=== PATIENT | male | born 1985 | race Caucasian/White ===

== ENCOUNTER → 2022-08-15 14:40 | Outpatient (BNVA) | payer MEDICAID, SELFPAY | PROVIDERS: PCP Registered Nurse; Visit Provider Nurse Practitioner Family | DX: N52.9 Male erectile dysfunction, unspecified (principal) | CPT/HCPCS: 99202 ==

== ENCOUNTER 2023-02-26 08:43 | Outpatient (REF) | payer MEDICAID, SELFPAY ==
[2023-02-26 12:39] LABS: HBS Num1 27.59 mIU/mL (0-7.99); HBc Num1 0.13 S/CO (0.00-0.79); HBsAGNum1 0.34 S/CO (0.00-0.99); HIV AB/AG Nonreactive (Nonreactive); HIV Num 1 0.05 S/CO (0.00-0.99); Hepatitis A Antibody IgM 0.15 Index (0-0.79); Hepatitis B Core Antibody Nonreactive (Nonreactive); Hepatitis B Surface Antigen Negative (Negative); ~HepC Num1 0.09 S/CO (0.00-0.79); ~Hepatitis A Antibody IgM Nonreactive (Nonreactive); ~Hepatitis B Surface Antibody REACTIVE (Nonreactive); ~Hepatitis C Antibody Nonreactive (Nonreactive)
[2023-02-26 13:58] LABS: CT PCR NOT DETECTED (Not Detect.); NG PCR NOT DETECTED (Not Detect.)
[2023-02-27 17:04] LABS: RPR Rapid Plasma Reagin NON-REACTIVE (NON-REACTIVE)
== END 2023-02-26 08:44 | disposition home or self-care (01) ==
LOC: HO.HHCL 08:43
PROVIDERS: Visit Provider Emergency Medicine
DX: N48.9 Disorder of penis, unspecified (principal); Z72.51 High risk heterosexual behavior
CPT/HCPCS: 0353U; 36415; 86592; 86695; 86696; 86704; 86706; 86709; 86803; 87070; 87205; 87255; 87340; 87389

== ENCOUNTER 2023-04-09 09:48 | Outpatient (REF) | payer MEDICAID, SELFPAY ==
[2023-04-09 11:25] LABS: Basophils Percent Auto 0.5 % (0-2); Eosinophils Percent Auto 0.5 % (0-4); Hemoglobin 15.4 g/dl (14.0-18.0); Imm Gran Abs Auto 0.02 X10*3/uL (0.00-0.03); Imm Gran Pct Auto 0.5 % (0.0-0.4); MANUAL DIFF FLAG SCAN; Mean Corpuscular HGB Conc 34.2 g/dl (31.0-36.0); Mean Corpuscular Hemoglobin 29.2 pg (27.0-33.0); Mean Corpuscular Volume 85.2 fL (80.0-98.0); Mean Platelet Volume 10.7 fL (9.4-12.4); Monocytes Absolute Auto 0.9 X10*3/uL (0.1-1.2); Monocytes Percent Auto 21.5 % (2-11); Platelet Count 181 X10*3/uL (160-400); Red Blood Count 5.28 X10*6/uL (4.60-5.80); Red Cell Distribution Width 12.5 % (11.0-16.0); SCAN SMEAR FLAG 1
[2023-04-09 11:53] LABS: SLIDE REVIEW VERIFIED
[2023-04-09 11:54] LABS: HIV AB/AG Nonreactive (Nonreactive); HIV Num 1 0.05 S/CO (0.00-0.99)
[2023-04-10 17:54] LABS: Herpes Simplex Type 1 IgG <0.90 index; Herpes Simplex Type 2 IgG <0.90 index
[2023-04-13 16:00] LABS: RPR Rapid Plasma Reagin NON-REACTIVE (NON-REACTIVE)
== END 2023-04-09 09:49 | disposition home or self-care (01) ==
LOC: HO.HHCL 09:48
PROVIDERS: Visit Provider Registered Nurse
DX: N48.9 Disorder of penis, unspecified (principal)
CPT/HCPCS: 36415; 85025; 86592; 86695; 86696; 87389

== ENCOUNTER 2023-04-23 15:26 | Outpatient (REF) | payer MEDICAID, SELFPAY ==
--- NOTE | ~2023-04-23 | XR_ITS ---
EXAMINATION: XR ELBOW, RIGHT CLINICAL INFORMATION: Pain. COMPARISON: None available. TECHNIQUE: AP, lateral, and oblique views of the right elbow. FINDINGS: Displaced avulsion fracture in the lateral epicondyle. No significant soft tissue abnormality. No joint effusion. XR/XR elbow RT min 3V IMPRESSION: Displaced avulsion fracture in the lateral epicondyle suspicious for lateral collateral ligament complex injury, consider further characterization with an MRI of the right elbow.
== END 2023-04-23 15:27 | disposition home or self-care (01) ==
LOC: HO.HHCX 15:26
PROVIDERS: Visit Provider Internal Medicine
DX: M25.521 Pain in right elbow (principal)
CPT/HCPCS: 73080

== ENCOUNTER 2023-05-05 19:23 | Outpatient (REF) | payer MEDICAID, SELFPAY ==
--- NOTE | ~2023-05-05 | MR_ITS ---
EXAMINATION: MR ELBOW WITHOUT CONTRAST, RIGHT CLINICAL INFORMATION: Right elbow pain. Fracture. Delayed healing. Tendinitis. COMPARISON: Right elbow radiographs dated 04/23/2023. TECHNIQUE: MRI of the elbow was performed using routine sequences on a high-field scanner. FINDINGS: Ulnar Collateral Ligament: Intact. Common Flexor Tendon: Minimally increased T2 signal along the anterior aspect of the common flexor tendon, consistent with minimal tendinosis. No measurable tear. Radial Collateral Ligament: Intact. Common Extensor Tendon: There is diffuse heterogeneity and thickening of the common extensor tendon with increased T2 signal, consistent with moderate tendinosis. There are areas of linear fluid signal posteriorly, which could represent longitudinal partial tearing. There is a corticated ossification as seen on the prior radiographs which appears to measure up to 1.1 cm in craniocaudal dimension with mild associated marrow edema. Findings likely represent a subacute/chronic avulsion injury. Edema extends distally along the myotendinous junction. Biceps/Triceps Tendon: Intact. Articular Cartilage/Bone: No additional fracture or dislocation. Intact articular cartilage. No osteochondral lesion. Ulnar Nerve: Intact. Joint Fluid/Soft Tissues: Small elbow joint effusion. MR/MR elbow RT wo con IMPRESSION: 1. Moderate common extensor tendinosis with probable longitudinal partial tearing. Sclerotic ossification as seen on the prior radiographs with mild associated marrow edema, likely representing a subacute/chronic avulsion injury. Edema extends distally along the myotendinous junction. 2. Minimal common flexor tendinosis without a measurable tendon tear. 3. Small elbow joint effusion.
== END 2023-05-05 19:24 | disposition home or self-care (01) ==
LOC: HO.MRI 19:23
PROVIDERS: PCP Registered Nurse; Visit Provider Internal Medicine
DX: S42.401A Unspecified fracture of lower end of right humerus, initial encounter for closed fracture (principal)
CPT/HCPCS: 73221

== ENCOUNTER 2023-06-03 09:12 | Outpatient (REF) | payer MEDICAID, SELFPAY ==
[2023-06-04 11:43] LABS: RPR Rapid Plasma Reagin NON-REACTIVE (NON-REACTIVE)
== END 2023-06-03 09:13 | disposition home or self-care (01) ==
LOC: HO.HHCL 09:12
PROVIDERS: Visit Provider Registered Nurse
DX: Z11.3 Encounter for screening for infections with a predominantly sexual mode of transmission (principal)
CPT/HCPCS: 36415; 86592

== ENCOUNTER 2023-06-12 14:49 | Outpatient (REF) | payer MEDICAID, SELFPAY ==
[2023-06-12 17:49] LABS: CT PCR NOT DETECTED (Not Detect.); NG PCR NOT DETECTED (Not Detect.)
== END 2023-06-12 14:50 | disposition home or self-care (01) ==
LOC: HO.HHCL 14:49
PROVIDERS: Visit Provider Registered Nurse
DX: Z11.3 Encounter for screening for infections with a predominantly sexual mode of transmission (principal)
CPT/HCPCS: 0353U

== ENCOUNTER 2023-08-24 08:00 | Outpatient (RCR) | payer MEDICAID, SELFPAY ==
--- NOTE | 2023-06-12 09:35 | MHC.OT.EP ---
[address] [phone] Occupational Therapy Plan of Care Patient Name: Jerry Stuart Date of Evaluation: 06/12/23 Diagnosis: Right Elbow Pain Pain Location: 2/10 Resting pain Right lateral epicondyle radiating down to the forearm, occasionally on right medial epicondyle Left general elbow ache Pain Score: 5 Pain Scale Used: Numeric (0 - 10) Aggravating Factors: Lifting, gripping, opening and carrying objects Alleviating Factors: Cortisone injection, rest, stretches Avoiding icing due to pain Assessment: 37 yo male presents w/ persistent pain in right lateral elbow, also developed pain in left medial elbow during that time 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 He reports significant improvement in pain since Cortisone injection, but still has low resting pain and occasional sharp pain w/ heavier use or gripping. On assessment, he continues to have tenderness over right lateral elbow, some in median elbow and volar forearm moreso than dorsal forearm, no nerve irritation noted. He has good strength, but weakens w/ extended gripping, consistent w/ tendinopathy. He will benefit from course of occupational therapy to address pain while focusing on activity modification, joint protection and progression of strengthening, I anticipate he will do well w/ conservative treatment. 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 Thank you once again for your referral.
--- NOTE | 2023-08-24 09:45 | MHC.OT.DC ---
[address] [phone] F: [phone] Occupational Therapy Discharge Note Patient Name: Jerry Stuart Provider: Dr Dick Piedra Diagnosis: Right Elbow Pain Left Elbow Pain Date of Evaluation: 06/12/23 Date of Discharge: 08/24/23 Treatments to Date: 15 Discharge Status: Achieved Goals Improved Function Independent with HEP Discharge Summary: Jerry was referred to OT initially w/ right lateral elbow pain, consistent w/ lateral epicondylitis, then developing discomfort in left elbow, likely early bursitis. He has progressed well w/ good follow through w/ counter force brace wear and activity modification. He is currently pain free in left elbow, mostly pain free in right expect dull ache at times w/ increased forceful use. No further outpatient OT services needed at this time, I anticipate he will continue to do well w/ self management techniques. Electronically Signed By: Ana Cristina Higgins, OTR/L CHT Please Sign and return to therapist, thank you for your referral.
== END 2023-08-24 09:57 | disposition home or self-care (01) ==
LOC: HO.OT 08:00
PROVIDERS: PCP Registered Nurse; Visit Provider Internal Medicine
DX: M77.11 Lateral epicondylitis, right elbow (principal)
CPT/HCPCS: 87086; 97033; 97110; 97140; 97165

== ENCOUNTER 2024-02-26 11:28 | Emergency (ER) | payer MEDICAID, SELFPAY ==
[2024-02-26] VITALS (7 sets, daily range): BP systolic 117–142; BP diastolic 64–79; PULSE 62–75; RESP 15–18; TEMP 36.8–37.1; O2SAT 96; BMI 32.4
--- NOTE | ~2024-02-26 | CT_ITS ---
EXAMINATION: CT ANGIOGRAM ABDOMEN AND PELVIS CLINICAL INFORMATION: Chest pain. Abdominal pain. Syncope. Chest discomfort. COMPARISON: None available. TECHNIQUE: Multiple axial images were obtained through the chest abdomen and pelvis following the administration of 85 mL of Omnipaque 350 intravenous contrast during the arterial phase. Images were reviewed on a dedicated 3-D workstation. No reported immediate complications This CT examination was performed using dose optimization techniques as appropriate, variously including the following: *Automated exposure control *Adjustment of mA and/or kV according to patient size (this includes techniques or standardized protocols for targeted exams where dose is matched to indication/reason for exam; i.e. extremities or head) *Use of iterative reconstruction technique DLP: 816 mGy-cm there. FINDINGS: CHEST: The thoracic aorta demonstrates patency with normal caliber and enhancement pattern without intimal flap or IV contrast extravasation. ABDOMEN AND PELVIS: The abdominal aorta demonstrates normal caliber and enhancement pattern without intimal flap or IV contrast extravasation. The mesenteric arteries, main renal arteries and iliac arteries demonstrate normal patency and enhancement pattern without vascular irregularity. Calcified plaques in the distal abdominal aorta wall and common iliac arteries. Ancillary findings: CHEST: No acute airspace disease. Secretions layering within the trachea. Atelectasis lung bases. No gross pulmonary nodules. No lymphadenopathy, mediastinum or perihilar. No pericardial effusion. No hemothorax. No hemopericardium. No axillary lymphadenopathy. The thyroid gland is not enlarged. There is no dominant nodules. Multilevel spondylosis without acute fracture or listhesis in the axial skeleton. No lytic or blastic lesions. Abdomen and pelvis: No hemoperitoneum. No ascites. No pneumoperitoneum. No intestinal obstruction pattern. Appendix is normal. No hydronephrosis in either kidney. No peripancreatic fluid collections. Liver measures 20 cm. Spleen measures 12 cm. Nonspecific prominent lymph nodes in the mesentery. Small tiny fat-containing umbilical hernia. Bladder is fluid-filled. No nodular lesions in the adrenal glands. Castellvi type III sacralization. No acute fracture or listhesis. Mild multilevel spondylosis. CT/CT angio abdomen pelvis IMPRESSION: No aneurysm or dissection, aorta. Concerning aspiration/deep penetration. No acute airspace disease. Fleischner guidelines were followed. Electronically signed by: Kyrie Caputo MD 02/26/2024 12:48 PM [facility] [place]
--- NOTE | ~2024-02-26 | CT_ITS ---
EXAMINATION: CT HEAD WITHOUT CONTRAST CLINICAL INFORMATION: syncope and seziue COMPARISON: None available. TECHNIQUE: Contiguous axial imaging was performed from the skull base to vertex without intravenous administration of contrast. This CT examination was performed using dose optimization techniques as appropriate, variously including the following: *Automated exposure control *Adjustment of mA and/or kV according to patient size (this includes techniques or standardized protocols for targeted exams where dose is matched to indication/reason for exam; i.e. extremities or head) *Use of iterative reconstruction technique DLP: 736 mGy-cm FINDINGS: Bony calvarium is intact. Skull base is intact. No acute intracranial hemorrhage, mass effect, midline shift, hydrocephalus or herniation. Grade 1 matter differentiation is normal. Posterior cranial fossa contents demonstrated no acute intracranial hemorrhage or mass effect. No air-fluid levels in the included paranasal sinuses. For pneumatization right frontal sinus. Small retention cysts versus polyp in the anterior right sphenoid sinus. Tympanic cavities and mastoid cells are aerated. Questionable high riding right internal jugular bulb. CT/CT head/brain wo IV con IMPRESSION: No acute fracture, bony calvarium. No acute intracranial hemorrhage. Electronically signed by: Kyrie Caputo MD 02/26/2024 12:39 PM [facility] [place]
--- NOTE | ~2024-02-26 | CT_ITS ---
EXAMINATION: CT ANGIOGRAM ABDOMEN AND PELVIS CLINICAL INFORMATION: Chest pain. Abdominal pain. Syncope. Chest discomfort. COMPARISON: None available. TECHNIQUE: Multiple axial images were obtained through the chest abdomen and pelvis following the administration of 85 mL of Omnipaque 350 intravenous contrast during the arterial phase. Images were reviewed on a dedicated 3-D workstation. No reported immediate complications This CT examination was performed using dose optimization techniques as appropriate, variously including the following: *Automated exposure control *Adjustment of mA and/or kV according to patient size (this includes techniques or standardized protocols for targeted exams where dose is matched to indication/reason for exam; i.e. extremities or head) *Use of iterative reconstruction technique DLP: 816 mGy-cm there. FINDINGS: CHEST: The thoracic aorta demonstrates patency with normal caliber and enhancement pattern without intimal flap or IV contrast extravasation. ABDOMEN AND PELVIS: The abdominal aorta demonstrates normal caliber and enhancement pattern without intimal flap or IV contrast extravasation. The mesenteric arteries, main renal arteries and iliac arteries demonstrate normal patency and enhancement pattern without vascular irregularity. Calcified plaques in the distal abdominal aorta wall and common iliac arteries. Ancillary findings: CHEST: No acute airspace disease. Secretions layering within the trachea. Atelectasis lung bases. No gross pulmonary nodules. No lymphadenopathy, mediastinum or perihilar. No pericardial effusion. No hemothorax. No hemopericardium. No axillary lymphadenopathy. The thyroid gland is not enlarged. There is no dominant nodules. Multilevel spondylosis without acute fracture or listhesis in the axial skeleton. No lytic or blastic lesions. Abdomen and pelvis: No hemoperitoneum. No ascites. No pneumoperitoneum. No intestinal obstruction pattern. Appendix is normal. No hydronephrosis in either kidney. No peripancreatic fluid collections. Liver measures 20 cm. Spleen measures 12 cm. Nonspecific prominent lymph nodes in the mesentery. Small tiny fat-containing umbilical hernia. Bladder is fluid-filled. No nodular lesions in the adrenal glands. Castellvi type III sacralization. No acute fracture or listhesis. Mild multilevel spondylosis. CT/CT angio chest aorta IMPRESSION: No aneurysm or dissection, aorta. Concerning aspiration/deep penetration. No acute airspace disease. Fleischner guidelines were followed. Electronically signed by: Kyrie Caputo MD 02/26/2024 12:48 PM [facility]
--- NOTE | 2024-02-26 11:41 | ED_ITS ---
HPI - General Adult General Chief complaint: Syncope Stated complaint: SYNCOPE PER EMS Time Seen by Provider: 02/26/24 11:35 Source: patient and EMS Mode of arrival: EMS Limitations: no limitations History of Present Illness ED Provider: JAYCOB Bajwa HPI narrative: 38-year-old male past medical history significant for erectile dysfunction on Cialis presenting to the emergency department for evaluation of syncope, seizure and abdominal discomfort. Patient reports he was in his primary care provider's office where he was following up for umbilical abdominal pain, he reports it started 2 days ago after lifting a heavy dog. He reports he went to stand up just did not feel right, had a syncopal episode which was witnessed by staff he was lowered to the ground. This was followed by a tonic-clonic seizure that lasted around a minute. He has no history of this in the past. Patient has no recollection of these episodes. He is not on blood thinners. No recent falls or trauma. At this time just reporting umbilical pain worse with palpation and better at rest. Denies chest pain, shortness breath, nausea, vomiting, headache, vision changes, dizziness, weakness, fevers, chills, recent illness. NIH stroke scale 0 on arrival Related Data Previous Rx's ?Medication ?Instructions ?Recorded tadalafil 5 mg tablet 5 mg PO DAILY 90 days #90 tabs 08/15/22 tadalafil 20 mg tablet (Cialis) 20 mg PO DAILY PRN sexual activity 11/06/22 90 days #20 tabs Allergies Allergy/AdvReac Type Severity Reaction Status Date / Time No Known Allergies Allergy Verified 02/26/24 11:56 Review of Systems 2 Review of Systems: Yes all other systems are reviewed and are negative [facility] Past Medical History Attestation statement: The following information was validated with the patient. Source: old records reviewed and nursing notes reviewed Medical History Patient denies significant medical history Erectile dysfunction Anxiety Depression Social History Social History Smoked in Last 30 Days: No Use of substances other than those prescribed or required for medical reasons: Yes Substance Use Type: Marijuana Substance Use Frequency: Daily Advance Directives: No Advance Directives Information Provided: Yes Physical Exam ED Vital Signs: Vital Signs - 24 hr 02/26/24 11:53 02/26/24 12:12 02/26/24 14:18 Temperature 98.3 F 98.4 F Pulse Rate 62 72 Respiratory Rate 18 18 Blood Pressure 130/64 117/65 Pulse Oximetry 96 96 96 Oxygen Delivery Method Room Air Room Air Room Air 02/26/24 15:43 02/26/24 15:43 Temperature Pulse Rate 65 Respiratory Rate 18 17 Blood Pressure 142/73 H Pulse Oximetry 96 Oxygen Delivery Method Room Air BMI result Body Mass Index 32.4 vss Appearance: Alert.? Oriented X3.? No acute distress.? Head: Normocephalic, atraumatic, no step-offs or deformities Eyes: Pupils equal, round and reactive to light.? Neck: Normal inspection.? Neck supple.? CVS: Normal heart rate and rhythm.? Pulses normal.? Respiratory: No respiratory distress.? Breath sounds normal.? Abdomen: Soft and + mild tenderness w/ palpation of umbilicus .? Skin: Skin warm and dry.? Normal skin color.? Normal skin turgor.? Extremities: No lower extremity edema.? No calf ttp. 5/5 strength to bilateral upper and lower extremities Back: No midline tenderness, no C-spine tenderness, full range of motion, no CVA tenderness bilaterally Neuro: Oriented X 3.? No motor deficit.? No sensory deficit. CN 2-12 intact Course Reevaluation(s) Reevaluation #1: CBC unremarkable. Chemistry no acute findings eating intervention. Normal lactic acid and CPK low suspicion for acute seizure. Troponin negative x2, EKG nonischemic. Patient's UA without infection. INR and PT normal. Toxicology positive for marijuana. Ethanol negative. CT angio abdomen and pelvis with no aneurysm or dissection of the aorta concerning aspiration/G penetration unclear what this means will call Radiology to clarify. No acute airspace disease. Patient's CT head and brain no acute fracture, no intracranial hemorrhage. Will reach out to radiology for clarification. Patient is still in pain morphine ordered. Sign out to Ty Mustafa PA-C Time: 16:06 Medications Administered Discontinued Medications Generic Name Dose Route Start Last Admin Trade Name Freq PRN Reason Stop Dose Admin Iohexol 85 ml 02/26/24 12:11 02/26/24 12:11 Iohexol 350 Mg/Ml 100 Ml Infus..Btl IV 02/26/24 12:12 85 ml ONCE ONE Administration Ketorolac Tromethamine 15 mg 02/26/24 14:07 02/26/24 14:18 Ketorolac Tromethamine 15 Mg/Ml Vial IVPUSH 02/26/24 14:08 15 mg ONCE ONE Administration Morphine Sulfate 4 mg 02/26/24 15:33 02/26/24 15:43 Morphine Sulfate 4 Mg/Ml Cartridge IVPUSH 02/26/24 15:34 4 mg ONCE ONE Administration Protocol Medical Decision Making Medical Decision Making [facility] Narrative: 1142 38-year-old male presenting status post syncope and seizure at primary care provider's office. No history of either 1 of these. Now feeling fine. He is reporting mild umbilical discomfort ongoing for the past few days. Physical exam mild discomfort with palpation overlying the umbilicus, no evident abnormalities or hernias noted. Regular rate and rhythm. Lungs clear, abdomen soft, normoactive bowel sounds. Neurological assessment nonfocal. No auscultated murmurs or bruits. History and physical exam concerning for possible small umbilical hernia. Syncope PCP's office may have been a vasovagal syncope. Unlikely acute abdomen, umbilical hernia strangulation, dissection, aneurysm, intracranial hemorrhage or stroke. Unlikely alcohol withdrawal seizure. Possible new onset epilepsy although less likely. It could have just been myoclonic jerking after syncope. Will rule out metabolic derangements. Plan labs, imaging, urine, CONNELL Differential Diagnosis Differential Diagnoses: The differential diagnosis associated with the presentation includes (History and physical exam concerning for possible small umbilical hernia. Syncope PCP's office may have been a vasovagal syncope. Unlikely acute abdomen, umbilical hernia strangulation, dissection, aneurysm, intracranial hemorrhage or stroke. Unlikely alcohol withdrawal seizure. Possible new ons) Admission/Observation Consideration of admission/observation: Escalation of care including admission/observation considered Consult Healthcare Provider Management of the patient was discussed with: [employer] (Dr. Diaz PCP - expect ) Spoke to patient's primary care provider who states patient has stood up, had a syncopal episode, moments after reports headache, had a seizure. Patient does not have history of either 1 of these. Patient is on Cialis last took it 3 days ago. No other significant past medical history. Nothing like this has ever happened before was sent in by ambulance. Lab Data [facility] Lab Attestation statement: I reviewed the patient's lab results. 02/26/24 12:39 12/20/24 12:39 Labs: Lab Results 02/26/24 02/26/24 02/26/24 Range/Units 12:38 12:39 12:47 WBC 10.8 (4.8-10.8) X10*3/uL RBC 5.05 (4.60-5.80) X10*6/uL Hgb 15.2 (14.0-18.0) g/dl Hct 43.6 (42.0-52.0) % MCV 86.3 (80.0-98.0) fL MCH 30.1 (27.0-33.0) pg MCHC 34.9 (31.0-36.0) g/dl RDW 12.3 (11.0-16.0) % Plt Count 225 (160-400) X10*3/uL MPV 9.9 (9.4-12.4) fL Immature Gran % (Auto) 0.3 (0.0-0.4) % Neut % (Auto) 83.2 H (45-73) % Lymph % (Auto) 9.7 L (20-40) % [place] % (Auto) 6.0 (2-11) % Eos % (Auto) 0.6 (0-4) % Baso % (Auto) 0.2 (0-2) % Lymph # (Auto) 1.1 L (1.2-4.9) X10*3/uL [place] # (Auto) 0.7 (0.1-1.2) X10*3/uL Eos # (Auto) 0.1 (0.0-0.4) X10*3/uL Baso # (Auto) 0.0 (0.0-0.2) X10*3/uL Abs Immat Gran (auto) 0.03 (0.00-0.03) X10*3/uL Absolute Neuts (auto) 9.0 H (2.0-8.3) x10*3/uL Absolute Nucleated RBC 0.000 (0.0-0.012) X10*3/uL Nucleated RBC % (auto) 0.0 (0.0-0.2) /100WBC PT 11.4 (10.9-12.4) SEC INR 1.0 (0.9-1.1) Sodium 139 (135-145) mmol/L Potassium 4.1 (3.3-5.1) mmol/L Chloride 105 (96-108) mmol/L Carbon Dioxide 28 (22-29) mmol/L Anion Gap 10 L (12-20) BUN 9 (9-16) mg/dL Creatinine 1.07 (0.5-1.4) mg/dL Estim Creat Clear Calc 125.8 Estimated GFR > 60 Random Glucose 102 (60-115) mg/dL Lactic Acid 0.8 (0.5-2.0) mmol/L Calcium 8.9 (8.4-10.2) mg/dL Magnesium 2.0 (1.6-2.6) mg/dL Total Bilirubin 0.9 (0.0-1.0) mg/dL AST 18 (5-37) U/L ALT 14 (0-40) U/L Alkaline Phosphatase 41 (39-117) U/L Total Creatine Kinase 95 (38-174) U/L Troponin I High Sens < 2.7 (<3.5-35.0) ng/L Total Protein 6.7 (6.5-8.0) g/dL Albumin 4.4 (3.5-5.0) g/dL Lipase 27 (8-78) U/L Urine Color Yellow Urine Appearance Cloudy Urine pH 8.0 (5.0-9.0) Ur Specific [place] >= 1.030 H (1.005-1.025) Urine Protein Negative (Neg-Trace) mg/dL Urine Glucose (UA) Negative (Negative) mg/dL Urine Ketones Negative (Negative) mg/dL Urine Blood Negative (Negative) Urine Nitrite Negative (Negative) Ur Leukocyte Esterase Negative (Negative) Urine Opiates Screen Not Detected (Not Detect) Ur Buprenorphine Scrn Not Detected (Not Detect) ng/mL Ur Oxycodone Screen Not Detected (Not Detect) ng/mL Urine Methadone Screen Not Detected (Not Detect) ng/mL Urine Fentanyl Screen Not Detected (Not Detect) Ur Barbiturates Screen Not Detected (Not Detect) Ur Phencyclidine Scrn Not Detected (Not Detect) Ur Amphetamines Screen Not Detected (Not Detect) U Benzodiazepines Scrn Not Detected (Not Detect) Urine Cocaine Screen Not Detected (Not Detect) U Marijuana (THC) Screen POSITIVE H (Not Detect) Ethyl Alcohol < 10 mg/dL 02/26/24 Range/Units 14:24 WBC (4.8-10.8) X10*3/uL RBC (4.60-5.80) X10*6/uL Hgb (14.0-18.0) g/dl Hct (42.0-52.0) % MCV (80.0-98.0) fL MCH (27.0-33.0) pg MCHC (31.0-36.0) g/dl RDW (11.0-16.0) % Plt Count (160-400) X10*3/uL MPV (9.4-12.4) fL Immature Gran % (Auto) (0.0-0.4) % Neut % (Auto) (45-73) % Lymph % (Auto) (20-40) % [place] % (Auto) (2-11) % Eos % (Auto) (0-4) % Baso % (Auto) (0-2) % Lymph # (Auto) (1.2-4.9) X10*3/uL [place] # (Auto) (0.1-1.2) X10*3/uL Eos # (Auto) (0.0-0.4) X10*3/uL Baso # (Auto) (0.0-0.2) X10*3/uL Abs Immat Gran (auto) (0.00-0.03) X10*3/uL Absolute Neuts (auto) (2.0-8.3) x10*3/uL Absolute Nucleated RBC (0.0-0.012) X10*3/uL Nucleated RBC % (auto) (0.0-0.2) /100WBC PT (10.9-12.4) SEC INR (0.9-1.1) Sodium (135-145) mmol/L Potassium (3.3-5.1) mmol/L Chloride (96-108) mmol/L Carbon Dioxide (22-29) mmol/L Anion Gap (12-20) BUN (9-16) mg/dL Creatinine (0.5-1.4) mg/dL Estim Creat Clear Calc Estimated GFR Random Glucose (60-115) mg/dL Lactic Acid (0.5-2.0) mmol/L Calcium (8.4-10.2) mg/dL Magnesium (1.6-2.6) mg/dL Total Bilirubin (0.0-1.0) mg/dL AST (5-37) U/L ALT (0-40) U/L Alkaline Phosphatase (39-117) U/L Total Creatine Kinase (38-174) U/L Troponin I High Sens < 2.7 (<3.5-35.0) ng/L Total Protein (6.5-8.0) g/dL Albumin (3.5-5.0) g/dL Lipase (8-78) U/L Urine Color Urine Appearance Urine pH (5.0-9.0) Ur Specific [place] (1.005-1.025) Urine Protein (Neg-Trace) mg/dL Urine Glucose (UA) (Negative) mg/dL Urine Ketones (Negative) mg/dL Urine Blood (Negative) Urine Nitrite (Negative) Ur Leukocyte Esterase (Negative) Urine Opiates Screen (Not Detect) Ur Buprenorphine Scrn (Not Detect) ng/mL Ur Oxycodone Screen (Not Detect) ng/mL Urine Methadone Screen (Not Detect) ng/mL Urine Fentanyl Screen (Not Detect) Ur Barbiturates Screen (Not Detect) Ur Phencyclidine Scrn (Not Detect) Ur Amphetamines Screen (Not Detect) U Benzodiazepines Scrn (Not Detect) Urine Cocaine Screen (Not Detect) U Marijuana (THC) Screen (Not Detect) Ethyl Alcohol mg/dL Independent Interpretation I performed an independent interpretation of an: EKG Radiology Impression Discussion of test interpretation with radiology: I have reviewed the radiologist's reading. Independent Historian Clinical information obtained from an independent historian. History obtained from or confirmed by: EMS and Other (PCP ) External Record Review External record reviewed: Outpatient record Chronic Conditions Patient?s care impacted by: Other (ED) Critical Care Time Critical Care Time Critical Care Time: Yes Total Critical Care Time: 35 Attestation: I attest to this time spent taking care of the patient, obtaining history, physical, reviewing labs, imaging, treatment of patients condition +/- specialist/hospitalist consult Discharge Plan Discharge Clinical Impression: Syncope, Abdominal pain Patient Disposition: Still a Patient Prescriptions: No Action tadalafil [Cialis] 20 mg tablet 20 mg PO DAILY PRN (Reason: sexual activity) 90 Days Qty: 20 0RF Rx Instructions: administer approximately 30min before sexual activity; do not use more than 1 dose per 24hrs tadalafil 5 mg tablet 5 mg PO DAILY 90 Days Qty: 90 3RF Print Language: Algerian
--- NOTE | 2024-02-26 11:45 | ECG_ITS ---
Test Reason : SYNCOPE Blood Pressure : / mmHG Vent. Rate : 064 BPM Atrial Rate : 064 BPM P-R Int : 130 ms QRS Dur : 100 ms QT Int : 410 ms P-R-T Axes : 060 079 031 degrees QTc Int : 422 ms Normal sinus rhythm Normal ECG No previous ECGs available Referred By: Katty Bajwa Electronically Signed By:KAYLEE MORALES
[2024-02-26] MEDS: iohexoL 350 MG/ML 100 ML INFUS..BTL 85 ML IV (12:11)
[2024-02-26 12:43] LABS: MANUAL DIFF FLAG NO
[2024-02-26 12:45] LABS: Basophils Percent Auto 0.2 % (0-2); Eosinophils Absolute Auto 0.1 X10*3/uL (0.0-0.4); Eosinophils Percent Auto 0.6 % (0-4); Hematocrit 43.6 % (42.0-52.0); Hemoglobin 15.2 g/dl (14.0-18.0); Imm Gran Abs Auto 0.03 X10*3/uL (0.00-0.03); Imm Gran Pct Auto 0.3 % (0.0-0.4); Lymphocytes Absolute Auto 1.1 X10*3/uL (1.2-4.9); Lymphocytes Percent Auto 9.7 % (20-40); Mean Corpuscular HGB Conc 34.9 g/dl (31.0-36.0); Mean Corpuscular Hemoglobin 30.1 pg (27.0-33.0); Mean Corpuscular Volume 86.3 fL (80.0-98.0); Mean Platelet Volume 9.9 fL (9.4-12.4); Monocytes Absolute Auto 0.7 X10*3/uL (0.1-1.2); Neutrophils Percent Auto 83.2 % (45-73); Platelet Count 225 X10*3/uL (160-400); Red Blood Count 5.05 X10*6/uL (4.60-5.80); Red Cell Distribution Width 12.3 % (11.0-16.0); White Blood Count 10.8 X10*3/uL (4.8-10.8)
[2024-02-26 12:51] LABS: Prothrombin Time 11.4 SEC (10.9-12.4)
--- NOTE | 2024-02-26 12:51 | PC.NURSE ---
Pt presents to ED from urgent care via EMS, reports he went there for umbilical abd pain that started yesterday morning. During the exam while his abd was being palpated he felt dizzy and had syncopal episode, staff lowered him to ground, no head hit but staff was questioning seizure activity. Pt alert and oriented, breathing even and unlabored, skin warm and dry. Pain 5/10 in ABD. No N/V/D, CP, or SOB
[2024-02-26 12:54] LABS: Appearance Urine Cloudy; Color Urine Yellow; Glucose Urine UA Negative (Negative); Leukocyte Esterase Urine Negative (Negative); Nitrite Urine Negative (Negative); Specific Gravity - Urine >= 1.030 (1.005-1.025); Urine Blood Negative (Negative); Urine Ketones Negative (Negative); Urine Protein Negative (Neg-Trace)
[2024-02-26 12:59] LABS: Alanine Aminotransferase 14 U/L (0-40); Albumin Level 4.4 g/dL (3.5-5.0); Alkaline Phosphatase 41 U/L (39-117); Anion Gap 10 (12-20); Aspartate Amino Transferase 18 U/L (5-37); Bilirubin Total 0.9 mg/dL (0.0-1.0); Blood Urea Nitrogen 9 mg/dL (9-16); Calcium 8.9 mg/dL (8.4-10.2); Carbon Dioxide 28 mmol/L (22-29); Chloride 105 mmol/L (96-108); Creatinine Clr Calc Pharmacy 125.8; Estimated Glomerular Filt Rate > 60; Ethanol < 10 mg/dL; Glucose Random 102 mg/dL (60-115); Lactic Acid 0.8 mmol/L (0.5-2.0); Potassium 4.1 mmol/L (3.3-5.1); Sodium 139 mmol/L (135-145); Total Protein 6.7 g/dL (6.5-8.0)
[2024-02-26 13:00] LABS: Lipase 27 U/L (8-78)
[2024-02-26 13:03] LABS: Amphetamine Screen Urine Not Detected (Not Detect); Barbiturates, Urine Not Detected (Not Detect); Benzodiazepines Screen Urine Not Detected (Not Detect); Buprenorphine Scr Not Detected (Not Detect); Cannabinoid Screen Urine POSITIVE (Not Detect); Cocaine Screen Urine Not Detected (Not Detect); Fentanyl, urine Not Detected (Not Detect); Methadone Screen, Urine Not Detected (Not Detect); Opiate Screen Urine Not Detected (Not Detect); Oxycodone Screen Urine Not Detected (Not Detect); Phencyclidine Screen Urine Not Detected (Not Detect)
[2024-02-26 13:10] LABS: Troponin-I High Sensitivity < 2.7 ng/L (<3.5-35.0)
[2024-02-26] MEDS: Ketorolac Tromethamine 15 MG/ML VIAL IVPUSH (14:18)
[2024-02-26 14:51] LABS: Troponin-I High Sensitivity < 2.7 ng/L (<3.5-35.0)
[2024-02-26] MEDS: Morphine Sulfate 4 MG/ML CARTRIDGE IVPUSH (15:43)
== END 2024-02-26 18:49 | disposition home or self-care (01) ==
PROVIDERS: Physician Assistant; Emergency Provider Emergency Medicine Emergency Medical Services; PCP Registered Nurse
DX: R55 Syncope and collapse (principal); R10.9 Unspecified abdominal pain; R07.9 Chest pain, unspecified; N52.9 Male erectile dysfunction, unspecified; R56.9 Unspecified convulsions; Z79.899 Other long term (current) drug therapy
CPT/HCPCS: 36415; 70450; 71275; 74174; 80053; 80307; 81003; 82550; 83605; 83690; 83735; 84484; 85025; 85610; 93005; 96374; 96376; 99285; J1885; J2270; Q9967

== ENCOUNTER → 2024-02-26 11:35 | Outpatient (BNV) | payer MEDICAID, SELFPAY | PROVIDERS: Emergency Provider Emergency Medicine Emergency Medical Services; PCP Registered Nurse; Visit Provider Radiology Diagnostic Radiology | DX: I70.0 Atherosclerosis of aorta (principal); I70.8 Atherosclerosis of other arteries; R09.3 Abnormal sputum; J98.11 Atelectasis; R55 Syncope and collapse | CPT/HCPCS: 70450; 71275; 74174 ==

== ENCOUNTER → 2024-02-26 11:45 | Outpatient (BNV) | payer MEDICAID, SELFPAY | PROVIDERS: Emergency Provider Emergency Medicine Emergency Medical Services; PCP Registered Nurse; Visit Provider Internal Medicine | DX: R55 Syncope and collapse (principal) | CPT/HCPCS: 93010 ==

== ENCOUNTER 2024-03-07 13:42 | Outpatient (AMB) | payer MEDICAID, SELFPAY ==
--- NOTE | 2024-03-07 13:43 | MHC.OFFVIS ---
Vital Signs 03/07/24 13:49 Height 6 ft 2 in Weight 232 lb BMI 29.8 BP 147/77 H Blood Pressure Location Rt brachial Position Sitting Pulse 80 Intake Visit Reasons: umbilical hernia Intake Note: Patient referred for Umbilical hernia. Present for months. Patient c/o: pain started 2wks ago. 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 He is had progression of symptoms. He was seen emergency department which workup included CT scan demonstrating a small umbilical hernia. No other pathology was demonstrated. Apparently the patient blacked out in his doctor's office and was transferred to the ER read a full workup for this all of which was otherwise negative. Patient tolerating a diet. Has regular bowel habits. He does moderate to significant heavy lifting for his employment. Chart was reviewed and patient evaluate [facility] Medical History Patient denies significant medical history Erectile dysfunction Anxiety Depression Social History Substance Use Type: Marijuana Physical Exam Vital Signs: Last Vital Signs Pulse 80 03/07/24 13:49 BP 147/77 H 03/07/24 13:49 BMI result Body Mass Index 29.8 Chest Other: Chest breath sounds bilaterally, HS 1 in 2 GI Other: Patient was examined both supine and standing with Valsalva. Bilateral groin exam negative. Abdomen soft. Very sensitive to deep palpation of the umbilicus but a very small umbilical hernia was demonstrated. Hernia size roughly 1-2 cm. 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 Assessment & Plan Assessment & Plan (1) Umbilical hernia: Code(s): K42.9 - Umbilical hernia without obstruction or gangrene Category: Medical Plan Clinical findings CT scan both demonstrated small umbilical hernia. Therapeutic options were reviewed with the patient which include continued conservative therapy or hernia repair. Because of the progressively increasing symptomatic nature of the hernia, he would like to have it repaired. Risks, benefits, and alternatives of open umbilical hernia repair with mesh reviewed with the patient and included but not limited to bleeding, infection, recurrence, numbness, pain, scarring, bowel injury and the patient wishes to proceed. All questions answered. Arrangements were made for this. Coding Level of Care Code New Pt Level 5 (67507) Diagnoses Umbilical hernia K42.9
[2024-03-07 13:49] VITALS: BP 147/77; PULSE 80; BMI 29.8
== END 2024-03-07 14:39 | disposition home or self-care (01) ==
PROVIDERS: PCP Registered Nurse; Visit Provider Surgery
DX: K42.9 Umbilical hernia without obstruction or gangrene (principal)
CPT/HCPCS: 99204

== ENCOUNTER → 2024-03-07 13:42 | Outpatient (BNVA) | payer MEDICAID, SELFPAY | PROVIDERS: PCP Registered Nurse; Visit Provider Surgery | DX: K42.9 Umbilical hernia without obstruction or gangrene (principal) | CPT/HCPCS: 99202 ==

== ENCOUNTER 2024-03-14 14:02 | Outpatient (REF) | payer MEDICAID, SELFPAY ==
--- NOTE | ~2024-03-14 | XR_ITS ---
EXAMINATION: XR ELBOW 3 VIEWS RIGHT HISTORY: FELL COMPARISON: This is made with the prior examination dated 04/23/2023. FINDINGS: Four views of the right elbow are submitted. Osseous mineralization is normal. There is no fracture or dislocation. The joint spaces are preserved. The previously seen soft tissue calcification at the lateral aspect of the elbow is less prominent. There is no joint effusion. XR/XR elbow RT min 3V IMPRESSION: No evidence of acute fracture of the right elbow. Electronically signed by: Hudson Mercado MD 03/14/2024 03:26 PM [facility]
== END 2024-03-14 14:03 | disposition home or self-care (01) ==
LOC: HO.HHCX 14:02
PROVIDERS: Visit Provider Nurse Practitioner Family
DX: M25.521 Pain in right elbow (principal)
CPT/HCPCS: 73080

== ENCOUNTER → 2024-03-14 14:03 | Outpatient (BNV) | payer MEDICAID, SELFPAY | PROVIDERS: Visit Provider Radiology Diagnostic Radiology | DX: S59.901A Unspecified injury of right elbow, initial encounter (principal); W19.XXXA Unspecified fall, initial encounter | CPT/HCPCS: 73080 ==

== ENCOUNTER 2024-03-18 05:59 | Day surgery (SDC) | payer MEDICAID, SELFPAY ==
--- NOTE | 2024-03-16 14:38 | HO.ANESPROP2 ---
Documented by User: Salina Wilson NP 03/16/24 14:38 HPI - Anesthesia Eval Consult details Narrative: 38yo M for open Hernia Umbilical repair with mesh PMFSH Active Problems Active Problems: All Active Problems Umbilical hernia (Acute) Erectile dysfunction (Acute) Past Medical History Medical History Elbow pain, right Testicular pain, left Patient denies significant medical history Erectile dysfunction Anxiety Depression Surgical History Surgical History Hx of tooth extraction Social History Social History Patient Tobacco Use Status: Former Tobacco user Use of substances other than those prescribed or required for medical reasons: Yes Substance Use Type: Marijuana Substance Use Type Other:: smoked-last used 03/17 Substance Use Frequency: Daily Are you DNR?: No Advance Directives: No Advance Directives Information Provided: Yes Meds Allergies Allergy/AdvReac Type Severity Reaction Status Date / Time No Known Allergies Allergy Verified 03/18/24 06:35 Home Medications ?Medication ?Instructions ?Recorded ?Confirmed ?Last Taken ?Type lorazepam PO PRN Anxiety 03/18/24 Unknown History Exam Narrative Narrative: EKG 02/2024 Vent. Rate : 064 BPM Atrial Rate : 064 BPM P-R Int : 130 ms QRS Dur : 100 ms QT Int : 410 ms P-R-T Axes : 060 079 031 degrees QTc Int : 422 ms Normal sinus rhythm Normal ECG No previous ECGs available Assessment and Plan Assessment Anesthesia Assessment: Chart Reviewed Documented by User: Erlinda Jon MD 03/18/24 07:50 PMFSH Past Medical History Medical History Elbow pain, right Testicular pain, left Patient denies significant medical history Erectile dysfunction Anxiety Depression Family History Family history of problems with anesthesia: Yes Surgical History Surgical History Hx of tooth extraction History of Problems with Anesthesia: No Social History Social History Patient Tobacco Use Status: Former Tobacco user Use of substances other than those prescribed or required for medical reasons: Yes Substance Use Type: Marijuana Substance Use Type Other:: smoked-last used 03/17 Substance Use Frequency: Daily Are you DNR?: No Advance Directives: No Advance Directives Information Provided: Yes Meds Allergies Allergy/AdvReac Type Severity Reaction Status Date / Time No Known Allergies Allergy Verified 03/18/24 06:35 Home Medications ?Medication ?Instructions ?Recorded ?Confirmed ?Last Taken ?Type lorazepam PO PRN Anxiety 03/18/24 Unknown History Exam Airway Mallampati Class: II TM Dist: >3cm Neck ROM: Full Loose/Missing/Broken Teeth: No Heart: RRR Lungs: CTA Assessment and Plan Assessment Anesthesia Assessment: Anesthesia Plan Discussed Final Anesthetic Review Family History of Problems with Anesthesia: Yes History of Problems with Anesthesia: No NPO: Yes ASA Class: II Final Preanesthetic Review: Meds/Allgs Chart Reviewed, Consent Obtained/Reviewed and Anes Risks/Benef Reviewed Patient Risk: Low Procedure Risk: Low Anesthetic Plan Anesthetic Plan: GA Disposition: Standard PACU
--- NOTE | 2024-03-17 13:37 | P.HPSUR_ITS ---
Pre-Procedural Eval Section A - 24 Hr Update-Section A only Date of Service: 03/17/24 The patient is an INPATIENT: No Changes since office visit: No Cold of Flu in the past 2 weeks, No New Medical Problems, No Changes in Medication and No Patient answered all questions Section B - Complete if H&P > 30 days Chief Complaint: Umbilical hernia without obstruction or gangrene Allergies: Allergies Allergy/AdvReac Type Severity Reaction Status Date / Time No Known Allergies Allergy Verified 03/07/24 13:48 Review of Systems Sugical H&P ROS: Negative: Constitution, Cardiovascular, Respiratory, Neurological, Psychiatric, Hem-Onc, Allergic/Immunologic, Gastrointestinal, Genitourinary, Musculoskeletal, Integumentary, Endocrine and Ey es/Ears/Nose/Throat Exam Surgical H&P Exam: Normal: HEENT, Normal: Heart, Normal: Lungs, Normal: Extremities, Normal: Abdomen, Normal: Skin and Normal: Neurological Plan I have reviewed the history and physical and performed a pertinent physical examination on my patient. No changes have occurred unless specified. Time Spent With Patient Time: Total time managing care of this patient today ____ minutes.
[2024-03-18] VITALS (18 sets, daily range): BP systolic 124–142; BP diastolic 72–84; PULSE 65–80; RESP 15–18; TEMP 36.8–37.6; O2SAT 96–100; BMI 29.1
[2024-03-18] MEDS: Lactated Ringers 1,000 ML 100 ML IVCONT (06:33)
--- NOTE | 2024-03-18 08:06 | P.OP_ITS ---
Operative Note Operative Note Date of Service: 03/18/24 Narrative: Preoperative diagnosis: [] Symptomatic incarcerated umbilical hernia Postop diagnosis: [] The same Procedure [] open umbilical herniorrhaphy with Bard mesh Surgeon: [] Declan Injection Molding Machine Offbearer: [] Type of Anesthesia: [] General Indication for surgery: [] Roughly 2 cm incarcerated umbilical hernia with omental contents Findings: [] Patient brought to the operating room, placed on operative table supine position, after an adequate level of general anesthesia was induced, the patient's abdomen is prepped and draped in usual sterile. Using a small infraumbilical curvilinear incision, this carried down through skin, subcutaneous tissue, where a small hernia sac with incarcerated omental contents was encountered. This was dissected from the posterior aspect of the umbilicus and dissected down through the fascia. Sac was opened were incarcerated omental contents were reduced. Sac was amputated. Fascia margins were circumferentially cleared. Inappropriately sized Bard mesh was placed in this defect and the superficial layer of the mesh was circumferentially sutured to the surrounding fascia using interrupted 0 Ethibond suture. At completion of procedure, mesh was in good position with no gaps or tension. Wound was irrigated, secured hemostasis, and closed in the following manner; posterior aspect of the umbilicus was tacked to the wound floor using interrupted 3-0 Vicryl suture. Skin was closed using interrupted inverted dermal 3-0 Vicryl sutures followed by Steri-Strips and sterile dressings. Wound was infiltrated at the beginning at the end of the case with 0.5% Marcaine/1% lidocaine. Sponge, needle, and instrument counts reported correct. Patient tolerated the procedure well and emerged from anesthesia stable condition. EBL minimal
[2024-03-18] MEDS: oxyCODONE HCl Immed Release 5 MG TABLET PO (08:23)
[2024-03-18] MEDS: fentaNYL citrate/PF 100 MCG/2 ML VIAL 25 MCG IVPUSH ×8 (08:24→09:16)
== END 2024-03-18 10:06 | disposition home or self-care (01) ==
PROVIDERS: PCP Registered Nurse; Visit Provider Surgery
PROC: (CPT 49592; principal; 2024-03-18 07:30)
DX: K42.0 Umbilical hernia with obstruction, without gangrene (principal); N52.9 Male erectile dysfunction, unspecified; F32.A Depression, unspecified; F41.9 Anxiety disorder, unspecified; Z79.899 Other long term (current) drug therapy; Z87.891 Personal history of nicotine dependence
CPT/HCPCS: 49592; C1781; J0131; J0690; J2003; J2250; J2704; J2795; J3010

== ENCOUNTER → 2024-03-18 05:59 | Outpatient (BNV) | payer MEDICAID, SELFPAY | PROVIDERS: PCP Registered Nurse; Visit Provider Surgery | DX: K42.0 Umbilical hernia with obstruction, without gangrene (principal) | CPT/HCPCS: 49592 ==

== ENCOUNTER 2024-03-21 16:02 | Outpatient (REF) | payer MEDICAID, SELFPAY ==
[2024-03-22 05:49] LABS: CT PCR NOT DETECTED (Not Detect.); NG PCR NOT DETECTED (Not Detect.)
== END 2024-03-21 16:03 | disposition home or self-care (01) ==
LOC: HO.HHCL 16:02
PROVIDERS: Visit Provider General Practice
DX: N34.2 Other urethritis (principal)
CPT/HCPCS: 87491; 87591

== ENCOUNTER 2024-03-22 09:05 | Outpatient (REF) | payer MEDICAID, SELFPAY ==
[2024-03-22 12:46] LABS: HIV AB/AG Nonreactive (Nonreactive); HIV Num 1 0.05 S/CO (0.00-0.99); ~Hepatitis C Antibody Nonreactive (Nonreactive)
[2024-03-22 12:47] LABS: HBc Num1 0.12 S/CO (0.00-0.79); HBsAGNum1 0.37 S/CO (0.00-0.99); Hepatitis A Antibody IgM 0.19 Index (0-0.79); Hepatitis B Core Antibody Nonreactive (Nonreactive); Hepatitis B Surface Antigen Negative (Negative); ~HepC Num1 0.08 S/CO (0.00-0.79); ~Hepatitis A Antibody IgM Nonreactive (Nonreactive); ~Hepatitis B Surface Antibody REACTIVE (Nonreactive); ~Hepatitis C Antibody Nonreactive (Nonreactive)
[2024-03-23 14:53] LABS: Varicella IgG Antibody 4.45 S/CO
[2024-03-25 15:53] LABS: Rubella IgG Antibody 3.22 Index
== END 2024-03-22 09:06 | disposition home or self-care (01) ==
LOC: HO.HHCL 09:05
PROVIDERS: Registered Nurse; Visit Provider General Practice
DX: Z00.00 Encounter for general adult medical examination without abnormal findings (principal); N34.2 Other urethritis; Z11.59 Encounter for screening for other viral diseases; Z72.89 Other problems related to lifestyle
CPT/HCPCS: 36415; 86704; 86706; 86709; 86735; 86762; 86765; 86787; 86803; 87340; 87389

== ENCOUNTER 2024-03-23 09:37 | Outpatient (AMB) | payer MEDICAID, SELFPAY ==
--- NOTE | 2024-03-23 09:40 | MHC.OFFVIS ---
Intake Visit Reasons: wound check, blisters s/p umbilical hernia repair Intake Note: Patient here s/p open umbilical herniorrhaphy with Bard mesh. Patient c/o: blisters along scar line, red, inflamed. Noticed red bumps after removing top bandage. Denies itch. No onger taking rx pain as caused constipation. 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 He is having reaction to the tape. He is otherwise doing well. He is tolerating a diet. Having regular bowel habits. He is increasing his activity level. He still has moderate incisional discomfort which is slowly improving. [facility] Medical History Elbow pain, right Testicular pain, left Patient denies significant medical history Erectile dysfunction Anxiety Depression Surgical History Hx of tooth extraction Social History Patient Tobacco Use Status: Former Tobacco user Substance Use Type: Marijuana Physical Exam GI Other: Abdomen is soft, benign. Incision clean dry and intact. Patient was superficial blistering from the tape and Steri-Strips which were uneventfully removed. Patient was reassured that there was no infection at this time. Assessment & Plan Assessment & Plan (1) Encounter for postoperative wound check: Code(s): Z48.89 - Encounter for other specified surgical aftercare Category: Surgical Plan Patient was been given local instructions and otherwise follow-up p.r.n.. All questions answered. Coding Level of Care Code Global (56500) Diagnoses Encounter for postoperative wound check Z48.89
== END 2024-03-23 09:50 | disposition home or self-care (01) ==
PROVIDERS: PCP Registered Nurse; Visit Provider Surgery
DX: K42.9 Umbilical hernia without obstruction or gangrene (principal); Z09 Encounter for follow-up examination after completed treatment for conditions other than malignant neoplasm
CPT/HCPCS: 99212

== ENCOUNTER → 2024-03-23 09:37 | Outpatient (BNVA) | payer MEDICAID, SELFPAY | PROVIDERS: PCP Registered Nurse; Visit Provider Surgery | DX: Z09 Encounter for follow-up examination after completed treatment for conditions other than malignant neoplasm (principal); Z87.19 Personal history of other diseases of the digestive system; Z98.890 Other specified postprocedural states | CPT/HCPCS: 99212 ==

== ENCOUNTER 2024-03-30 08:47 | Outpatient (REF) | payer MEDICAID, SELFPAY ==
--- OUTSIDE RECORDS SUMMARY | 2024-03-30 09:02 | XMS_ITS | Clinical Summary ---
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 should not be used fornon-medical purposes. Methadone Screen, Urine Not Detected Not Detect ng/mL [facility] Comment:Methadone cut-off is 300 ng/mL.Positive results are unconfirmed and should not be used fornon-medical purposes. FENTANYL URINE Not Detected Not Detect [facility] Comment:Fentanyl cut-off is 1 ng/mL.Positive results are unconfirmed and should not be used fornon-medical purposes. Oxycodone Urine Screen Not Detected Not Detect ng/mL [facility] Comment:Oxycodone cut-off is 100 ng/mL.Positive results are unconfirmed and should not be used fornon-medical purposes. Buprenorphine Screen Not Detected Not Detect ng/mL [facility] Comment:Buprenorphine cut-of f is 5 ng/mL.Positive results are unconfirmed and should not be used fornon-medical purposes. 02/26/2024 12:4 7 PM EST 02/26/2024 12:50 PM EST Generic External Data Provider LAB URINE ORDERAB LES Final Result Performing Organization Address [facility] Co de Phone Number [facility] [address] [place] [phone] * (ABNORMAL) Urinalysis w/reflex microscopic (02/26/2024 12:47 PM EST) Color Urine Yellow [facility] Appearance Urine Cloudy [facility] PH 8.0 5.0 - 9.0 [facility] Glucose Urine UA Negative Negative mg/dL [facility] Urine Blood Negative Negative [facility] Specific [place] - Urine >=1.030(H) 1.005 - 1.025 [facility] Urine Protein Negative Neg-Trace mg/dL [facility] Urine Ketones Negative Negative mg/dL [facility] Nitrite Urine Negative Negative [facility] Leukocyte Esterase Urine Negative Negative [facility] 02/26/2024 12:4 7 PM EST 02/26/2024 12:50 PM EST Narrative [facility] - 02/26/2024 12:54 PM EST [id number], [employer] us Generic External Data Provider LAB URINE ORDERAB LES Final Result Performing Organization Address [facility] Phone Number [facility] [address] [place] [phone] * Ethanol (02/26/2024 12:39 PM EST) ETHANOL (MG/DL) IN SER/PLAS <10 mg/dL [facility] Comment:Serum/plasma ethanol results are to be used formedical/treatment purposes only. 02/26/2024 12:3 9 PM EST 02/26/2024 12:42 PM EST us Generic External Data Provider LAB BLOOD ORDERAB LES Final Result Performing Organization Address [facility] Co de Phone Number [facility] [address] [place] [phone] * (ABNORMAL) CBC auto differential (02/26/2024 12:39 PM EST) White Blood Count 10.8 4.8 - 10.8 X10*3/uL [facility] Red Blood Count 5.05 4.60 - 5.80 X10*6/uL [facility] Hemoglobin 15.2 14.0 - 18.0 g/dl [facility] Hematocrit 43.6 42.0 - 52.0 % [facility] Mean Corpuscular Volume 86.3 80.0 - 98.0 fL [facility] Mean Corpuscular Hemoglobin 30.1 27.0 - 33.0 pg [facility] Mean Corpuscular HGB Conc 34.9 31.0 - 36.0 g/dl [facility] Red Cell Distribution Width 12.3 11.0 - 16.0 % [facility] Platelet Count 225 160 - 400 X10*3/uL [facility] Mean Platelet Volume 9.9 9.4 - 12.4 fL [facility] Neutrophils Percent Auto 83.2(H) 45 - 73 % [facility] Imm Gran Pct Auto 0.3 0.0 - 0.4 % [facility] Lymphocytes Percent Auto 9.7(L) 20 - 40 % [facility] Monocytes Percent Auto 6.0 2 - 11 % [facility] Eosinophils Percent Auto 0.6 0 - 4 % [facility] Basophils Percent Auto 0.2 0 - 2 % [facility] NRBC Pct Auto 0.0 0.0 - 0.2 /100WBC [facility] Neutrophils Absolute Auto 9.0(H) 2.0 - 8.3 x10*3/uL [facility] Imm Gran Abs Auto 0.03 0.00 - 0.03 X10*3/uL [facility] Lymphocytes Absolute Auto 1.1(L) 1.2 - 4.9 X10*3/uL [facility] Monocytes Absolute Auto 0.7 0.1 - 1.2 X10*3/uL [facility] Eosinophils Absolute Auto 0.1 0.0 - 0.4 X10*3/uL [facility] Basophils Absolute Auto 0.0 0.0 - 0.2 X10*3/uL [facility] NRBC Abs Auto 0.000 0.0 - 0.012 X10*3/uL [facility] 02/26/2024 12:3 9 PM EST 02/26/2024 12:42 PM EST Generic External Data Provider LAB BLOOD ORDERAB LES Final Result Performing Organization Address [facility] Co de Phone Number [facility] [address] [place] [phone] * Prothrombin Time-INR (02/26/2024 12:39 PM EST) Prothrombin Time 11.4 10.9 - 12.4 SEC [facility] INTERNATIONAL NORM RATIO 1.0 0.9 - 1.1 [facility] Comment:INTERNATIONAL NORMAL IZED RATIO (INR) REFERENCE RANGES Reference RangeFor patients not on anticoagulant therapy: 0.9 - 1.1INR ranges for oral anticoagulanttherapy:For prevention and treatment of venous thrombosis and pulmonary embolism: 2.0 - 3.0For acute myocardial infarction with aspirin therapy: 2.0 - 3.0For acute myocardial infarction without aspirin therapy: 3.0 - 4.0For patients with mechanical prosthetic heart valves: 2.5 - 3.5 02/26/2024 12:3 9 PM EST 02/26/2024 12:42 PM EST [employer] External Data Provider LAB BLOOD ORDERAB LES Final Result Performing Organization Address [facility] Co de Phone Number [facility] [address] [place] [phone] * Magnesium (02/26/2024 12:39 PM EST) Magnesium 2.0 1.6 - 2.6 mg/dL [facility] 02/26/2024 12:3 9 PM EST 02/26/2024 12:42 PM EST us Generic External Data Provider LAB BLOOD ORDERAB LES Final Result Performing Organization Address City/[facility]/ZIP Co de Phone Number [facility] [address] [place] [phone] * Lactic Acid (02/26/2024 12:39 PM EST) Lactic Acid 0.8 0.5 - 2.0 mmol/L [facility] 02/26/2024 12:3 9 PM EST 02/26/2024 12:42 PM EST Generic External Data Provider LAB BLOOD ORDERAB LES Final Result Performing Organization Address [facility] Co de Phone Number [facility] [address] [place] [phone] * (ABNORMAL) Comprehensive Metabolic Panel (02/26/2024 12:39 PM EST) Sodium 139 135 - 145 mmol/L [facility] Potassium 4.1 3.3 - 5.1 mmol/L [facility] Chloride 105 96 - 108 mmol/L [facility] Carbon Dioxide 28 22 - 29 mmol/L [facility] Anion Gap 10(L) 12 - 20 [facility] Urea Nitrogen (BUN) 9 9 - 16 mg/dL [facility] Creatinine, Serum 1.07 0.5 - 1.4 mg/dL [facility] Creatinine Clr Calc Pharmacy 125.8 [facility] Comment:eGFR (calculated fro m the MDRD study equation) and eCrCl(calculated from the Cockcroft-Gault equation) are based ondifferent parameters and may not yield comparable results.If eCrCl result is absurd, please check patient'sheight/weight. Estimated Glomerular Filt Rate >60 [facility] Comment:Chronic Kidney Disea se: Estimated GFR < 60 mL/min/[id number] Kidney Disease: Estimated GFR < 15 mL/min/1.73m2 Glucose 102 60 - 115 mg/dL [facility] Calcium 8.9 8.4 - 10.2 mg/dL [facility] Bilirubin, Total 0.9 0.0 - 1.0 mg/dL [facility] Aspartate Amino Transferase 18 5 - 37 U/L [facility] Alanine Aminotransferase 14 0 - 40 U/L [facility] Total Protein 6.7 6.5 - 8.0 g/dL [facility] Albumin Level 4.4 3.5 - 5.0 g/dL [facility] Alkaline Phosphatase 41 39 - 117 U/L [facility] 02/26/2024 12:3 9 PM EST 02/26/2024 12:42 PM EST us Generic External Data Provider LAB BLOOD ORDERAB LES Final Result Performing Organization Address [facility] Co de Phone Number [facility] [address] [place] [phone] * Lipase (02/26/2024 12:38 PM EST) Lipase 27 8 - 78 U/L [facility] 02/26/2024 12:3 8 PM EST 02/26/2024 12:42 PM EST us Generic External Data Provider LAB BLOOD ORDERAB LES Final Result Performing Organization Address [facility] Co de Phone Number [facility] [address] [place] [phone] * Creatine Kinase, Total (02/26/2024 12:38 PM EST) Creatine Kinase Total 95 38 - 174 U/L [facility] 02/26/2024 12:3 8 PM EST 02/26/2024 12:42 PM EST us Generic External Data Provider LAB BLOOD ORDERAB LES Final Result Performing Organization Address City/[facility]/ZIP Co de Phone Number [facility] [address] [place] [phone] * CTA Abdomen Pelvis w/ and w/o Contrast (02/26/2024 11:43 AM EST) Anatomical Region Laterality Modality Body, Pelvis, Abdomen Computed T omography 02/26/2024 11:4 3 AM EST Narrative 02/26/2024 12:52 PM EST ? [facility] ?[address] ?[place] [address] ? CT Scan Report ? Signed ? Patient: Jerry Stuart ?MR#: [id number] ?? 1 ? : 1985 ?Acct:[id number] ? Age/Sex: 38 / M ?ADM Date: 02/26/24 ? Loc: HO.ED ? Attending Dr: ? Ordering Physician: Katty Bajwa ?? Date of Service: 02/26/24 ?? Procedure(s): CT angio abdomen pelvis ?? Accession Number(s): [id number] ? cc: Katty Bajwa; Una Sawyer ? EXAMINATION: ?? CT ANGIOGRAM ABDOMEN AND PELVIS ? CLINICAL INFORMATION: ?? Chest pain. Abdominal pain. Syncope. Chest discomfort. ? COMPARISON: ?? None available. ? TECHNIQUE: ?? Multiple axial images were obtained through the chest abdomen and ?? pelvis following the administration of 85 mL of Omnipaque 350 ?? intravenous contrast during the arterial phase. Images were reviewed on ?? a dedicated 3-D workstation. No reported immediate complications ? This CT examination was performed using dose optimization techniques as ?? appropriate, variously including the following: ?? *Automated exposure control ?? *Adjustment of mA and/or kV according to patient size (this includes ?? techniques or standardized protocols for targeted exams where dose is ?? matched to indication/reason for exam; i.e. extremities or head) ?? *Use of iterative reconstruction technique ? DLP: ?? 816 mGy-cm there. ? FINDINGS: ? CHEST: ? The thoracic aorta demonstrates patency with normal caliber and ?? enhancement pattern without intimal flap or IV contrast extravasation. ? ABDOMEN AND PELVIS: ? The abdominal aorta demonstrates normal caliber and enhancement pattern ?? without intimal flap or IV contrast extravasation. ?? The mesenteric arteries, main renal arteries and iliac arteries ?? demonstrate normal patency and enhancement pattern without vascular ?? irregularity. ?? Calcified plaques in the distal abdominal aorta wall and common iliac ?? arteries. ? Ancillary findings: ? CHEST: ?? No acute airspace disease. ?? Secretions layering within the trachea. Atelectasis lung bases. ? No gross pulmonary nodules. ?? No lymphadenopathy, mediastinum or perihilar. No pericardial effusion. ?? No hemothorax. No hemopericardium. ?? No axillary lymphadenopathy. ?? The thyroid gland is not enlarged. There is no dominant nodules. ?? Multilevel spondylosis without acute fracture or listhesis in the axial ?? skeleton. No lytic or blastic lesions. ? Abdomen and pelvis: ?? No hemoperitoneum. ?? No ascites. ?? No pneumoperitoneum. ?? No intestinal obstruction pattern. ?? Appendix is normal. ?? No hydronephrosis in either kidney. ?? No peripancreatic fluid collections. ?? Liver measures 20 cm. Spleen measures 12 cm. ?? Nonspecific prominent lymph nodes in the mesentery. ?? Small tiny fat-containing umbilical hernia. ?? Bladder is fluid-filled. ?? No nodular lesions in the adrenal glands. ?? Castellvi type III sacralization. No acute fracture or listhesis. Mild ?? multilevel spondylosis. ? CT/CT angio abdomen pelvis ?? IMPRESSION: ?? No aneurysm or dissection, aorta. ?? Concerning aspiration/deep penetration. ?? No acute airspace disease. ? Fleischner guidelines were followed. ? Electronically signed by: ??Kyrie Caputo MD ??02/26/2024 12:48 PM ?? EST RP ? Dictated By: ?Kyrie Hammond MD ? Signed By: ?<Electronically signed by Kyrie Yang MD in OV> ? 02/26/24 1248 ? DD/ 1143 ? TD/TT: 02/26/24 1212 ? Document Imaging Manager: ? Procedure Note [employer], Image - 02/26/[address] [address] [address] Scan Report Signed Patient: Jerry Stuart#: [id number] 1 : 1985Acct:[id number] Age/Sex: 38 / MADM Date: 02/26/24 Loc: HO.ED Attending Dr: Ordering Physician: Katty Bajwa Date of Service: 02/26/24 Procedure(s): CT angio abdomen pelvis Accession Number(s): [id number] cc: Katty Bajwa; [facility] EXAMINATION: CT ANGIOGRAM ABDOMEN AND PELVIS CLINICAL INFORMATION: Chest pain. Abdominal pain. Syncope. Chest discomfort. COMPARISON: None available. TECHNIQUE: Multiple axial images were obtained through the chest abdomen and pelvis following the administration of 85 mL of Omnipaque 350 intravenous contrast during the arterial phase. Images were reviewed on a dedicated 3-D workstation. No reported immediate complications This CT examination was performed using dose optimization techniques as appropriate, variously including the following: *Automated exposure control *Adjustment of mA and/or kV according to patient size (this includes techniques or standardized protocols for targeted exams where dose is matched to indication/reason for exam; i.e. extremities or head) *Use of iterative reconstruction technique DLP: 816 mGy-cm there. FINDINGS: CHEST: The thoracic aorta demonstrates patency with normal caliber and enhancement pattern without intimal flap or IV contrast extravasation. ABDOMEN AND PELVIS: The abdominal aorta demonstrates normal caliber and enhancement pattern without intimal flap or IV contrast extravasation. The mesenteric arteries, main renal arteries and iliac arteries demonstrate normal patency and enhancement pattern without vascular irregularity. Calcified plaques in the distal abdominal aorta wall and common iliac arteries. Ancillary findings: CHEST: No acute airspace disease. Secretions layering within the trachea. Atelectasis lung bases. No gross pulmonary nodules. No lymphadenopathy, mediastinum or perihilar. No pericardial effusion. No hemothorax. No hemopericardium. No axillary lymphadenopathy. The thyroid gland is not enlarged. There is no dominant nodules. Multilevel spondylosis without acute fracture or listhesis in the axial skeleton. No lytic or blastic lesions. Abdomen and pelvis: No hemoperitoneum. No ascites. No pneumoperitoneum. No intestinal obstruction pattern. Appendix is normal. No hydronephrosis in either kidney. No peripancreatic fluid collections. Liver measures 20 cm. Spleen measures 12 cm. Nonspecific prominent lymph nodes in the mesentery. Small tiny fat-containing umbilical hernia. Bladder is fluid-filled. No nodular lesions in the adrenal glands. Castellvi type III sacralization. No acute fracture or listhesis. Mild multilevel spondylosis. CT/CT angio abdomen pelvis IMPRESSION: No aneurysm or dissection, aorta. Concerning aspiration/deep penetration. No acute airspace disease. Fleischner guidelines were followed. Electronically signed by: Kyrie Caputo MD 02/26/2024 12:48 PM EST RP Dictated By: Kyrie Hammond MD Signed By: <Electronically signed by Kyrie Yang MDin OV> 02/26/24 1248 DD/ 1143 TD/TT: 02/26/24 1212 Document Imaging Manager: [facility] External Provider IMG CT PROCEDURES Final Result * CT Head w/o Contrast (02/26/2024 11:40 AM EST) Anatomical Region Laterality Modality Head, Neck Computed Tomogra phy 02/26/2024 11:4 0 AM EST Narrative 02/26/2024 12:43 PM EST ? [facility] ?[address] ?[place] [address] ? CT Scan Report ? Signed ? Patient: Jerry Stuart ?MR#: [id number] ?? 1 ? : 1985 ?Acct:[id number] ? Age/Sex: 38 / M ?ADM Date: 02/26/24 ? Loc: HO.ED ? Attending Dr: ? Ordering Physician: Katty Bajwa ?? Date of Service: 02/26/24 ?? Procedure(s): CT head/brain wo IV con ?? Accession Number(s): [id number] ? cc: Katty Bajwa; Una Sawyer ? EXAMINATION: ?? CT HEAD WITHOUT CONTRAST ? CLINICAL INFORMATION: ?? syncope and seziue ? COMPARISON: ?? None available. ? TECHNIQUE: ?? Contiguous axial imaging was performed from the skull base to vertex ?? without intravenous administration of contrast. ? This CT examination was performed using dose optimization techniques as ?? appropriate, variously including the following: ?? *Automated exposure control ?? *Adjustment of mA and/or kV according to patient size (this includes ?? techniques or standardized protocols for targeted exams where dose is ?? matched to indication/reason for exam; i.e. extremities or head) ?? *Use of iterative reconstruction technique ? DLP: ?? 736 mGy-cm ? FINDINGS: ?? Bony calvarium is intact. ?? Skull base is intact. ?? No acute intracranial hemorrhage, mass effect, midline shift, ?? hydrocephalus or herniation. ?? Grade 1 matter differentiation is normal. ?? Posterior cranial fossa contents demonstrated no acute intracranial ?? hemorrhage or mass effect. No air-fluid levels in the included ?? paranasal sinuses. For pneumatization right frontal sinus. Small ?? retention cysts versus polyp in the anterior right sphenoid sinus. ?? Tympanic cavities and mastoid cells are aerated. Questionable high ?? riding right internal jugular bulb. ? CT/CT head/brain wo IV con ?? IMPRESSION: ?? No acute fracture, bony calvarium. ?? No acute intracranial hemorrhage. ? Electronically signed by: ??Kyrie Caputo MD ??02/26/2024 12:39 PM ?? EST RP ? Dictated By: ?Kyrie Hammond MD ? Signed By: ?<Electronically signed by Kyrie Yang MD in OV> ? 02/26/24 1239 ? DD/ 1140 ? TD/TT: 02/26/24 1210 ? Document Imaging Manager: ? Procedure Note [employer], Alysa - 02/26/[address] [address] [address] Scan Report Signed Patient: Guillermo Stuart#: [id number] 1 : 1985Acct:[id number] Age/Sex: 38 / MADM Date: 02/26/24 Loc: HO.ED Attending Dr: Ordering Physician: Katty Bajwa Date of Service: 02/26/24 Procedure(s): CT head/brain wo IV con Accession Number(s): [id number] cc: Katty Bajwa; [facility] EXAMINATION: CT HEAD WITHOUT CONTRAST CLINICAL INFORMATION: syncope and seziue COMPARISON: None available. TECHNIQUE: Contiguous axial imaging was performed from the skull base to vertex without intravenous administration of contrast. This CT examination was performed using dose optimization techniques as appropriate, variously including the following: *Automated exposure control *Adjustment of mA and/or kV according to patient size (this includes techniques or standardized protocols for targeted exams where dose is matched to indication/reason for exam; i.e. extremities or head) *Use of iterative reconstruction technique DLP: 736 mGy-cm FINDINGS: Bony calvarium is intact. Skull base is intact. No acute intracranial hemorrhage, mass effect, midline shift, hydrocephalus or herniation. Grade 1 matter differentiation is normal. Posterior cranial fossa contents demonstrated no acute intracranial hemorrhage or mass effect. No air-fluid levels in the included paranasal sinuses. For pneumatization right frontal sinus. Small retention cysts versus polyp in the anterior right sphenoid sinus. Tympanic cavities and mastoid cells are aerated. Questionable high riding right internal jugular bulb. CT/CT head/brain wo IV con IMPRESSION: No acute fracture, bony calvarium. No acute intracranial hemorrhage. Electronically signed by: Kyrie Caputo MD 02/26/2024 12:39 PM EST RP Dictated By: Kyrie Hammond MD Signed By: <Electronically signed by Kyrie Yang MDin OV> 02/26/24 1239 DD/ 1140 TD/TT: 02/26/24 1210 Document Imaging Manager: [facility] External Provider IMG CT PROCEDURES Final Result * CTA Chest w/ and w/o Contrast (02/26/2024 11:35 AM EST) Anatomical Region Laterality Modality Body, Chest Computed Tomogra phy 02/26/2024 11:3 5 AM EST Narrative 02/26/2024 12:52 PM EST ? [facility] ?[address] ?[place] [address] ? CT Scan Report ? Signed ? Patient: Narciso,Jerry ?MR#: [id number] ?? 1 ? : 1985 ?Acct:[id number] ? Age/Sex: 38 / M ?ADM Date: 02/26/24 ? Loc: HO.ED ? Attending Dr: ? Ordering Physician: Katty Bajwa ?? Date of Service: 02/26/24 ?? Procedure(s): CT angio chest aorta ?? Accession Number(s): [id number] ? cc: Katty Bajwa; Una Sawyer ? EXAMINATION: ?? CT ANGIOGRAM ABDOMEN AND PELVIS ? CLINICAL INFORMATION: ?? Chest pain. Abdominal pain. Syncope. Chest discomfort. ? COMPARISON: ?? None available. ? TECHNIQUE: ?? Multiple axial images were obtained through the chest abdomen and ?? pelvis following the administration of 85 mL of Omnipaque 350 ?? intravenous contrast during the arterial phase. Images were reviewed on ?? a dedicated 3-D workstation. No reported immediate complications ? This CT examination was performed using dose optimization techniques as ?? appropriate, variously including the following: ?? *Automated exposure control ?? *Adjustment of mA and/or kV according to patient size (this includes ?? techniques or standardized protocols for targeted exams where dose is ?? matched to indication/reason for exam; i.e. extremities or head) ?? *Use of iterative reconstruction technique ? DLP: ?? 816 mGy-cm there. ? FINDINGS: ? CHEST: ? The thoracic aorta demonstrates patency with normal caliber and ?? enhancement pattern without intimal flap or IV contrast extravasation. ? ABDOMEN AND PELVIS: ? The abdominal aorta demonstrates normal caliber and enhancement pattern ?? without intimal flap or IV contrast extravasation. ?? The mesenteric arteries, main renal arteries and iliac arteries ?? demonstrate normal patency and enhancement pattern without vascular ?? irregularity. ?? Calcified plaques in the distal abdominal aorta wall and common iliac ?? arteries. ? Ancillary findings: ? CHEST: ?? No acute airspace disease. ?? Secretions layering within the trachea. Atelectasis lung bases. ? No gross pulmonary nodules. ?? No lymphadenopathy, mediastinum or perihilar. No pericardial effusion. ?? No hemothorax. No hemopericardium. ?? No axillary lymphadenopathy. ?? The thyroid gland is not enlarged. There is no dominant nodules. ?? Multilevel spondylosis without acute fracture or listhesis in the axial ?? skeleton. No lytic or blastic lesions. ? Abdomen and pelvis: ?? No hemoperitoneum. ?? No ascites. ?? No pneumoperitoneum. ?? No intestinal obstruction pattern. ?? Appendix is normal. ?? No hydronephrosis in either kidney. ?? No peripancreatic fluid collections. ?? Liver measures 20 cm. Spleen measures 12 cm. ?? Nonspecific prominent lymph nodes in the mesentery. ?? Small tiny fat-containing umbilical hernia. ?? Bladder is fluid-filled. ?? No nodular lesions in the adrenal glands. ?? Castellvi type III sacralization. No acute fracture or listhesis. Mild ?? multilevel spondylosis. ? CT/CT angio chest aorta ?? IMPRESSION: ?? No aneurysm or dissection, aorta. ?? Concerning aspiration/deep penetration. ?? No acute airspace disease. ? Fleischner guidelines were followed. ? Electronically signed by: ??Kyrie Caputo MD ??02/26/2024 12:48 PM ?? EST ? Dictated By: ?Kyrie Hammond MD ? Signed By: ?<Electronically signed by Kyrie Yang MD in [place]> ? 02/26/24 1248 ? DD/ 1135 ? TD/TT: 02/26/24 1212 ? Document Imaging Manager: ? Procedure Note Alysa Candelario - 02/26/[address] [address] [address] Scan Report Signed Patient: Jerry StuartMR#: [id number] 1 : 1985Acct:[id number] Age/Sex: 38 / MADM Date: 02/26/24 Loc: HO.ED Attending Dr: Ordering Physician: Katty Bajwa Date of Service: 02/26/24 Procedure(s): CT angio chest aorta Accession Number(s): [id number] cc: Katty Bajwa; [facility] EXAMINATION: CT ANGIOGRAM ABDOMEN AND PELVIS CLINICAL INFORMATION: Chest pain. Abdominal pain. Syncope. Chest discomfort. COMPARISON: None available. TECHNIQUE: Multiple axial images were obtained through the chest abdomen and pelvis following the administration of 85 mL of Omnipaque 350 intravenous contrast during the arterial phase. Images were reviewed on a dedicated 3-D workstation. No reported immediate complications This CT examination was performed using dose optimization techniques as appropriate, variously including the following: *Automated exposure control *Adjustment of mA and/or kV according to patient size (this includes techniques or standardized protocols for targeted exams where dose is matched to indication/reason for exam; i.e. extremities or head) *Use of iterative reconstruction technique DLP: 816 mGy-cm there. FINDINGS: CHEST: The thoracic aorta demonstrates patency with normal caliber and enhancement pattern without intimal flap or IV contrast extravasation. ABDOMEN AND PELVIS: The abdominal aorta demonstrates normal caliber and enhancement pattern without intimal flap or IV contrast extravasation. The mesenteric arteries, main renal arteries and iliac arteries demonstrate normal patency and enhancement pattern without vascular irregularity. Calcified plaques in the distal abdominal aorta wall and common iliac arteries. Ancillary findings: CHEST: No acute airspace disease. Secretions layering within the trachea. Atelectasis lung bases. No gross pulmonary nodules. No lymphadenopathy, mediastinum or perihilar. No pericardial effusion. No hemothorax. No hemopericardium. No axillary lymphadenopathy. The thyroid gland is not enlarged. There is no dominant nodules. Multilevel spondylosis without acute fracture or listhesis in the axial skeleton. No lytic or blastic lesions. Abdomen and pelvis: No hemoperitoneum. No ascites. No pneumoperitoneum. No intestinal obstruction pattern. Appendix is normal. No hydronephrosis in either kidney. No peripancreatic fluid collections. Liver measures 20 cm. Spleen measures 12 cm. Nonspecific prominent lymph nodes in the mesentery. Small tiny fat-containing umbilical hernia. Bladder is fluid-filled. No nodular lesions in the adrenal glands. Castellvi type III sacralization. No acute fracture or listhesis. Mild multilevel spondylosis. CT/CT angio chest aorta IMPRESSION: No aneurysm or dissection, aorta. Concerning aspiration/deep penetration. No acute airspace disease. Fleischner guidelines were followed. Electronically signed by: Kyrie Caputo MD 02/26/2024 12:48 PM EST RP Dictated By: Kyrie Hammond MD Signed By: <Electronically signed by Kyrie Yang MDin OV> 02/26/24 1248 DD/ 1135 TD/TT: 02/26/24 1212 Document Imaging Manager: [facility] External Provider IMG CT PROCEDURES Final Result * (ABNORMAL) Lipid Panel, Standard (06/05/2022 2:49 PM EDT) [facility] Signature Cholesterol, Total 188 <200 mg/dL [email or web address] HDL Cholesterol 61 > OR = 40 mg/dL [email or web address] Triglycerides 134 <150 mg/dL [email or web address] LDL Cholesterol 104(H) mg/dL (calc) [email or web address] Comment: Reference range: <100 Desirable range <100 mg/dL for primary prevention; ?? <70 mg/dL for patients with CHD or diabetic patients with > or = 2 CHD risk factors. LDL-C is now calculated using the Umang-Diaz calculation, which is a validated novel method providing better accuracy than the Friedewald equation in the estimation of LDL-C. Umang SS et al. GINA. 2013;310(19): 7071-6665 (http://education.[employer]/faq/FZB860) Chol/HDLC Ratio 3.1 <5.0 (calc) [email or web address] Non-HDL Cholesterol 127 <130 mg/dL (calc) [email or web address] Comment: For patients with diabetes plus 1 major ASCVD risk factor, treating to a non-HDL-C goal of <100 mg/dL (LDL-C of <70 mg/dL) is considered a therapeutic option. Blood Venous blood specimen / Unknown 06/05/2022 2:49 PM EDT 06/05/2022 2:49 PM EDT Narrative [facility] - 06/09/2022 12:52 PM EDT FASTING:NO FASTING: NO [facility] [employer] LAB BLOOD ORDERABLES Final Re sult [facility] [address] [facility], [facility], [place] [address] [facility] [address] [place] [address] from Last 3 Months or Most Recently Relevant to Health Maintenance Insurance [facility] C[facility] F[facility] Care Teams Technical Artist Relationship Specialty Start Date End Date Una Sawyer FNP [address] [place] [address] PCP - General Family Medicine 08/21/21
--- OUTSIDE RECORDS SUMMARY | 2024-03-30 09:02 | XMS_ITS | Encounter Summary ---
Author Organization [employer] Address [address] [place] [address] 7 [place] [address] Care Team Providers Care Personnel Interviewer Name Role Phone [facility] Primary Care Provider [phone] Reason for Visit * Reason Onset Date Comments Nurse Triage 03/29/2024 Encounter Details Date Type Department Care Team ([facility] st Contact Info) Description 03/29/2024 Telephone [facility] [address] [place], [place] [phone] [facility] [address] [place] [address] Nurse Triage Social History Tobacco Use Types Packs/Day Years Used Date Smoking Tobacco: Former Cigarettes Passive Smoke Exposure: Past Smokeless Tobacco: Never Alcohol Use Standard Drinks/Week Comments Yes 0 (1 standard drink = 0.6 oz pur e alcohol) every other day liquor Depression Answer Date Recorded Patient Health Questionnaire-9 Score 6 03/23/2024 Patient Health Questionnaire-9 Score 6 03/23/2024 Last PHQ-9: Questionnaire Data Not on file 0 03/23/2024 Housing Stability Answer Date Recorded What is your housing situation today? I have sylvia cortes 01/12/[address] you [...] Orientation Straight 01/06/2022 10 :40 AM EDT documented as of this encounter Miscellaneous Notes * Telephone Encounter - Latha Harkins RN - 03/29/2024 2:52 PM EST TC placed to patient [phone] in regards to below message. RN provided patient with BW results from 03/22/24. Patient verbalized understanding. Patient reports he is still awaiting results for RPRw/ reflex to titer, mycoplasma/ureaplasma panel and trichomonas RNA. RN reviewed [facility] and those results are not pending. Patient reports he dropped off his urine on 03/21/24 and completed the BW on 03/22/24. RN advised patient RN would call the lab to further inquire and return call to patient. TC placed to [facility] lab [phone] in regards to above. RN was informed the slab lifting supervisor did not pull the order for the RPR w/ reflex to titer and mycoplasma/ureaplasma panel therefore unfortunatelythe patient would need to return to the lab to provide another sample. RN was informed the trichomonas order was also not received (RN reviewed encounter and it was placed as clinic collect). RN willreplace the order as a lab collect. TC placed to patient [phone] to inform patient he will need to return to the lab to have the RPR drawn (thru BW) and mycoplasma/ureaplasma panel and the Trichomonas (thru urine). Patient verbalized understanding and reports he will return to the lab to have outstanding labs drawn/collected. Patient to f/u PRN. * Telephone Encounter - Yumiko Kumari RN - 03/29/2024 12:49 PM EST Call returned to Jerry Stuart to triage below. Reports having pain and and discomfort on right testicle. US appt moved up for tomorrow 03/30 at [facility] location. Pt denies any severe swelling. Pt denies any difficulty with passing urine. No odor reported. Pt denies any swelling of the lower extremities, Denies any vomiting or rash. Pt advised to seek WIC if pain worsens or to seek ER for further eval as they may be able to perform ordered US Of scrotum and have Urology consult while he is being treated. Reviewed [facility] operating hours and that wait times vary. Reviewed home care advise, ER precautions and reasons to call back. Patient requesting that PCP review lab results form -03/22, more specific the MMR Titers. Pt also wants to know why results for Syphilis , mycoplasma and Trichomonas was not yet available. Do notsee in lab tab of [employer]. Forwarded to PCP and team nurses to review and follow up with Patient. Protocol Used: Scrotum Swelling (Adult) Protocol-Based Disposition: See in Office or Video Visit Today or Tomorrow Positive Triage Question: * Patient wants to be seen * All higher-acuity triage questions were negative * Telephone Encounter - Regi Billings - 03/29/2024 12:43 PM EST Symptom: Testicle Symptoms Outcome: Talk to a nurse or provider within 15 minutes Reason: Swelling in the testicle The caller accepted this outcome. Pt was seen on 03/21/24 and 03/25/24 for sick visit. Pt stated he is now experiencing swelling and pain in the right testicle. Pt requesting a urgent call back. Contact pt at [phone] documented in this encounter Plan of Treatment Upcoming Encounters Date Type Department Care Team (Late st Contact Info) Description 04/26/2024 10:30 AM EST Clinical Support [facility] [place] [address] 04/29/2024 11:15 AM EST Office Visit [facility] [place] [address] [facility] [place] [address] 05/30/2024 10:00 AM EDT Office Visit [facility] [place] [address] [facility] [place] [address] Scheduled Orders Name Type Priority Associated Diagnoses Orde r Schedule Trichomonas RNA (Urine/Vaginal) Lab Routine Urethritis Expected: 03/29/2024 (Approximate), Expires: 03/29/2025 Mycoplasma/Ureaplasma?? Panel Microbiology Routine Urethritis Expected: 03/29/2024 (Approximate), Expires: 03/29/2025 documented as of this encounter Visit Diagnoses Diagnosis Urethritis Unspecified urethritis documented in this encounter Additional Health Concerns Assessment Noted Time PHQ-9 Depression Total Score: 6 03/23/19 25 9:29 AM EST documented as of this encounter Care Teams Personnel Interviewer Relationship Specialty Start Date End Date [facility] [address] [place] [address] PCP - General Family Medicine 08/21/21 documented as of this encounter
--- OUTSIDE RECORDS SUMMARY | 2024-03-30 09:03 | XMS_ITS | Encounter Summary ---
Author Organization [employer] Address [address] [facility] 7 [place] [address] Care Team Providers Care Window Decorator Name Role Phone [place] [facility] Primary Care Provider [phone] Reason for Visit * Reason Onset Date Comments Chart Prep 03/21/2024 Encounter Details Date Type Department Care Team ([facility] st Contact Info) Description 03/21/2024 Telephone [facility] MEDIC[facility] [address] [place], [place] [phone] Sarah Chambers MA Chart Prep Social History Tobacco Use Types Packs/Day Years Used Date Smoking Tobacco: Former Cigarettes Passive Smoke Exposure: Past Smokeless Tobacco: Never Alcohol Use Standard Drinks/Week Comments Yes 0 (1 standard drink = 0.6 oz pur e alcohol) every other day liquor Depression Answer Date Recorded Patient Health Questionnaire-9 Score 0 05/29/2023 Patient Health Questionnaire-9 Score 0 05/29/2023 Last PHQ-9: Questionnaire Data Not on file 0 05/29/2023 Housing Stability Answer Date Recorded What is [...] Answer Date Recorded Patient Health Questionnaire-2 Score 0 05/29/2023 Sex and Gender Information Value Date Recorded Sex Assigned at Male 01/06/2022 10:40 AM EDT Legal Sex Male 10:40 AM EDT Gender Identity Male 01/06/2022 10:40 AM EDT Sexual Orientation Straight 01/06/2022 10 :40 AM EDT documented as of this encounter Miscellaneous Notes * Telephone Encounter - Sarah Chambers MA - 03/21/2024 11:20 AM EST Chart Prep Labs: done Images: not done Vaccines due: Covid Due, Hep B Due, and Flu Due Referrals: Radiology appointment on 03/17/24 cancelled by Pt Screenings: none Overdue care gaps: None documented in this encounter Plan of Treatment Upcoming Encounters Date Type Department Care Team (Late st Contact Info) Description 04/26/2024 10:30 AM EST Clinical Support [address] [address] 04/29/2024 11:15 AM EST Office Visit [address] [address] [address] [address] 05/30/2024 10:00 AM EDT Office Visit [address] [address] [place] [address] [address] documented as of this encounter Visit Diagnoses Not on filedocumented in this encounter Additional Health Concerns Assessment Noted Time PHQ-9 Depression Total Score: 0 05/29/19 9:41 AM EDT documented as of this encounter Care Teams Window Decorator Relationship Specialty Start Date End Date Una Sawyer FNP [address] [place] [address] PCP - General Family Medicine 08/21/21 documented as of this encounter
--- OUTSIDE RECORDS SUMMARY | 2024-03-30 09:03 | XMS_ITS | Encounter Summary ---
Author Organization [employer] Address [address] [place] [address] 7t [place] [address] Care Team Providers Care Senior Clinical Research Associate Name Role Phone [place] [facility] Primary Care Provider Reason for Referral * Imaging (Routine) - Closed Specialty Diagnoses / Procedures Referred By Contrenan t Referred To Contact Radiology Diagnoses Swelling of left testicle Procedures US Scrotum Soha Sheth ANP [address] [place] [address] Phone: tel: fax: [address] Phone: tel: fax: Referral ID Status Reason Start Date Expiration Date Visits Re quested Visits Authorized [id number] Closed 03/14/2024 03/14/2025 1 1 Reason for Visit * Reason Comments Testicle Pain Encounter Details Date Type Department Care Team (Late st Contact Info) Description 03/14/2024 2:00 PM EST Office Visit [facility] [address] [place], [place] [phone] Soha Sheth ANP [address] [place], [place] [phone] Swelling of left testicle (Primary Dx); Possible exposure to STI Social History Tobacco Use Types Packs/Day Years [...] AM EDT documented as of this encounter Last Filed Vital Signs Vital Sign Reading Time Taken Comments Blood Pressure 144/85 03/14/2024 2:00 PM EST Pulse 86 03/14/2024 2:00 PM EST Temperature 37.3 ??C (99.1 ??F) 03/14/2024 2:00 PM ES T Respiratory Rate 17 03/14/2024 2:00 PM EST Oxygen Saturation 97% 03/14/2024 2:00 PM EST Inhaled Oxygen Concentration - - Weight 108 kg (237 lb 3.2 oz) 03/14/2024 2:00 PM EST Height - - Body Mass Index 30.45 02/29/2024 1:01 PM EST documented in this encounter Progress Notes * OLENA Jack - 03/14/2024 2:00 PM EST Jerry Stuart is 38 y.o. patient here today for sick visit. Testicle Pain Associated symptoms: abdominal pain Associated symptoms: no fever and no sore throat No really painful. See below. See recent emergency room note after syncopal episode here with Valsalva maneuver. He has surgery scheduled this Thursday for umbilical hernia, noticed on this last Aung L testicle swelling. Uncomfortable but not painful. Is on abx right now for mycoplasma in urine from an urgent care - Moxifloxacin now, previously on doxycycline for urinary sx 1 mo ago but they re-tested his urine and found mycoplasma. Swelling in L testicle is better in AM after laying down. He is not sure if partner has been tested specifically for mycoplasma. AFAB and AMAB partners. Uses condoms. Considering PrEP via PCP. Declines today but will consider. Curious about DoxyPEP. Review of Systems Constitutional: Negative for chills and fever. HENT: Negative for sore throat. Gastrointestinal: Positive for abdominal pain. Genitourinary: Positive for testicular pain. See HPI Patient Active Problem List Diagnosis Depressive disorder Erectile dysfunction Axillary hyperhidrosis Chronic elbow pain, right Closed fracture of right elbow Right elbow pain Anxiety Discomfort Dysuria Elevated blood pressure reading Periumbilical abdominal pain Syncope Objective BP (!) 144/85 (BP Location: Left arm, Patient Position: Sitting, BP Cuff Size: Large adult) Pulse86 Temp 99.1 ??F (37.3 ??C) (Oral) Resp 17 Wt 237 lb 3.2 oz (108 kg) SpO2 97% BMI 30.45 kg/m?? Declined painter helper spray Physical Exam Vitals reviewed. Constitutional: General: He is not in acute distress. Appearance: Normal appearance. He is not toxic-appearing. HENT: Head: Normocephalic and atraumatic. Eyes: General: No scleral icterus. Extraocular Movements: Extraocular movements intact. Pupils: Pupils are equal, round, and reactive to light. Cardiovascular: Rate and Rhythm: Normal rate and regular rhythm. Pulmonary: Effort: Pulmonary effort is normal. Abdominal: Hernia: There is no hernia in the left inguinal area or right inguinal area. Genitourinary: Pubic Area: No rash. Penis: Normal. No tenderness. Testes: Normal. Cremasteric reflex is present. Right: Mass, tenderness, swelling, testicular hydrocele or varicocele not present. Left: Mass, tenderness, swelling, testicular hydrocele or varicocele not present. Epididymis: Right: Normal. Left: Normal. Lymphadenopathy: Lower Body: No right inguinal adenopathy. No left inguinal adenopathy. Neurological: Mental Status: He is alert. Psychiatric: Mood and Affect: Mood normal. Behavior: Behavior normal. Diagnoses and all orders for this visit: Swelling of left testicle None on exam. No inguinal lymphadenopathy or hernia. - US Scrotum; Future Diagnoses and all orders for this visit: Swelling of left testicle - US Scrotum; Future Possible exposure to STI # DoxyPEP, Initial Conversation Discussed role of Doxy PEP in preventing bacterial STIs. Conversation was started by: pt Patient meets risk based on: Assign Male At , >=18yo - plus - A diagnosis of a bacterial STI in the last 12 months Patient agrees to utilize DoxyPEP. - doxycycline (Vibra-Tabs) 100 MG tablet; Take 2 tabs once within 72 hours of intercourse. Take with a full glass of water and do not lie down for at least 30 minutes after. documented in this encounter Plan of Treatment Upcoming Encounters Date Type Department Care Team (Late st Contact Info) Description 04/26/2024 10:30 AM EST Clinical Support [address] [address] 04/29/2024 11:15 AM EST Office Visit [address] [address] [place] [address] [address] 05/30/2024 10:00 AM EDT Office Visit [address] [address] [place] [address] [address] Scheduled Orders Name Type Priority Associated Diagnoses Orde r Schedule US Scrotum Imaging Routine Swelling of left testicle Expected: 03/14/2024, Expires: 03/14/2025 documented as of this encounter Visit Diagnoses Diagnosis Swelling of left testicle- Primary Edema of male genital organs Possible exposure to STI documented in this encounter Additional Health Concerns Assessment Noted Time PHQ-9 Depression Total Score: 0 05/29/19 24 9:41 AM EDT documented as of this encounter Care Teams Senior Clinical Research Associate Relationship Specialty Start Date End Date Una Sawyer FNP [address] [place] [address] PCP - General Family Medicine 08/21/21 documented as of this encounter
--- OUTSIDE RECORDS SUMMARY | 2024-03-30 09:03 | XMS_ITS | Encounter Summary ---
Author Organization [employer] Address [address] [facility] 7t [place] [address] Care Team Providers Care Apprentice Technician Name Role Phone [facility] Primary Care Provider [phone] Encounter Details Date Type Department Care Team ([facility] st Contact Info) Description 03/14/2024 Telephone [facility] [address] [place], [place] [phone] [facility] [address] [place] [address] Social History Tobacco Use Types Packs/Day Years [...] encounter Miscellaneous Notes * Telephone Encounter - Sari Whaley RN - 03/14/2024 5:55 PM EST Tc from pt requesting a call back to further discuss today's [facility] visit. Contact pt at [phone] TC returned to pt who asked if if the provider thought he had a hydrocele or if it was a possibility that he had one. Patient is worried to wait on US states that he would like the US done prior to his surgery on Thursday. Advised DTaP that the order has been placed and he can call [facility] to schedule his US. Pt would like provider to clarify if he did have a hydrocele. Will send to provider to advise walk in center nurses. Please reassure pt - nothing was abnormal on exam. I do NOT think he should hold up his hernia surgery for a scrotal US. It is NOT urgent. Possible hydrocele but again - NOTHING CONCERNING on exam and a hydrocele, even IF present, is not an urgent issue or one that necessarily even needs intervention. TC placed to patient and discussed message above from provider. Patient states he has called [facility] and is scheduled for for US. Pt told that when results are in provider will review and he will be contacted. * Telephone Encounter - Regi Billings - 03/14/2024 4:52 PM EST Tc from pt requesting a call back to further discuss today's [facility] visit. Contact pt at [phone] documented in this encounter Plan of Treatment Upcoming Encounters Date Type Department Care Team (Late st Contact Info) Description 04/26/2024 10:30 AM EST Clinical Support [address] [address] 04/29/2024 11:15 AM EST Office Visit [address] [address] Una Sawyer [address] [address] 05/30/2024 10:00 AM EDT Office Visit [facility] [place] [address] [address] documented as of this encounter Visit Diagnoses Not on filedocumented in this encounter Additional Health Concerns Assessment Noted Time PHQ-9 Depression Total Score: 0 05/29/19 24 9:41 AM EDT documented as of this encounter Care Teams Apprentice Technician Relationship Specialty Start Date End Date Una Sawyer FNP [address] [place] [address] PCP - General Family Medicine 08/21/21 documented as of this encounter
--- OUTSIDE RECORDS SUMMARY | 2024-03-30 09:03 | XMS_ITS | Encounter Summary ---
Author Organization [employer] Address [address] [place] [address] 7 [place] [address] Care Team Providers Care Filer Helper Name Role Phone [facility] Primary Care Provider [phone] Reason for Visit * Reason Onset Date Comments ER Follow-up 03/17/2024 Encounter Details Date Type Department Care Team ([facility] Contact Info) Description 03/17/2024 Telephone [facility] 230 [place], [place] [phone] [facility] 230 [place], [place] [phone] ER Follow-up Social History Tobacco Use Types Packs/Day Years [...] encounter Miscellaneous Notes * Telephone Encounter - Lizette Kearney LPN - 03/17/2024 11:12 AM EST Patient reports seen on 03/05/24 * Telephone Encounter - Lizette Kearney LPN - 03/17/2024 10:45 AM EST Please obtain [facility] note visit from approx 6 days ago with labs and medications as ordered. * Telephone Encounter - Lizette Kearney LPN - 03/17/2024 10:14 AM EST Triage call returned to patient who was seen in ED yesterday with note in chart. Patient with concerns for testicle pain and chest pain.ED work up negative. Imaging completed at that visit. Patient is for hernia repair surgery. Patient anxious and was prescribed atilvan for PRN use and has not taken any since ED yesterday. Patient with multiple questions. Had been prescribed Moxifloxacin 400 mg daily at [facility] location [facility] and vomited first tab. Now is one tab short but took one today. Patient is pending preop med review with hospital staff and advised to review meds with them at time of call. Patient reports slight ongoing white penile discharge. Patient also seen by Branden WRAYand given prophylactic ABT as on note 03/14/24. Patient seeking appt to review concerns of anxiety with recent health concerns and probable long standing depression. No acute concern at time of call. Patient requesting PCP appt none available at time of call and prefers to see previous alternate provi ders as available. ASK/James OVERHEAD CRANE TECHNICIAN appt on 03/25/24 1030am. Team tasked to follow with available PCP Team provider in regards to Moxifloxacin missed dose. Request placed to obtain Bahoui testing and note following call. Protocol Used: Recent Medical Visit for Illness Follow-up Call (Adult) Protocol-Based Disposition: Callback or Video Visit by PCP Today Video visit not offered Positive Triage Question: * Caller has NON-URGENT question (includes prescribed medication questions) and triager unable to answer * All higher-acuity triage questions were negative Care Advice Discussed: * Reasons To Call Back - You become worse * Telephone Encounter - Jacinta Coto - 03/17/2024 9:37 AM EST Patient calling to report ED visit on : Date: 03/16/2024 Hospital: [facility] Seen for: chest, pain , swelling testicle Symptomatic No *if yes message should go to Triage Patient advised will forward to team nurse for follow up documented in this encounter Plan of Treatment Upcoming Encounters Date Type Department Care Team (Late st Contact Info) Description 04/26/2024 10:30 AM EST Clinical Support [address] [address] 04/29/2024 11:15 AM EST Office Visit [address] [address] Una Sawyer FNP [address] [place] [address] 05/30/2024 10:00 AM EDT Office Visit [address] [address] Una Sawyer FNP [address] [place] [address] documented as of this encounter Visit Diagnoses Not on filedocumented in this encounter Additional Health Concerns Assessment Noted Time PHQ-9 Depression Total Score: 0 05/29/19 24 9:41 AM EDT documented as of this encounter Care Teams Filer Helper Relationship Specialty Start Date End Date Una Sawyer FNP [address] [place] [address] PCP - General Family Medicine 08/21/21 documented as of this encounter
--- OUTSIDE RECORDS SUMMARY | 2024-03-30 09:03 | XMS_ITS | Encounter Summary ---
Author Organization [employer] Address [address] [facility] 7 [place] [address] Care Team Providers Care Product Development Technician Name Role Phone [facility] Primary Care Provider [phone] Reason for Visit * Reason Comments Groin Swelling Encounter Details Date Type Department Care Team ([facility] st Contact Info) Description 03/21/2024 3:30 PM EST Office Visit [facility] 230 [place], [place] [phone] Felipa Bryant MD [address] [place], [place] [phone] Urethritis (Primary Dx); Dietary counseling; Exercise counseling; Overweight Social History Tobacco Use Types Packs/Day Years [...] Sign Reading Time Taken Comments Blood Pressure 144/82 03/21/2024 3:52 PM EST Pulse 84 03/21/2024 3:26 PM EST Temperature 36.2 ??C (97.1 ??F) 03/21/2024 3:26 PM ES T Respiratory Rate 17 03/21/2024 3:26 PM EST Oxygen Saturation - - Inhaled Oxygen Concentration - - Weight 106 kg (233 lb) 03/21/2024 3:26 PM EST Height 188 cm (6' 2 ) 03/21/2024 3:26 PM EST Body Mass Index 29.92 03/21/2024 3:26 PM EST documented in this encounter Progress Notes * Felipa Bryant MD - 03/21/2024 3:30 PM EST SUBJECTIVE: Jerry Stuart is a 38 y.o. male who presents for acute visit. Denies recent illness, ER visit, or hospitalization. Acute Concerns: Here for ER followup, seen in the ER for chest pain and L inguinal/testicular pain on 03/16/24 to [facility]. 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 EKG performed, NSR and troponin neg x 1. Given Ativan x and discharged home with five more tablets. He does agree there is an anxiety component to this as he has been decreasing the amount of marijuana that he smokes, which was helping him with anxiety in the past. There is no redness on left testicle but, it is slightly swollen. No pain with urination, no pain with cough, nogenital sores and no penile drainage. He had repair of the umbilical hernia 03/16/24, took bandage off today, no redness or swelling around the surgical site. Surgeon did not feel that pain on L groin/side of testicle and inner groin area is not related to umbilical hernia. He has completed two courses of treatment for mycoplasma recently, doxycycline and moxifloxacin. Hehas not had test of cure, nor testing for other STI, apart from G/C, which has returned negative. 02/26/24 CTA abd/pelvis CHEST: No acute airspace disease. Secretions layering [...] acute fracture or listhesis. Mild multilevel spondylosis. Patient Active Problem List Diagnosis Depressive disorder Erectile dysfunction Axillary hyperhidrosis Chronic elbow pain, right Closed fracture of right elbow Right elbow pain Anxiety Discomfort Dysuria Elevated blood pressure reading Periumbilical abdominal pain Syncope Abdominal pain Umbilical hernia Vasovagal syncope Urethritis Past Surgical History: Procedure Laterality Date CTA ABDOMEN PELVIS W AND WO CONTRAST 02/26/2024 CTA ABDOMEN PELVIS W AND WO CONTRAST CTA CHEST W AND WO CONTRAST 02/26/2024 CTA CHEST W AND WO CONTRAST No family history on file. Social History Social History Narrative Children: Has children with previous relationsihp. 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 Would like to back to community based work Tobacco Use: Former 1/2 PPPD x 5 years. 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 Respiratory: Negative. Cardiovascular: Negative. Gastrointestinal: Positive for abdominal pain. Genitourinary: Positive for testicular pain. Negative for penile swelling and scrotal swelling. OBJECTIVE: Vitals: 03/21/24 1526 03/21/24 1552 BP: (!) 167/84 (!) 144/82 BP Location: Right arm Left arm Patient Position: Sitting Sitting BP Cuff Size: Adult Adult Pulse: 84 Resp: 17 Temp: 97.1 ??F (36.2 ??C) TempSrc: Temporal Weight: 233 lb (106 kg) Height: 6' 2 (1.88 m) Physical Exam Vitals and nursing note reviewed. Exam conducted with a assistant media buyer present. Constitutional: Appearance: Normal appearance. He is normal weight. HENT: Head: Normocephalic and atraumatic. Cardiovascular: Rate and Rhythm: Normal rate and regular rhythm. Pulses: Normal pulses. Heart sounds: Normal heart sounds. Pulmonary: Effort: Pulmonary effort is normal. Breath sounds: Normal breath sounds. Genitourinary: Penis: Normal. Comments: TTP over epididymis and into L groin Musculoskeletal: Cervical back: Normal range of motion and neck supple. Skin: General: Skin is warm and dry. Capillary Refill: Capillary refill takes less than 2 seconds. Neurological: General: No focal deficit present. Mental Status: He is alert and oriented to person, place, and time. Psychiatric: Mood and Affect: Mood normal. Behavior: Behavior normal. Latest Reference Range & Units 03/22/24 09:08 Hepatitis B Surface Antigen Negative Negative Hepatitis B Core Antibody Nonreactive Nonreactive ~Hepatitis B Surface Antibody Nonreactive REACTIVE Hepatitis C Antibody Nonreactive Nonreactive Nonreactive Nonreactive HIV AB/AG Nonreactive Nonreactive Hepatitis A IgM Nonreactive Nonreactive ASSESSMENT/PLAN Problem List Items Addressed This Visit Urethritis - Primary Current Assessment & Plan Will recheck for STIs today with full workup (RPR< Hep B, Hep C, HIV, GC, myco/uroplasma, trich) Ice pack/supportive underwear Consider further antibiotic treatment and imaging as needed based on lab results Relevant Orders Mycoplasma/Ureaplasma Panel Chlamydia/N. Gonorrhoeae RNA, TMA, Urogenitial (Completed) Trichomonas RNA (Urine/Vaginal) HIV-1/2 Antigen and Antibodies, Fourth Generation, with Reflexes (Completed) Hepatitis C Antibody with Reflex to HCV, RNA, Quantitative, Real-Time PCR (Completed) RPR (Monitor) with Reflex to Titer Other Visit Diagnoses Dietary counseling Exercise counseling Overweight Follow Up: per PCP recall or sooner prn No Known Allergies Current Outpatient Medications: LORazepam 1 MG/0.5ML concentration, as needed for Anxiety, Disp: , Rfl: doxycycline (Vibra-Tabs) 100 MG tablet, Take 2 tabs once within 72 hours of intercourse. Take with a full glass of water and do not lie down for at least 30 minutes after., Disp: 30 tablet, Rfl: 0 escitalopram (Lexapro) 5 MG tablet, Take 1 tablet (5 mg) by mouth Once per day., Disp: 30 tablet, Rfl: 2 ketoconazole (Nizoral) 2 % shampoo, Apply topically 2 (two) times a week., Disp: 120 mL, Rfl: 3 Salicylic Acid 40 % pads, Apply one pad topically directly to wart on dry skin daily. Do not uvboal16 days., Disp: 90 each, Rfl: 0 tadalafil (Cialis) 20 MG tablet, TAKE 1 TABLET 1 HOUR BEFORE SEXUAL RELATIONS ONCE DAILY NEEDED., Disp: 10 tablet, Rfl: 0 tadalafil (Cialis) 5 MG tablet, Take 1 tablet daily by oral route. May take additional 20 mg Tadalafil one daily PRN prior to intercourse, Disp: 90 tablet, Rfl: 3 documented in this encounter Miscellaneous Notes * Assessment & Plan Note - Felipa Bryant MD - 03/22/2024 4:31 PM ESTAssociated Problem(s): Urethritis Will recheck for STIs today with full workup (RPR< Hep B, Hep C, HIV, GC, myco/uroplasma, trich) Ice pack/supportive underwear Consider further antibiotic treatment and imaging as needed based on lab results documented in this encounter Plan of Treatment Upcoming Encounters Date Type Department Care Team (Late st Contact Info) Description 04/26/2024 10:30 AM EST Clinical Support [address] [address] 04/29/2024 11:15 AM EST Office Visit [address] [address] 05/30/2024 10:00 AM EDT Office Visit [address] [address] [facility] [address] [place] [address] Scheduled Orders Name Type Priority Associated Diagnoses Orde r Schedule Mycoplasma/Ureaplasma?? Panel Microbiology Routine Urethritis Expected: 03/21/2024 (Approximate), Expires: 03/21/2025 Trichomonas RNA (Urine/Vaginal) Lab Routine Urethritis Ordered: 03/21/2024 RPR (Monitor) with Reflex to??Titer Lab Routine Urethritis Expected: 03/21/2024, Expires: 03/21/2025 documented as of this encounter Procedures Procedure Name Priority Date/Time Associated Diagnosis Comments HEPATITIS C AB W/REFL TO HCV RNA, QN, PCR Routine 03/22/2024 9:08 AM EST Urethritis HIV 1/2 ANTIGEN/ANTIBODY, FOURTH GENERATION W/RFL Routine 03/22/2024 9:08 AM EST Urethritis CHLAMYDIA/N. GONORRHOEAE RNA, TMA, UROGENITAL Routine 03/21/2024 4:05 PM EST Urethritis documented in this encounter Results * Hepatitis C Antibody with Reflex to HCV, RNA, Quantitative, Real-Time PCR (03/22/2024 9:08 AM EST) Hepatitis C Antibody Nonreactive Nonreactive [facility] Comment:Antibodies to HCV no t detected; does not exclude early acuteHCV infection. Blood Venous blood specimen / Unknown 03/22/2024 9:08 AM EST 03/22/2024 11:21 AM EST Felipa Bryant MD LAB BLOOD ORDERABLES Final Res ult Performing Organization Address City/[facility] Co de Phone Number [facility] [address] [place] [address] [phone] * HIV-1/2 Antigen and Antibodies, Fourth Generation, with Reflexes (03/22/2024 9:08 AM EST) HIV AB/AG Nonreactive Nonreactive [facility] Comment:HIV-1 p24 Ag and/or HIV-1/HIV-2 Ab not detected.A test result that is nonreactive does not exclude thepossibility of exposure to or infection with HIV-1 and/orHIV-2. Nonreactive results in this assay for individualswith prior exposure to HIV-1 and/or HIV-2 may be due toantigen and antibody levels that are below the limit ofdetection of this assay.The [employer] HIV Ag/Ab Combo assay result andsupplemental assay results should be interpreted inconjunction with the patient's clinical presentation,history and other laboratory results. If the results areinconsistent with clinical evidence, additional testing issuggested to confirm the result. Blood Venous blood specimen / Unknown 03/22/2024 9:08 AM EST 03/22/2024 11:21 AM EST Felipa Bryant MD LAB BLOOD ORDERABLES Final Res ult Performing Organization Address City/[facility] Co de Phone Number [facility] [address] [place] [address] [phone] * Chlamydia/N. Gonorrhoeae RNA, TMA, Urogenitial (03/21/2024 4:05 PM EST) CT PCR NOT DETECTED Not Detect. [facility] Comment:A not detected test result does [...] psychologicalconsequences. NG PCR NOT DETECTED Not Detect. [facility] Comment:A not detected test result does [...] PM EST 03/21/2024 5:47 PM EST Narrative [facility] - 03/22/2024 5:49 AM EST Urine us Felipa Bryant MD LAB MICROBIOLOGY - GENERAL ORD ERABLES Final Result [facility] [address] [place] [phone] documented in this encounter Visit Diagnoses Diagnosis Urethritis- Primary Unspecified urethritis Dietary counseling Dietary surveillance and counseling Exercise counseling Overweight documented in this encounter Additional Health Concerns Assessment Noted Time PHQ-9 Depression Total Score: 0 05/29/19 24 9:41 AM EDT documented as of this encounter Care Teams Product Development Technician Relationship Specialty Start Date End Date Una Sawyer FNP [address] [place] [id number] PCP - General Family Medicine 08/21/21 documented as of this encounter
--- OUTSIDE RECORDS SUMMARY | 2024-03-30 09:03 | XMS_ITS | Encounter Summary ---
Author Organization [employer] Address [address] [place] [address] 7 [place] [address] Care Team Providers Care Job Boss Name Role Phone [facility] Primary Care Provider [phone] Reason for Visit * Reason Onset Date Comments Nurse Triage 03/21/2024 Encounter Details Date Type Department Care Team ([facility] st Contact Info) Description 03/21/2024 Telephone [facility] [address] [place], [place] [phone] [facility] [address] [place] [address] Nurse Triage Social History Tobacco Use Types [...] encounter Miscellaneous Notes * Telephone Encounter - Melina Lemus RN - 03/21/2024 9:42 AM EST Triage call , Pt was seen in ED 03/16/24 and triaged again 03/18/24 for this same problem. Pt had inguinal hernia repair 03/18/24 and has spoken with surgeon in regard to these symptoms. Pt reports left side of scrotum with some swelling and pain has become more constant. Pt was advised by surgeon to follow up with provider . Pt is calling to be seen earlier in the day today. The earliest apt available is 130pm today but, Pt is advised to keep apt at 330pm with Dr. Edmondson. Pt is advised to seek evaluation in ED if symptoms have worsened and are concerning. Pt has been taking tylenol/ibuprofen forpain. Pt agrees with disposition. Insurance is verified as active . Protocol Used: Scrotum Pain (Adult) Protocol-Based Disposition: See in Office or Video Visit Today Positive Triage Question: * Patient wants to be seen * All higher-acuity triage questions were negative Care Advice Discussed: * Reassurance and Education - Brief Scrotum Pain * Reasons To Call Back - Severe pain - Pain lasts over 1 hour - Swelling or redness occurs - You become worse * Pain Medicines * Pain Medicines - Extra Notes and Warnings * Reasons To Call Back - Severe pain - Constant pain lasts over 1 hour - Pain comes and goes, and lasts more than 24 hours - Swelling or redness occurs - You become worse * Telephone Encounter - Jacinta Coto - 03/21/2024 8:56 AM EST Symptom: Testicle Symptoms Outcome: Talk to a nurse or provider within 15 minutes Reason: Pain in the testicle The caller accepted this outcome. documented in this encounter Plan of Treatment Upcoming Encounters Date Type Department Care Team (Late st Contact Info) Description 04/26/2024 10:30 AM EST Clinical Support [address] [address] 04/29/2024 11:15 AM EST Office Visit [address] [address] Una Sawyer [address] [address] 05/30/2024 10:00 AM EDT Office Visit [facility] [address] Una Sawyer [address] [address] documented as of this encounter Visit Diagnoses Not on filedocumented in this encounter Additional Health Concerns Assessment Noted Time PHQ-9 Depression Total Score: 0 05/29/19 24 9:41 AM EDT documented as of this encounter Care Teams Job Boss Relationship Specialty Start Date End Date Una Sawyer FNP [address] [place] [phone] PCP - General Family Medicine 08/21/21 documented as of this encounter
--- OUTSIDE RECORDS SUMMARY | 2024-03-30 09:03 | XMS_ITS | Encounter Summary ---
Author Organization [employer] Address [address] [place] [address] 7 [place] [address] Care Team Providers Care Certified Registered Dental Assistant Name Role Phone [facility] Primary Care Provider [phone] Reason for Visit * Reason Comments ER Follow-up Encounter Details Date Type Department Care Team ([facility] Contact Info) Description 02/29/2024 1:00 PM EST Office Visit [facility] [address] [place], [place] [phone] Sari Lyn NP [address] [place], [place] [phone] Right elbow pain (Primary Dx); Periumbilical abdominal pain; Vasovagal syncope Social History Tobacco Use Types Packs/Day Years [...] Sign Reading Time Taken Comments Blood Pressure 132/76 02/29/2024 1:01 PM EST Pulse 62 02/29/2024 1:01 PM EST Temperature 36.8 ??C (98.3 ??F) 02/29/2024 1:01 PM ES T Respiratory Rate 18 02/29/2024 1:01 PM EST Oxygen Saturation 98% 02/29/2024 1:01 PM EST Inhaled Oxygen Concentration - - Weight 107 kg (235 lb 6.4 oz) 02/29/2024 1:01 PM EST Height 188 cm (6' 2 ) 02/29/2024 1:01 PM EST Body Mass Index 30.22 02/29/2024 1:01 PM EST documented in this encounter Progress Notes * Sari Lyn NP - 02/29/2024 1:00 PM EST Subjective Jerry Stuart is a 38 y.o. male who presents to the office for follow up visit - er evaluation Interim history: Pt was seen in ER , after syncopal episode witnessed in office, labs reassuring CT angio abdomen and pelvis with no aneurysm or dissection of the aorta call back from radiologist who read the patient's CT. Discussed secretions layering within the trachea suggestive of possible aspiration. coincides with impression for possible aspiration pneumonia. Current concerns: Pt recalls the event- on developed abdominal pain, was seen in office and when pressure was applied to the abdomen, pt was asked to exertional cough on exam and developed pain, has never loc, but felt lightheadeded and sat down in chair- felt as if was thought was going to pass out, witnessed loc transported to er. No loss of bowel or bladder function Right elbow pain since fall, feels worse than 6-7 will start to lock. More painful than before fall On day 3 of azithromycin no symptoms of pneumonia including cough, sob, fatigue or fever. Umbillical hernia- has visit at 3 pm today with surgeon Patient Active Problem List Diagnosis Depressive disorder Erectile dysfunction Axillary hyperhidrosis Chronic elbow pain, right Closed fracture of right elbow Right elbow pain Anxiety Discomfort Dysuria Elevated blood pressure reading Periumbilical abdominal pain Syncope Review of Systems Constitutional: Negative for activity change and appetite change. Eyes: Negative for discharge. Respiratory: Negative for apnea, cough, chest tightness, shortness of breath and wheezing. Cardiovascular: Negative for chest pain. Gastrointestinal: Positive for abdominal pain. Negative for abdominal distention. Objective Visit Vitals BP 132/76 Pulse 62 Temp 98.3 ??F (36.8 ??C) (Oral) Resp 18 Ht 6' 2 (1.88 m) Wt 235 lb 6.4 oz (107 kg) SpO2 98% BMI 30.22 kg/m?? Smoking Status Former BSA 2.36 m?? Physical Exam Vitals reviewed. Constitutional: Appearance: Normal appearance. HENT: Head: Normocephalic. Cardiovascular: Rate and Rhythm: Normal rate. Heart sounds: Normal heart sounds. Pulmonary: Breath sounds: Normal breath sounds. Comments: Coarse breath sounds in all lobes good aeration Abdominal: Palpations: Abdomen is soft. Musculoskeletal: Right elbow: Tenderness present in lateral epicondyle. No radial head tenderness. Cervical back: Neck supple. Neurological: Mental Status: He is alert. Psychiatric: Mood and Affect: Mood normal. Assessment/Plan Problem List Items Addressed This Visit Right elbow pain - Primary Current Assessment & Plan Pt fell on right side, x-ray ordered Reviewed no lifting until x-ray completed, Relevant Orders XR Elbow 1-2 Views Right Periumbilical abdominal pain Current Assessment & Plan Umbilical hernia, visit with surgeon at 3 pm today Syncope Current Assessment & Plan Consistent with vasovagal event, Anticipatory guidance reviewed should pt feel lightheaded Of note pt was treated for possible aspiration pneumonia, no symptoms today, complete therapy as prescribed Current Outpatient Medications Medication Sig Dispense Refill ketoconazole (Nizoral) 2 % shampoo Apply topically 2 (two) times a week. 120 mL 3 Salicylic Acid 40 % pads Apply one pad topically directly to wart on dry skin daily. Do not exceed 90 days. 90 each 0 tadalafil (Cialis) 20 MG tablet TAKE 1 TABLET 1 HOUR BEFORE SEXUAL RELATIONS ONCE DAILY NEEDED. 10 tablet 0 tadalafil (Cialis) 5 MG tablet Take 1 tablet daily by oral route. May take additional 20 mg Tadalafil one daily PRN prior to intercourse 90 tablet 3 No current facility-administered medications for this visit. documented in this encounter Miscellaneous Notes * Assessment & Plan Note - Sari Lyn NP - 02/29/2024 6:01 PM ESTAssociated Problem(s): Syncope Consistent with vasovagal event, Anticipatory guidance reviewed should pt feel lightheaded Of note pt was treated for possible aspiration pneumonia, no symptoms today, complete therapy as prescribed * Assessment & Plan Note - Sari Lyn NP - 02/29/2024 5:59 PM ESTAssociated Problem(s): Right elbow pain Pt fell on right side, x-ray ordered Reviewed no lifting until x-ray completed, * Assessment & Plan Note - Sari Lyn NP - 02/29/2024 5:59 PM ESTAssociated Problem(s): Periumbilical abdominal pain Umbilical hernia, visit with surgeon at 3 pm today documented in this encounter Plan of Treatment Upcoming Encounters Date Type Department Care Team (Late st Contact Info) Description 04/26/2024 10:30 AM EST Clinical Support [address] [address] 04/29/2024 11:15 AM EST Office Visit [facility] [address] [place], [place] [address] [place] [address] Una Sawyer [facility] [address] [facility] [place] [address] 05/30/2024 10:00 AM EDT Office Visit [facility] [place] [address] Una Sawyer PHYSICIAN SUPPORT COORDINATOR [address] [place] [address] Scheduled Orders Name Type Priority Associated Diagnoses Orde r Schedule XR Elbow 1-2 Views Right Imaging Routine Right elbow pain Expected: 02/29/2024, Expires: 02/28/2025 documented as of this encounter Visit Diagnoses Diagnosis Right elbow pain- Primary Pain in joint, upper arm Periumbilical abdominal pain Abdominal pain, periumbilic Vasovagal syncope Syncope and collapse documented in this encounter Additional Health Concerns Assessment Noted Time PHQ-9 Depression Total Score: 0 05/29/19 24 9:41 AM EDT documented as of this encounter Care Teams Certified Registered Dental Assistant Relationship Specialty Start Date End Date Una SawyerSAMANTHA [facility] [place] [address] PCP - General Family Medicine 08/21/21 documented as of this encounter
--- OUTSIDE RECORDS SUMMARY | 2024-03-30 09:03 | XMS_ITS | Encounter Summary ---
Author Organization [employer] Address [address] [facility] 7t [place] [address] Care Team Providers Care Word Processor Name Role Phone [place] [facility] Primary Care Provider [phone] Encounter Details Date Type Department Care Team (Latest Contact Info) Description 03/21/2024 Travel Social History Tobacco Use Types Packs/Day Years [...] AM EDT documented as of this encounter Plan of Treatment Upcoming Encounters Date Type Department Care Team (Late st Contact Info) Description 04/26/2024 10:30 AM EST Clinical Support [address] [address] 04/29/2024 11:15 AM EST Office Visit [address] [address] Una Sawyer [address] [address] 05/30/2024 10:00 AM EDT Office Visit [address] [address] Una Sawyer [address] [address] documented as of this encounter Visit Diagnoses Not on filedocumented in this encounter Additional Health Concerns Assessment Noted Time PHQ-9 Depression Total Score: 0 05/29/19 24 9:41 AM EDT documented as of this encounter Care Teams Word Processor Relationship Specialty Start Date End Date Una Sawyer FNP [address] [place] [address] PCP - General Family Medicine 08/21/21 documented as of this encounter
--- OUTSIDE RECORDS SUMMARY | 2024-03-30 09:03 | XMS_ITS | Encounter Summary ---
Author Organization [employer] Address [address] [place] [address] 7 [place] [address] Care Team Providers Care Tire Maker Name Role Phone [facility] Primary Care Provider [phone] Reason for Visit * Reason Onset Date Comments Chart Prep 02/29/2024 Encounter Details Date Type Department Care Team ([facility] Contact Info) Description 02/29/2024 Telephone [facility] [address] [place], [place] [phone] [facility] [address] [place] [address] Chart Prep Social History Tobacco Use Types [...] encounter Miscellaneous Notes * Telephone Encounter - Greg Coto MA - 02/29/2024 10:49 AM EST Chart Prep Labs: done Images: done Vaccines due: yes Flu Covid Hep B Referrals: pending appt Screenings: None Overdue care gaps: None documented in this encounter Plan of Treatment Upcoming Encounters Date Type Department Care Team (Late st Contact Info) Description 04/26/2024 10:30 AM EST Clinical Support [address] [address] 04/29/2024 11:15 AM EST Office Visit [address] [address] Una Sawyer [address] [address] 05/30/2024 10:00 AM EDT Office Visit [address] [address] [place] [address] [address] documented as of this encounter Visit Diagnoses Not on filedocumented in this encounter Additional Health Concerns Assessment Noted Time PHQ-9 Depression Total Score: 0 05/29/19 24 9:41 AM EDT documented as of this encounter Care Teams Tire Maker Relationship Specialty Start Date End Date Una SawyerSAMANTHA [address] [place] [address] PCP - General Family Medicine 08/21/21 documented as of this encounter
--- OUTSIDE RECORDS SUMMARY | 2024-03-30 09:03 | XMS_ITS | Encounter Summary ---
Author Organization [employer] Address [address] [place] [address] 7 [place] [address] Care Team Providers Care Cost Accountant Name Role Phone [facility] Primary Care Provider [phone] Reason for Visit * Reason Onset Date Comments Nurse Triage 03/18/2024 Encounter Details Date Type Department Care Team ([facility] st Contact Info) Description 03/18/[address] [facility] 230 [place], [place] [phone] [facility] 230 [place] [address] Nurse Triage Social History Tobacco Use Types [...] encounter Miscellaneous Notes * Telephone Encounter - Gill Estrada RN - 03/18/2024 1:46 PM EST Called pt. He states that he went to Surgery this am for umbilical hernia which went well. Pt called last week for left inguinal discomfort and swelling. Pt. Was advised to go to ED and he went on 03/16/24 to [facility] ED. US was done of testicle area and US came back Negative. There is no redness on left testicle but, it is slightly swollen. No pain with urination, no pain with cough, no sore and no drainage. Surgeon this am states that the swelling on left side of testicle and inner groin area is notrelated to umbilical hernia. No fever. Pt wants to make appt. For 03/21/[address] [facility] to have swelling checked by provider and further tsting as he is tired and has pain from umbilical surgery this am. Appt. Made for 330pm with Manny Quintana on 03/21/24. Advised if sx. Worsen to please go back to ED in meantime. Pt agrees with plan. Protocol Used: Scrotum Swelling (Adult) Protocol-Based Disposition: See in Office or Video Visit within 3 Days Positive Triage Question: * Scrotum swelling and no pain * All higher-acuity triage questions were negative * Telephone Encounter - Rigoberto Buckner - 03/18/2024 1:28 PM EST Symptom: Testicle Symptoms Outcome: Talk to a nurse or provider within 15 minutes Reason: Swelling in the testicle Please contact pt at [phone] documented in this encounter Plan of Treatment Upcoming Encounters Date Type Department Care Team (Late st Contact Info) Description 04/26/2024 10:30 AM EST Clinical Support [address] [address] 04/29/2024 11:15 AM EST Office Visit [address] [address] Una Sawyer FNP [address] [place] [address] 05/30/2024 10:00 AM EDT Office Visit [address] [address] Una Sawyer FNP [address] [place] [address] documented as of this encounter Visit Diagnoses Not on filedocumented in this encounter Additional Health Concerns Assessment Noted Time PHQ-9 Depression Total Score: 0 05/29/19 24 9:41 AM EDT documented as of this encounter Care Teams Cost Accountant Relationship Specialty Start Date End Date Una Sawyer FNP [address] [place] [address] PCP - General Family Medicine 08/21/21 documented as of this encounter
--- OUTSIDE RECORDS SUMMARY | 2024-03-30 09:03 | XMS_ITS | Encounter Summary ---
Author Organization [employer] Address [address] [facility] 7 [place] [address] Care Team Providers Care Fibre Composite Technician Name Role Phone [facility] Primary Care Provider [phone] Reason for Visit * Reason Onset Date Comments Results 03/23/2024 Encounter Details Date Type Department Care Team ([facility] Contact Info) Description 03/23/2024 Telephone [facility] 230 [place], [place] [phone] [facility] 230 [place], [place] [phone] Results Social History Tobacco Use Types Packs/Day Years [...] encounter Miscellaneous Notes * Telephone Encounter - Lisseth Mcgraw RN - 03/23/2024 4:25 PM EST TC placed to pt to advise per ordering provider Dr Bryant that there are still pending labs for RPR and ureaplasma/mycoplasma. Once these results are in then it can be determined antibiotics vs further imaging. Pt agreeable to this information and had no further questions or concerns. * Telephone Encounter - Lisseth Mcgraw RN - 03/23/2024 1:15 PM EST TC placed to pt in regards to questions about most recent lab results. Pt informed of the results of the Hepatitis C Antibody, HIV 1/2 Antigen and Hepatitis Panel. Pt educated on what the results meant, specifically the reactive Hepatitis B Surface Antibody. Pt advised that a positive or reactive re sult indicated that the test detected the presence of antibodies in the blood showing a past infection or from the vaccine. Pt was scheduled at the Vaccine clinic in a month to start the Hepatitis B series of vaccines. While on the call the pt was inquiring what the next steps are after the lab results. Per KIRAN note from Dr. Bryant Consider further antibiotic treatment and imaging as needed based on lab results . Pt advised this will be sent to Dr. Bryant for review and advisement. * Telephone Encounter - Monroe Lester - 03/23/2024 12:14 PM EST Tc from pt requesting a call from a nurse to explain lab results because he's having trouble understanding them. Contact PT :[phone] documented in this encounter Plan of Treatment Upcoming Encounters Date Type Department Care Team (Late st Contact Info) Description 04/26/2024 10:30 AM EST Clinical Support [address] [address] 04/29/2024 11:15 AM EST Office Visit [address] [address] Una Sawyer [address] [address] 05/30/2024 10:00 AM EDT Office Visit [address] [address] Una Sawyer [address] [address] documented as of this encounter Visit Diagnoses Not on filedocumented in this encounter Additional Health Concerns Assessment Noted Time PHQ-9 Depression Total Score: 6 03/23/19 25 9:29 AM EST documented as of this encounter Care Teams Fibre Composite Technician Relationship Specialty Start Date End Date Una Sawyer FNP [address] [place] [address] PCP - General Family Medicine 08/21/21 documented as of this encounter
--- OUTSIDE RECORDS SUMMARY | 2024-03-30 09:03 | XMS_ITS | Encounter Summary ---
Author Organization [employer] Address [address] [place] [address] 7 [place] [address] Care Team Providers Care Billing Analyst Name Role Phone [facility] Primary Care Provider [phone] Reason for Referral * Consultation (Routine) - Pending Review Specialty Diagnoses / Procedures Referred By Feliz t Referred To Contact Orthopaedic Surgery Diagnoses Right elbow pain Sari Lyn NP [address] [place] [address] Phone: tel: fax: Referral ID Status Reason Start Date Expiration Date Visits Requested Visits Authorized [id number] Pending Review Specialty Services Required 03/25/2024 03/25/2025 1 1 * Imaging (Routine) - Authorized Specialty Diagnoses / Procedures Referred By Feliz t Referred To Contact Radiology Diagnoses Swelling of left testicle Procedures US Scrotum Sari Lyn NP [address] [place] [address] Phone: tel: fax: [address] Phone: tel: fax: Referral ID Status Reason Start Date Expiration Date V isits Requested Visits Authorized [id number] Authorized 03/25/2024 03/25/2025 1 1 * Consultation (Routine) - Pending Review Specialty Diagnoses / Procedures Referred By Felzi t Referred To Contact Urology Diagnoses Swelling of left testicle Sari Lyn NP [address] [place] [address] Phone: tel: fax: Referral ID Status Reason Start Date Expiration Date Visits Requested Visits Authorized [id number] Pending Review Specialty Services Required 03/25/2024 03/25/2025 1 1 Encounter Details Date Type Department Care Team (Late st Contact Info) Description 03/25/2024 10:30 AM EST Office Visit [facility] [address] [place] [address] Sari Lyn NP [address] [place] [address] Swelling of left testicle (Primary Dx); Hypertension, unspecified type; Right elbow pain Social History Tobacco Use Types Packs/Day Years [...] Mass Index 29.15 03/25/2024 10:45 AM EST documented in this encounter Plan of Treatment Upcoming Encounters Date Type Department Care Team (Late st Contact Info) Description 04/26/2024 10:30 AM EST Clinical Support [address] [address] 04/29/2024 11:15 AM EST Office Visit [address] [address] 05/30/2024 10:00 AM EDT Office Visit [address] [address] Scheduled Orders Name Type Priority Associated Diagnoses Orde r Schedule US Scrotum Imaging Routine Swelling of left testicle Expected: 03/25/2024, Expires: 03/25/2025 Scheduled Referrals Name Type Priority Associated Diagnoses Order Schedule Referral to Urology Outpatient Referral Routine Swelling of left testicle Expected: 03/25/2024 (Approximate), Expires: 03/25/2025 Referral to Orthopaedic Surgery Outpatient Referral Routine Right elbow pain Expected: 03/25/2024 (Approximate), Expires: 03/25/2025 documented as of this encounter Visit Diagnoses Diagnosis Swelling of left testicle- Primary Edema of male genital organs Hypertension, unspecified type Right elbow pain Pain in joint, upper arm documented in this encounter Additional Health Concerns Assessment Noted Time PHQ-9 Depression Total Score: 6 03/23/19 25 9:29 AM EST documented as of this encounter Care Teams Billing Analyst Relationship Specialty Start Date End Date Una Sawyer FNP [address] [place] [address] PCP - General Family Medicine 08/21/21 documented as of this encounter
--- OUTSIDE RECORDS SUMMARY | 2024-03-30 09:03 | XMS_ITS | Encounter Summary ---
Author Organization [employer] Address [address] [place] [address] 7 [place] [address] Care Team Providers Care Cake Icer Name Role Phone [facility] Primary Care Provider [phone] Reason for Visit * Reason Onset Date Comments Nurse Triage 03/14/2024 Encounter Details Date Type Department Care Team ([facility] st Contact Info) Description 03/14/2024 Telephone [facility] 230 [place], [place] [phone] [facility] [address] [place] [address] Nurse Triage Social History Tobacco Use Types [...] Telephone Encounter - Gill Estrada RN - 03/14/2024 12:53 PM EST Called pt. He states that he has had an umbilical hernia and is scheduled for surgery this week at [facility] General surgeons. Area of groin is swollen towards left testicle. Pt. States that veins that connect to left testicle and area in between thigh and testicle are swollen and tender to touch but, not painful. Pt. Advised to go to ED. Pt states he has to go to [facility] for an Xray and would rather be checked there. I advised that he could try but, he may be sent to ED anyway for more diagnostic testing. Pt. Is urinating WNL, no blood in urine. No fever. Protocol Used: Scrotum Swelling (Adult) Protocol-Based Disposition: See in Office or Video Visit within 3 Days- Pt. Will go to walk in today at [facility] but, May need to go to ED Positive Triage Question: * Scrotum swelling and no pain * All higher-acuity triage questions were negative * Telephone Encounter - Jacinta Coto - 03/14/2024 12:44 PM EST Symptom: Testicle Symptoms Outcome: Talk to a nurse or provider within 15 minutes Reason: Swelling in the testicle The caller accepted this outcome. documented in this encounter Plan of Treatment Upcoming Encounters Date Type Department Care Team (Late st Contact Info) Description 04/26/2024 10:30 AM EST Clinical Support [facility] [place] [address] 04/29/2024 11:15 AM EST Office Visit [facility] [place] [address] [address] F[place] [facility] [place] [address] 05/30/2024 10:00 AM EDT Office Visit [facility] [place] [place] [address] [address] Saw[address] F[place] [address] documented as of this encounter Visit Diagnoses Not on filedocumented in this encounter Additional Health Concerns Assessment Noted Time PHQ-9 Depression Total Score: 0 05/29/19 24 9:41 AM EDT documented as of this encounter Care Teams Cake Icer Relationship Specialty Start Date End Date Una Sawyer [place] [address] PCP - General Family Medicine 08/21/21 documented as of this encounter
--- OUTSIDE RECORDS SUMMARY | 2024-03-30 09:04 | XMS_ITS | Encounter Summary ---
Author Organization [employer] Address [address] [facility] [address]t [place] [address] Care Team Providers Care Java Portal Developer Name Role Phone [facility] Primary Care Provider [phone] Reason for Visit * Reason Onset Date Comments ED expect 02/26/2024 Encounter Details Date Type Department Care Team ([facility] st Contact Info) Description 02/26/2024 Telephone [facility] MEDICINE [address] [place], [place] [phone] Latha Harkins RN [address] [place], [place] [phone] ED expect Social History Tobacco Use Types Packs/Day Years [...] encounter Miscellaneous Notes * Telephone Encounter - Joseluis Valentine RN - 02/29/2024 10:20 AM EST TC placed to patient for ED status check. Patient reports that right now he is feeling OK but his elbow is what is bothering him most at the moment. Patient reports he feels on that elbow during the episode and he has already had issues with that elbow in the past and [facility] for [facility]. Patient states area is slightly swollen and because of the shots the skin in that area is already discolored but it looks a bit more red than it has before. Patient alsoreports that the area is slightly warmer than other elbow/arm. Patient denies any more episodes of syncope, no visual changes or headaches. Patient informed should be seen in for ED follow up appt. PCP does not have any appts soon. Patient agrees to appt today at 1 pm with Sari Lyn for ER followup and to check elbow. Patient verbalized understanding and agrees with plan. Concerns regarding [facility] treatment and last visit were discussed with patient and patient informed will follow up with management in regards to those concerns. * Telephone Encounter - Latha Harkins RN - 02/26/2024 11:15 AM EST TC placed to [facility] ED [phone] for expect. Patient was seen at [facility] for umbilical pain. Patient was being evaluated to r/o hernia in which he reported feeling lightheaded, became pale, had a small tonic clonic seizure and syncope episode. Patient then had a syncope episode. RN was called and patient was started on 1L O2. Patients SPO2 remained at 100%. Patients vital signs were taken by Maria Del Rosario ([place] airline managerial supervisor) which were WNL, glucose was checked by Katarina TERRAZAS which was 99, Henrietta TERRAZAS called 911, Salina VALDEZ printed facesheet, medlist and FD notified security of ambulance expect. Patient remainedon the floor in exam room M while we awaiting arrival of EMS with Dr. Diaz. EMS arrived, patient was transported to [facility] ED. RN will place patient on status check for Thursday. documented in this encounter Plan of Treatment Upcoming Encounters Date Type Department Care Team (Late st Contact Info) Description 04/26/2024 10:30 AM EST Clinical Support [address] [address] 04/29/2024 11:15 AM EST Office Visit [address] [address] Una Sawyer [address] [address] 05/30/2024 10:00 AM EDT Office Visit [address] [address] Una Sawyer [address] [address] documented as of this encounter Visit Diagnoses Not on filedocumented in this encounter Additional Health Concerns Assessment Noted Time PHQ-9 Depression Total Score: 0 05/29/19 9:41 AM EDT documented as of this encounter Care Teams Java Portal Developer Relationship Specialty Start Date End Date Una Sawyer FNP [address] [place] [address] PCP - General Family Medicine 08/21/21 documented as of this encounter
--- OUTSIDE RECORDS SUMMARY | 2024-03-30 09:04 | XMS_ITS | Encounter Summary ---
Author Organization [employer] Address [address] [place] [address] 7 [place] [address] Care Team Providers Care Lead Cashier Name Role Phone [facility] Primary Care Provider [phone] Reason for Visit * Reason Onset Date Comments Medication Question 11/04/2022 Encounter Details Date Type Department Care Team ([facility] Contact Info) Description 11/04/2022 Telephone [facility] MEDICINE 230 [place], [place] [phone] [facility] 230 [place] [address] Medication Question Social History Tobacco Use Types Packs/Day Years Used Date Smoking Tobacco: Former Cigarettes Smokeless Tobacco: Never Alcohol Use Standard Drinks/Week Comments Yes 0 (1 standard drink = 0.6 oz pur e alcohol) Depression Answer Date Recorded Patient Health Questionnaire-9 Score 5 03/28/2022 Depression Answer Date Recorded Patient Health Questionnaire-2 Score 0 06/05/2022 Sex and Gender Information Value Date Recorded Sex Assigned at Male 01/06/2022 10:40 AM EDT Legal Sex Male 10:40 AM EDT Gender Identity Male 01/06/2022 10:40 AM EDT Sexual Orientation Straight 01/06/2022 10 :40 AM EDT documented as of this encounter Miscellaneous Notes * Telephone Encounter - Alisa Huggins - 11/11/2022 2:49 PM EDT Tc from patient requesting the status, regarding message below. * Telephone Encounter - Gustavo Quiroz RN - 11/07/2022 2:23 PM EDT Please review and advise, pt. States he wants rx for 5 mg Cialis for every day with 20 mg of CialisPRN, 5 mg script was cancelled but as per pt. Urologist states he can take 5 mg Cialis every day and 20 mg Cialis PRN. * Telephone Encounter - Liz Diop - 11/07/2022 2:14 PM EDT Tc from pt calling in regards to message above. Please contact pt at [phone] * Telephone Encounter - Trev Saleh - 11/04/2022 1:25 PM EDT Tc from pt requesting a new script for tadalafil (Cialis) 5 MG tablet, pt stated urologist sent tadalafil (Cialis) 20 mg tablet PRN and new script for 5 mg will need to say okay to take with 20 mg. Pt would like a call back. Please contact at [phone] documented in this encounter Plan of Treatment Upcoming Encounters Date Type Department Care Team (Late st Contact Info) Description 04/26/2024 10:30 AM EST Clinical Support [address] [address] 04/29/2024 11:15 AM EST Office Visit [address] [address] Una Sawyer FNP [address] [place] [address] 05/30/2024 10:00 AM EDT Office Visit [address] [address] Una Sawyer FNP [address] [place] [address] documented as of this encounter Visit Diagnoses Not on filedocumented in this encounter Additional Health Concerns Assessment Noted Time PHQ-9 Depression Total Score: 5 03/28/19 23 10:55 AM EST documented as of this encounter Care Teams Lead Cashier Relationship Specialty Start Date End Date Una Sawyer FNP [address] [place] [address] PCP - General Family Medicine 08/21/21 documented as of this encounter
--- OUTSIDE RECORDS SUMMARY | 2024-03-30 09:04 | XMS_ITS | Encounter Summary ---
Author Organization [employer] Address [address] [facility] 7 [place] [address] Care Team Providers Care Street Light Inspector Name Role Phone [facility] Primary Care Provider [phone] Reason for Visit * Reason Onset Date Comments Med Refill 06/03/2023 Encounter Details Date Type Department Care Team ([facility] st Contact Info) Description 06/03/2023 Refill [facility] MEDICINE 230 [place], [place] [phone] Mindy Cardona MD 230 [place] [address] Erectile dysfunction, unspecified erectile dysfunction type Social History Tobacco Use Types Packs/Day Years [...] Description 04/26/2024 10:30 AM EST Clinical Support [address] [address] 04/29/2024 11:15 AM EST Office Visit [address] [address] 05/30/2024 10:00 AM EDT Office Visit [address] [address] documented as of this encounter Visit Diagnoses Diagnosis Erectile dysfunction, unspecified erectile dysfunction type documented in this encounter Additional Health Concerns Assessment Noted Time PHQ-9 Depression Total Score: 0 05/29/19 24 9:41 AM EDT documented as of this encounter Care Teams Street Light Inspector Relationship Specialty Start Date End Date Una Sawyer [facility] [address] [place] [address] PCP - General Family Medicine 08/21/21 documented as of this encounter
--- OUTSIDE RECORDS SUMMARY | 2024-03-30 09:04 | XMS_ITS | Encounter Summary ---
Author Organization [employer] Address [address] [place] [address] 7 [place] [address] Care Team Providers Care Consulting Software Engineer Name Role Phone [facility] Primary Care Provider [phone] Reason for Visit * Reason Onset Date Comments Results 02/26/2023 Encounter Details Date Type Department Care Team ([facility] Contact Info) Description 02/26/2023 Telephone [facility] MEDICINE 230 [place], [place] [phone] [facility] 230 [place], [place] [phone] Results Social History Tobacco Use Types Packs/Day Years Used Date Smoking Tobacco: Former Cigarettes Passive Smoke Exposure: Never Smokeless Tobacco: Never Alcohol Use Standard Drinks/Week Comments Yes 0 (1 standard drink = 0.6 oz pur e alcohol) Depression Answer Date Recorded Patient Health Questionnaire-9 Score 5 03/28/2022 Housing Stability Answer Date Recorded What is [...] encounter Miscellaneous Notes * Telephone Encounter - Rain Cardenas - 02/26/2023 2:22 PM EST Tc from pt requesting a call back, pt receive result thru my chart and wanted to discuss next steps. documented in this encounter Plan of Treatment Upcoming Encounters Date Type Department Care Team (Late st Contact Info) Description 04/26/2024 10:30 AM EST Clinical Support [address] [address] 04/29/2024 11:15 AM EST Office Visit [address] [address] [address] [address] 05/30/2024 10:00 AM EDT Office Visit [address] [address] documented as of this encounter Visit Diagnoses Not on filedocumented in this encounter Additional Health Concerns Assessment Noted Time PHQ-9 Depression Total Score: 5 03/28/19 10:55 AM EST documented as of this encounter Care Teams Consulting Software Engineer Relationship Specialty Start Date End Date Una Sawyer [facility] [address] [place] [address] PCP - General Family Medicine 08/21/21 documented as of this encounter
[2024-03-30 12:22] LABS: Amphetamine Screen Urine Not Detected (Not Detect); Barbiturates, Urine Not Detected (Not Detect); Benzodiazepines Screen Urine Not Detected (Not Detect); Buprenorphine Scr Not Detected (Not Detect); Cannabinoid Screen Urine POSITIVE (Not Detect); Cocaine Screen Urine Not Detected (Not Detect); Fentanyl, urine Not Detected (Not Detect); Methadone Screen, Urine Not Detected (Not Detect); Opiate Screen Urine Not Detected (Not Detect); Oxycodone Screen Urine Not Detected (Not Detect); Phencyclidine Screen Urine Not Detected (Not Detect)
[2024-04-01 14:43] LABS: RPR Rapid Plasma Reagin NON-REACTIVE (NON-REACTIVE)
== END 2024-03-30 08:48 | disposition home or self-care (01) ==
LOC: HO.HHCL 08:47
PROVIDERS: General Practice; Registered Nurse; Visit Provider Registered Nurse
DX: F32.A Depression, unspecified (principal); N34.2 Other urethritis
CPT/HCPCS: 36415; 80307; 86592

== ENCOUNTER 2024-03-30 14:39 | Outpatient (REF) | payer MEDICAID, SELFPAY ==
--- OUTSIDE RECORDS SUMMARY | 2024-03-30 17:09 | XMS_ITS | Encounter Summary ---
Author Organization [employer] Address [address] [facility] 7t [place] [address] Care Team Providers Care Sow Manager Name Role Phone [facility] Primary Care Provider [phone] Reason for Visit * Reason Onset Date Comments Labs Only 03/30/2024 Encounter Details Date Type Department Care Team ([facility] Contact Info) Description 03/30/2024 Telephone [facility] MEDICINE 230 [place], [place] [phone] Latha Harkins RN 230 [place] [address] Labs Only Social History Tobacco Use Types Packs/Day Years [...] encounter Miscellaneous Notes * Telephone Encounter - Bethany Rodriguez RN - 03/30/2024 3:52 PM EST Call returned to patient regarding [facility]. Patient stated he wanted the team nurse who was helpinghim correct his lab orders to get recognized for her great work. The patient was able to get the lab tests collected today when he returned to the lab. The patient was thanked for the compliment and the staff nurse was informed of the compliment. * Telephone Encounter - Latha Harkins RN - 03/30/2024 12:12 PM EST RN received incoming call from [facility] with an update regarding [facility]. Per Arianna, [facility] was able to update lab stickers for trichomonas and mycoplasma/ureaplasma for them to print stating URINE or SWAB. * Telephone Encounter - Latha Harkins RN - 03/30/2024 11:37 AM EST RN received incoming call from the patient. Patient reports he is very frustrated with the lab. Patient reports he came to [facility] today to have his labs performed (see note form yesterday) for trichomonas, RPR and mycoplasma/ureaplasma. Patient reports he had BW collected and provided a urine sample. Patient reports he arrived home and was advised he needs to return to the lab d/t the urine amount not being sufficient and was informed the trichomonas and mycoplasma/ureaplasma are a swab which the lab cannot do. RN advised patient, RN would call the lab to further inquire and return call to patient. RN called [facility] [phone] to discuss above message. RN was informed the trichomonas and mycoplasma/ureaplasma orders were cancelled as they are swabs which the lab does not perform. RN informedstaff, the labs were placed yesterday as specimen: Urine. RN was then transferred to [facility] lab staff for further clarification. Staff were extremely rude to RN and ultimately informed RN it shows in their system as a swab specimen which they do not collect, despite RN explaining the order has been placed as a urine specimen. RN was informed to call Arianna Beltran [phone]. RN called Mary at [facility] to confirm order was placed correctly and indeed indicates urine specimen for both trichomonas and mycoplasma/ureaplasma. RN was informed orders are correct on [facility] end. Sarah reached out to Opal who advised Mary to have RN reach out to Arianna Beltran as well. RN called Arianna Beltran [phone] and explained above situation. Arianna was able to review the orders and reports she is unsure why the lab is not receiving the order with specimen type as urine. Arianna reports she will have her IT look into this. Arianna reports she called [facility] who confirmed the ordercan be either a swab or urine. Arianna was informed the urine can be placed in a urine cup with the lab els for the trichomonas and mycoplasma/ureaplasma can be attached to the cup and [facility] will performthe testing. Arianna spoke to the phlebotomists and informed them of plan. Arianna was informed of rudeness of staff and reports she will speak to the employees. Arianna also confirms she will speak to the patient in regards to his concerns. TC placed to patient [phone] to inform patient of need to return to the lab to provide more urine for the trichomonas and mycoplasma/ureaplasma. Patient advised the urine sample was only enough for the drug screen. Patient advised RN confirmed the lab WILL accept the urine and the patient willnot be turned away regarding the outstanding orders. Patient advised the phlebotomists correctional case records supervisor spoke to them and they are aware of what to do. Patient also advised Arianna Beltran will also be calling him to discuss his complaints regarding the lab. Patient verbalized understanding and is very appreciative of RN's efforts. documented in this encounter Plan of Treatment Upcoming Encounters Date Type Department Care Team (Late st Contact Info) Description 04/26/2024 10:30 AM EST Clinical Support [facility] [place] [address] 04/29/2024 11:15 AM EST Office Visit [facility] [place] [address] Una Sawyer FNP [facility] [place] [address] 05/30/2024 10:00 AM EDT Office Visit [facility] [place] [address] Una Sawyer FNP [facility] [place] [address] documented as of this encounter Visit Diagnoses Not on filedocumented in this encounter Additional Health Concerns Assessment Noted Time PHQ-9 Depression Total Score: 6 03/23/19 25 9:29 AM EST documented as of this encounter Care Teams Sow Manager Relationship Specialty Start Date End Date Una Sawyer FNP [facility] [place] [address] PCP - General Family Medicine 08/21/21 documented as of this encounter
--- OUTSIDE RECORDS SUMMARY | 2024-03-30 17:09 | XMS_ITS | Encounter Summary ---
Author Organization [employer] Address [address] [facility] 7 [place] [address] Care Team Providers Care Head Of Human Resources Name Role Phone [facility] Primary Care Provider [phone] Reason for Visit * Reason Onset Date Comments Results 03/23/2024 Encounter Details Date Type Department Care Team ([facility] Contact Info) Description 03/23/2024 Telephone [facility] MEDICINE 230 [place], [place] [phone] [facility] 230 [place], [place] [phone] Results Social History Tobacco Use Types Packs/Day [...] he's having trouble understanding them. Contact PT :[phone] documented in this encounter Plan of Treatment Upcoming Encounters Date Type Department Care Team (Late st Contact Info) Description 04/26/2024 10:30 AM EST Clinical Support [address] [address] 04/29/2024 11:15 AM EST Office Visit [address] [address] Una Sawyer [address] [address] 05/30/2024 10:00 AM EDT Office Visit [address] [address] Una Sawyer [address] [address] documented as of this encounter Visit Diagnoses Not on filedocumented in this encounter Additional Health Concerns Assessment Noted Time PHQ-9 Depression Total Score: 6 03/23/19 25 9:29 AM EST documented as of this encounter Care Teams Head Of Human Resources Relationship Specialty Start Date End Date Una Sawyer FNP [address] [place] [address] PCP - General Family Medicine 08/21/21 documented as of this encounter
--- OUTSIDE RECORDS SUMMARY | 2024-03-30 17:09 | XMS_ITS | Clinical Summary ---
Author Organization [employer] Address [address] [facility] [address] [place] [address] Care Team Providers Care Clinical Trials Specialist Name Role Phone [place] [facility] Primary Care Provider [phone] Allergies No known active allergies Medications * [...] - States he was raised in strict sikh family and has struggled over the years coming to terms with his beliefs about organized mormonism. he attributes feelings of guilt and low self esteems to his experiences in shinto. Especially difficult because he has realized he identifies as bisexual and has not felt accepted. Encounters * This document contains information received from the source organization and may not represent a complete record from that organization. Date Type Department Care Team Description 03/30/[address] [address] Latha Harkins, COURTNEY Labs Only 03/30/2024 Orders Only [address] [address] Felipa Bryant MD Urethritis (Primary Dx) 03/29/[address] [address] Una Sawyer FNP Nurse Triage 03/25/2024 10:30 AM EST Office Visit [address] [address] Sari Lyn NP Swelling of left testicle (Primary Dx); Hypertension, unspecified type; Right elbow pain 03/23/[address] [address] Una Sawyer FNP Results 03/21/2024 3:30 PM EST Office Visit [address] [address] Felipa Bryant MD Urethritis (Primary Dx); Dietary counseling; Exercise counseling; Overweight 03/21/2024 Travel 03/21/[address] [address] Sarah Chambers [place] Chart Prep 03/21/[address] [address] Una Sawyer FNP Nurse Triage 03/18/[address] [address] Una Sawyer FNP Nurse Triage 03/17/[address] [address] Una Sawyer FNP ER Follow-up 03/14/2024 2:00 PM EST Office Visit [facility] [address] [place] [address] Soha Sheth ANP Swelling of left testicle (Primary Dx); Possible exposure to STI 03/14/[address] [address] Una Sawyer FNP 03/14/[address] [address] Una Sawyer FNP Nurse Triage 02/29/2024 1:00 PM EST Office Visit [address] [address] Sari Lyn NP Right elbow pain (Primary Dx); Periumbilical abdominal pain; Vasovagal syncope 02/29/[address] [address] Una Sawyer FNP Chart Prep 02/26/2024 10:30 AM EST Office Visit [address] [address] Hina Diaz MD Periumbilical abdominal pain (Primary Dx); Syncope, unspecified syncope type 02/26/2024 Orders Only [facility] External Provider, [facility] 02/26/[address] [address] Latha Harkins, UNLEAVENED DOUGH MIXER expect 02/26/2024 Travel 02/26/[address] [address] Una Sawyer FNP Nurse Triage 01/18/[address] [address] Una Sawyer FNP Nurse Triage from Last [...] Description 04/26/2024 10:30 AM EST Clinical Support [facility] [place] [address] 04/29/2024 11:15 AM EST Office Visit [facility] [address] [facility] [address] [place] [address] 05/30/2024 10:00 AM EDT Office Visit [facility] [place] [address] [place] [facility] [address] [facility] [place] [address] Health Maintenance Due Date Last Done Comments Family Planning (PISQ) 2000 Hepatitis B Vaccines (1 of 3 - 19+ 3-dose series) 2004 COVID-19 Vaccine ( season) 2023 Influenza Vaccine (#1) 2023 01/02/2020, [...] 75+ series) 2060 HIV Screening Completed 03/22/2024, 02/03/2023, 02/26/2023, Additional history exists Hepatitis C Screening [...] Procedure Name Priority Date/Time Associated Diagnosis Comments DRUG MONITOR, PANEL 1, SCREEN, URINE Routine 03/30/2024 8:50 AM EST Depressive disorder HEPATITIS C AB W/REFL TO HCV RNA, [...] Recently Relevant to Health Maintenance Results * (ABNORMAL) Drug Monitoring, Panel 1, Screen, Urine (03/30/2024 8:50 AM EST) Only the most recent of2 resultswithin the time period is included. Pathologist [facility] Opiate Screen Urine Not Detected Not Detect [facility] Comment:Opiate cut-off is 30 0 ng/mL.Positive results are unconfirmed and should not be used fornon-medical purposes. Barbiturates, Urine Not Detected Not Detect [facility] Comment:Barbiturate cut-off is 200 ng/mL.Positive results are unconfirmed and should not be used fornon-medical purposes. Phencyclidine Screen Urine Not Detected Not Detect [facility] Comment:Phencyclidine cut-of f is 25 ng/mL.Positive results are unconfirmed and should not be used fornon-medical purposes. Amphetamine Screen Urine Not Detected Not Detect [facility] Comment:Amphetamine cut-off is 1000 ng/mL.Positive results are unconfirmed and should not be used fornon-medical purposes. Benzodiazepines Screen Urine Not Detected Not Detect [facility] Comment:Benzodiazepine cut-o ff is 200 ng/mL.Positive results are unconfirmed and should not be used fornon-medical purposes. Cocaine Screen Urine Not Detected Not Detect [facility] Comment:Cocaine cut-off is 3 00 ng/mL.Positive results are unconfirmed and should not be used fornon-medical purposes. Cannabinoid Screen Urine POSITIVE(A) Not Detect [facility] Comment:Cannabinoid cut-off is 50 ng/mL.Positive results are unconfirmed and should not be used fornon-medical purposes. Methadone Screen, Urine Not Detected Not Detect ng/mL [facility] Comment:Methadone cut-off is 300 ng/mL.Positive results are unconfirmed and should not be used fornon-medical purposes. FENTANYL URINE Not Detected Not Detect [facility] Comment:Fentanyl cut-off is 1 ng/mL.Positive results are unconfirmed and should not be used fornon-medical purposes. Oxycodone Urine Screen Not Detected Not Detect ng/mL [facility] Comment:Oxycodone cut-off is 100 ng/mL.Positive results are unconfirmed and should not be used fornon-medical purposes. Buprenorphine Screen Not Detected Not Detect ng/mL [facility] Comment:Buprenorphine cut-of f is 5 ng/mL.Positive results are unconfirmed and should not be used fornon-medical purposes. Urine (Urine, Random) 03/30/2024 8:50 AM EST 03/30/2024 11:51 AM EST Goyo Zapata PMHNP LAB URINE ORDERABLES Final Re sult [facility] [address] [place] [address] [phone] * Measles, Mumps, and Rubella (MMR) Antibodies??(IgG) Panel, Immune Status (03/22/2024 9:08 AM EST) Mumps Virus IgG Antibody 36.00 AU/mL [facility] Comment:AU/mL Interpretation ------- <9.00 Not consistent with immunity9.00-10.99 Equivocal>10.99 Consistent with immunityThe presence of mumps IgG antibody suggests immunizationor past or current infection with mumps virus. Rubella IgG Antibody 3.22 Index [facility] Comment:Index Interpretation ----- <0.90 Not consistent with immunity 0.90-0.99 Equivocal > or = 1.00 Consistent with immunityThe presence of rubella IgG antibody suggestsimmunization or past or current infection withrubella virus.THIS TEST WAS PERFORMED AT:[facility] [address] [place] [phone] A FREGOSO MD Rubeola IgG (Measles) 55.00 AU/mL [facility] Comment:AU/mL Interpretation ----- <13.50 Not consistent with qypstlem41.50-16.49 Equivocal>16.49 Consistent with immunityThe presence of measles IgG suggests immunization orpast or current infection with measles virus.For additional information, please refer tohttp://education.[employer]ian[employer].com/faq/TTG750(This link is being provided for informational/educational purposes only.) Blood Venous blood specimen / Unknown 03/22/2024 9:08 AM EST 03/22/2024 11:21 AM EST [facility] LAB BLOOD ORDERABLES Final Re sult Performing Organization Address City/[facility]/ZIP Co de Phone Number [facility] [address] [place] [phone] * Hepatitis Panel, General (03/22/2024 9:08 AM EST) Hepatitis A IgM Nonreactive Nonreactive [facility] Comment:IgM antibodies to MUNOZ V not detected; does not exclude earlyacute or recovered HAV infection. ~Hepatitis B Surface Antibody REACTIVE Nonreactive [facility] Comment:REACTIVE: > 11.99 mI U/mL Hepatitis B Core Antibody Nonreactive Nonreactive [facility] Hepatitis C Antibody Nonreactive Nonreactive [facility] Comment:Antibodies to HCV no t detected; does not exclude early acuteHCV infection. Hepatitis B Surface Ag Negative Negative [facility] Blood 03/22/2024 9:08 AM EST 03/22/2024 11:21 AM EST [facility] LAB BLOOD ORDERABLES Final Re sult Performing Organization Address [facility]/ZIP Co de Phone Number [facility] [address] [place] [phone] * Hepatitis C Antibody with Reflex to HCV, RNA, Quantitative, Real-Time PCR (03/22/2024 9:08 AM EST) Hepatitis C Antibody Nonreactive Nonreactive [facility] Comment:Antibodies to HCV no t detected; does not exclude early acuteHCV infection. Blood Venous blood specimen / Unknown 03/22/2024 9:08 AM EST 03/22/2024 11:21 AM EST Felipa Bryant MD LAB BLOOD ORDERABLES Final Res ult Performing Organization Address City/[facility]/ZIP Co de Phone Number [facility] [address] [place] [phone] [phone] * HIV-1/2 Antigen and Antibodies, Fourth Generation, with Reflexes (03/22/2024 9:08 AM EST) Pathologist [facility] HIV AB/AG Nonreactive Nonreactive [facility] Comment:HIV-1 p24 Ag and/or HIV-1/HIV-2 Ab not detected.A test result that is nonreactive does not exclude thepossibility of exposure to or infection with HIV-1 and/orHIV-2. Nonreactive results in this assay for individualswith prior exposure to HIV-1 and/or HIV-2 may be due toantigen and antibody levels that are below the limit ofdetection of this assay.The [employer] HIV Ag/Ab Combo assay result andsupplemental assay results should be interpreted inconjunction with the patient's clinical presentation,history and other laboratory results. If the results areinconsistent with clinical evidence, additional testing issuggested to confirm the result. Blood Venous blood specimen / Unknown 03/22/2024 9:08 AM EST 03/22/2024 11:21 AM EST us Felipa Bryant MD LAB BLOOD ORDERABLES Final Res ult [facility] [address] [place] [phone] * Varicella Zoster Antibody, IgG (03/22/2024 9:08 AM EST) Pathologist [facility] Varicella IgG Antibody 4.45 S/CO [facility] Comment:Signal to Cut-off S/ CO Interpretation [...] Antibody Immunity Screen, ACIF.THIS TEST WAS PERFORMED AT:[facility] [address] [place] [phone] A FREGOSO MD Blood Venous blood specimen / Unknown 03/22/2024 9:08 AM EST 03/22/2024 11:21 AM EST [facility] LAB BLOOD ORDERABLES Final Re sult [facility] [address] [place] [phone] * Chlamydia/N. Gonorrhoeae RNA, TMA, Urogenitial (03/21/2024 4:05 PM EST) CT PCR NOT DETECTED Not Detect. [facility] Comment:A not detected test result does [...] psychologicalconsequences. NG PCR NOT DETECTED Not Detect. [facility] Comment:A not detected test result does [...] PM EST 03/21/2024 5:47 PM EST Narrative [facility] - 03/22/2024 5:49 AM EST Urine us Felipa Bryant MD LAB MICROBIOLOGY - GENERAL ORD ERABLES Final Result Performing Organization Address City/State/[facility] Co de Phone Number [facility] [address] [place] [phone] * XR Elbow 3+ Views Right (03/14/2024 2:03 PM EST) Anatomical Region Laterality Modality Upper Extremities, Elbow Right Radiogr aphic Imaging 03/14/2024 2:03 PM EST Narrative 03/14/2024 3:29 PM EST ?[facility] ?[address] ?[place] [address] ?XRay Report ? Signed ? Patient: Jerry Stuart ?MR#: [id number] ?? 1 ? : 1985 ?Acct:[id number] ? Age/Sex: 38 / M ?ADM Date: 03/14/24 ? Loc: HO.HHCX ? Attending Dr: Sari Lyn GARDENING SUPERVISOR ? Ordering Physician: Sari Lyn GARDENING SUPERVISOR ?? Date of Service: 03/14/24 ?? Procedure(s): XR elbow RT min 3V ?? Accession Number(s): [id number] ? cc: Sari Lyn GARDENING SUPERVISOR ? EXAMINATION: ??XR ELBOW 3 VIEWS RIGHT [...] DD/ 1403 ? TD/TT: 03/14/24 1500 ? Instrument Lens Inspector: ? Procedure Note Donotdarionter, Image - 03/14/2024 [facility] [address] [place] [address] XRay Report Signed Patient: Jerry StuartMR#: [id number] 1 : 1985Acct:[id number] Age/Sex: 38 / MADM Date: 03/14/24 Loc: HO.HHCX Attending Dr: Sari Lyn GARDENING SUPERVISOR Ordering Physician: Sari Lyn NP Date of Service: 03/14/24 Procedure(s): XR elbow RT min 3V Accession Number(s): [id number] cc: Sari Lyn GARDENING SUPERVISOR EXAMINATION: XR ELBOW 3 VIEWS RIGHT HISTORY: [...] Hudson Mercado MD 03/14/2024 03:26 PM EST Dictated By: Hudson Mercado MD Signed By: <Electronically signed by Hudson Mercado MD in OV> 03/14/24 1526 DD/ 1403 TD/TT: 03/14/24 1500 Instrument Lens Inspector: Sari Lyn GARDENING SUPERVISOR IMG XR PROCEDURES Final Result * High Sensitivity Troponin I (02/26/2024 2:24 PM EST) Only the most recent of2 resultswithin the time period is included. [facility] TROPONIN I HIGH SENSITIVITY <2.7 <3.5 - 35.0 ng/L [facility] Comment:The [place] high sens itivity Troponin-I results should beused in conjunction with other diagnostic information suchas ECG, clinical observations and information, and patientsymptoms to aid in the diagnosis of IA. 02/26/2024 2:24 PM EST 02/26/2024 2:26 PM EST Generic External Data Provider LAB BLOOD ORDERAB LES Final Result Performing Organization Address City/[facility]/ZIP Co de Phone Number [facility] [address] [place] [phone] * (ABNORMAL) Urinalysis w/reflex microscopic (02/26/2024 12:47 PM EST) [facility] Color Urine Yellow [facility] Appearance Urine Cloudy [facility] PH 8.0 5.0 - 9.0 [facility] Glucose Urine UA Negative Negative mg/dL [facility] Urine Blood Negative Negative [facility] Specific [place] - Urine >=1.030(H) 1.005 - 1.025 [facility] Urine Protein Negative Neg-Trace mg/dL [facility] Urine Ketones Negative Negative mg/dL [facility] Nitrite Urine Negative Negative [facility] Leukocyte Esterase Urine Negative Negative [facility] 02/26/2024 12:4 7 PM EST 02/26/2024 12:50 PM EST Narrative [facility] - 02/26/2024 12:54 PM EST [id number], Clean Catch Generic External Data Provider LAB URINE ORDERAB LES Final Result Performing Organization Address City/[facility]/ZIP Co de Phone Number [facility] [address] [place] [phone] * Ethanol (02/26/2024 12:39 PM EST) ETHANOL (MG/DL) IN SER/PLAS <10 mg/dL [facility] Comment:Serum/plasma ethanol results are to be used formedical/treatment purposes only. 02/26/2024 12:3 9 PM EST 02/26/2024 12:42 PM EST us Generic External Data Provider LAB BLOOD ORDERAB LES Final Result [facility] [address] [place] [phone] * (ABNORMAL) CBC auto differential (02/26/2024 12:39 PM EST) Pathologist [facility] White Blood Count 10.8 4.8 - 10.8 X10*3/uL [facility] Red Blood Count 5.05 4.60 - 5.80 X10*6/uL [facility] Hemoglobin 15.2 14.0 - 18.0 g/dl [facility] Hematocrit 43.6 42.0 - 52.0 % [facility] Mean Corpuscular Volume 86.3 80.0 - 98.0 fL [facility] Mean Corpuscular Hemoglobin 30.1 27.0 - 33.0 pg [facility] Mean Corpuscular HGB Conc 34.9 31.0 - 36.0 g/dl [facility] Red Cell Distribution Width 12.3 11.0 - 16.0 % [facility] Platelet Count 225 160 - 400 X10*3/uL [facility] Mean Platelet Volume 9.9 9.4 - 12.4 fL [facility] Neutrophils Percent Auto 83.2(H) 45 - 73 % [facility] Imm Gran Pct Auto 0.3 0.0 - 0.4 % [facility] Lymphocytes Percent Auto 9.7(L) 20 - 40 % [facility] Monocytes Percent Auto 6.0 2 - 11 % [facility] Eosinophils Percent Auto 0.6 0 - 4 % [facility] Basophils Percent Auto 0.2 0 - 2 % [facility] NRBC Pct Auto 0.0 0.0 - 0.2 /100WBC [facility] Neutrophils Absolute Auto 9.0(H) 2.0 - 8.3 x10*3/uL [facility] Imm Gran Abs Auto 0.03 0.00 - 0.03 X10*3/uL [facility] Lymphocytes Absolute Auto 1.1(L) 1.2 - 4.9 X10*3/uL [facility] Monocytes Absolute Auto 0.7 0.1 - 1.2 X10*3/uL [facility] Eosinophils Absolute Auto 0.1 0.0 - 0.4 X10*3/uL [facility] Basophils Absolute Auto 0.0 0.0 - 0.2 X10*3/uL [facility] NRBC Abs Auto 0.000 0.0 - 0.012 X10*3/uL [facility] 02/26/2024 12:3 9 PM EST 02/26/2024 12:42 PM EST us Generic External Data Provider LAB BLOOD ORDERAB LES Final Result Performing Organization Address City/State/[facility] Co de Phone Number [facility] [address] [place] [phone] * Prothrombin Time-INR (02/26/2024 12:39 PM EST) Prothrombin Time 11.4 10.9 - 12.4 SEC [facility] INTERNATIONAL NORM RATIO 1.0 0.9 - 1.1 [facility] Comment:INTERNATIONAL NORMAL IZED RATIO (INR) REFERENCE [...] ORDERAB LES Final Result Performing Organization Address [facility] Co de Phone Number [facility] [address] [place] [phone] * Magnesium (02/26/2024 12:39 PM EST) Pathologist [facility] Magnesium 2.0 1.6 - 2.6 mg/dL [facility] 02/26/2024 12:3 9 PM EST 02/26/2024 12:42 PM EST Generic External Data Provider LAB BLOOD ORDERAB LES Final Result Performing Organization Address [facility] Phone Number [facility] [address] [place] [phone] * Lactic Acid (02/26/2024 12:39 PM EST) Pathologist [facility] Lactic Acid 0.8 0.5 - 2.0 mmol/L [facility] 02/26/2024 12:3 9 PM EST 02/26/2024 12:42 PM EST Generic External Data Provider LAB BLOOD ORDERAB LES Final Result Performing Organization Address [facility] de Phone Number [facility] [address] [place] [phone] * (ABNORMAL) Comprehensive Metabolic Panel (02/26/2024 12:39 PM EST) Sodium 139 135 - 145 mmol/L [facility] Potassium 4.1 3.3 - 5.1 mmol/L [facility] Chloride 105 96 - 108 mmol/L [facility] Carbon Dioxide 28 22 - 29 mmol/L [facility] Anion Gap 10(L) 12 - 20 [facility] Urea Nitrogen (BUN) 9 9 - 16 mg/dL [facility] Creatinine, Serum 1.07 0.5 - 1.4 mg/dL [facility] Creatinine Clr Calc Pharmacy 125.8 [facility] Comment:eGFR (calculated fro m the MDRD study equation) and eCrCl(calculated from the Cockcroft-Gault equation) are based ondifferent parameters and may not yield comparable results.If eCrCl result is absurd, please check patient'sheight/weight. Estimated Glomerular Filt Rate >60 [facility] Comment:Chronic Kidney Disea se: Estimated GFR < 60 mL/min/1.11r4Soccme Kidney Disease: Estimated GFR < 15 mL/min/1.73m2 Glucose 102 60 - 115 mg/dL [facility] Calcium 8.9 8.4 - 10.2 mg/dL [facility] Bilirubin, Total 0.9 0.0 - 1.0 mg/dL [facility] Aspartate Amino Transferase 18 5 - 37 U/L [facility] Alanine Aminotransferase 14 0 - 40 U/L [facility] Total Protein 6.7 6.5 - 8.0 g/dL [facility] Albumin Level 4.4 3.5 - 5.0 g/dL [facility] Alkaline Phosphatase 41 39 - 117 U/L [facility] 02/26/2024 12:3 9 PM EST 02/26/2024 12:42 PM EST us Generic External Data Provider LAB BLOOD ORDERAB LES Final Result Performing Organization Address City/[facility]/ZIP Co de Phone Number [facility] [address] [place] [phone] * Lipase (02/26/2024 12:38 PM EST) Lipase 27 8 - 78 U/L [facility] 02/26/2024 12:3 8 PM EST 02/26/2024 12:42 PM EST us Generic External Data Provider LAB BLOOD ORDERAB LES Final Result Performing Organization Address City/[facility]/ZIP Co de Phone Number [facility] [address] [place] [phone] * Creatine Kinase, Total (02/26/2024 12:38 PM EST) Creatine Kinase Total 95 38 - 174 U/L [facility] 02/26/2024 12:3 8 PM EST 02/26/2024 12:42 PM EST us Generic External Data Provider LAB BLOOD ORDERAB LES Final Result [facility] [address] [place] [phone] * CTA Abdomen Pelvis w/ and w/o Contrast (02/26/2024 11:43 AM EST) Anatomical Region Laterality Modality Body, Pelvis, Abdomen Computed T omography 02/26/2024 11:4 3 AM EST Narrative 02/26/2024 12:52 PM EST ? [facility] ?[address] ?[place] [address] ? CT Scan Report ? Signed ? Patient: Jerry Stuart ?MR#: [id number] ?? 1 ? : 1985 ?Acct:[id number] ? Age/Sex: 38 / M ?ADM Date: 02/26/24 ? Loc: HO.ED ? Attending Dr: ? Ordering Physician: Katty Bajwa ?? Date of Service: 02/26/24 ?? Procedure(s): CT angio abdomen pelvis ?? Accession Number(s): [id number] ? cc: Katty Bajwa; Una Sawyer ? [...] DD/ 1143 ? TD/TT: 02/26/24 1212 ? Instrument Lens Inspector: ? Procedure Note [employer], Alysa - 02/26/[address] [address] [address] Scan Report Signed Patient: Guillermo Stuart#: [id number] 1 : 1985Acct:[id number] Age/Sex: 38 / MADM Date: 02/26/24 Loc: HO.ED Attending Dr: Ordering Physician: Katty Bajwa Date of Service: 02/26/24 Procedure(s): CT angio abdomen pelvis Accession Number(s): [id number] cc: Katty Bajwa; [facility] EXAMINATION: CT ANGIOGRAM ABDOMEN AND PELVIS CLINICAL [...] Kyrie Caputo MD 02/26/2024 12:48 PM EST Dictated By: Kyrie Hammond MD Signed By: <Electronically signed by Kyrie Yang MDin OV> 02/26/24 1248 DD/ 1143 TD/TT: 02/26/24 1212 Instrument Lens Inspector: [facility] External Provider IMG CT PROCEDURES Final Result * CT Head w/o Contrast (02/26/2024 11:40 AM EST) Anatomical Region Laterality Modality Head, Neck Computed Tomogra phy 02/26/2024 11:4 0 AM EST Narrative 02/26/2024 12:43 PM EST ? [facility] ?[address] ?[place] [address] ? CT Scan Report ? Signed ? Patient: Narciso,Jerry ?MR#: [id number] ?? 1 ? : 1985 ?Acct:[id number] ? Age/Sex: 38 / M ?ADM Date: 12/20/24 ? Loc: HO.ED ? Attending Dr: ? Ordering Physician: Katty Bajwa ?? Date of Service: 02/26/24 ?? Procedure(s): CT head/brain wo IV con ?? Accession Number(s): [id number] ? cc: Katty Bajwa; Una Sawyer ? [...] by Kyrie Yang MD in OV> ? 02/25/24 1239 ? DD/ 1140 ? TD/TT: 02/25/ 1210 ? Instrument Lens Inspector: ? Procedure Note [employer], Image - 02/26/[address] [address] [address] Scan Report Signed Patient: Jerry StuartMR#: [id number] 1 : 1985Acct:[id number] Age/Sex: 38 / MADM Date: 02/26/24 Loc: HO.ED Attending Dr: Ordering Physician: Katty Bajwa Date of Service: 02/26/24 Procedure(s): CT head/brain wo IV con Accession Number(s): [id number] cc: Katty Bajwa; [facility] EXAMINATION: CT HEAD WITHOUT CONTRAST CLINICAL INFORMATION: [...] by: Kyrie Caputo MD 02/26/2024 12:39 PM [facility] Dictated By: Kyrie Hammond MD Signed By: <Electronically signed by Kyrie Yang MDin OV> 02/26/24 1239 DD/ 1140 TD/TT: 02/26/24 1210 Instrument Lens Inspector: us [facility] External Provider IMG CT PROCEDURES Final Result * CTA Chest w/ and w/o Contrast (02/26/2024 11:35 AM EST) Anatomical Region Laterality Modality Body, Chest Computed Tomogra phy 02/26/2024 11:3 5 AM EST Narrative 02/26/2024 12:52 PM EST ? [facility] ?[address] ?[place], [place] [address] ? CT Scan Report ? Signed ? Patient: Jerry Stuart ?MR#: [id number] ?? 1 ? : 1985 ?Acct:[id number] ? Age/Sex: 38 / M ?ADM Date: 02/26/24 ? Loc: HO.ED ? Attending Dr: ? Ordering Physician: Katty Bajwa ?? Date of Service: 02/26/24 ?? Procedure(s): CT angio chest aorta ?? Accession Number(s): [id number] ? cc: Katty Bajwa; Una Sawyer [facility] ? EXAMINATION: ?? CT ANGIOGRAM ABDOMEN AND [...] DD/ 1135 ? TD/TT: 02/26/24 1212 ? Instrument Lens Inspector: ? Procedure Note [employer], Image - 02/26/[address] [address] [address] Scan Report Signed Patient: Jerry Stuart#: [id number] 1 : 1985Acct:[id number] Age/Sex: 38 / MADM Date: 02/26/24 Loc: HO.ED Attending Dr: Ordering Physician: Katty Bajwa Date of Service: 02/26/24 Procedure(s): CT angio chest aorta Accession Number(s): [id number] cc: Katty Bajwa; [facility] EXAMINATION: CT ANGIOGRAM ABDOMEN AND PELVIS CLINICAL [...] 02/26/24 1248 DD/ 1135 TD/TT: 02/26/24 1212 Instrument Lens Inspector: [facility] External Provider IMG CT PROCEDURES Final Result * (ABNORMAL) Lipid Panel, Standard (06/05/2022 2:49 PM EDT) Cholesterol, Total 188 <200 mg/dL [facility] [place] [facility] HDL Cholesterol 61 > OR = 40 mg/dL [facility] [place] [facility] Triglycerides 134 <150 mg/dL [facility] [place] [facility] LDL Cholesterol 104(H) mg/dL (calc) [facility] [place] [facility] Comment: Reference range: <100 Desirable range <100 mg/dL for primary prevention; ?? <70 mg/dL for patients with CHD or diabetic patients with > or = 2 CHD risk factors. LDL-C is now calculated using the Umang-Emily calculation, which is a validated novel method providing better accuracy than the Friedewald equation in the estimation of LDL-C. Umang SS et al. GINA. 2013;310(19): 2161-1101 (http://education.Tianpin.com/faq/QAF176) Chol/HDLC Ratio 3.1 <5.0 (calc) [facility] [place] [facility] Non-HDL Cholesterol 127 <130 mg/dL (calc) [facility] Comment: For patients with diabetes plus 1 major ASCVD risk factor, treating to a non-HDL-C goal of <100 mg/dL (LDL-C of <70 mg/dL) is considered a therapeutic option. Blood Venous blood specimen / Unknown 06/05/2022 2:49 PM EDT 06/05/2022 2:49 PM EDT Narrative [facility] - 06/09/2022 12:52 PM EDT FASTING:NO FASTING: NO [facility] LAB BLOOD ORDERABLES Final Re sult [facility] [address], [place] [address] [address] [place] [address] from Last 3 Months or Most Recently Relevant to Health Maintenance Insurance [facility] C3 [facility] FULL Care Teams Clinical Trials Specialist Relationship Specialty Start Date End Date Una Sawyer FNP [address] [place] [address] PCP - General Family Medicine 08/21/21
--- OUTSIDE RECORDS SUMMARY | 2024-03-30 17:09 | XMS_ITS | Encounter Summary ---
Author Organization [employer] Address [address] [facility] 7t [place] [address] Care Team Providers Care Nut And Bolt Assembler Name Role Phone [facility] Primary Care Provider [phone] Encounter Details Date Type Department Care Team ([facility] Contact Info) Description 03/30/2024 Orders Only [facility] MEDICINE 230 [place], [place] [phone] Felipa Bryant MD 230 [place], [place] [phone] Urethritis (Primary Dx) Social History Tobacco Use Types Packs/Day Years [...] Description 04/26/2024 10:30 AM EST Clinical Support [address] [address] 04/29/2024 11:15 AM EST Office Visit [address] [address] 05/30/2024 10:00 AM EDT Office Visit [address] [address] Scheduled Orders Name Type Priority Associated Diagnoses Orde r Schedule Mycoplasma/Ureaplas ma??Panel Microbiology Routine Urethritis Expected: 03/30/2024 (Approximate), Expires: 03/30/2025 documented as of this encounter Visit Diagnoses Diagnosis Urethritis- Primary Unspecified urethritis documented in this encounter Additional Health Concerns Assessment Noted Time PHQ-9 Depression Total Score: 6 03/23/19 25 9:29 AM EST documented as of this encounter Care Teams Nut And Bolt Assembler Relationship Specialty Start Date End Date [facility] [facility] [address] [place] [address] PCP - General Family Medicine 08/21/21 documented as of this encounter
--- OUTSIDE RECORDS SUMMARY | 2024-03-30 17:09 | XMS_ITS | Encounter Summary ---
Author Organization [employer] Address [address] [place] [address] 7 [place] [address] Care Team Providers Care Financial Operations Consultant Name Role Phone [facility] Primary Care Provider [phone] Reason for Visit * Reason Onset Date Comments Nurse Triage 03/21/2024 Encounter Details Date Type Department Care Team ([facility] st Contact Info) Description 03/21/2024 Telephone [facility] MEDICINE 230 [place], [place] [phone] [facility] 230 [place] [address] Nurse Triage Social History Tobacco Use Types [...] Description 04/26/2024 10:30 AM EST Clinical Support [address] [address] 04/29/2024 11:15 AM EST Office Visit [address] [address] Una Sawyer [address] [address] 05/30/2024 10:00 AM EDT Office Visit [facility] [place] [address] Una Sawyer [address] [address] documented as of this encounter Visit Diagnoses Not on filedocumented in this encounter Additional Health Concerns Assessment Noted Time PHQ-9 Depression Total Score: 0 05/29/19 24 9:41 AM EDT documented as of this encounter Care Teams Financial Operations Consultant Relationship Specialty Start Date End Date Una Sawyer FNP [address] [place] [address] PCP - General Family Medicine 08/21/21 documented as of this encounter
--- OUTSIDE RECORDS SUMMARY | 2024-03-30 17:09 | XMS_ITS | Encounter Summary ---
Author Organization [employer] Address 75 [facility] 7 [place] [address] Care Team Providers Care Superintendent Automotive Name Role Phone [place] [facility] Primary Care Provider [phone] Reason for Visit * Reason Onset Date Comments Chart Prep 03/21/2024 Encounter Details Date Type Department Care Team ([facility] st Contact Info) Description 03/21/2024 Telephone [facility] MEDICINE 230 [place], [place] [phone] Sarah Chambers MA Chart Prep Social History [...] 04/26/2024 10:30 AM EST Clinical Support [address] [address] 04/29/2024 11:15 AM EST Office Visit [address] [address] [address] Saw[address] [address] 05/30/2024 10:00 AM EDT Office Visit [address] [address] [place] [address] [address] documented as of this encounter Visit Diagnoses Not on filedocumented in this encounter Additional Health Concerns Assessment Noted Time PHQ-9 Depression Total Score: 0 05/29/19 9:41 AM EDT documented as of this encounter Care Teams Superintendent Automotive Relationship Specialty Start Date End Date Una Sawyer FNP 230 [place] [address] PCP - General Family Medicine 08/21/21 documented as of this encounter
--- OUTSIDE RECORDS SUMMARY | 2024-03-30 17:09 | XMS_ITS | Encounter Summary ---
Author Organization [employer] Address [address] [place] [address] 7 [place] [address] Care Team Providers Care Automobile Rental Agent Name Role Phone [facility] Primary Care Provider [phone] Reason for Visit * Reason Onset Date Comments Nurse Triage 03/29/2024 Encounter Details Date Type Department Care Team ([facility] st Contact Info) Description 03/29/2024 Telephone [facility] MEDICINE [address] [place], [place] [phone] [facility] 230 [place] [address] Nurse Triage Social History Tobacco Use Types [...] 2:52 PM EST TC placed to patient [phone] in regards to below message. RN provided patient with BW results from 03/22/24. Patient verbalized understanding. Patient reports he is still awaiting results for RPRw/ reflex to titer, mycoplasma/ureaplasma panel and trichomonas RNA. [facility] and those [facility] are not [facility]. Patient reports he dropped off his urine on 03/21/24 and completed the BW on 03/22/24. RN advised patient RN would call the lab to further inquire and return call to patient. TC placed to [facility] lab [phone] in regards to above. RN was informed the photo lab specialist did not pull the order for the RPR w/ reflex to titer and mycoplasma/ureaplasma panel therefore unfortunatelythe patient would need to return to the lab to provide another sample. RN was informed the trichomonas order was also not received (RN reviewed encounter and it was placed as clinic collect). RN willreplace the order as a lab collect. TC placed to patient [phone] to inform patient he will need to [...] appt moved up for tomorrow 03/30 at [facility] location. Pt denies any severe swelling. Pt [...] consult while he is being treated. Reviewed [facility] operating hours and that wait times vary. Reviewed home care advise, ER precautions and reasons to call back. Patient requesting that PCP review lab results form -03/22, more specific the MMR Titers. Pt also wants to know why results for Syphilis , mycoplasma and Trichomonas was not yet available. Do notsee in lab tab of [employer]. Forwarded to PCP and team nurses to [...] a urgent call back. Contact pt at [phone] documented in this encounter Plan of Treatment Upcoming Encounters Date Type Department Care Team (Late st Contact Info) Description 04/26/2024 10:30 AM EST Clinical Support [facility] [place] [address] 04/29/2024 11:15 AM EST Office Visit [facility] [place] [address] [facility] [place] [address] 05/30/2024 10:00 AM EDT Office Visit [facility] [place] [address] [place] [facility] [place] [address] Scheduled Orders Name Type Priority Associated Diagnoses Orde r Schedule Trichomonas RNA (Urine/Vaginal) Lab Routine Urethritis Expected: 03/29/2024 (Approximate), Expires: 03/29/2025 documented as of this encounter Visit Diagnoses Diagnosis Urethritis Unspecified urethritis documented in this encounter Additional Health Concerns Assessment Noted Time PHQ-9 Depression Total Score: 6 03/23/19 25 9:29 AM EST documented as of this encounter Care Teams Automobile Rental Agent Relationship Specialty Start Date End Date Una Sawyer [facility] [place] [address] PCP - General Family Medicine 08/21/21 documented as of this encounter
--- OUTSIDE RECORDS SUMMARY | 2024-03-30 17:09 | XMS_ITS | Encounter Summary ---
Author Organization [employer] Address 75 [facility] 7t [place] [address] Care Team Providers Care Boiler Fireman Name Role Phone [place] [facility] Primary Care Provider [phone] Encounter Details Date Type Department Care Team [...] Description 04/26/2024 10:30 AM EST Clinical Support [address] [address] 04/29/2024 11:15 AM EST Office Visit [address] [address] Una Sawyer [address] [address] 05/30/2024 10:00 AM EDT Office Visit [address] [address] Una Sawyer [address] [address] documented as of this encounter Visit Diagnoses Not on filedocumented in this encounter Additional Health Concerns Assessment Noted Time PHQ-9 Depression Total Score: 0 05/29/19 24 9:41 AM EDT documented as of this encounter Care Teams Boiler Fireman Relationship Specialty Start Date End Date Una Sawyer FNP [address] [place] [address] PCP - General Family Medicine 08/21/21 documented as of this encounter
--- OUTSIDE RECORDS SUMMARY | 2024-03-30 17:09 | XMS_ITS | Encounter Summary ---
Author Organization [employer] Address 75 [facility] 7 [place] [address] Care Team Providers Care Binder Caser Name Role Phone [place] [facility] Primary Care Provider Reason for Visit * Reason Comments Groin Swelling Encounter Details Date Type Department Care Team ([facility] st Contact Info) Description 03/21/2024 3:30 PM EST Office Visit [facility] MEDICINE 230 [place], [place] [phone] Felipa Bryant MD 230 [place], [place] [phone] Urethritis (Primary Dx); Dietary counseling; Exercise counseling; [...] and L inguinal/testicular pain on 03/16/24 to [facility]. 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 Would [...] nursing note reviewed. Exam conducted with a cutter operator present. Constitutional: Appearance: Normal appearance. He is [...] wart on dry skin daily. Do not llpevz50 days., Disp: 90 each, Rfl: 0 tadalafil [...] Description 04/26/2024 10:30 AM EST Clinical Support [address] [address] 04/29/2024 11:15 AM EST Office Visit [address] [address] 05/30/2024 10:00 AM EDT Office Visit [address] [address] [facility] 230 [place] [address] Scheduled Orders Name Type Priority Associated Diagnoses [...] AM EST) Hepatitis C Antibody Nonreactive Nonreactive [facility] Comment:Antibodies to HCV no t detected; does not exclude early acuteHCV infection. Blood Venous blood specimen / Unknown 03/22/2024 9:08 AM EST 03/22/2024 11:21 AM EST Felipa Bryant MD LAB BLOOD ORDERABLES Final Res ult Performing Organization Address City/[facility] Co de Phone Number [facility] [address] [place] [address] [phone] * HIV-1/2 Antigen and Antibodies, Fourth Generation, with Reflexes (03/22/2024 9:08 AM EST) HIV AB/AG Nonreactive Nonreactive [facility] Comment:HIV-1 p24 Ag and/or HIV-1/HIV-2 Ab not detected.A test result that is nonreactive does not exclude thepossibility of exposure to or infection with HIV-1 and/orHIV-2. Nonreactive results in this assay for individualswith prior exposure to HIV-1 and/or HIV-2 may be due toantigen and antibody levels that are below the limit ofdetection of this assay.The [employer] HIV Ag/Ab Combo assay result andsupplemental assay results should be interpreted inconjunction with the patient's clinical presentation,history and other laboratory results. If the results areinconsistent with clinical evidence, additional testing issuggested to confirm the result. Blood Venous blood specimen / Unknown 03/22/2024 9:08 AM EST 03/22/2024 11:21 AM EST Felipa Bryant MD LAB BLOOD ORDERABLES Final Res ult Performing Organization Address City/[facility] Co de Phone Number [facility] [address] [place] [address] [phone] * Chlamydia/N. Gonorrhoeae RNA, TMA, Urogenitial (03/21/2024 4:05 PM EST) CT PCR NOT DETECTED Not Detect. [facility] Comment:A not detected test result [...] psychologicalconsequences. NG PCR NOT DETECTED Not Detect. [facility] Comment:A not detected test result [...] PM EST 03/21/2024 5:47 PM EST Narrative [facility] - 03/22/2024 5:49 AM EST Urine us Felipa Bryant MD LAB MICROBIOLOGY - GENERAL ORD ERABLES Final Result [facility] [address] [place] [phone] documented in this encounter Visit Diagnoses Diagnosis Urethritis- Primary Unspecified urethritis Dietary counseling Dietary surveillance and counseling Exercise counseling Overweight documented in this encounter Additional Health Concerns Assessment Noted Time PHQ-9 Depression Total Score: 0 05/29/19 24 9:41 AM EDT documented as of this encounter Care Teams Binder Caser Relationship Specialty Start Date End Date Una Sawyer FNP [address] [place] [address] PCP - General Family Medicine 08/21/21 documented as of this encounter
--- OUTSIDE RECORDS SUMMARY | 2024-03-30 17:09 | XMS_ITS | Encounter Summary ---
Author Organization [employer] Address [address] [place] [address] 7 [place] [address] Care Team Providers Care Manager Regulatory Name Role Phone [facility] Primary Care Provider [phone] Reason for Referral * Consultation (Routine) - Pending Review Specialty Diagnoses / Procedures Referred By Feliz t Referred To Contact Orthopaedic Surgery Diagnoses Right elbow pain Sari Lyn NP [address] [place] [address] Phone: tel: fax: Referral ID Status Reason Start Date Expiration Date Visits Requested Visits Authorized [id number] Pending Review Specialty Services Required 03/25/2024 03/25/2025 1 1 * Imaging (Routine) - Authorized Specialty Diagnoses / Procedures Referred By Feliz t Referred To Contact Radiology Diagnoses Swelling of left testicle Procedures US Scrotum Sari Lyn NP [address] [place] [address] Phone: tel: fax: [address] Phone: tel: fax: Referral ID Status Reason Start Date Expiration Date V isits Requested Visits Authorized [id number] Authorized 03/25/2024 03/25/2025 1 1 * Consultation (Routine) - Pending Review Specialty Diagnoses / Procedures Referred By Feliz t Referred To Contact Urology Diagnoses Swelling of left testicle Sari Lyn NP [address] [place] [address] Phone: tel: fax: Referral ID Status Reason Start Date Expiration Date Visits Requested Visits Authorized [id number] Pending Review Specialty Services Required 03/25/2024 03/25/2025 1 1 Encounter Details Date Type Department Care Team (Late st Contact Info) Description 03/25/2024 10:30 AM EST Office Visit [facility] MED[facility]INE 230 [place] [address] Sari Lyn NP [address] [place] [address] Swelling of left testicle (Primary Dx); Hypertension, [...] Description 04/26/2024 10:30 AM EST Clinical Support [address] [address] 04/29/2024 11:15 AM EST Office Visit [address] [address] 05/30/2024 10:00 AM EDT Office Visit [address] [address] Scheduled Orders Name Type Priority Associated Diagnoses [...] documented as of this encounter Care Teams Manager Regulatory Relationship Specialty Start Date End Date Una Sawyer FNP [address] [place] [address] PCP - General Family Medicine 08/21/21 documented as of this encounter
--- OUTSIDE RECORDS SUMMARY | 2024-03-30 17:10 | XMS_ITS | Encounter Summary ---
Author Organization [employer] Address [address] [place] [address] 7 [place] [address] Care Team Providers Care Fruit Raiser Name Role Phone [facility] Primary Care Provider [phone] Reason for Visit * Reason Onset Date Comments Nurse Triage 03/18/2024 Encounter Details Date Type Department Care Team ([facility] st Contact Info) Description 03/18/2024 Telephone [facility] MEDICINE 230 [place], [place] [phone] [facility] 230 [place] [address] Nurse Triage Social History Tobacco Use Types [...] ED and he went [facility]/16/24 to [facility]. US was done of testicle area [...] wants to make appt. For 03/21/24 in [facility] to have swelling checked by provider and [...] in the testicle Please contact pt at [phone] documented in this encounter Plan of Treatment Upcoming Encounters Date Type Department Care Team (Late st Contact Info) Description 04/26/2024 10:30 AM EST Clinical Support [address] [address] 04/29/2024 11:15 AM EST Office Visit [address] [address] Una Sawyer FNP [address] [place] [address] 05/30/2024 10:00 AM EDT Office Visit [address] [address] Una Sawyer FNP [address] [place] [address] documented as of this encounter Visit Diagnoses Not on filedocumented in this encounter Additional Health Concerns Assessment Noted Time PHQ-9 Depression Total Score: 0 05/29/19 24 9:41 AM EDT documented as of this encounter Care Teams Fruit Raiser Relationship Specialty Start Date End Date Una Sawyer FNP [address] [place] [address] PCP - General Family Medicine 08/21/21 documented as of this encounter
--- OUTSIDE RECORDS SUMMARY | 2024-03-30 17:10 | XMS_ITS | Encounter Summary ---
Author Organization [employer] Address 75 [facility] 7 [place] [address] Care Team Providers Care Drilling Machine Runner Name Role Phone [facility] Primary Care Provider [phone] Reason for Visit * Reason Onset Date Comments Medication Question 11/04/2022 Encounter Details Date Type Department Care Team ([facility] Contact Info) Description 11/04/2022 Telephone [facility] MEDICINE 230 [place], [place] [phone] [facility] 230 [place] [address] Medication Question Social History Tobacco Use Types [...] to message above. Please contact pt at [phone] * Telephone Encounter - Trev Saleh - 11/04/2022 1:25 PM EDT Tc from pt requesting a new script for tadalafil (Cialis) 5 MG tablet, pt stated urologist sent tadalafil (Cialis) 20 mg tablet PRN and new script for 5 mg will need to say okay to take with 20 mg. Pt would like a call back. Please contact at [phone] documented in this encounter Plan of Treatment Upcoming Encounters Date Type Department Care Team (Late st Contact Info) Description 04/26/2024 10:30 AM EST Clinical Support [address] [address] 04/29/2024 11:15 AM EST Office Visit [address] [address] Una Sawyer [address] [address] 05/30/2024 10:00 AM EDT Office Visit [address] [address] Una Sawyer [address] [address] documented as of this encounter Visit Diagnoses Not on filedocumented in this encounter Additional Health Concerns Assessment Noted Time PHQ-9 Depression Total Score: 5 03/28/19 23 10:55 AM EST documented as of this encounter Care Teams Drilling Machine Runner Relationship Specialty Start Date End Date Una Sawyer FNP [address] [place] [address] PCP - General Family Medicine 08/21/21 documented as of this encounter
--- OUTSIDE RECORDS SUMMARY | 2024-03-30 17:10 | XMS_ITS | Encounter Summary ---
Author Organization [email or web address] Address [address] [place] [address] 7 [place] [address] Care Team Providers Care Telegraph Printer Mechanic Name Role Phone [facility] Primary Care Provider [phone] Reason for Visit * Reason Comments ER Follow-up Encounter Details Date Type Department Care Team ([facility] Contact Info) Description 02/29/2024 1:00 PM EST Office Visit [facility] MEDICINE 230 [place], [place] [phone] Sari Lyn NP 230 [place], [place] [phone] Right elbow pain (Primary Dx); Periumbilical abdominal [...] Description 04/26/2024 10:30 AM EST Clinical Support [address] [address] 04/29/2024 11:15 AM EST Office Visit [facility] MEDICINE [address] [place], [place] [address] [place] [address] Una Sawyer [facility] 230 [facility] [place] [address] 05/30/2024 10:00 AM EDT Office Visit [facility] [place] [address] Una Sawyer PRODUCT DEVELOPMENT ECOLOGIST [address] [place] [address] Scheduled Orders Name Type Priority Associated Diagnoses [...] documented as of this encounter Care Teams Telegraph Printer Mechanic Relationship Specialty Start Date End Date Una SawyerSAMANTHA [facility] [place] [address] PCP - General Family Medicine 08/21/21 documented as of this encounter
--- OUTSIDE RECORDS SUMMARY | 2024-03-30 17:10 | XMS_ITS | Encounter Summary ---
Author Organization [employer] Address 75 [facility] 7t [place] [address] Care Team Providers Care Research And Insights Executive Name Role Phone [facility] Primary Care Provider [phone] Encounter Details Date Type Department Care Team ([facility] st Contact Info) Description 03/14/2024 Telephone [facility] MEDICINE 230 [place], [place] [phone] [facility] 230 [place] [address] Social History Tobacco Use Types Packs/Day Years [...] a call back to further discuss today's [facility] visit. Contact pt at [phone] TC returned to pt who asked if if the provider thought he had a hydrocele or if it was a possibility that he had one. Patient is worried to wait on US states that he would like the US done prior to his surgery on Thursday. Advised DTaP that the order has been placed and he can call [facility] to schedule his US. Pt would like [...] from provider. Patient states he has called [facility] and is scheduled for for US. Pt told that when results are in provider will review and he will be contacted. * Telephone Encounter - Regi Billings - 03/14/2024 4:52 PM EST Tc from pt requesting a call back to further discuss today's [facility] visit. Contact pt at [phone] documented in this encounter Plan of Treatment Upcoming Encounters Date Type Department Care Team (Late st Contact Info) Description 04/26/2024 10:30 AM EST Clinical Support [address] [address] 04/29/2024 11:15 AM EST Office Visit [address] [address] Una Sawyer [address] [address] 05/30/2024 10:00 AM EDT Office Visit [facility] [place] [address] [place] [address] [address] documented as of this encounter Visit Diagnoses Not on filedocumented in this encounter Additional Health Concerns Assessment Noted Time PHQ-9 Depression Total Score: 0 05/29/19 24 9:41 AM EDT documented as of this encounter Care Teams Research And Insights Executive Relationship Specialty Start Date End Date Una Sawyer FNP [address] [place] [address] PCP - General Family Medicine 08/21/21 documented as of this encounter
--- OUTSIDE RECORDS SUMMARY | 2024-03-30 17:10 | XMS_ITS | Encounter Summary ---
Author Organization [employer] Address 75 [facility] 7 [place] [address] Care Team Providers Care Mobile Web Application Developer Name Role Phone [facility] Primary Care Provider [phone] Reason for Visit * Reason Onset Date Comments Med Refill 06/03/2023 Encounter Details Date Type Department Care Team ([facility] st Contact Info) Description 06/03/2023 Refill [facility] MEDICINE 230 [place], [place] [phone] Mindy Cardona MD 230 [place] [address] Erectile dysfunction, unspecified erectile dysfunction type Social [...] Description 04/26/2024 10:30 AM EST Clinical Support [address] [address] 04/29/2024 11:15 AM EST Office Visit [address] [place] [address] [address] 05/30/2024 10:00 AM EDT Office Visit [address] [place] [address] [address] documented as of this encounter Visit Diagnoses Diagnosis Erectile dysfunction, unspecified erectile dysfunction type documented in this encounter Additional Health Concerns Assessment Noted Time PHQ-9 Depression Total Score: 0 05/29/19 24 9:41 AM EDT documented as of this encounter Care Teams Mobile Web Application Developer Relationship Specialty Start Date End Date Una Sawyer [facility] [address] [place] [address] PCP - General Family Medicine 08/21/21 documented as of this encounter
--- OUTSIDE RECORDS SUMMARY | 2024-03-30 17:10 | XMS_ITS | Encounter Summary ---
Author Organization [employer] Address [address] [place] [address] 7 [place] [address] Care Team Providers Care Service And Repair Supervisor Name Role Phone [facility] Primary Care Provider [phone] Reason for Visit * Reason Onset Date Comments Chart Prep 02/29/2024 Encounter Details Date Type Department Care Team ([facility] Contact Info) Description 02/29/2024 Telephone [facility] MEDICINE 230 [place], [place] [phone] [facility] 230 [place] [address] Chart Prep Social History Tobacco Use Types [...] 04/26/2024 10:30 AM EST Clinical Support [address] [address] 04/29/2024 11:15 AM EST Office Visit [address] [address] Una Sawyer [address] [address] 05/30/2024 10:00 AM EDT Office Visit [address] [address] [place] [address] [address] documented as of this encounter Visit Diagnoses Not on filedocumented in this encounter Additional Health Concerns Assessment Noted Time PHQ-9 Depression Total Score: 0 05/29/19 24 9:41 AM EDT documented as of this encounter Care Teams Service And Repair Supervisor Relationship Specialty Start Date End Date Una SawyerSAMANTHA 230 [place] [address] PCP - General Family Medicine 08/21/21 documented as of this encounter
--- OUTSIDE RECORDS SUMMARY | 2024-03-30 17:10 | XMS_ITS | Encounter Summary ---
Author Organization [employer] Address [address] [place] [address] 7 [place] [address] Care Team Providers Care Gas Desulfurizer Name Role Phone [facility] Primary Care Provider [phone] Reason for Visit * Reason Onset Date Comments Results 02/26/2023 Encounter Details Date Type Department Care Team ([facility] Contact Info) Description 02/26/[address] [facility] MEDICINE 230 [place], [place] [phone] [facility] 230 [place], [place] [phone] Results Social History Tobacco Use Types Packs/Day [...] 04/26/2024 10:30 AM EST Clinical Support [address] [address] 04/29/2024 11:15 AM EST Office Visit [address] [address] [place] [address] [address] 05/30/2024 10:00 AM EDT Office Visit [address] [place] [address] [address] documented as of this encounter Visit Diagnoses Not on filedocumented in this encounter Additional Health Concerns Assessment Noted Time PHQ-9 Depression Total Score: 5 03/28/19 10:55 AM EST documented as of this encounter Care Teams Gas Desulfurizer Relationship Specialty Start Date End Date Una Sawyer [facility] [address] [place] [address] PCP - General Family Medicine 08/21/21 documented as of this encounter
--- OUTSIDE RECORDS SUMMARY | 2024-03-30 17:10 | XMS_ITS | Encounter Summary ---
Author Organization [email or web address] Address [address] [place] [address] 7 [place] [address] Care Team Providers Care Materials Handler Name Role Phone [facility] Primary Care Provider [phone] Reason for Visit * Reason Onset Date Comments Nurse Triage 03/14/2024 Encounter Details Date Type Department Care Team ([facility] st Contact Info) Description 03/14/2024 Telephone [facility] MEDICINE 230 [place], [place] [phone] [facility] 230 [place] [address] Nurse Triage Social History Tobacco Use Types [...] is scheduled for surgery this week at [facility]. Area of groin is swollen towards left testicle. Pt. States that veins that connect to left testicle and area in between thigh and testicle are swollen and tender to touch but, not painful. Pt. Advised to go to ED. Pt states he has to go to [facility] for an Xray and would rather be checked there. I advised that he could try but, he may be sent to ED anyway for more diagnostic testing. Pt. Is urinating WNL, no blood in urine. No fever. Protocol Used: Scrotum Swelling (Adult) Protocol-Based Disposition: See in Office or Video Visit within 3 Days- Pt. Will go to walk in today at [facility] but, May need to go to [...] Description 04/26/2024 10:30 AM EST Clinical Support [facility] [place] [address] 04/29/2024 11:15 AM EST Office Visit [facility] [place] [address] Una Sawyer FNP [facility] [place] [address] 05/30/2024 10:00 AM EDT Office Visit [facility] [place] [address] Una Sawyer FNP [facility] [place] [address] documented as of this encounter Visit Diagnoses Not on filedocumented in this encounter Additional Health Concerns Assessment Noted Time PHQ-9 Depression Total Score: 0 05/29/19 24 9:41 AM EDT documented as of this encounter Care Teams Materials Handler Relationship Specialty Start Date End Date Una Sawyer FNP [facility] [place] [address] PCP - General Family Medicine 08/21/21 documented as of this encounter
--- OUTSIDE RECORDS SUMMARY | 2024-03-30 17:10 | XMS_ITS | Encounter Summary ---
Author Organization [employer] Address [address] [place] [address] 7 [place] [address] Care Team Providers Care Telephone Operators Supervisor Name Role Phone [facility] Primary Care Provider [phone] Reason for Visit * Reason Onset Date Comments ER Follow-up 03/17/2024 Encounter Details Date Type Department Care Team ([facility] Contact Info) Description 03/17/2024 Telephone [facility] MEDICINE 230 [place], [place] [phone] [facility] 230 [place], [place] [phone] ER Follow-up Social History Tobacco Use Types [...] - 03/17/2024 10:45 AM EST Please obtain [facility] note visit from approx 6 days ago [...] been prescribed Moxifloxacin 400 mg daily at [facility] location [facility] and vomited first tab. Now is one [...] previous alternate provi ders as available. ASK/James MULTIMEDIA PROJECT MANAGER appt on 03/25/24 1030am. Team tasked to follow with available PCP Team provider in regards to Moxifloxacin missed dose. Request placed to obtain [employer] testing and note following call. Protocol Used: [...] ED visit on : Date: 03/16/2024 Hospital: [facility] Seen for: chest, pain , swelling testicle Symptomatic No *if yes message should go to Triage Patient advised will forward to team nurse for follow up documented in this encounter Plan of Treatment Upcoming Encounters Date Type Department Care Team (Late st Contact Info) Description 04/26/2024 10:30 AM EST Clinical Support [address] [address] 04/29/2024 11:15 AM EST Office Visit [address] [address] Una Sawyer FNP 230 [place] [address] 05/30/2024 10:00 AM EDT Office Visit [address] [address] Una Sawyer FNP 230 [place] [address] documented as of this encounter Visit Diagnoses Not on filedocumented in this encounter Additional Health Concerns Assessment Noted Time PHQ-9 Depression Total Score: 0 05/29/19 24 9:41 AM EDT documented as of this encounter Care Teams Telephone Operators Supervisor Relationship Specialty Start Date End Date Una Sawyer FNP 230 [place] [address] PCP - General Family Medicine 08/21/21 documented as of this encounter
--- OUTSIDE RECORDS SUMMARY | 2024-03-30 17:10 | XMS_ITS | Encounter Summary ---
Author Organization [employer] Address [address] [facility] 7t [place] [address] Care Team Providers Care Farm Loan Representative Name Role Phone [place] [facility] Primary Care Provider [phone] Reason for Visit * Reason Onset Date Comments ED expect 02/26/2024 Encounter Details Date Type Department Care Team ([facility] st Contact Info) Description 02/26/[address] [facility] MEDICINE 230 [place], [place] [phone] Latha Harkins RN 230 [place], [place] [phone] ED expect Social History Tobacco Use Types [...] the past and has [facility] and receiving cortisone shots for it. Patient [...] understanding and agrees with plan. Concerns regarding [facility] treatment and last visit were discussed with patient and patient informed will follow up with management in regards to those concerns. * Telephone Encounter - Latha Harkins RN - 02/26/2024 11:15 AM EST TC placed to [facility] ED [phone] for expect. Patient was seen at [facility] for umbilical pain. Patient was being evaluated to r/o hernia in which he reported feeling lightheaded, became pale, had a small tonic clonic seizure and syncope episode. Patient then had a syncope episode. RN was called and patient was started on 1L O2. Patients SPO2 remained at 100%. Patients vital signs were taken by Maria Del Rosario ([place] manager sign) which were WNL, glucose was checked by Katarina TERRAZAS which was 99, Henrietta TERRAZAS called 911, Salina VALDEZ printed facesheet, medlist and FD notified security of ambulance expect. Patient remainedon the floor in exam room M while we awaiting arrival of EMS with Dr. Diaz. EMS arrived, patient was transported to [facility] ED. RN will place patient on status check for Thursday. documented in this encounter Plan of Treatment Upcoming Encounters Date Type Department Care Team (Late st Contact Info) Description 04/26/2024 10:30 AM EST Clinical Support [address] [address] 04/29/2024 11:15 AM EST Office Visit [address] [address] Una Sawyer [address] [address] 05/30/2024 10:00 AM EDT Office Visit [address] [address] Una Sawyer [address] [address] documented as of this encounter Visit Diagnoses Not on filedocumented in this encounter Additional Health Concerns Assessment Noted Time PHQ-9 Depression Total Score: 0 05/29/19 9:41 AM EDT documented as of this encounter Care Teams Farm Loan Representative Relationship Specialty Start Date End Date Una Sawyer FNP [address] [place] [address] PCP - General Family Medicine 08/21/21 documented as of this encounter
--- OUTSIDE RECORDS SUMMARY | 2024-03-30 17:10 | XMS_ITS | Encounter Summary ---
Author Organization [employer] Address [address] [place] [address] 7t [place] [address] Care Team Providers Care Finisher Card Tender Name Role Phone [facility] Primary Care Provider [phone] Reason for Referral * Imaging (Routine) - Closed Specialty Diagnoses / Procedures Referred By Contrenan t Referred To Contact Radiology Diagnoses Swelling of left testicle Procedures US Scrotum Soha Sheth ANP 230 [place] [address] Phone: tel: fax: [address] Phone: tel: fax: Referral ID Status Reason Start Date Expiration Date Visits Re quested Visits Authorized [id number] Closed 03/14/2024 03/14/2025 1 1 Reason for Visit * Reason Comments Testicle Pain Encounter Details Date Type Department Care Team (Late st Contact Info) Description 03/14/2024 2:00 PM EST Office Visit [facility] 230 [place], [place] [phone] Soha Sheth ANP 230 [place], [place] [phone] Swelling of left testicle (Primary Dx); Possible [...] kg) SpO2 97% BMI 30.45 kg/m?? Declined wet silk hanger Physical Exam Vitals reviewed. Constitutional: General: He [...] 04/26/2024 10:30 AM EST Clinical Support [address] [address] 04/29/2024 11:15 AM EST Office Visit [address] [address] [place] [address] [address] 05/30/2024 10:00 AM EDT Office Visit [address] [address] [place] [address] [address] Scheduled Orders Name Type Priority Associated Diagnoses [...] documented as of this encounter Care Teams Finisher Card Tender Relationship Specialty Start Date End Date Una Sawyer FNP [address] [place] [address] PCP - General Family Medicine 08/21/21 documented as of this encounter
[2024-04-03 21:23] LABS: Mycoplasma genitalium RNA Not Detected (Not Detected); Mycoplasma hominis PCR Not Detected (Not Detected); Ureaplasma parvum PCR Not Detected (Not Detected); Ureaplasma urealyticum PCR Not Detected (Not Detected)
[2024-04-06 18:19] LABS: Trichomonas vaginalis RNA Not Detected (Not Detected)
== END 2024-03-30 14:40 | disposition home or self-care (01) ==
LOC: HO.HHCL 14:39
PROVIDERS: Registered Nurse; Visit Provider General Practice
DX: N34.2 Other urethritis (principal); F32.A Depression, unspecified
CPT/HCPCS: 36415; 87563; 87661; 87798

== ENCOUNTER 2024-03-30 15:30 | Outpatient (REF) | payer MEDICAID, SELFPAY ==
--- NOTE | ~2024-03-30 | US_ITS ---
EXAMINATION: US SCROTUM HISTORY: worsening testicular swelling. COMPARISONS: There are no prior studies for comparison. FINDINGS: Real-time grayscale ultrasound imaging of the scrotum was performed. RIGHT TESTICLE: The right testis measures 3.7 x 1.9 x 2.8 cm and demonstrates heterogeneous echotexture. No focal mass is identified. The right testis demonstrates normal color Doppler flow. RIGHT EPIDIDYMIS: Normal in size, shape, and vascularity. LEFT TESTICLE: The left testis measures 4.9 x 2.1 x 3.5 cm and demonstrates normal homogeneous echotexture. No masses are seen. The left testis demonstrates normal color Doppler flow. LEFT EPIDIDYMIS: There is a 1.9 x 0.6 x 0.8 cm cyst of the epididymal body. VARICOCELE: There are small bilateral varicoceles. HYDROCELE: No significant hydrocele is seen. OTHER COMMENTS: None. US/US scrotum IMPRESSION: 1. Heterogeneous echotexture of the right testis without a discrete mass. 2. 1.9 x 0.6 x 0.8 cm cyst of the left epididymal body. 3. Small bilateral varicoceles. Electronically signed by: Hudson Mercado MD 03/31/2024 07:46 AM EST
== END 2024-03-30 15:31 | disposition home or self-care (01) ==
LOC: HO.HMGCX 15:30
PROVIDERS: PCP Registered Nurse; Visit Provider Nurse Practitioner Family
DX: N50.89 Other specified disorders of the male genital organs (principal); L72.0 Epidermal cyst
CPT/HCPCS: 76870

== ENCOUNTER → 2024-03-30 15:32 | Outpatient (BNV) | payer MEDICAID, SELFPAY | PROVIDERS: PCP Registered Nurse; Visit Provider Radiology Diagnostic Radiology | DX: N50.3 Cyst of epididymis (principal); I86.1 Scrotal varices | CPT/HCPCS: 76870 ==

== ENCOUNTER 2024-04-18 08:18 | Outpatient (AMB) | payer MEDICAID, SELFPAY ==
[2024-04-18 08:25] VITALS: BP 140/84; PULSE 100
--- NOTE | 2024-04-18 08:25 | MHC.OFFVIS ---
Vital Signs 04/18/24 08:25 Weight 222 lb BP 140/84 H Blood Pressure Location Rt brachial Position Sitting Pulse 100 Intake Visit Reasons: pain at hernia site Intake Note: Patient here s/p open umbilical herniorrhaphy with Bard mesh. Surgery 03-18-2024. Patient c/o: pain when turning to Rt side while sleeping. Denies nausea, diarrhea, constipation. Pain not bothersome enough to take pain meds. Prep Manager Required: No Accompanied by: Self / Same As Patient Allergies No Known Allergies Allergy (Verified 04/18/24 08:27) HPI Comments Details: Patient continues convalescence from his umbilical hernia surgery. He has become more active and is having some mild incisional discomfort and presents here for reassurance and wound evaluation. He is tolerating his diet. Having regular bowel habits. [facility] Medical History Elbow pain, right Testicular pain, left Patient denies significant medical history Erectile dysfunction Anxiety Depression Surgical History Hx of tooth extraction Social History Patient Tobacco Use Status: Former Tobacco user Substance Use Type: Marijuana Physical Exam Vital Signs: Last Vital Signs Pulse 100 04/18/24 08:25 BP 140/84 H 04/18/24 08:25 GI Other: Abdomen is soft. Incision well healed. No evidence of any infection or recurrence. Assessment & Plan Assessment & Plan (1) Visit for wound check: Code(s): Z51.89 - Encounter for other specified aftercare Category: Surgical Plan Patient was reassured. No acute surgical issues at this time. He should continue slowly advancing his activity level. You will otherwise follow-up p.r.n.. All questions answered. Coding Level of Care Code Global (70738) Diagnoses Visit for wound check Z51.89
--- OUTSIDE RECORDS SUMMARY | 2024-04-18 08:30 | XMS_ITS | Encounter Summary ---
Author Organization [employer] Address [address] [facility] 7t [place] [address] Care Team Providers Care On Air Director Name Role Phone [facility] Primary Care Provider [phone] Encounter Details Date Type Department Care Team ([facility] st Contact Info) Description 03/30/2024 Orders Only [facility] [address] [place], [place] [phone] Felipa Bryant MD [address] [place], [place] [phone] Urethritis (Primary Dx) Social History Tobacco Use [...] Description 04/26/2024 10:30 AM EST Clinical Support [address] [address] 04/29/2024 11:15 AM EST Office Visit [address] [address] 05/30/2024 10:00 AM EDT Office Visit [address] [address] Scheduled Orders Name Type Priority Associated Diagnoses Orde r Schedule Mycoplasma/Ureaplas ma??Panel Microbiology Routine Urethritis Expected: 03/30/2024 (Approximate), Expires: 03/30/2025 documented as of this encounter Procedures Procedure Name Priority Date/Time Associated Diagnosis Comments MYCOPLASMA/UREAPLAS MA PANEL Routine 03/30/2024 2:45 PM EST Urethritis documented in this encounter Results * Mycoplasma/Ureaplasma??Panel (03/30/2024 2:45 PM EST) Jonathan(R), Mycoplasma Hominis, Real-Time Pcr Not Detected Not Detected [facility] Comment:THIS TEST WAS PERFOR MED AT:[employer] [id number] [place] [address]RKZWNKNSANTOS SANTIAGO MD,PHD Mycoplasma Genitalium, rRNA,TMA Not Detected Not Detected [facility] Comment:THIS TEST WAS PERFOR MED AT:[employer] [id number] [place] [address]JYXQNXYSANTOS SANTIAGO MD,PHD U. Parvum DNA Not Detected Not Detected [facility] U. Urealyticum DNA Not Detected Not Detected [facility] Comment:This test was develo ped and its analyticalperformance characteristics have been determinedby [place], [place].It has not been cleared or approved by the FDA. Thisassay has been validated pursuant to the CLIAregulations and is used for clinical purposes.THIS TEST WAS PERFORMED AT:[employer] [id number] [place] [address]RLTJLYASANTOS SANTIAGO MD,PHD 03/30/2024 2:45 PM EST 03/30/2024 4:05 PM EST [facility] MICROBIOLOGY - GENERAL OR DERABLES Final Result [facility] [address] [place] [phone] documented in this encounter Visit Diagnoses Diagnosis Urethritis- Primary Unspecified urethritis documented in this encounter Additional Health Concerns Assessment Noted Time PHQ-9 Depression Total Score: 6 03/23/19 25 9:29 AM EST documented as of this encounter Care Teams On Air Director Relationship Specialty Start Date End Date Una Sawyer FNP [address] [place] [id number] PCP - General Family Medicine 08/21/21 documented as of this encounter
--- OUTSIDE RECORDS SUMMARY | 2024-04-18 08:30 | XMS_ITS | Encounter Summary ---
Author Organization [employer] Address [address] [facility] 7t [place] [address] Care Team Providers Care Wrapper Sizer Name Role Phone [facility] Primary Care Provider [phone] Reason for Visit * Reason Onset Date Comments Labs Only 03/30/2024 Encounter Details Date Type Department Care Team ([facility] Contact Info) Description 03/30/[address] [facility] MEDICINE 230 [place], [place] [phone] Latha Harkins RN 230 [place] [address] Labs Only Social History Tobacco Use Types [...] PM EST Call returned to patient regarding [facility]. Patient stated he wanted the team [...] PM EST RN received incoming call from [facility] with an update regarding [facility]. Per Arianna, [facility] was able to update lab stickers for trichomonas and mycoplasma/ureaplasma for them to print stating URINE or SWAB. * Telephone Encounter - Latha Harkins RN - 03/30/2024 11:37 AM EST RN received incoming call from the patient. Patient reports he is very frustrated with the lab. Patient reports he came to [facility] today to have his labs performed (see [...] and return call to patient. RN called [facility] [phone] to discuss above message. RN was informed the trichomonas and mycoplasma/ureaplasma orders were cancelled as they are swabs which the lab does not perform. RN informedstaff, the labs were placed yesterday as specimen: Urine. RN was then transferred to [facility] lab staff for further clarification. Staff were extremely rude to RN and ultimately informed RN it shows in their system as a swab specimen which they do not collect, despite RN explaining the order has been placed as a urine specimen. RN was informed to call Arianna Beltran [phone]. RN called Mary at [facility] to confirm order was placed correctly and indeed indicates urine specimen for both trichomonas and mycoplasma/ureaplasma. RN was informed orders are correct on [facility] end. Sarah reached out to Opal who advised Mary to have RN reach out to Arianna Beltran as well. RN called Arianna Beltran [phone] and explained above situation. Arianna was able [...] to his concerns. TC placed to patient [phone] to inform patient of need to return to the lab to provide more urine for the trichomonas and mycoplasma/ureaplasma. Patient advised the urine sample was only enough for the drug screen. Patient advised RN confirmed the lab WILL accept the urine and the patient willnot be turned away regarding the outstanding orders. Patient advised the phlebotomists collection supervisor spoke to them and they are [...] Description 04/26/2024 10:30 AM EST Clinical Support [facility] [place] [address] 04/29/2024 11:15 AM EST Office Visit [facility] [place] [address] Una Sawyer FNP [facility] [place] [address] 05/30/2024 10:00 AM EDT Office Visit [facility] [place] [address] Una Sawyer FNP [facility] [place] [address] documented as of this encounter Visit Diagnoses Not on filedocumented in this encounter Additional Health Concerns Assessment Noted Time PHQ-9 Depression Total Score: 6 03/23/19 25 9:29 AM EST documented as of this encounter Care Teams Wrapper Sizer Relationship Specialty Start Date End Date Una Sawyer FNP [facility] [place] [address] PCP - General Family Medicine 08/21/21 documented as of this encounter
--- OUTSIDE RECORDS SUMMARY | 2024-04-18 08:31 | XMS_ITS | Encounter Summary ---
Author Organization [employer] Address [address] [facility] 7 [place] [address] Care Team Providers Care Print Binding Worker Name Role Phone [facility] Primary Care Provider [phone] Reason for Visit * Reason Onset Date Comments Results 03/23/2024 Encounter Details Date Type Department Care Team ([facility] Contact Info) Description 03/23/2024 Telephone [facility] MEDICINE [address] [place], [place] [phone] [facility] 230 [place], [place] [phone] Results Social History Tobacco Use Types Packs/Day [...] he's having trouble understanding them. Contact PT :[phone] documented in this encounter Plan of Treatment Upcoming Encounters Date Type Department Care Team (Late st Contact Info) Description 04/26/2024 10:30 AM EST Clinical Support [address] [address] 04/29/2024 11:15 AM EST Office Visit [address] [address] Una Sawyer [address] [address] 05/30/2024 10:00 AM EDT Office Visit [address] [address] Una Sawyer [address] [address] documented as of this encounter Visit Diagnoses Not on filedocumented in this encounter Additional Health Concerns Assessment Noted Time PHQ-9 Depression Total Score: 6 03/23/19 25 9:29 AM EST documented as of this encounter Care Teams Print Binding Worker Relationship Specialty Start Date End Date Una Sawyer FNP [address] [place] [address] PCP - General Family Medicine 08/21/21 documented as of this encounter
--- OUTSIDE RECORDS SUMMARY | 2024-04-18 08:31 | XMS_ITS | Clinical Summary ---
Author Organization [employer] Address [address] [facility] 7[address] [place] [address] Care Team Providers Care Tax Expert Name Role Phone [facility] Primary Care Provider [phone] Allergies No known active allergies Medications * [...] needed each day (as needed). 1 kit 5 Active lisinopril 10 MG tablet Take 1 tablet (10 mg) by mouth Once per day. 30 tablet 2 5 025 Active Active Problems Problem Noted Date Diagnosed Date Swelling of left testicle 03/25/2024 Assessment & Plan (04/03/2024 1:04 PM EST): Recent m gentalium infection , post treatment culture pending Pt reports persistent possibly worsening swelling Repeat ultrasound Hypertension 03/25/2024 Assessment & Plan (04/03/2024 1:03 PM EST): Pt has recently had multiple readings above goal though these were in recent stressful settings, Pt prefers to treat elevated bp with both pharmacology and life style Trial lisinopril 10 mg Bp cuff ordered Lifestyle interventions reviewed History of marijuana use 03/24/2024 Urethritis 03/22/2024 [...] EDT): Monitor JORDAN (generalized anxiety disorder) 05/29/2023 Assessment & Plan (04/03/2024 1:05 PM EST): Resume lexapro Chronic elbow pain, right 04/24/2023 Assessment & [...] - States he was raised in strict sabianism family and has struggled over the years coming to terms with his beliefs about organized methodist. he attributes feelings of guilt and low self esteems to his experiences in shinto. Especially difficult because he has realized he identifies as bisexual and has not felt accepted. Encounters * This document contains information received from the source organization and may not represent a complete record from that organization. Date Type Department Care Team Description 04/05/[address] [address] Una Sawyer FNP Referral 04/01/[address] [address] Una Sawyer FNP Results 03/30/[address] [address] Latha Harkins RN Labs Only 03/30/2024 Orders Only [address] [address] Felipa Bryant MD Urethritis (Primary Dx) 03/29/[address] [address] Una Sawyer FNP Nurse Triage 03/25/2024 10:30 AM EST Office Visit [facility] [address] Sari Lyn NP Swelling of left testicle (Primary Dx); Hypertension, unspecified type; Right elbow pain; JORDAN (generalized anxiety disorder) 03/23/2024 Telephone [facility] [address] [facility] connelly [facility] Results 03/21/2024 3:30 PM EST Office Visit [facility] MEDICINE [address] [place] [address] Felipa Bryant MD Urethritis (Primary Dx); Dietary counseling; Exercise counseling; Overweight 03/21/2024 Travel 03/21/[address] [address] Sarah Chambers [place] Chart Prep 03/21/[address] [address] [facility] Nurse Triage 03/18/[address] [address] [facility] TANDEM MILL OPERATOR Nurse Triage 03/17/[address] [address] [facility] ER Follow-up 03/14/2024 2:00 PM EST Office Visit [facility] WALK-IN CENTER [address] [place] [address] Soha Sheth ANP Swelling of left testicle (Primary Dx); Possible exposure to STI 03/14/[address] [address] [facility] connelly FNP 03/14/[address] [address] [facility] connelly [facility] Nurse Triage 02/29/2024 1:00 PM EST Office Visit [address] [address] Sari Lyn NP Right elbow pain (Primary Dx); Periumbilical abdominal pain; Vasovagal syncope 02/29/[address] [address] Una Sawyer FNP Chart Prep 02/26/2024 10:30 AM EST Office Visit [address] [address] Hina Diaz MD Periumbilical abdominal pain (Primary Dx); Syncope, unspecified syncope type 02/26/2024 Orders Only [facility] External Provider, [facility] 02/26/2024 Telephone [facility] MEDICINE [address] [place] [address] Latha Harkins, BENEFITS REPRESENTATIVE expect 02/26/2024 Travel 02/26/2024 Telephone [facility] MEDICINE [address] [place] [address] [facility] FNP Nurse Triage 01/18/2024 Telephone [facility] [address] [place] [address] [facility] TANDEM MILL OPERATOR Nurse Triage from Last 3 Months Immunizations [...] Description 04/26/2024 10:30 AM EST Clinical Support [address] [address] 04/29/2024 11:15 AM EST Office Visit [address] [address] 05/30/2024 10:00 AM EDT Office Visit [address] [address] Health Maintenance Due Date Last Done Comments Family Planning (PISQ) 2000 Hepatitis B Vaccines (1 of 3 - 19+ 3-dose series) 2004 COVID-19 Vaccine ( - 2023- season) 2023 Influenza Vaccine (#1) 2023 01/02/2020, 2017 Alcohol/Substance Use Screening 05/28/2024 05/29/2023 SDOH Screening 05/28/2024 05/29/2023 Depression Screening 03/23/2025 03/23/2024, 03/23/19 25 Tobacco Screening 03/25/2025 03/25/2024 Lipid Panel 06/06/2027 06/05/2022, 08/27/2021 DTaP/Tdap/Td Vaccines (3 - Td or Tdap) 06/05/2032 06/05/2022, 09/26/2013, 09/06/2009 Zoster Vaccines (1 of 2) 12/14/2035 RSV Patients and Patients Aged 60 years or older (1 - 1-dose 75+ series) 2060 HIV Screening Completed 03/22/2024, 03/2023, 02/26/2023, Additional history exists Hepatitis C [...] 5 Years) and At-Risk Patients (6 to 49) Years) Aged Out No longer eligible based on patient's age to complete this topic RSV under 20 months Aged Out No longe r eligible based on patient's age to complete this topic Rotavirus Vaccines Aged Out No longer eligible based on patient's age to complete this topic Procedures Procedure Name Priority Date/Time Associated Diagnosis Comments US SCROTUM Routine 03/30/2024 3:32 PM EST Swelling of left testicle TRICHOMONAS VAGINALIS RNA, QUALITATIVE, TMA Routine 03/30/2024 2:45 PM EST Urethritis MYCOPLASMA/UREAPLASMA PANEL Routine 03/30/2024 2:45 PM EST Urethritis RPR (MONITOR) W/REFL TITER Routine 03/30/2024 9:39 AM EST Urethritis DRUG MONITOR, PANEL 1, SCREEN, URINE Routine [...] Recently Relevant to Health Maintenance Results * US Scrotum (03/30/2024 3:32 PM EST) Anatomical Region Laterality Modality Body Ultrasound 03/30/2024 3:32 PM EST Narrative 03/31/2024 7:49 AM EST ? [facility] ?[address] [facility] ? [place] [address] ? Ultrasound Report ? Signed ? Patient: Narciso,Jerry ?MR#: [id number] ?? 1 ? : 1985 ?Acct:[id number] ? Age/Sex: 38 / M ?ADM Date: 01/22/25 ? Loc: HO.HMGCX ? Jazzy Barronef SALES AND RETAIL MANAGEMENT RECRUITER ? Ordering Physician: Sari Lyn SALES AND RETAIL MANAGEMENT RECRUITER ?? Date of Service: 03/30/24 ?? Procedure(s): US scrotum ?? Accession Number(s): [id number] ? cc: Sari Lyn SALES AND RETAIL MANAGEMENT RECRUITER; [facility] TANDEM MILL OPERATOR ? EXAMINATION: US SCROTUM ? HISTORY: worsening testicular swelling. ? COMPARISONS: There are no prior studies for comparison. ? FINDINGS: ??Real-time grayscale ultrasound imaging of the scrotum was ?? performed. ? RIGHT TESTICLE: ??The right testis measures 3.7 x 1.9 x 2.8 cm and ?? demonstrates heterogeneous echotexture. ??No focal mass is identified. ? The right testis demonstrates normal color Doppler flow. ? RIGHT EPIDIDYMIS: Normal in size, shape, and vascularity. ? LEFT TESTICLE: ??The left testis measures 4.9 x 2.1 x 3.5 cm and ?? demonstrates normal homogeneous echotexture. ??No masses are seen. ??The ?? left testis demonstrates normal color Doppler flow. ? LEFT ??EPIDIDYMIS: There is a 1.9 x 0.6 x 0.8 cm cyst of the epididymal ?? body. ? VARICOCELE: There are small bilateral varicoceles. ? HYDROCELE: No significant hydrocele is seen. ? OTHER COMMENTS: None. ? US/US scrotum ?? IMPRESSION: ? 1. Heterogeneous echotexture of the right testis without a discrete ?? mass. ? 2. 1.9 x 0.6 x 0.8 cm cyst of the left epididymal body. ? 3. Small bilateral varicoceles. ? Electronically signed by: ??Hudson Mercado MD ??03/31/2024 07:46 AM EST ?? RP ? Dictated By: ?Hudson Mercado MD ? Signed By: ?<Electronically signed by Hudson Mercado MD in OV> ?03/31/24 0746 ? DD/ 1532 ? TD/TT: 03/30/24 1555 ? Still Pump Operator: ? Procedure Note [employer], Image - 03/31/2024 [facility] [address] [facility] [place] [address] Ultrasound Report Signed Patient: Jerry Stuart#: [id number] 1 : 1985Acct:[id number] Age/Sex: 38 / MADM Date: 03/30/24 Loc: HO.HMGCX Attending Dr: Sari Lyn NP Ordering Physician: Sari Lyn NP Date of Service: 03/30/24 Procedure(s): US scrotum Accession Number(s): [id number] cc: Sari Lyn SALES AND RETAIL MANAGEMENT RECRUITER; [facility] EXAMINATION: US SCROTUM HISTORY: worsening testicular swelling. COMPARISONS: There are no prior studies for comparison. FINDINGS: Real-time grayscale ultrasound imaging of the scrotum was performed. RIGHT TESTICLE: The right testis measures 3.7 x 1.9 x 2.8 cm and demonstrates heterogeneous echotexture. No focal mass is identified. The right testis demonstrates normal color Doppler flow. RIGHT EPIDIDYMIS: Normal in size, shape, and vascularity. LEFT TESTICLE: The left testis measures 4.9 x 2.1 x 3.5 cm and demonstrates normal homogeneous echotexture. No masses are seen. The left testis demonstrates normal color Doppler flow. LEFT EPIDIDYMIS: There is a 1.9 x 0.6 x 0.8 cm cyst of the epididymal body. VARICOCELE: There are small bilateral varicoceles. HYDROCELE: No significant hydrocele is seen. OTHER COMMENTS: None. US/US scrotum IMPRESSION: 1. Heterogeneous echotexture of the right testis without a discrete mass. 2. 1.9 x 0.6 x 0.8 cm cyst of the left epididymal body. 3. Small bilateral varicoceles. Electronically signed by: Hudson Mercado MD 03/31/2024 07:46 AM EST Dictated By: Hudson Mercado MD Signed By: <Electronically signed by Hudson Mercado MD in OV> 03/31/24 0746 DD/ 1532 TD/TT: 03/30/24 1555 Still Pump Operator: Sari Graef SALES AND RETAIL MANAGEMENT RECRUITER IMG US PROCEDURES Final Result * Trichomonas RNA (Urine/Vaginal) (03/30/2024 2:45 PM EST) Trichomas vaginalis RNA, QL, TMA Not Detected Not Detected [facility] Comment:For additional infor carola, please refer tohttp://education.[employer]uer[employer]/faq/Trichomonastma (This link is being providedfor information/educational purposes only).THIS TEST WAS PERFORMED AT:[employer] [id number] [place] [address]AEKOSHOSANTOS SANTIAGO MD,PHD Urine (Urine, Random) 03/30/2024 2:45 PM EST 03/30/2024 4:05 PM EST [facility] TANDEM MILL OPERATOR LAB BODY FLUIDS AND STOOLS OR DERABLES Final Result Performing Organization Address [facility] Co de Phone Number [facility] [address] [place] [phone] * Mycoplasma/Ureaplasma??Panel (03/30/2024 2:45 PM EST) Sureswab(R), Mycoplasma Hominis, Real-Time Pcr Not Detected Not Detected [facility] Comment:THIS TEST WAS PERFOR MED AT:[employer] [id number] [place] [address]SOOFBBKSANTOS SANTIAGO MD,PHD Mycoplasma Genitalium, rRNA,TMA Not Detected Not Detected [facility] Comment:THIS TEST WAS PERFOR MED AT:[employer] [id number] [place] [address]HPVTYCQSANTOS SANTIAGO MD,PHD U. Parvum DNA Not Detected Not Detected [facility] U. Urealyticum DNA Not Detected Not Detected [facility] Comment:This test was develo ped and its analyticalperformance characteristics have been determinedby [facility].It has not been cleared or approved by the FDA. Thisassay has been validated pursuant to the CLIAregulations and is used for clinical purposes.THIS TEST WAS PERFORMED AT:[employer] [id number] [place] [address]FNYZCQFSANTOS SANTIAGO MD,PHD 03/30/2024 2:45 PM EST 03/30/2024 4:05 PM EST [facility] LAB MICROBIOLOGY - GENERAL OR DERABLES Final Result Performing Organization Address [facility] Co de Phone Number [facility] [address] [place] [phone] * RPR (Monitor) with Reflex to??Titer (03/30/2024 9:39 AM EST) RPR (Monitor) w/Refl Titer NON-REACTI VE NON-REACT YEFRI [facility] Comment:THIS TEST WAS PERFOR MED AT:[employer] [address] [address]YETZFLUIS A FREGOSO MD Rapid Plasma Reagin Ab Titer TNP [facility] Blood Venous blood specimen / Unknown 03/30/2024 9:39 AM EST 03/30/2024 11:45 AM EST Felipa Bryant MD LAB BLOOD ORDERABLES Final Res ult Performing Organization Address [facility] Co de Phone Number [facility] [address] [place] [phone] * (ABNORMAL) Drug Monitoring, Panel 1, Screen, Urine (03/30/2024 8:50 AM EST) Only the most recent of2 resultswithin the time period is included. Opiate Screen Urine Not Detected Not Detect [facility] Comment:Opiate cut-off is 30 0 ng/mL.Positive results are unconfirmed and should not be used fornon-medical purposes. Barbiturates, Urine Not Detected Not Detect [facility] Comment:Barbiturate cut-off is 200 ng/mL.Positive results are unconfirmed and should not be used fornon-medical purposes. Phencyclidine Screen Urine Not Detected Not Detect [facility] Comment:Phencyclidine cut-of f is 25 ng/mL.Positive results are unconfirmed and should not be used fornon-medical purposes. Amphetamine Screen Urine Not Detected Not Detect [facility] Comment:Amphetamine cut-off is 1000 ng/mL.Positive results are unconfirmed and should not be used fornon-medical purposes. Benzodiazepines Screen Urine Not Detected Not Detect [facility] Comment:Benzodiazepine cut-o ff is 200 ng/mL.Positive results are unconfirmed and should not be used fornon-medical purposes. Cocaine Screen Urine Not Detected Not Detect [facility] Comment:Cocaine cut-off is 3 00 ng/mL.Positive results are unconfirmed and should not be used fornon-medical purposes. Cannabinoid Screen Urine POSITIVE(A) Not Detect [facility] Comment:Cannabinoid cut-off is 50 ng/mL.Positive results are unconfirmed and should not be used fornon-medical purposes. Methadone Screen, Urine Not Detected Not Detect ng/mL [facility] Comment:Methadone cut-off is 300 ng/mL.Positive results are unconfirmed and should not be used fornon-medical purposes. FENTANYL URINE Not Detected Not Detect [facility] Comment:Fentanyl cut-off is 1 ng/mL.Positive results are unconfirmed and should not be used fornon-medical purposes. Oxycodone Urine Screen Not Detected Not Detect ng/mL [facility] Comment:Oxycodone cut-off is 100 ng/mL.Positive results are unconfirmed and should not be used fornon-medical purposes. Buprenorphine Screen Not Detected Not Detect ng/mL [facility] Comment:Buprenorphine cut-of f is 5 ng/mL.Positive results are unconfirmed and should not be used fornon-medical purposes. Urine (Urine, Random) 03/30/2024 8:50 AM EST 03/30/2024 11:51 AM EST Goyo Zapata [facility] LAB URINE ORDERABLES Final Re sult [facility] [address] [place] [address] [phone] * Measles, Mumps, and Rubella (MMR) Antibodies??(IgG) Panel, Immune Status (03/22/2024 9:08 AM EST) Mumps Virus IgG Antibody 36.00 AU/mL [facility] Comment:AU/mL Interpretation ------- <9.00 Not consistent with immunity9.00-10.99 Equivocal>10.99 Consistent with immunityThe presence of mumps IgG antibody suggests immunizationor past or current infection with mumps virus. Rubella IgG Antibody 3.22 Index [facility] Comment:Index Interpretation ----- <0.90 Not consistent with immunity 0.90-0.99 Equivocal > or = 1.00 Consistent with immunityThe presence of rubella IgG antibody suggestsimmunization or past or current infection withrubella virus.THIS TEST WAS PERFORMED AT:[employer] [place] [phone] A FREGOSO MD Rubeola IgG (Measles) 55.00 AU/mL [facility] Comment:AU/mL Interpretation ----- <13.50 Not consistent with rnwlyobf78.50-16.49 Equivocal>16.49 Consistent with immunityThe presence of measles IgG suggests immunization orpast or current infection with measles virus.For additional information, please refer tohttp://education.BrakeQuotes.com/faq/MXG687(This link is being provided for informational/educational purposes only.) Blood Venous blood specimen / Unknown 03/22/2024 9:08 AM EST 03/22/2024 11:21 AM EST [facility] LAB BLOOD ORDERABLES Final Re sult [facility] [address] [place] [address] [phone] * Hepatitis Panel, General (03/22/2024 9:08 AM EST) Hepatitis A IgM Nonreactive Nonreactive [facility] Comment:IgM antibodies to MUNOZ V not detected; does not exclude earlyacute or recovered HAV infection. ~Hepatitis B Surface Antibody REACTIVE Nonreactive [facility] Comment:REACTIVE: > 11.99 m IU/mL Hepatitis B Core Antibody Nonreactive Nonreactive [facility] Hepatitis C Antibody Nonreactive Nonreactive [facility] Comment:Antibodies to HCV no t detected; does not exclude early acuteHCV infection. Hepatitis B Surface Ag Negative Negative [facility] Blood 03/22/2024 9:08 AM EST 03/22/2024 11:21 AM EST [facility] LAB BLOOD ORDERABLES Final Re sult Performing Organization Address City/[facility]/ZIP Co de Phone Number [facility] [address] [place] [phone] * Hepatitis C Antibody with Reflex to HCV, RNA, Quantitative, Real-Time PCR (03/22/2024 9:08 AM EST) Pathologist [facility] Hepatitis C Antibody Nonreactive Nonreactive [facility] Comment:Antibodies to HCV no t detected; does not exclude early acuteHCV infection. Blood Venous blood specimen / Unknown 03/22/2024 9:08 AM EST 03/22/2024 11:21 AM EST us Felipa Bryant MD LAB BLOOD ORDERABLES Final Res ult Performing Organization Address City/[facility]/ZIP Co de Phone Number [facility] [address] [place] [phone] * HIV-1/2 Antigen and Antibodies, Fourth Generation, with Reflexes (03/22/2024 9:08 AM EST) HIV AB/AG Nonreactive Nonreactive [facility] Comment:HIV-1 p24 Ag and/or HIV-1/HIV-2 Ab not detected.A test result that is nonreactive does not exclude thepossibility of exposure to or infection with HIV-1 and/orHIV-2. Nonreactive results in this assay for individualswith prior exposure to HIV-1 and/or HIV-2 may be due toantigen and antibody levels that are below the limit ofdetection of this assay.The [employer] HIV Ag/Ab Combo assay result andsupplemental assay results should be interpreted inconjunction with the patient's clinical presentation,history and other laboratory results. If the results areinconsistent with clinical evidence, additional testing issuggested to confirm the result. Blood Venous blood specimen / Unknown 03/22/2024 9:08 AM EST 03/22/2024 11:21 AM EST us Felipa Bryant MD LAB BLOOD ORDERABLES Final Res ult [facility] [address] [place] [phone] * Varicella Zoster Antibody, IgG (03/22/2024 9:08 AM EST) [facility] Varicella IgG Antibody 4.45 S/CO [facility] Comment:Signal to Cut-off S/ CO Interpretation [...] Antibody Immunity Screen, ACIF.THIS TEST WAS PERFORMED AT:[employer] [place] [phone] A FREGOSO MD Blood Venous blood specimen / Unknown 03/22/2024 9:08 AM EST 03/22/2024 11:21 AM EST [facility] LAB BLOOD ORDERABLES Final Re sult [facility] [address] [place] [phone] [phone] * Chlamydia/N. Gonorrhoeae RNA, TMA, Urogenitial (03/21/2024 4:05 PM EST) CT PCR NOT DETECTED Not Detect. [facility] Comment:A not detected test result does [...] psychologicalconsequences. NG PCR NOT DETECTED Not Detect. [facility] Comment:A not detected test result does [...] PM EST 03/21/2024 5:47 PM EST Narrative [facility] - 03/22/2024 5:49 AM EST Urine us Felipa Bryant MD LAB MICROBIOLOGY - GENERAL ORD ERABLES Final Result [facility] [address] [facility] [place] [address] [phone] * XR Elbow 3+ Views Right (03/14/2024 2:03 PM EST) Anatomical Region Laterality Modality Upper Extremities, Elbow Right Radiogr aphic Imaging 03/14/2024 2:03 PM EST Narrative 03/14/2024 3:29 PM EST ?[facility] ?[address] ?[place] [address] ?XRay Report ? Signed ? Patient: Jerry Stuart ?MR#: [id number] ?? 1 ? : 1985 ?Acct:[id number] ? Age/Sex: 38 / M ?ADM Date: 03/14/24 ? Loc: HO.HHCX ? Attending Dr: Sari Lyn SALES AND RETAIL MANAGEMENT RECRUITER ? Ordering Physician: Sari Lyn NP ?? Date of Service: 03/14/24 ?? Procedure(s): XR elbow RT min 3V ?? Accession Number(s): [id number] ? cc: Sari Lyn NP ? EXAMINATION: ??XR ELBOW 3 VIEWS RIGHT [...] DD/ 1403 ? TD/TT: 03/14/24 1500 ? Still Pump Operator: ? Procedure Note Donkimberlyter, Image - 03/14/2024 [facility] [address] [place] [address] XRay Report Signed Patient: Jerry StuartMR#: [id number] 1 : 1985Acct:[id number] Age/Sex: 38 / MADM Date: 03/14/24 Loc: HO.HHCX Attending Dr: Sari Lyn NP Ordering Physician: Sari Lyn NP Date of Service: 03/14/24 Procedure(s): XR elbow RT min 3V Accession Number(s): [id number] cc: Sari Lyn SALES AND RETAIL MANAGEMENT RECRUITER EXAMINATION: XR ELBOW 3 VIEWS RIGHT HISTORY: [...] 03/14/24 1526 DD/ 1403 TD/TT: 03/14/24 1500 Still Pump Operator: Sari Lyn NP IMG XR PROCEDURES Final Result * High Sensitivity Troponin I (02/26/2024 2:24 PM EST) Only the most recent of2 resultswithin the time period is included. TROPONIN I HIGH SENSITIVITY <2.7 <3.5 - 35.0 ng/L [facility] Comment:The [place] high sens itivity Troponin-I results should beused in conjunction with other diagnostic information suchas ECG, clinical observations and information, and patientsymptoms to aid in the diagnosis of IA. 02/26/2024 2:24 PM EST 02/26/2024 2:26 PM EST Generic External Data Provider LAB BLOOD ORDERAB LES Final Result Performing Organization Address [facility]/ZIP Co de Phone Number [facility] [address] [place] [phone] * (ABNORMAL) Urinalysis w/reflex microscopic (02/26/2024 12:47 PM EST) Color Urine Yellow [facility] Appearance Urine Cloudy [facility] PH 8.0 5.0 - 9.0 [facility] Glucose Urine UA Negative Negative mg/dL [facility] Urine Blood Negative Negative [facility] Specific [place] - Urine >=1.030(H) 1.005 - 1.025 [facility] Urine Protein Negative Neg-Trace mg/dL [facility] Urine Ketones Negative Negative mg/dL [facility] Nitrite Urine Negative Negative [facility] Leukocyte Esterase Urine Negative Negative [facility] 02/26/2024 12:4 7 PM EST 02/26/2024 12:50 PM EST Narrative [facility] - 02/26/2024 12:54 PM EST [id number], Clean Catch us Generic External Data Provider LAB URINE ORDERAB LES Final Result Performing Organization Address [facility] Co de Phone Number [facility] [address] [place] [phone] * Ethanol (02/26/2024 12:39 PM EST) ETHANOL (MG/DL) IN SER/PLAS <10 mg/dL [facility] Comment:Serum/plasma ethanol results are to be used formedical/treatment purposes only. 02/26/2024 12:3 9 PM EST 02/26/2024 12:42 PM EST us Generic External Data Provider LAB BLOOD ORDERAB LES Final Result [facility] [address] [place] [address] [phone] * (ABNORMAL) CBC auto differential (02/26/2024 12:39 PM EST) White Blood Count 10.8 4.8 - 10.8 X10*3/uL [facility] Red Blood Count 5.05 4.60 - 5.80 X10*6/uL [facility] Hemoglobin 15.2 14.0 - 18.0 g/dl [facility] Hematocrit 43.6 42.0 - 52.0 % [facility] Mean Corpuscular Volume 86.3 80.0 - 98.0 fL [facility] Mean Corpuscular Hemoglobin 30.1 27.0 - 33.0 pg [facility] Mean Corpuscular HGB Conc 34.9 31.0 - 36.0 g/dl [facility] Red Cell Distribution Width 12.3 11.0 - 16.0 % [facility] Platelet Count 225 160 - 400 X10*3/uL [facility] Mean Platelet Volume 9.9 9.4 - 12.4 fL [facility] Neutrophils Percent Auto 83.2(H) 45 - 73 % [facility] Imm Gran Pct Auto 0.3 0.0 - 0.4 % [facility] Lymphocytes Percent Auto 9.7(L) 20 - 40 % [facility] Monocytes Percent Auto 6.0 2 - 11 % [facility] Eosinophils Percent Auto 0.6 0 - 4 % [facility] Basophils Percent Auto 0.2 0 - 2 % [facility] NRBC Pct Auto 0.0 0.0 - 0.2 /100WBC [facility] Neutrophils Absolute Auto 9.0(H) 2.0 - 8.3 x10*3/uL [facility] Imm Gran Abs Auto 0.03 0.00 - 0.03 X10*3/uL [facility] Lymphocytes Absolute Auto 1.1(L) 1.2 - 4.9 X10*3/uL [facility] Monocytes Absolute Auto 0.7 0.1 - 1.2 X10*3/uL [facility] Eosinophils Absolute Auto 0.1 0.0 - 0.4 X10*3/uL [facility] Basophils Absolute Auto 0.0 0.0 - 0.2 X10*3/uL [facility] NRBC Abs Auto 0.000 0.0 - 0.012 X10*3/uL [facility] 02/26/2024 12:3 9 PM EST 02/26/2024 12:42 PM EST us Generic External Data Provider LAB BLOOD ORDERAB LES Final Result Performing Organization Address [facility] de Phone Number [facility] [address] [place] [phone] * Prothrombin Time-INR (02/26/2024 12:39 PM EST) Prothrombin Time 11.4 10.9 - 12.4 SEC [facility] INTERNATIONAL NORM RATIO 1.0 0.9 - 1.1 [facility] Comment:INTERNATIONAL NORMAL IZED RATIO (INR) REFERENCE [...] Final Result Performing Organization Address [facility]/State/ZIP Co de Phone Number [facility] [address] [place] [phone] * Magnesium (02/26/2024 12:39 PM EST) Pathologist [facility] Magnesium 2.0 1.6 - 2.6 mg/dL [facility] 02/26/2024 12:3 9 PM EST 02/26/2024 12:42 PM EST Generic External Data Provider LAB BLOOD ORDERAB LES Final Result Performing Organization Address [facility] Co de Phone Number [facility] [address] [place] [phone] * Lactic Acid (02/26/2024 12:39 PM EST) Pathologist [facility] Lactic Acid 0.8 0.5 - 2.0 mmol/L [facility] 02/26/2024 12:3 9 PM EST 02/26/2024 12:42 PM EST Generic External Data Provider LAB BLOOD ORDERAB LES Final Result Performing Organization Address [facility] de Phone Number [facility] [address] [place] [phone] * (ABNORMAL) Comprehensive Metabolic Panel (02/26/2024 12:39 PM EST) Pathologist [facility] Sodium 139 135 - 145 mmol/L [facility] Potassium 4.1 3.3 - 5.1 mmol/L [facility] Chloride 105 96 - 108 mmol/L [facility] Carbon Dioxide 28 22 - 29 mmol/L [facility] Anion Gap 10(L) 12 - [facility] Urea Nitrogen (BUN) 9 9 - 16 mg/dL [facility] Creatinine, Serum 1.07 0.5 - 1.4 mg/dL [facility] Creatinine Clr Calc Pharmacy 125.8 [facility] Comment:eGFR (calculated fro m the MDRD study equation) and eCrCl(calculated from the Cockcroft-Gault equation) are based ondifferent parameters and may not yield comparable results.If eCrCl result is absurd, please check patient'sheight/weight. Estimated Glomerular Filt Rate >60 [facility] Comment:Chronic Kidney Disea se: Estimated GFR < 60 mL/min/1.94h0Votffx Kidney Disease: Estimated GFR < 15 mL/min/1.73m2 Glucose 102 60 - 115 mg/dL [facility] Calcium 8.9 8.4 - 10.2 mg/dL [facility] Bilirubin, Total 0.9 0.0 - 1.0 mg/dL [facility] Aspartate Amino Transferase 18 5 - 37 U/L [facility] Alanine Aminotransferase 14 0 - 40 U/L [facility] Total Protein 6.7 6.5 - 8.0 g/dL [facility] Albumin Level 4.4 3.5 - 5.0 g/dL [facility] Alkaline Phosphatase 41 39 - 117 U/L [facility] 02/26/2024 12:3 9 PM EST 02/26/2024 12:42 PM EST Generic External Data Provider LAB BLOOD ORDERAB LES Final Result Performing Organization Address [facility] Co de Phone Number [facility] [address] [place] [phone] * Lipase (02/26/2024 12:38 PM EST) Lipase 27 8 - 78 U/L [facility] 02/26/2024 12:3 8 PM EST 02/26/2024 12:42 PM EST us Generic External Data Provider LAB BLOOD ORDERAB LES Final Result Performing Organization Address [facility] Co de Phone Number [facility] [address] [place] [phone] * Creatine Kinase, Total (02/26/2024 12:38 PM EST) Creatine Kinase Total 95 38 - 174 U/L [facility] 02/26/2024 12:3 8 PM EST 02/26/2024 12:42 PM EST us Generic External Data Provider LAB BLOOD ORDERAB LES Final Result [facility] [address] [place] [phone] * CTA Abdomen Pelvis w/ and w/o Contrast (02/26/2024 11:43 AM EST) Anatomical Region Laterality Modality Body, Pelvis, Abdomen Computed T omography 02/26/2024 11:4 3 AM EST Narrative 02/26/2024 12:52 PM EST ? [facility] ?[address] ?[place] [address] ? CT Scan Report ? Signed ? Patient: Jerry Stuart ?MR#: [id number] ?? 1 ? : 1985 ?Acct:[id number] ? Age/Sex: 38 / M ?ADM Date: 02/26/24 ? Loc: HO.ED ? Attending Dr: ? Ordering Physician: Katty Bajwa ?? Date of Service: 02/26/24 ?? Procedure(s): CT angio abdomen pelvis ?? Accession Number(s): [id number] ? cc: Katty Bajwa; Una Sawyer ? [...] DD/ 1143 ? TD/TT: 02/26/24 1212 ? Still Pump Operator: ? Procedure Note Donotuseinterpreter, Image - 02/26/[address] [address] [address] Scan Report Signed Patient: Guillermo Stuart#: [id number] 1 : 1985Acct:[id number] Age/Sex: 38 / MADM Date: 02/26/24 Loc: .ED Attending Dr: Ordering Physician: Katty Bajwa Date of Service: 02/26/24 Procedure(s): CT angio abdomen pelvis Accession Number(s): [id number] cc: Katty Bajwa; [facility] EXAMINATION: CT ANGIOGRAM ABDOMEN AND PELVIS [...] 02/26/24 1248 DD/ 1143 TD/TT: 02/26/24 1212 Still Pump Operator: [facility] External Provider IMG CT PROCEDURES Final Result * CT Head w/o Contrast (02/26/2024 11:40 AM EST) Anatomical Region Laterality Modality Head, Neck Computed Tomogra phy 02/26/2024 11:4 0 AM EST Narrative 02/26/2024 12:43 PM EST ? [facility] ?[address] ?[place] [address] ? CT Scan Report ? Signed ? Patient: Narciso,Jerry ?MR#: [id number] ?? 1 ? : 1985 ?Acct:[id number] ? Age/Sex: 38 / M ?ADM Date: 12/20/24 ? Loc: HO.ED ? Attending Dr: ? Ordering Physician: Katty Bajwa ?? Date of Service: 02/26/24 ?? Procedure(s): CT head/brain wo IV con ?? Accession Number(s): [id number] ? cc: Katty Bajwa; [facility] ? EXAMINATION: ?? CT HEAD WITHOUT CONTRAST [...] DD/ 1140 ? TD/TT: 02/26/24 1210 ? Still Pump Operator: ? Procedure Note Alysa Candelario - 02/26/[address] [address] [address] Scan Report Signed Patient: Jerry Stuart#: [id number] 1 : 1985Acct:[id number] Age/Sex: 38 / MADM Date: 02/26/24 Loc: HO.ED Attending Dr: Ordering Physician: Katty Bajwa Date of Service: 02/26/24 Procedure(s): CT head/brain wo IV con Accession Number(s): [id number] cc: Katty Bajwa; [facility] TANDEM MILL OPERATOR EXAMINATION: CT HEAD WITHOUT CONTRAST CLINICAL INFORMATION: [...] by: Kyrie Caputo MD 02/26/2024 12:39 PM [facility] Dictated By: Kyrie Hammond MD Signed By: <Electronically signed by Kyrie Yang MDin OV> 02/26/24 1239 DD/ 1140 TD/TT: 02/26/24 1210 Still Pump Operator: [facility] External Provider IM CT PROCEDURES Final Result * CTA Chest w/ and w/o Contrast (02/26/2024 11:35 AM EST) Anatomical Region Laterality Modality Body, Chest Computed Tomogra phy 02/26/2024 11:3 5 AM EST Narrative 02/26/2024 12:52 PM EST ? [facility] ?[address] ?[place] [address] ? CT Scan Report ? Signed ? Patient: Jerry Stuart ?MR#: [id number] ?? 1 ? : 1985 ?Acct:[id number] ? Age/Sex: 38 / M ?ADM Date: 02/26/24 ? Loc: HO.ED ? Attending Dr: ? Ordering Physician: Katty Bajwa ?? Date of Service: 02/26/24 ?? Procedure(s): CT angio chest aorta ?? Accession Number(s): [id number] ? cc: Katty Bajwa; Una SawyerP ? EXAMINATION: ?? CT ANGIOGRAM ABDOMEN AND [...] DD/ 1135 ? TD/TT: 02/26/24 1212 ? Still Pump Operator: ? Procedure Note Alysa Candelario - 02/26/2024 [facility] [address] [facility] [place] [address] CT Scan Report Signed Patient: Jerry Stuart#: [id number] 1 : 1985Acct:[id number] Age/Sex: 38 / MADM Date: 02/26/24 Loc: HO.ED Attending Dr: Ordering Physician: Katty Bajwa Date of Service: 02/26/24 Procedure(s): CT angio chest aorta Accession Number(s): [id number] cc: Katty Bajwa; [facility] EXAMINATION: CT ANGIOGRAM ABDOMEN AND PELVIS [...] 02/26/24 1248 DD/ 1135 TD/TT: 02/26/24 1212 Still Pump Operator: [facility] External Provider IMG CT PROCEDURES Final Result * (ABNORMAL) Lipid Panel, Standard (06/05/2022 2:49 PM EDT) Cholesterol, Total 188 <200 mg/dL [employer] [facility] [employer] HDL Cholesterol 61 > OR = 40 mg/dL [employer] [place] [facility] Triglycerides 134 <150 mg/dL [employer] [facility] LDL Cholesterol 104(H) mg/dL (calc) [employer] [facility] Comment: Reference range: <100 Desirable range <100 mg/dL for primary prevention; ?? <70 mg/dL for patients with CHD or diabetic patients with > or = 2 CHD risk factors. LDL-C is now calculated using the Umang-Emily calculation, which is a validated novel method providing better accuracy than the Friedewald equation in the estimation of LDL-C. Umang OLIVAS et al. GINA. 2013;310(19): 1958-5396 (http://education.Savvify.Mattscloset.com/faq/HOB558) Chol/HDLC Ratio 3.1 <5.0 (calc) [employer] [facility] Non-HDL Cholesterol 127 <130 mg/dL (calc) [employer] [facility] Comment: For patients with diabetes plus 1 major ASCVD risk factor, treating to a non-HDL-C goal of <100 mg/dL (LDL-C of <70 mg/dL) is considered a therapeutic option. Blood Venous blood specimen / Unknown 06/05/2022 2:49 PM EDT 06/05/2022 2:49 PM EDT Narrative [facility] - 06/09/2022 12:52 PM EDT FASTING:NO FASTING: NO [facility] TANDEM MILL OPERATOR LAB BLOOD ORDERABLES Final Re sult [facility] [address], [place] [address] [employer] [facility] [address] [place] [address] from Last 3 Months or Most Recently Relevant to Health Maintenance Insurance [facility] C3 HSN FULL Care Teams Tax Expert Relationship Specialty Start Date End Date Una SawyerSAMANTHA [address] [place] [phone] PCP - General Family Medicine 08/21/21
--- OUTSIDE RECORDS SUMMARY | 2024-04-18 08:31 | XMS_ITS | Encounter Summary ---
Author Organization [employer] Address [address] [facility] 7 [place] [address] Care Team Providers Care Clinical Documentation Nurse Name Role Phone [facility] Primary Care Provider [phone] Reason for Visit * Reason Onset Date Comments Nurse Triage 03/21/2024 Encounter Details Date Type Department Care Team ([facility] st Contact Info) Description 03/21/2024 Telephone [facility] [address] [place], [place] [phone] [facility] [address] [place] [address] Nurse Triage Social History Tobacco Use Types [...] Description 04/26/2024 10:30 AM EST Clinical Support [address] [address] 04/29/2024 11:15 AM EST Office Visit [address] [address] Una Sawyer [address] [address] 05/30/2024 10:00 AM EDT Office Visit [facility] [place] [address] Una Sawyer [address] [address] documented as of this encounter Visit Diagnoses Not on filedocumented in this encounter Additional Health Concerns Assessment Noted Time PHQ-9 Depression Total Score: 0 05/29/19 24 9:41 AM EDT documented as of this encounter Care Teams Clinical Documentation Nurse Relationship Specialty Start Date End Date Una Sawyer FNP [address] [place] [phone] PCP - General Family Medicine 08/21/21 documented as of this encounter
--- OUTSIDE RECORDS SUMMARY | 2024-04-18 08:31 | XMS_ITS | Encounter Summary ---
Author Organization [employer] Address [address] [facility] 7 [place] [address] Care Team Providers Care Hot Plate Press Operator Name Role Phone [facility] Primary Care Provider [phone] Reason for Visit * Reason Onset Date Comments Medication Question 11/04/2022 Encounter Details Date Type Department Care Team ([facility] Contact Info) Description 11/04/2022 Telephone [facility] [address] [place], [place] [phone] [facility] [address] [place] [address] Medication Question Social History Tobacco Use Types [...] to message above. Please contact pt at [phone] * Telephone Encounter - Trev Saleh - 11/04/2022 1:25 PM EDT Tc from pt requesting a new script for tadalafil (Cialis) 5 MG tablet, pt stated urologist sent tadalafil (Cialis) 20 mg tablet PRN and new script for 5 mg will need to say okay to take with 20 mg. Pt would like a call back. Please contact at [phone] documented in this encounter Plan of Treatment Upcoming Encounters Date Type Department Care Team (Late st Contact Info) Description 04/26/2024 10:30 AM EST Clinical Support [address] [address] 04/29/2024 11:15 AM EST Office Visit [address] [address] Una Sawyer [address] [address] 05/30/2024 10:00 AM EDT Office Visit [address] [address] Una Sawyer [address] [address] documented as of this encounter Visit Diagnoses Not on filedocumented in this encounter Additional Health Concerns Assessment Noted Time PHQ-9 Depression Total Score: 5 03/28/19 23 10:55 AM EST documented as of this encounter Care Teams Hot Plate Press Operator Relationship Specialty Start Date End Date Una Sawyer FNP [address] [place] [address] PCP - General Family Medicine 08/21/21 documented as of this encounter
--- OUTSIDE RECORDS SUMMARY | 2024-04-18 08:31 | XMS_ITS | Encounter Summary ---
Author Organization [employer] Address [address] [facility] [address]t [place] [address] Care Team Providers Care Director Of Clinical Services Name Role Phone [facility] Primary Care Provider [phone] Encounter Details Date Type Department Care Team [...] Description 04/26/2024 10:30 AM EST Clinical Support [address] [address] 04/29/2024 11:15 AM EST Office Visit [address] [address] Una Sawyer [address] [address] 05/30/2024 10:00 AM EDT Office Visit [address] [address] Una Sawyer [address] [address] documented as of this encounter Visit Diagnoses Not on filedocumented in this encounter Additional Health Concerns Assessment Noted Time PHQ-9 Depression Total Score: 0 05/29/19 24 9:41 AM EDT documented as of this encounter Care Teams Director Of Clinical Services Relationship Specialty Start Date End Date Una Sawyer FNP [address] [place] [phone] PCP - General Family Medicine 08/21/21 documented as of this encounter
--- OUTSIDE RECORDS SUMMARY | 2024-04-18 08:31 | XMS_ITS | Encounter Summary ---
Author Organization [employer] Address [address] [place] [address] 7 [place] [address] Care Team Providers Care Medical Field Representative Name Role Phone [facility] Primary Care Provider [phone] Reason for Referral * Consultation (Routine) - Authorized Specialty Diagnoses / Procedures Referred By Fleiz bravo Referred To Contact Orthopaedic Surgery Diagnoses Right elbow pain Sari Lyn NP [address] [place] [address] Phone: tel: fax: [facility] [address] [place] [address] Phone: tel: Referral ID Status Reason Start Date Expiration Date Visits Requested Visits Authorized [id number] Authorized Specialty Services Required 03/25/2024 03/25/2025 6 6 * Imaging (Routine) - Closed Specialty Diagnoses / Procedures Referred By Feliz bravo Referred To Contact Radiology Diagnoses Swelling of left testicle Procedures US Scrotum Sari Lyn NP [address] [place] [address] Phone: tel: fax: [facility] [address] [place] [address] Phone: tel: fax: Referral ID Status Reason Start Date Expiration Date Visits Re quested Visits Authorized [id number] Closed 03/25/2024 03/25/2025 1 1 * Consultation (Routine) - Authorized Specialty Diagnoses / Procedures Referred By Feliz bravo Referred To Contact Urology Diagnoses Swelling of left testicle Sari Lyn NP [address] [place] [address] Phone: tel: fax: [facility] Urology [address] [place] [address] [address] [place], [place] Phone: tel: fax: Referral ID Status Reason Start Date Expiration Date Visits Requested Visits Authorized [id number] Authorized Specialty Services Required 04/06/2024 04/06/2025 6 6 Encounter Details Date Type Department Care Team ([facility] st Contact Info) Description 03/25/2024 10:30 AM EST Office Visit [facility] [address] [place] [address] Sari Lyn NP [address] [place] [address] Swelling of left testicle (Primary Dx); Hypertension, unspecified type; Right elbow pain; JORDAN (generalized anxiety disorder) Social History Tobacco Use Types Packs/Day Years [...] enough money to get more: Never True 11/ 08/2022 Transportation Answer Date Recorded In the [...] 10:45 AM EST documented in this encounter Progress Notes * Sari Lyn, KAMALA - 03/25/2024 10:30 AM EST Subjective Jerry Stuart is a 38 y.o. male who presents to the office for follow up visit - chronic conditions. Interim history: [facility], due to panic symptoms producing chest pain In setting of trying ssri and post op for umbilical hernia Current concerns: Testicular swelling, left side, x 2 weeks not improving. 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, treated x 2, just completed course, no dysuria noexudate Recent sti panel neg Anxiety- has been difficult, was prescribed lexapro 5 mg developed chest pain which was later thought to be related to panic, so stopped, recently stopped smoking cannabis which pt was previously doing daily Bp- would like to treat , notes more frequent elevated readings, denies nsaid usage or etoh Patient Active Problem List Diagnosis Depressive disorder Erectile dysfunction Axillary hyperhidrosis Chronic elbow pain, right Closed fracture of right elbow Right elbow pain JORDAN (generalized anxiety disorder) Discomfort Dysuria Elevated blood pressure reading Periumbilical abdominal pain Syncope Abdominal pain Umbilical hernia Vasovagal syncope Urethritis History of marijuana use Swelling of left testicle Hypertension Review of Systems Constitutional: Negative for activity change and appetite change. Respiratory: Positive for chest tightness. Negative for apnea and shortness of breath. Cardiovascular: Negative for chest pain and leg swelling. Genitourinary: Positive for scrotal swelling. Negative for dysuria, enuresis, genital sores, hematuria, penile discharge and penile pain. Psychiatric/Behavioral: Negative for behavioral problems. The patient is nervous/anxious. Objective Visit Vitals BP (!) 161/91 (BP Location: Left arm, Patient Position: Sitting, BP Cuff Size: Large adult) Pulse 104 Temp 97.8 ??F (36.6 ??C) (Oral) Resp 18 Ht 6' 2 (1.88 m) Wt 227 lb (103 kg) SpO2 98% BMI 29.15 kg/m?? Smoking Status Former BSA 2.32 m?? Physical Exam Vitals reviewed. Constitutional: Appearance: Normal appearance. HENT: Head: Normocephalic. Cardiovascular: Rate and Rhythm: Normal rate. Heart sounds: Normal heart sounds. Pulmonary: Breath sounds: Normal breath sounds. Abdominal: General: There is no distension. Palpations: Abdomen is soft. Musculoskeletal: Cervical back: Neck supple. Skin: Findings: Rash present. Comments: Abdominal incision, edges well approximated, no exudate, scant erythema along abdmen where adhesive was Neurological: Mental Status: He is alert. Psychiatric: Mood and Affect: Mood normal. Assessment/Plan Problem List Items Addressed This Visit Right elbow pain Relevant Orders Referral to Orthopaedic Surgery Swelling of left testicle - Primary Current Assessment & Plan Recent m gentalium infection , post treatment culture pending Pt reports persistent possibly worsening swelling Repeat ultrasound Relevant Orders Referral to Urology US Scrotum (Completed) Hypertension Current Assessment & Plan Pt has recently had multiple readings above goal though these were in recent stressful settings, Pt prefers to treat elevated bp with both pharmacology and life style Trial lisinopril 10 mg Bp cuff ordered Lifestyle interventions reviewed Current Outpatient Medications Medication Sig Dispense Refill Blood Pressure Monitoring (Adult Blood Pressure Cuff Lg) kit 1 kit if needed each day (as needed). 1 kit 0 doxycycline (Vibra-Tabs) 100 MG tablet Take 2 tabs once within 72 hours of intercourse. Take with afull glass of water and do not lie down for at least 30 minutes after. 30 tablet 0 escitalopram (Lexapro) 5 MG tablet Take 1 tablet (5 mg) by mouth Once per day. 30 tablet 2 ketoconazole (Nizoral) 2 % shampoo Apply topically 2 (two) times a week. 120 mL 3 lisinopril 10 MG tablet Take 1 tablet (10 mg) by mouth Once per day. 30 tablet 2 LORazepam 1 MG/0.5ML concentration as needed for Anxiety Salicylic Acid 40 % pads Apply one [...] Plan Note - Sari Lyn NP - 04/03/2024 1:05 PM ESTAssociated Problem(s): JORDAN (generalized anxiety disorder) Resume lexapro * Assessment & Plan Note - Sari Lyn NP - 04/03/2024 1:04 PM ESTAssociated Problem(s): Swelling of left testicle Recent m gentalium infection , post treatment culture pending Pt reports persistent possibly worsening swelling Repeat ultrasound * Assessment & Plan Note - Sari Lyn NP - 04/03/2024 1:03 PM ESTAssociated Problem(s): Hypertension Pt has recently had multiple readings above goal though these were in recent stressful settings, Pt prefers to treat elevated bp with both pharmacology and life style Trial lisinopril 10 mg Bp cuff ordered Lifestyle interventions reviewed documented in this encounter Plan of Treatment Upcoming Encounters Date Type Department Care Team (Late st Contact Info) Description 04/26/2024 10:30 AM EST Clinical Support [address] [address] 04/29/2024 11:15 AM EST Office Visit [address] [address] [facility] [address] [place] [address] 05/30/2024 10:00 AM EDT Office Visit [address] [address] [facility] [address] [place] [address] Scheduled Referrals Name Type Priority Associated Diagnoses Order Schedule Referral to Urology Outpatient Referral Routine Swelling of left testicle Expected: 03/25/2024 (Approximate), Expires: 03/25/2025 Referral to Orthopaedic Surgery Outpatient Referral Routine Right elbow pain Expected: 03/25/2024 (Approximate), Expires: 03/25/2025 documented as of this encounter Procedures Procedure Name Priority Date/Time Associated Diagnosis Comments US SCROTUM Routine 03/30/2024 3:32 PM EST Swelling of left testicle documented in this encounter Results * US Scrotum (03/30/2024 3:32 PM EST) Anatomical Region Laterality Modality Body Ultrasound 03/30/2024 3:32 PM EST Narrative 03/31/2024 7:49 AM EST ? [facility] ?[address] ? [place] [address] ? Ultrasound Report ? Signed ? Patient: Narciso,Jerry ?MR#: [id number] ?? 1 ? : 1985 ?Acct:[id number] ? Age/Sex: 38 / M ?ADM Date: 03/30/24 ? Loc: HO.HMGCX ? Attending Dr: Sari Lyn DIRECTOR OF WORKFORCE DEVELOPMENT ? Ordering Physician: Sari Lyn NP ?? Date of Service: 03/30/24 ?? Procedure(s): US scrotum ?? Accession Number(s): [id number] ? cc: Sari Lyn DIRECTOR OF WORKFORCE DEVELOPMENT; Una Sawyer BALL ROLLING MACHINE OPERATOR ? EXAMINATION: US SCROTUM ? HISTORY: [...] signed by Hudson Mercado MD in OV> ?03/31/24745 ? DD/ 1532 ? TD/TT: 03/30/24 1555 ? Hot Billet Shear Operator: ? Procedure Note Donotuseinterpreter, Image - 03/31/2024 [facility] [address] [place] [address] [place] [address] Ultrasound Report Signed Patient: Guillermo Stuart#: [id number] 1 : 1985Acct:[id number] Age/Sex: 38 / MADM Date: 03/30/24 Loc: HO.HMGCX Attending Dr: Sari Lyn NP Ordering Physician: Sari Lyn NP Date of Service: 03/30/24 Procedure(s): US scrotum Accession Number(s): [id number] cc: Sari Lyn DIRECTOR OF WORKFORCE DEVELOPMENT; [facility] BALL ROLLING MACHINE OPERATOR EXAMINATION: US SCROTUM HISTORY: worsening testicular swelling. [...] 03/31/24 0746 DD/ 1532 TD/TT: 03/30/24 1555 Hot Billet Shear Operator: us Sari Lyn NP IMG US PROCEDURES Final Result documented in this encounter Visit Diagnoses Diagnosis Swelling of left testicle- Primary Edema of male genital organs Hypertension, unspecified type Right elbow pain Pain in joint, upper arm JORDAN (generalized anxiety disorder) Generalized anxiety disorder documented in this encounter Additional Health Concerns Assessment Noted Time PHQ-9 Depression Total Score: 6 03/23/19 25 9:29 AM EST documented as of this encounter Care Teams Medical Field Representative Relationship Specialty Start Date End Date Una Sawyer FNP [address] [place] [address] PCP - General Family Medicine 08/21/21 documented as of this encounter
--- OUTSIDE RECORDS SUMMARY | 2024-04-18 08:31 | XMS_ITS | Encounter Summary ---
Author Organization [employer] Address [address] [facility] 7 [place] [address] Care Team Providers Care Cloud Security Architect Name Role Phone [facility] Primary Care Provider [phone] Reason for Visit * Reason Onset Date Comments Med Refill 06/03/2023 Encounter Details Date Type Department Care Team ([facility] st Contact Info) Description 06/03/2023 Refill [facility] [address] [place], [place] [phone] Mindy Cardona MD [address] [place] [address] Erectile dysfunction, unspecified erectile dysfunction type Social [...] Description 04/26/2024 10:30 AM EST Clinical Support [address] [address] 04/29/2024 11:15 AM EST Office Visit [address] [address] [place] [address] [address] 05/30/2024 10:00 AM EDT Office Visit [address] [address] [place] [address] [address] documented as of this encounter Visit Diagnoses Diagnosis Erectile dysfunction, unspecified erectile dysfunction type documented in this encounter Additional Health Concerns Assessment Noted Time PHQ-9 Depression Total Score: 0 05/29/19 24 9:41 AM EDT documented as of this encounter Care Teams Cloud Security Architect Relationship Specialty Start Date End Date Una Sawyer [facility] [address] [place] [phone] PCP - General Family Medicine 08/21/21 documented as of this encounter
--- OUTSIDE RECORDS SUMMARY | 2024-04-18 08:31 | XMS_ITS | Encounter Summary ---
Author Organization [employer] Address [address] [facility] 7 [place] [address] Care Team Providers Care Glove Turner And Former Name Role Phone Loyal [facility] Primary Care Provider [phone] Reason for Visit * Reason Onset Date Comments Chart Prep 03/21/2024 Encounter Details Date Type Department Care Team ([facility] st Contact Info) Description 03/21/2024 Telephone [facility] 230 [place], [place] [phone] Sarah Chambers [place] Chart Prep Social History [...] 04/26/2024 10:30 AM EST Clinical Support [address] [address] 04/29/2024 11:15 AM EST Office Visit [address] [address] Una Sawyer [address] [address] 05/30/2024 10:00 AM EDT Office Visit [address] [address] [address] [address] [address] documented as of this encounter Visit Diagnoses Not on filedocumented in this encounter Additional Health Concerns Assessment Noted Time PHQ-9 Depression Total Score: 0 05/29/19 9:41 AM EDT documented as of this encounter Care Teams Glove Turner And Former Relationship Specialty Start Date End Date Una Sawyer FNP [address] [place] [address] PCP - General Family Medicine 08/21/21 documented as of this encounter
--- OUTSIDE RECORDS SUMMARY | 2024-04-18 08:31 | XMS_ITS | Encounter Summary ---
Author Organization [employer] Address [address] [facility] 7 [place] [address] Care Team Providers Care Phone Circuit Operator Name Role Phone Silverio [facility] Primary Care Provider [phone] Reason for Visit * Reason Comments Groin Swelling Encounter Details Date Type Department Care Team ([facility] st Contact Info) Description 03/21/2024 3:30 PM EST Office Visit [facility] 230 [place], [place] [phone] Felipa Bryant MD [address] [place], [place] [phone] Urethritis (Primary Dx); Dietary counseling; Exercise counseling; [...] and L inguinal/testicular pain on 03/16/24 to [facility]. 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 Would [...] nursing note reviewed. Exam conducted with a caisson worker present. Constitutional: Appearance: Normal appearance. He is [...] wart on dry skin daily. Do not days., Disp: 90 each, Rfl: 0 tadalafil [...] Description 04/26/2024 10:30 AM EST Clinical Support [address] [address] 04/29/2024 11:15 AM EST Office Visit [address] [address] 05/30/2024 10:00 AM EDT Office Visit [address] [address] Scheduled Orders Name Type Priority Associated Diagnoses Orde r Schedule Mycoplasma/Ureaplasma?? Panel Microbiology Routine Urethritis Expected: 03/21/2024 (Approximate), Expires: 03/21/2025 Trichomonas RNA (Urine/Vaginal) Lab Routine Urethritis Ordered: 03/21/2024 documented as of this encounter Procedures Procedure Name Priority Date/Time Associated Diagnosis Comments RPR (MONITOR) W/REFL TITER Routine 03/30/2024 9:39 AM EST Urethritis HEPATITIS C AB W/REFL TO HCV RNA, QN, PCR Routine 03/22/2024 9:08 AM EST Urethritis HIV 1/2 ANTIGEN/ANTIBODY, FOURTH GENERATION W/RFL Routine 03/22/2024 9:08 AM EST Urethritis CHLAMYDIA/N. GONORRHOEAE RNA, TMA, UROGENITAL Routine 03/21/2024 4:05 PM EST Urethritis documented in this encounter Results * RPR (Monitor) with Reflex to??Titer (03/30/2024 9:39 AM EST) Pathologist [facility] RPR (Monitor) w/Refl Titer NON-REACTI VE NON-REACT YEFRI [facility] Comment:THIS TEST WAS PERFOR MED AT:[facility] [place] [phone] A FREGOSO MD Rapid Plasma Reagin Ab Titer TNP [facility] Blood Venous blood specimen / Unknown 03/30/2024 9:39 AM EST 03/30/2024 11:45 AM EST Felipa Bryant MD LAB BLOOD ORDERABLES Final Res ult Performing Organization Address [facility]/ZIP Co de Phone Number [facility] [address] [place] [phone] * Hepatitis C Antibody with Reflex to HCV, RNA, Quantitative, Real-Time PCR (03/22/2024 9:08 AM EST) Pathologist [facility] Hepatitis C Antibody Nonreactive Nonreactive [facility] Comment:Antibodies to HCV no t detected; does not exclude early acuteHCV infection. Blood Venous blood specimen / Unknown 03/22/2024 9:08 AM EST 03/22/2024 11:21 AM EST Felipa Bryant MD LAB BLOOD ORDERABLES Final Res ult Performing Organization Address City/[facility]/ZIP Co de Phone Number [facility] [address] [place] [phone] * HIV-1/2 Antigen and Antibodies, Fourth Generation, with Reflexes (03/22/2024 9:08 AM EST) Pathologist [facility] HIV AB/AG Nonreactive Nonreactive [facility] Comment:HIV-1 p24 Ag and/or HIV-1/HIV-2 Ab not detected.A test result that is nonreactive does not exclude thepossibility of exposure to or infection with HIV-1 and/orHIV-2. Nonreactive results in this assay for individualswith prior exposure to HIV-1 and/or HIV-2 may be due toantigen and antibody levels that are below the limit ofdetection of this assay.[employer] HIV Ag/Ab Combo assay result andsupplemental assay results should be interpreted inconjunction with the patient's clinical presentation,history and other laboratory results. If the results areinconsistent with clinical evidence, additional testing issuggested to confirm the result. Blood Venous blood specimen / Unknown 03/22/2024 9:08 AM EST 03/22/2024 11:21 AM EST us Felipa Bryant MD LAB BLOOD ORDERABLES Final Res ult [facility] [address] [place] [place] [phone] * Chlamydia/N. Gonorrhoeae RNA, TMA, Urogenitial (03/21/2024 4:05 PM EST) Pathologist [facility] CT PCR NOT DETECTED Not Detect. [facility] Comment:A not detected test result [...] psychologicalconsequences. NG PCR NOT DETECTED Not Detect. [facility] Comment:A not detected test result [...] PM EST 03/21/2024 5:47 PM EST Narrative [facility] - 03/22/2024 5:49 AM EST Urine us Felipa Bryant MD LAB MICROBIOLOGY - GENERAL ORD ERABLES Final Result [facility] [address] [place] [phone] documented in this encounter Visit Diagnoses Diagnosis Urethritis- Primary Unspecified urethritis Dietary counseling Dietary surveillance and counseling Exercise counseling Overweight documented in this encounter Additional Health Concerns Assessment Noted Time PHQ-9 Depression Total Score: 0 05/29/19 24 9:41 AM EDT documented as of this encounter Care Teams Phone Circuit Operator Relationship Specialty Start Date End Date Una Sawyer FNP [address] [place] [phone] PCP - General Family Medicine 08/21/21 documented as of this encounter
--- OUTSIDE RECORDS SUMMARY | 2024-04-18 08:31 | XMS_ITS | Encounter Summary ---
Author Organization [employer] Address [address] [facility] 7 [place] [address] Care Team Providers Care Felt Carbonizer Name Role Phone [facility] Primary Care Provider [phone] Reason for Visit * Reason Onset Date Comments Referral 04/05/2024 Encounter Details Date Type Department Care Team ([facility] st Contact Info) Description 04/05/2024 Telephone [facility] 230 [place], [place] [phone] [facility] 230 [place], [place] [phone] Referral Social History Tobacco Use Types Packs/Day Years [...] Telephone Encounter - Latha Harkins RN - 04/11/2024 8:58 AM EST Noted. * Telephone Encounter - Lisseth Mccain RN - 04/06/2024 2:21 PM EST T/C to pt today to discuss several matters (see additional notes). During this call pt reports development of a feeling of elevated heart rate x4-5 days. Pt states that he started lexapro last week and believes this may be a side effect of medication. Pt states that when counting heart rate during these episodes HR can be 99+. Pt denies SOB, chest pain, blurry vision, headache or any other symptoms at this time. RN advises pt that should he develop any of the above symptoms he should go to the ER, but otherwise if he feels he needs to be seen today he is able to go to the walk-in clinic. Pt states that he is already on his way to [facility] to go to the pharmacy so he will go to walk-in as needed at this time. Will forward to PCP as FYI of patient disposition. * Telephone Encounter - Caroline Conroy - 04/05/2024 1:41 PM EST Tc from pt requesting change facility from Urologist referral. Pt states theres no available appt until June. If any questions contact pt. [phone] documented in this encounter Plan of Treatment Upcoming Encounters Date Type Department Care Team (Late st Contact Info) Description 04/26/2024 10:30 AM EST Clinical Support [address] [address] 04/29/2024 11:15 AM EST Office Visit [address] [address] Una Sawyer [address] [address] 05/30/2024 10:00 AM EDT Office Visit [address] [address] Una Sawyer [address] [address] documented as of this encounter Visit Diagnoses Not on filedocumented in this encounter Additional Health Concerns Assessment Noted Time PHQ-9 Depression Total Score: 6 03/23/19 25 9:29 AM EST documented as of this encounter Care Teams Felt Carbonizer Relationship Specialty Start Date End Date Una Sawyer FNP [address] [place] [phone] PCP - General Family Medicine 08/21/21 documented as of this encounter
--- OUTSIDE RECORDS SUMMARY | 2024-04-18 08:31 | XMS_ITS | Encounter Summary ---
Author Organization [employer] Address [address] [place] [address] 7 [place] [address] Care Team Providers Care Senior International Tax Manager Name Role Phone [facility] Primary Care Provider [phone] Reason for Visit * Reason Onset Date Comments Results 02/26/2023 Encounter Details Date Type Department Care Team ([facility] Contact Info) Description 02/26/[address] [facility] 230 [place], [place] [phone] [facility] 230 [place], [place] [phone] Results Social History Tobacco Use Types Packs/Day [...] Description 04/26/2024 10:30 AM EST Clinical Support [address] [address] 04/29/2024 11:15 AM EST Office Visit [address] [address] [place] [address] [address] 05/30/2024 10:00 AM EDT Office Visit [address] [address] [address] [address] documented as of this encounter Visit Diagnoses Not on filedocumented in this encounter Additional Health Concerns Assessment Noted Time PHQ-9 Depression Total Score: 5 03/28/19 10:55 AM EST documented as of this encounter Care Teams Senior International Tax Manager Relationship Specialty Start Date End Date Una Sawyer [facility] [address] [place] [phone] PCP - General Family Medicine 08/21/21 documented as of this encounter
--- OUTSIDE RECORDS SUMMARY | 2024-04-18 08:31 | XMS_ITS | Encounter Summary ---
Author Organization [id number] Address [address] [facility] 7 [place] [address] Care Team Providers Care Thermo Cementing Folder Operator Name Role Phone [facility] Primary Care Provider [phone] Reason for Visit * Reason Onset Date Comments Results 04/01/2024 Encounter Details Date Type Department Care Team ([facility] Contact Info) Description 04/01/2024 Telephone [facility] [address] [place], [place] [phone] [facility] [address] [place], [place] [phone] Results Social History Tobacco Use Types Packs/Day [...] Miscellaneous Notes * Telephone Encounter - Lisseth Mccain RN - 04/07/2024 11:02 AM EST T/C back to pt to relay message from internet ecommerce specialist: Unless referral is urgent every specialty is scheduling may and . I can send him to a differenturology but its not guaranteed he will be seen sooner. But I am going to refer him to [facility]rology they are scheduling end of April and on, because there is high volume of referrals he might be scheduled in May. Please let pt know. Thank you Pt expresses understanding and agrees to plan of care. * Telephone Encounter - Lisseth Mccain RN - 04/06/2024 2:15 PM EST T/C to patient with multiple concerns. Pt would like to switch PCP to Sari Lyn NP due to seeing her several times in the past few weeks and having a great experience with her. Pt states that he has been having an easier time getting in to see her vs Una Sawyer (current PCP). Pt has no complaints about Una Sawyer but would still like to switch. RN will forward message to Sherrie Vallejo for pt to be put on the waitlist. Pt would also like to see if he is able to be referred to a different urology clinic due to the current referral site unable to see pt until June. RN will forward to internet ecommerce specialist to see if there is anything that can be done by [facility] to expedite his care. At this time pt also complains of increased heart rate after starting lexapro medications. RN will enter sperate triage note about pt disposition. * Telephone Encounter - Mesha Osborn RN - 04/01/2024 1:58 PM EST TC placed to pt to inform that the ordering provider is not here today, but can send a message to PCP to see if they can review. Pt reports he saw the US results in his portal, but is looking for next steps. Pt reports symptoms remain the same. Pt reports symptoms have not worsened or improved. Advised if pain worsens, testicle appearance, or symptoms change to go to [facility] In [facility] or ED for evaluation. Pt verbalized understanding. Message sent to PCP to review and advise. Pt requesting a change of PCP. Pt states he likes his current PCP and does not have any issues, butsince PCP is automotive parts manager, it is difficult to get an appointment with PCP specifically unless it is yearly PE. Pt states he has been seeing Sari Lyn recently and would like to transfer to her if possible, but would be okay with a different provider as well. Message forwarded for review. * Telephone Encounter - Regi Billings - 04/01/2024 11:49 AM EST TC from pt requesting call back regarding Results. Type of results: Ultrasound Date when done: 03/30/24 Facility: [facility] Contact pt at [phone] documented in this encounter Plan of Treatment Upcoming Encounters Date Type Department Care Team (Late st Contact Info) Description 04/26/2024 10:30 AM EST Clinical Support [facility] [address] [place] [address] 04/29/2024 11:15 AM EST Office Visit [facility] [address] [place] [address] PlainfieldUna connelly FNP [address] [place] [address] 05/30/2024 10:00 AM EDT Office Visit [facility] [address] [place] [address] Una Sawyer FNP [address] [place] [address] documented as of this encounter Visit Diagnoses Not on filedocumented in this encounter Additional Health Concerns Assessment Noted Time PHQ-9 Depression Total Score: 6 03/23/19 25 9:29 AM EST documented as of this encounter Care Teams Thermo Cementing Folder Operator Relationship Specialty Start Date End Date [place] [address] PCP - General Family Medicine 08/21/21 documented as of this encounter
--- OUTSIDE RECORDS SUMMARY | 2024-04-18 08:31 | XMS_ITS | Encounter Summary ---
Author Organization [employer] Address [address] [place] [address] 7 [place] [address] Care Team Providers Care Forder Operator Name Role Phone [facility] Primary Care Provider [phone] Reason for Visit * Reason Onset Date Comments Nurse Triage 03/29/2024 Encounter Details Date Type Department Care Team ([facility] st Contact Info) Description 03/29/2024 Telephone [facility] [address] [place], [place] [phone] [facility] [address] [place] [address] Nurse Triage Social History Tobacco Use Types [...] 2:52 PM EST TC placed to patient [phone] in regards to below message. RN provided patient with BW results from 03/22/24. Patient verbalized understanding. Patient reports he is still awaiting results for RPRw/ reflex to titer, mycoplasma/ureaplasma panel and trichomonas RNA. [facility] those results are not [facility]. Patient reports he dropped off his urine on 03/21/24 and completed the BW on 03/22/24. RN advised patient RN would call the lab to further inquire and return call to patient. TC placed to [facility] lab [phone] in regards to above. RN was informed the laborer pipeline did not pull the order for the RPR w/ reflex to titer and mycoplasma/ureaplasma panel therefore unfortunatelythe patient would need to return to the lab to provide another sample. RN was informed the trichomonas order was also not received (RN reviewed encounter and it was placed as clinic collect). RN willreplace the order as a lab collect. TC placed to patient [phone] to inform patient he will need to [...] appt moved up for tomorrow 03/[address] [facility] location. Pt denies any severe swelling. [...] consult while he is being treated. Reviewed [facility] operating hours and that wait times vary. Reviewed home care advise, ER precautions and reasons to call back. Patient requesting that PCP review lab results form -03/22, more specific the MMR Titers. Pt also wants to know why results for Syphilis , mycoplasma and Trichomonas was not yet available. Do notsee in lab tab of [facility]. Forwarded to PCP and team nurses to [...] a urgent call back. Contact pt at [phone] documented in this encounter Plan of Treatment Upcoming Encounters Date Type Department Care Team (Late st Contact Info) Description 04/26/2024 10:30 AM EST Clinical Support [address] [address] 04/29/2024 11:15 AM EST Office Visit [facility] [place] [address] [facility] [place] [address] 05/30/2024 10:00 AM EDT Office Visit [facility] [place] [address] [facility] [place] [address] documented as of this encounter Procedures Procedure Name Priority Date/Time Associated Diagnosis Comments TRICHOMONAS VAGINALIS RNA, QUALITATIVE, TMA Routine 03/30/2024 2:45 PM EST Urethritis documented in this encounter Results * Trichomonas RNA (Urine/Vaginal) (03/30/2024 2:45 PM EST) Trichomas vaginalis RNA, QL, TMA Not Detected Not Detected [facility] Comment:For additional infor carola, please refer tohttp://education.Crossfader/faq/Trichomonastma (This link is being providedfor information/educational purposes only).THIS TEST WAS PERFORMED AT:[employer] [place] [address]RVQLGVBSANTOS SANTIAGO MD,PHD Urine (Urine, Random) 03/30/2024 2:45 PM EST 03/30/2024 4:05 PM EST [facility] LAB BODY FLUIDS AND STOOLS OR DERABLES Final Result [facility] [address] [place] [address] [phone] documented in this encounter Visit Diagnoses Diagnosis Urethritis Unspecified urethritis documented in this encounter Additional Health Concerns Assessment Noted Time PHQ-9 Depression Total Score: 6 03/23/19 25 9:29 AM EST documented as of this encounter Care Teams Forder Operator Relationship Specialty Start Date End Date Una Sawyer FNP [address] [place] [address] PCP - General Family Medicine 08/21/21 documented as of this encounter
== END 2024-04-18 08:31 | disposition home or self-care (01) ==
PROVIDERS: PCP Registered Nurse; Visit Provider Surgery
DX: Z51.89 Encounter for other specified aftercare (principal)
CPT/HCPCS: 99212

== ENCOUNTER → 2024-04-18 08:18 | Outpatient (BNVA) | payer MEDICAID, SELFPAY | PROVIDERS: PCP Registered Nurse; Visit Provider Surgery | DX: Z09 Encounter for follow-up examination after completed treatment for conditions other than malignant neoplasm (principal); Z87.19 Personal history of other diseases of the digestive system; Z98.890 Other specified postprocedural states | CPT/HCPCS: 99212 ==

== ENCOUNTER 2024-04-27 07:31 | Outpatient (AMB) | payer MEDICAID, SELFPAY ==
--- OUTSIDE RECORDS SUMMARY | 2024-04-27 07:33 | XMS_ITS | Encounter Summary ---
Author Organization [employer] Address [address] 7t [place] [address] Care Team Providers Care Hris Manager Name Role Phone [facility] Primary Care Provider [phone] Encounter Details Date Type Department Care Team ([facility] st Contact Info) Description 04/22/2024 Telephone [facility] [address] [place], [place] [phone] Christy Rene RN Social History Tobacco Use Types Packs/Day Years [...] t he electric, gas, oil or water [employer] threatened to shut off services in your [...] Miscellaneous Notes * Telephone Encounter - Sari Lyn NP - 04/22/2024 3:14 PM EST Discussed w patient * Telephone Encounter - Christy Rene RN - 04/22/2024 1:46 PM EST Tc to pt to let them know per covering provider How it patient feeling, ultrasound was normal . Pt reports confused and frustrated with US being normal but had seen their urologist yesterday who reports they found two inguinal hernias. Pt is requesting to speak with a provider for more clarification. Informed pt will forward message to the provider of their request. Message forwarded to covering provider for review. * Telephone Encounter - Christy Rene RN - 04/22/2024 1:46 PM EST ----- Message from Sari Lyn sent at 04/22/2024 1:08 PM EST ----- How it patient feeling, ultrasound was normal ----- Message ----- From: Interface, Ris Results In Sent: 03/31/2024 7:49 AM EST To: Sari Lyn NP documented in this encounter Plan of Treatment Upcoming Encounters Date Type Department Care Team (Late st Contact Info) Description 04/29/2024 11:15 AM EST Office Visit [facility] [address] [place] [address] Una Sawyer FNP [address] [place] [address] 05/30/2024 10:00 AM EDT Office Visit [facility] [address] [place] [address] Una Sawyer FNP [address] [place] [address] documented as of this encounter Visit Diagnoses Not on filedocumented in this encounter Additional Health Concerns Assessment Noted Time PHQ-9 Depression Total Score: 6 03/23/19 25 9:29 AM EST documented as of this encounter Care Teams Hris Manager Relationship Specialty Start Date End Date Una Sawyer FNP [address] [place] [address] PCP - General Family Medicine 08/21/21 documented as of this encounter
--- OUTSIDE RECORDS SUMMARY | 2024-04-27 07:33 | XMS_ITS | Encounter Summary ---
Author Organization [email or web address] Address [address] [facility] 7t [place] [address] Care Team Providers Care Diesel Truck Driver Name Role Phone [facility] Primary Care Provider [phone] Reason for Visit * Reason Onset Date Comments Labs Only 03/30/2024 Encounter Details Date Type Department Care Team ([facility] Contact Info) Description 03/30/2024 Telephone [facility] MEDICINE [address] [place], [place] [phone] Latha Harkins RN [address] [place] [address] Labs Only Social History Tobacco Use Types [...] PM EST Call returned to patient regarding [facility] Lab. Patient stated he wanted the team [...] PM EST RN received incoming call from [facility] with an update regarding [facility] IT. Per Arianna, [facility] IT was able to update lab stickers for trichomonas and mycoplasma/ureaplasma for them to print stating URINE or SWAB. * Telephone Encounter - Latha Harkins RN - 03/30/2024 11:37 AM EST RN received incoming call from the patient. Patient reports he is very frustrated with the lab. Patient reports he came to [facility] today to have his labs performed (see [...] and return call to patient. RN called [facility] labs [phone] to discuss above message. RN was informed the trichomonas and mycoplasma/ureaplasma orders were cancelled as they are swabs which the lab does not perform. RN informedstaff, the labs were placed yesterday as specimen: Urine. RN was then transferred to [facility] lab staff for further clarification. Staff were extremely rude to RN and ultimately informed RN it shows in their system as a swab specimen which they do not collect, despite RN explaining the order has been placed as a urine specimen. RN was informed to call Arianna Beltran [phone]. RN called Mary at [facility] to confirm order was placed correctly and indeed indicates urine specimen for both trichomonas and mycoplasma/ureaplasma. RN was informed orders are correct on [facility] end. Sarah reached out to Opal who advised Mary to have RN reach out to Arianna Beltran as well. RN called Arianna Beltran [phone] and explained above situation. Arianna was able [...] to his concerns. TC placed to patient [phone] to inform patient of need to return to the lab to provide more urine for the trichomonas and mycoplasma/ureaplasma. Patient advised the urine sample was only enough for the drug screen. Patient advised RN confirmed the lab WILL accept the urine and the patient willnot be turned away regarding the outstanding orders. Patient advised the phlebotomists cost control supervisor spoke to them and they are aware of what to do. Patient also advised Arainna Beltran will also be calling him to discuss his complaints regarding the lab. Patient verbalized understanding and is very appreciative of RN's efforts. documented in this encounter Plan of Treatment Upcoming Encounters Date Type Department Care Team (Late st Contact Info) Description 04/29/2024 11:15 AM EST Office Visit [facility] MEDICINE [address] [place] [address] Una Sawyer FNP [address] [place] [address] 05/30/2024 10:00 AM EDT Office Visit [facility] [address] [place] [address] Una Sawyer FNP [address] [place] [address] documented as of this encounter Visit Diagnoses Not on filedocumented in this encounter Additional Health Concerns Assessment Noted Time PHQ-9 Depression Total Score: 6 03/23/19 25 9:29 AM EST documented as of this encounter Care Teams Diesel Truck Driver Relationship Specialty Start Date End Date Una Sawyer FNP [address] [place] [address] PCP - General Family Medicine 08/21/21 documented as of this encounter
--- OUTSIDE RECORDS SUMMARY | 2024-04-27 07:33 | XMS_ITS | Encounter Summary ---
Author Organization [employer] Address [address] [facility] 7 [place] [address] Care Team Providers Care Shot Blast Equipment Operator Name Role Phone [facility] Primary Care Provider [phone] Reason for Visit * Reason Onset Date Comments Medication Question 11/04/2022 Encounter Details Date Type Department Care Team ([facility] Contact Info) Description 11/04/2022 Telephone [facility] [address] [place], [place] [phone] [facility] 230 [place] [address] Medication Question Social History Tobacco Use Types [...] to message above. Please contact pt at [phone] * Telephone Encounter - Trev Saleh - 11/04/2022 1:25 PM EDT Tc from pt requesting a new script for tadalafil (Cialis) 5 MG tablet, pt stated urologist sent tadalafil (Cialis) 20 mg tablet PRN and new script for 5 mg will need to say okay to take with 20 mg. Pt would like a call back. Please contact at [phone] documented in this encounter Plan of Treatment Upcoming Encounters Date Type Department Care Team (Late st Contact Info) Description 04/29/2024 11:15 AM EST Office Visit [address] [address] [place] [address] [address] 05/30/2024 10:00 AM EDT Office Visit [address] [address] [place] [address] [address] documented as of this encounter Visit Diagnoses Not on filedocumented in this encounter Additional Health Concerns Assessment Noted Time PHQ-9 Depression Total Score: 5 03/28/19 23 10:55 AM EST documented as of this encounter Care Teams Shot Blast Equipment Operator Relationship Specialty Start Date End Date Una Sawyer FNP [address] [place] [address] PCP - General Family Medicine 08/21/21 documented as of this encounter
--- OUTSIDE RECORDS SUMMARY | 2024-04-27 07:33 | XMS_ITS | Encounter Summary ---
Author Organization [employer] Address [address] [facility] 7 [place] [address] Care Team Providers Care Wire Stripper Name Role Phone [facility] Primary Care Provider [phone] Reason for Visit * Reason Onset Date Comments Results 04/01/2024 Encounter Details Date Type Department Care Team ([facility] Contact Info) Description 04/01/2024 Telephone [facility] [address] [place], [place] [phone] [facility] 230 [place], [place] [phone] Results Social History Tobacco Use Types Packs/Day [...] back to pt to relay message from customer energy specialist: Unless referral is urgent every specialty is scheduling may and . I can send him to a differenturology but its not guaranteed he will be seen sooner. But I am going to refer him to [facility] Urology they are scheduling end of [...] pt until June. RN will forward to customer energy specialist to see if there is anything that can be done by [facility] to expedite his care. 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 supervisor, it is difficult to get an appointment [...] results: Ultrasound Date when done: 03/30/24 [facility] Contact pt at [phone] documented in this encounter Plan of Treatment Upcoming Encounters Date Type Department Care Team (Late st Contact Info) Description 04/29/2024 11:15 AM EST Office Visit [facility] [address] [place] [address] [place], [facility] [address] [place] [address] 05/30/2024 10:00 AM EDT Office Visit [facility] [address] [place] [address] Una Sawyer FNP [address] [place] [address] documented as of this encounter Visit Diagnoses Not on filedocumented in this encounter Additional Health Concerns Assessment Noted Time PHQ-9 Depression Total Score: 6 03/23/19 25 9:29 AM EST documented as of this encounter Care Teams Wire Stripper Relationship Specialty Start Date End Date Una Sawyer FNP [address] [place] [address] PCP - General Family Medicine 08/21/21 documented as of this encounter
--- OUTSIDE RECORDS SUMMARY | 2024-04-27 07:33 | XMS_ITS | Encounter Summary ---
Author Organization [employer] Address [address] [place] [address] 7 [place] [address] Care Team Providers Care Ad Copy Writer Name Role Phone [facility] Primary Care Provider [phone] Reason for Visit * Reason Onset Date Comments Nurse Triage 03/29/2024 Encounter Details Date Type Department Care Team ([facility] st Contact Info) Description 03/29/2024 Telephone [facility] MEDICINE [address] [place], [place] [phone] [facility] [address] [place] [address] Nurse Triage Social History Tobacco Use Types [...] 2:52 PM EST TC placed to patient [phone] in regards to below message. RN provided patient with BW results from 03/22/24. Patient verbalized understanding. Patient reports he is still awaiting results for RPRw/ reflex to titer, mycoplasma/ureaplasma panel and trichomonas RNA. [facility] and those results are not [facility]. Patient reports he dropped off his urine on 03/21/24 and completed the BW on 03/22/24. RN advised patient RN would call the lab to further inquire and return call to patient. TC placed to [facility] lab [phone] in regards to above. RN was informed the microbiology lab manager did not pull the order for the RPR w/ reflex to titer and mycoplasma/ureaplasma panel therefore unfortunatelythe patient would need to return to the lab to provide another sample. RN was informed the trichomonas order was also not received (RN reviewed encounter and it was placed as clinic collect). RN willreplace the order as a lab collect. TC placed to patient [phone] to inform patient he will need to [...] appt moved up for tomorrow 03/30 at [facility] location. Pt denies any severe swelling. [...] consult while he is being treated. Reviewed [facility] operating hours and that wait times vary. Reviewed home care advise, ER precautions and reasons to call back. Patient requesting that PCP review lab results form -03/22, more specific the MMR Titers. Pt also wants to know why results for Syphilis , mycoplasma and Trichomonas was not yet available. Do notsee in lab tab of [facility]. Forwarded to PCP and team nurses to [...] a urgent call back. Contact pt at [phone] documented in this encounter Plan of Treatment Upcoming Encounters Date Type Department Care Team (Late st Contact Info) Description 04/29/2024 11:15 AM EST Office Visit [facility] [address] [place] [address] [facility] [address] [place] [address] 05/30/2024 10:00 AM EDT Office Visit [facility] [address] [place] [address] [facility] [address] [place] [address] documented as of this encounter Procedures Procedure Name Priority Date/Time Associated Diagnosis Comments TRICHOMONAS VAGINALIS RNA, QUALITATIVE, TMA Routine 03/30/2024 2:45 PM EST Urethritis documented in this encounter Results * Trichomonas RNA (Urine/Vaginal) (03/30/2024 2:45 PM EST) Trichomas vaginalis RNA, QL, TMA Not Detected Not Detected [facility] Comment:For additional infor mation, please refer tohttp://education.AiCuris/faq/Trichomonastma (This link is being providedfor information/educational purposes only).THIS TEST WAS PERFORMED AT:[id number] [place] [address]HTXASUHSANTOS SANTIAGO MD,PHD Urine (Urine, Random) 03/30/2024 2:45 PM EST 03/30/2024 4:05 PM EST [facility] LAB BODY FLUIDS AND STOOLS OR DERABLES Final Result [facility] [address] [place] [address] [phone] documented in this encounter Visit Diagnoses Diagnosis Urethritis Unspecified urethritis documented in this encounter Additional Health Concerns Assessment Noted Time PHQ-9 Depression Total Score: 6 03/23/19 25 9:29 AM EST documented as of this encounter Care Teams Ad Copy Writer Relationship Specialty Start Date End Date SilverioUna connellySAMANTHA [address] [place] [address] PCP - General Family Medicine 08/21/21 documented as of this encounter
--- OUTSIDE RECORDS SUMMARY | 2024-04-27 07:33 | XMS_ITS | Encounter Summary ---
Author Organization [employer] Address [address] [facility] [address] [place] [address] Care Team Providers Care Escrow Processor Name Role Phone [facility] Primary Care Provider [phone] Encounter Details Date Type Department Care Team ([facility] st Contact Info) Description 03/30/2024 Orders Only [facility] MED[facility]INE [address] [place], [place] [phone] Felipa Bryant MD [address] [place], [place] [phone] Urethritis (Primary Dx) Social History Tobacco Use [...] Description 04/29/2024 11:15 AM EST Office Visit [address] [address] 05/30/2024 10:00 AM EDT Office Visit [address] [address] Scheduled Orders Name Type Priority Associated Diagnoses Orde r Schedule Mycoplasma/Ureaplas ma??Panel Microbiology Routine Urethritis Expected: 03/30/2024 (Approximate), Expires: 03/30/2025 documented as of this encounter Procedures Procedure Name Priority Date/Time Associated Diagnosis Comments MYCOPLASMA/UREAPLAS MA PANEL Routine 03/30/2024 2:45 PM EST Urethritis documented in this encounter Results * Mycoplasma/Ureaplasma??Panel (03/30/2024 2:45 PM EST) Jonathan(R), Mycoplasma Hominis, Real-Time Pcr Not Detected Not Detected [facility] Comment:THIS TEST WAS PERFOR MED AT:[employer]/[id number] [place] [address]RWJCKFESANTOS SANTIAGO MD,PHD Mycoplasma Genitalium, rRNA,TMA Not Detected Not Detected [facility] Comment:THIS TEST WAS PERFOR MED AT:[employer]/JON [address] [id number] SANTIAGO MD,PHD U. Parvum DNA Not Detected Not Detected [facility] U. Urealyticum DNA Not Detected Not Detected [facility] Comment:This test was develo ped and its analyticalperformance characteristics have been determinedby [employer] [place], [place].It has not been cleared or approved by the FDA. Thisassay has been validated pursuant to the CLIAregulations and is used for clinical purposes.THIS TEST WAS PERFORMED AT:[employer] [facility] [id number] [place] [address]QWWONRSSANTOS SANTIAGO MD,PHD 03/30/2024 2:45 PM EST 03/30/2024 4:05 PM EST [facility] LAB MICROBIOLOGY - GENERAL OR DERABLES Final Result [facility] [address] [place] [phone] documented in this encounter Visit Diagnoses Diagnosis Urethritis- Primary Unspecified urethritis documented in this encounter Additional Health Concerns Assessment Noted Time PHQ-9 Depression Total Score: 6 03/23/19 25 9:29 AM EST documented as of this encounter Care Teams Escrow Processor Relationship Specialty Start Date End Date [facility] [address] [place] [phone] PCP - General Family Medicine 08/21/21 documented as of this encounter
--- OUTSIDE RECORDS SUMMARY | 2024-04-27 07:33 | XMS_ITS | Encounter Summary ---
Author Organization [employer] Address [address] [facility] 7 [place] [address] Care Team Providers Care Manager Procurement Name Role Phone [facility] Primary Care Provider [phone] Reason for Visit * Reason Onset Date Comments Med Refill 06/03/2023 Encounter Details Date Type Department Care Team ([facility] st Contact Info) Description 06/03/2023 Refill [facility] [address] [place], [place] [phone] Mindy Cardona MD [address] [place] [address] Erectile dysfunction, unspecified erectile dysfunction type Social [...] Description 04/29/2024 11:15 AM EST Office Visit [facility] [address] [place] [phone] Una Sawyer [address] [address] 05/30/2024 10:00 AM EDT Office Visit [facility] [address] [place] [phone] Un[address] Sawyer [address] [address] documented as of this encounter Visit Diagnoses Diagnosis Erectile dysfunction, unspecified erectile dysfunction type documented in this encounter Additional Health Concerns Assessment Noted Time PHQ-9 Depression Total Score: 0 05/29/19 24 9:41 AM EDT documented as of this encounter Care Teams Manager Procurement Relationship Specialty Start Date End Date Una Sawyer FNP [address] [place] [phone] PCP - General Family Medicine 08/21/21 documented as of this encounter
--- OUTSIDE RECORDS SUMMARY | 2024-04-27 07:33 | XMS_ITS | Clinical Summary ---
Author Organization [employer] Address [address] [facility] 7[address] [place] [address] Care Team Providers Care Senior Data Integration Developer Name Role Phone [facility] Primary Care Provider [phone] Allergies No known active allergies Medications * [...] Active Problems Problem Noted Date Diagnosed Date Anxiety 04/22/2024 Swelling of left testicle 03/25/2024 Assessment & [...] - States he was raised in strict jainism family and has struggled over the years coming to terms with his beliefs about organized catholic. he attributes feelings of guilt and low self esteems to his experiences in christian. Especially difficult because he has realized he identifies as bisexual and has not felt accepted. Encounters * This document contains information received from the source organization and may not represent a complete record from that organization. Date Type Department Care Team Description 04/22/2024 Orders Only [facility] [place] [address] Sari Lyn NP Anxiety (Primary Dx) 04/22/2024 Telephone [facility] [place] [address] Christy Rene, RN 04/22/2024 Telephone [facility] [place] [address] [facility] 04/05/2024 Telephone [facility] [place] [address] [facility] Referral 04/01/2024 Telephone [facility] MEDICINE [address] [place] [address] [facility] Results 03/30/2024 Telephone [facility] [place] [address] Latha Harkins, COURTNEY Labs Only 03/30/2024 Orders Only [facility] [place] [address] Felipa Bryant MD Urethritis (Primary Dx) 03/29/[address] [facility] [place] [address] [facility] Nurse Triage 03/25/2024 10:30 AM EST Office Visit [address] [place] [address] Sari Lyn NP Swelling of left testicle (Primary Dx); Hypertension, unspecified type; Right elbow pain; JORDAN (generalized anxiety disorder) 03/23/[address] [address] [facility] Results 03/21/2024 3:30 PM EST Office Visit [address] [address] Felipa Bryant MD Urethritis (Primary Dx); Dietary counseling; Exercise counseling; Overweight 03/21/2024 Travel 03/21/[address] [address] Sarah Chambers [place] Chart Prep 03/21/[address] [address] [facility] Nurse Triage 03/18/[address] [address] [facility] Nurse Triage 03/17/[address] [address] [facility] ER Follow-up 03/14/2024 2:00 PM EST Office Visit [facility] [address] [place] [address] Soha Sheth ANP Swelling of left testicle (Primary Dx); Possible exposure to STI 03/14/[address] [address] [facility] 03/14/[address] [address] [facility] Nurse Triage 02/29/2024 1:00 PM EST Office Visit [address] [address] Sari Lyn NP Right elbow pain (Primary Dx); Periumbilical abdominal pain; Vasovagal syncope 02/29/2024 Telephone [facility] MEDICINE [address] [place] [address] Una Sawyer FNP Chart Prep 02/26/2024 10:30 AM EST Office Visit [facility] MED[facility] [address] [place] [address] Hina Diaz MD Periumbilical abdominal pain (Primary Dx); Syncope, unspecified syncope type 02/26/2024 Orders Only [facility] External Provider, [facility] 02/26/2024 Telephone [facility] [address] [place], [place] [phone] Latha Harkins, SUPERVISING [employer]RE MARSHAL expect 02/26/2024 Travel 02/26/2024 Telephone [facility] [address] [place], [place] [phone] Una Sawyer FNP Nurse Triage from Last 3 Months Immunizations Name Administration Dates Next Due Influenza Injectable Quadriv alant Preservative Free IIV4 MDCK 03/01/2018 Influenza injectable quadrivalent preservative f ree 01/02/2020 MMR 03/01/2018,01/16/2016 Tdap 06/05/2022,09/26/2013 Tetanus Toxoid, Unspecified 09/06/2009 Social History Tobacco Use Types Packs/Day Years [...] Description 04/29/2024 11:15 AM EST Office Visit [facility] MED[facility] [address] [place] [address] [facility] [address] [place] [address] 05/30/2024 10:00 AM EDT Office Visit [facility] MED[facility]INE [address] [place] [address] [facility] [address] [place] [address] Health Maintenance Due Date Last Done Comments Family Planning (PISQ) 2000 Hepatitis B Vaccines (1 of 3 - 19+ 3-dose series) 2004 COVID-19 Vaccine (1 - 2023- season) 2023 Influenza Vaccine (#1) [...] Adult Primary Care ?[address] ? [place] [address] ? Ultrasound Report ? Signed ? Patient: Narciso,Jerry ?MR#: [id number] ?? 1 ? : 1985 ?Acct:[id number] ? Age/Sex: 38 / M ?ADM Date: 03/30/24 ? Loc: HO.HMGCX ? Attending Dr: Sari Lyn OPTIONS ADVISOR ? Ordering Physician: Sari Lyn NP ?? Date of Service: 03/30/24 ?? Procedure(s): US scrotum ?? Accession Number(s): [id number] ? cc: Sari Lyn NP; Una Sawyer ? EXAMINATION: US SCROTUM ? HISTORY: worsening [...] MD in OV> ?03/31/24 0746 ? DD/ 31 ? TD/TT: 03/30/24 1555 ? Building Construction Contractor: ? Procedure Note Jenifferter, Image - 03/31/2024 [facility] [address] [place] [address] [place] [address] Ultrasound Report Signed Patient: Jerry Stuart#: [id number] 1 : 1985Acct:[id number] Age/Sex: 38 / MADM Date: 03/30/24 Loc: HO.HMGCX Attending Dr: Sari Lyn NP Ordering Physician: Sari Lyn NP Date of Service: 03/30/24 Procedure(s): US scrotum Accession Number(s): [id number] cc: Sari Lyn OPTIONS ADVISOR; [facility] EXAMINATION: US SCROTUM HISTORY: worsening testicular [...] Hudson Mercado MD 03/31/2024 07:46 AM EST RP Dictated By: Hudson Mercado MD Signed By: <Electronically signed by Hudson Mercado MD in OV> 03/31/24 0746 DD/ 1532 TD/TT: 03/30/24 1555 Building Construction Contractor: Sari Lyn OPTIONS ADVISOR IMG US PROCEDURES Final Result * Trichomonas RNA (Urine/Vaginal) (03/30/2024 2:45 PM EST) Trichomas vaginalis RNA, QL, TMA Not Detected Not Detected [facility] Comment:For additional infor matchristy, please refer tohttp://education.Becovillage/faq/Trichomonastma (This link is being providedfor information/educational purposes only).THIS TEST WAS PERFORMED AT:[place] [address]ODFLSPCSANTOS SANTIAGO MD,PHD Urine (Urine, Random) 03/30/2024 2:45 PM EST 03/30/2024 4:05 PM EST [facility] LAB BODY FLUIDS AND STOOLS OR DERABLES Final Result [facility] [address] [place] [phone] * Mycoplasma/Ureaplasma??Panel (03/30/2024 2:45 PM EST) Sureswab(R), Mycoplasma Hominis, Real-Time Pcr Not Detected Not Detected [facility] Comment:THIS TEST WAS PERFOR MED AT:[employer] [address]FVQLFYYSANTOS SANTIAGO MD,PHD Mycoplasma Genitalium, rRNA,TMA Not Detected Not Detected [facility] Comment:THIS TEST WAS PERFOR MED AT:[employer] [place] [address]YXYJWKASANTOS SANTIAGO MD,PHD U. Parvum DNA Not Detected Not Detected [facility] U. Urealyticum DNA Not Detected Not Detected [facility] Comment:This test was develo ped and its analyticalperformance characteristics have been determinedby [employer] [place], [place].It has not been cleared or approved by the FDA. Thisassay has been validated pursuant to the CLIAregulations and is used for clinical purposes.THIS TEST WAS PERFORMED AT:[employer] [id number] [place] [address]ALKSVXWSANTOS SANTIAGO MD,PHD 03/30/2024 2:45 PM EST 03/30/2024 4:05 PM EST [facility] LAB MICROBIOLOGY - GENERAL OR DERABLES Final Result Performing Organization Address [facility] de Phone Number [facility] [address] [place] [phone] * RPR (Monitor) with Reflex to??Titer (03/30/2024 9:39 AM EST) RPR (Monitor) w/Refl Titer NON-REACTI VE NON-REACT YEFRI [facility] Comment:THIS TEST WAS PERFOR MED AT:[employer] [address] [address]GPZJALUIS A FREGOSO MD Rapid Plasma Reagin Ab Titer TNP [facility] Blood Venous blood specimen / Unknown 03/30/2024 9:39 AM EST 03/30/2024 11:45 AM EST Felipa Bryant MD LAB BLOOD ORDERABLES Final Res ult Performing Organization Address [facility] Co de Phone Number [facility] [address] [place] [phone] * (ABNORMAL) Drug Monitoring, Panel 1, Screen, Urine (03/30/2024 8:50 AM EST) Only the most recent of2 resultswithin the time period is included. Opiate Screen Urine Not Detected Not Detect [facility] Comment:Opiate cut-off is 30 0 ng/mL.Positive results are unconfirmed and should not be used fornon-medical purposes. Barbiturates, Urine Not Detected Not Detect [facility] Comment:Barbiturate cut-off is 200 ng/mL.Positive results are unconfirmed and should not be used fornon-medical purposes. Phencyclidine Screen Urine Not Detected Not Detect [facility] Comment:Phencyclidine cut-of f is 25 ng/mL.Positive results are unconfirmed and should not be used fornon-medical purposes. Amphetamine Screen Urine Not Detected Not Detect [facility] Comment:Amphetamine cut-off is 1000 ng/mL.Positive results are unconfirmed and should not be used fornon-medical purposes. Benzodiazepines Screen Urine Not Detected Not Detect [facility] Comment:Benzodiazepine cut-o ff is 200 ng/mL.Positive results are unconfirmed and should not be used fornon-medical purposes. Cocaine Screen Urine Not Detected Not Detect [facility] Comment:Cocaine cut-off is 3 00 ng/mL.Positive results are unconfirmed and should not be used fornon-medical purposes. Cannabinoid Screen Urine POSITIVE(A) Not Detect [facility] Comment:Cannabinoid cut-off is 50 ng/mL.Positive results are unconfirmed and should not be used fornon-medical purposes. Methadone Screen, Urine Not Detected Not Detect ng/mL [facility] Comment:Methadone cut-off is 300 ng/mL.Positive results are unconfirmed and should not be used fornon-medical purposes. FENTANYL URINE Not Detected Not Detect [facility] Comment:Fentanyl cut-off is 1 ng/mL.Positive results are unconfirmed and should not be used fornon-medical purposes. Oxycodone Urine Screen Not Detected Not Detect ng/mL [facility] Comment:Oxycodone cut-off is 100 ng/mL.Positive results are unconfirmed and should not be used fornon-medical purposes. Buprenorphine Screen Not Detected Not Detect ng/mL [facility] Comment:Buprenorphine cut-of f is 5 ng/mL.Positive results are unconfirmed and should not be used fornon-medical purposes. Urine (Urine, Random) 03/30/2024 8:50 AM EST 03/30/2024 11:51 AM EST Goyo Zapata [facility] URINE ORDERABLES Final Re sult [facility] [address] [place] [address] [phone] * Measles, Mumps, and Rubella (MMR) Antibodies??(IgG) Panel, Immune Status (03/22/2024 9:08 AM EST) Mumps Virus IgG Antibody 36.00 AU/mL [facility] Comment:AU/mL Interpretation ------- <9.00 Not consistent with immunity9.00-10.99 Equivocal>10.99 Consistent with immunityThe presence of mumps IgG antibody suggests immunizationor past or current infection with mumps virus. Rubella IgG Antibody 3.22 Index [facility] Comment:Index Interpretation ----- <0.90 Not consistent with immunity 0.90-0.99 Equivocal > or = 1.00 Consistent with immunityThe presence of rubella IgG antibody suggestsimmunization or past or current infection withrubella virus.THIS TEST WAS PERFORMED AT:[employer] [place] [id number] A FREGOSO MD Rubeola IgG (Measles) 55.00 AU/mL [facility] Comment:AU/mL Interpretation ----- <13.50 Not consistent with .50-16.49 Equivocal>16.49 Consistent with immunityThe presence of measles IgG suggests immunization orpast or current infection with measles virus.For additional information, please refer tohttp://education.Yieldex/faq/ZRY143(This link is being provided for informational/educational purposes only.) Blood Venous blood specimen / Unknown 03/22/2024 9:08 AM EST 03/22/2024 11:21 AM EST [facility] LAB BLOOD ORDERABLES Final Re sult Performing Organization Address [facility]/ZIP Co de Phone Number [facility] [address] [place] [phone] * Hepatitis Panel, General (03/22/2024 9:08 AM EST) Hepatitis A IgM Nonreactive Nonreactive [facility] Comment:IgM antibodies to MUNOZ V not detected; does not exclude earlyacute or recovered HAV infection. ~Hepatitis B Surface Antibody REACTIVE Nonreactive [facility] Comment:REACTIVE: > 11.99 mI U/mL Hepatitis B Core Antibody Nonreactive Nonreactive [facility] Hepatitis C Antibody Nonreactive Nonreactive [facility] Comment:Antibodies to HCV no t detected; does not exclude early acuteHCV infection. Hepatitis B Surface Ag Negative Negative [facility] Blood 03/22/2024 9:08 AM EST 03/22/2024 11:21 AM EST [facility] LAB BLOOD ORDERABLES Final Re sult Performing Organization Address City/[facility]/ZIP Co de Phone Number [facility] [address] [place] [phone] * Hepatitis C Antibody with Reflex to HCV, RNA, Quantitative, Real-Time PCR (03/22/2024 9:08 AM EST) Hepatitis C Antibody Nonreactive Nonreactive [facility] Comment:Antibodies to HCV no t detected; does not exclude early acuteHCV infection. Blood Venous blood specimen / Unknown 03/22/2024 9:08 AM EST 03/22/2024 11:21 AM EST Felipa Bryant MD LAB BLOOD ORDERABLES Final Res ult Performing Organization Address [facility] Co de Phone Number [facility] [address] [place] [phone] [phone] * HIV-1/2 Antigen and Antibodies, Fourth Generation, with Reflexes (03/22/2024 9:08 AM EST) HIV AB/AG Nonreactive Nonreactive [facility] Comment:HIV-1 p24 Ag and/or HIV-1/HIV-2 Ab not detected.A test result that is nonreactive does not exclude thepossibility of exposure to or infection with HIV-1 and/orHIV-2. Nonreactive results in this assay for individualswith prior exposure to HIV-1 and/or HIV-2 may be due toantigen and antibody levels that are below the limit ofdetection of this assay.The Adcade HIV Ag/Ab Combo assay result andsupplemental assay results should be interpreted inconjunction with the patient's clinical presentation,history and other laboratory results. If the results areinconsistent with clinical evidence, additional testing issuggested to confirm the result. Blood Venous blood specimen / Unknown 03/22/2024 9:08 AM EST 03/22/2024 11:21 AM EST Felipa Bryant MD LAB BLOOD ORDERABLES Final Res ult Performing Organization Address [facility] Co de Phone Number [facility] [address] [place] [address] [phone] * Varicella Zoster Antibody, IgG (03/22/2024 9:08 AM EST) Pathologist [facility] Varicella IgG Antibody 4.45 S/CO [facility] Comment:Signal to Cut-off S/ CO [...] Antibody Immunity Screen, ACIF.THIS TEST WAS PERFORMED AT:[employer] [place] [phone] A FREGOSO MD Blood Venous blood specimen / Unknown 03/22/2024 9:08 AM EST 03/22/2024 11:21 AM EST [facility] LAB BLOOD ORDERABLES Final Re sult [facility] [address] [place] [phone] [phone] * Chlamydia/N. Gonorrhoeae RNA, TMA, Urogenitial (03/21/2024 4:05 PM EST) CT PCR NOT DETECTED Not Detect. [facility] Comment:A not detected test result [...] psychologicalconsequences. NG PCR NOT DETECTED Not Detect. [facility] Comment:A not detected test result [...] PM EST 03/21/2024 5:47 PM EST Narrative [facility] - 03/22/2024 5:49 AM EST Urine us Felipa Bryant MD LAB MICROBIOLOGY - GENERAL ORD ERABLES Final Result [facility] [address] [place], [place] [phone] * XR Elbow 3+ Views Right (03/14/2024 2:03 PM EST) Anatomical Region Laterality Modality Upper Extremities, Elbow Right Radiogr aphic Imaging 03/14/2024 2:03 PM EST Narrative 03/14/2024 3:29 PM EST ?[facility] ?[address] ?[place] [address] ?XRay Report ? Signed ? Patient: Jerry Stuart ?MR#: [id number] ?? 1 ? : 1985 ?Acct:[id number] ? Age/Sex: 38 / M ?ADM Date: 03/14/24 ? Loc: HO.HHCX ? Attending Dr: Sari Lyn OPTIONS ADVISOR ? Ordering Physician: Sari Lyn OPTIONS ADVISOR ?? Date of Service: 03/14/24 ?? Procedure(s): XR elbow RT min 3V ?? Accession Number(s): [id number] ? cc: Sari Lyn Zonia OPTIONS ADVISOR ? EXAMINATION: ??XR ELBOW 3 VIEWS RIGHT [...] ??Hudson Mercado MD ??03/14/2024 03:26 PM EST ? Dictated By: ?Hudson Mercado MD ? Signed By: ?<Electronically signed by Hudson Mercado MD in OV> ?03/14/24 1526 ? DD/ 1403 ? TD/TT: 03/14/24 1500 ? Building Construction Contractor: ? Procedure Note Donfifiviviendavidter, Image - 03/14/[address] [address] XRay Report Signed Patient: Jerry StuartMR#: [id number] 1 : 1985Acct:[id number] Age/Sex: 38 / MADM Date: 03/14/24 Loc: HO.HHCX Attending Dr: Sari Lyn OPTIONS ADVISOR Ordering Physician: Sari Lyn NP Date of Service: 03/14/24 Procedure(s): XR elbow RT min 3V Accession Number(s): [id number] cc: Sari Lyn OPTIONS ADVISOR EXAMINATION: XR ELBOW 3 VIEWS RIGHT HISTORY: [...] 03/14/24 1526 DD/ 1403 TD/TT: 03/14/24 1500 Building Construction Contractor: us Sari Lyn OPTIONS ADVISOR IMG XR PROCEDURES Final Result * High Sensitivity Troponin I (02/26/2024 2:24 PM EST) Only the most recent of2 resultswithin the time period is included. TROPONIN I HIGH SENSITIVITY <2.7 <3.5 - 35.0 ng/L [facility] Comment:The [place] high sens itivity Troponin-I results should beused in conjunction with other diagnostic information suchas ECG, clinical observations and information, and patientsymptoms to aid in the diagnosis of [place]. 02/26/2024 2:24 PM EST 02/26/2024 2:26 PM EST us Generic External Data Provider LAB BLOOD ORDERAB LES Final Result Performing Organization Address City/State/[facility] Co de Phone Number [facility] [address] [place] [phone] * (ABNORMAL) Urinalysis w/reflex microscopic (02/26/2024 12:47 PM EST) Color Urine Yellow [facility] Appearance Urine Cloudy [facility] PH 8.0 5.0 - 9.0 [facility] Glucose Urine UA Negative Negative mg/dL [facility] Urine Blood Negative Negative [facility] Specific [place] - Urine >=1.030(H) 1.005 - 1.025 [facility] Urine Protein Negative Neg-Trace mg/dL [facility] Urine Ketones Negative Negative mg/dL [facility] Nitrite Urine Negative Negative [facility] Leukocyte Esterase Urine Negative Negative [facility] 02/26/2024 12:4 7 PM EST 02/26/2024 12:50 PM EST Narrative [facility] - 02/26/2024 12:54 PM EST [id number], Clean Catch us Generic External Data Provider LAB URINE ORDERAB LES Final Result Performing Organization Address City/[facility]/ZIP Co de Phone Number [facility] [address] [place] [phone] * Ethanol (02/26/2024 12:39 PM EST) [facility] ETHANOL (MG/DL) IN SER/PLAS <10 mg/dL [facility] Comment:Serum/plasma ethanol results are to be used formedical/treatment purposes only. 02/26/2024 12:3 9 PM EST 02/26/2024 12:42 PM EST us Generic External Data Provider LAB BLOOD ORDERAB LES Final Result Performing Organization Address [facility] Co de Phone Number [facility] [address] [place] [phone] * (ABNORMAL) CBC auto differential (02/26/2024 12:39 PM EST) [facility] White Blood Count 10.8 4.8 - 10.8 X10*3/uL [facility] Red Blood Count 5.05 4.60 - 5.80 X10*6/uL [facility] Hemoglobin 15.2 14.0 - 18.0 g/dl [facility] Hematocrit 43.6 42.0 - 52.0 % [facility] Mean Corpuscular Volume 86.3 80.0 - 98.0 fL [facility] Mean Corpuscular Hemoglobin 30.1 27.0 - 33.0 pg [facility] Mean Corpuscular HGB Conc 34.9 31.0 - 36.0 g/dl [facility] Red Cell Distribution Width 12.3 11.0 - 16.0 % [facility] Platelet Count 225 160 - 400 X10*3/uL [facility] Mean Platelet Volume 9.9 9.4 - 12.4 fL [facility] Neutrophils Percent Auto 83.2(H) 45 - 73 % [facility] Imm Gran Pct Auto 0.3 0.0 - 0.4 % [facility] Lymphocytes Percent Auto 9.7(L) 20 - 40 % [facility] Monocytes Percent Auto 6.0 2 - 11 % [facility] Eosinophils Percent Auto 0.6 0 - 4 % [facility] Basophils Percent Auto 0.2 0 - 2 % [facility] NRBC Pct Auto 0.0 0.0 - 0.2 /100WBC [facility] Neutrophils Absolute Auto 9.0(H) 2.0 - 8.3 x10*3/uL [facility] Imm Gran Abs Auto 0.03 0.00 - 0.03 X10*3/uL [facility] Lymphocytes Absolute Auto 1.1(L) 1.2 - 4.9 X10*3/uL [facility] Monocytes Absolute Auto 0.7 0.1 - 1.2 X10*3/uL [facility] Eosinophils Absolute Auto 0.1 0.0 - 0.4 X10*3/uL [facility] Basophils Absolute Auto 0.0 0.0 - 0.2 X10*3/uL [facility] NRBC Abs Auto 0.000 0.0 - 0.012 X10*3/uL [facility] 02/26/2024 12:3 9 PM EST 02/26/2024 12:42 PM EST us Generic External Data Provider LAB BLOOD ORDERAB LES Final Result Performing Organization Address City/State/[facility] Co de Phone Number [facility] [address] [place] [phone] * Prothrombin Time-INR (02/26/2024 12:39 PM EST) Prothrombin Time 11.4 10.9 - 12.4 SEC [facility] INTERNATIONAL NORM RATIO 1.0 0.9 - 1.1 [facility] Comment:INTERNATIONAL NORMAL IZED RATIO (INR) [...] ORDERAB LES Final Result Performing Organization Address [facility] Co de Phone Number [facility] [address] [place] [phone] * Magnesium (02/26/2024 12:39 PM EST) Pathologist [facility] Magnesium 2.0 1.6 - 2.6 mg/dL [facility] 02/26/2024 12:3 9 PM EST 02/26/2024 12:42 PM EST Generic External Data Provider LAB BLOOD ORDERAB LES Final Result Performing Organization Address [facility] Co de Phone Number [facility] [address] [place] [phone] * Lactic Acid (02/26/2024 12:39 PM EST) Pathologist [facility] Lactic Acid 0.8 0.5 - 2.0 mmol/L [facility] 02/26/2024 12:3 9 PM EST 02/26/2024 12:42 PM EST Generic External Data Provider LAB BLOOD ORDERAB LES Final Result Performing Organization Address [facility] de Phone Number [facility] [address] [place] [phone] * (ABNORMAL) Comprehensive Metabolic Panel (02/26/2024 12:39 PM EST) Pathologist [facility] Sodium 139 135 - 145 mmol/L [facility] Potassium 4.1 3.3 - 5.1 mmol/L [facility] Chloride 105 96 - 108 mmol/L [facility] Carbon Dioxide 28 22 - 29 mmol/L [facility] Anion Gap 10(L) 12 - 20 [facility] Urea Nitrogen (BUN) 9 9 - 16 mg/dL [facility] Creatinine, Serum 1.07 0.5 - 1.4 mg/dL [facility] Creatinine Clr Calc Pharmacy 125.8 [facility] [facility] Comment:eGFR (calculated fro m the MDRD study equation) and eCrCl(calculated from the Cockcroft-Gault equation) are based ondifferent parameters and may not yield comparable results.If eCrCl result is absurd, please check patient'sheight/weight. Estimated Glomerular Filt Rate >60 [facility] Comment:Chronic Kidney Disea se: Estimated GFR < 60 mL/min/1.55u7Hzcdov Kidney Disease: Estimated GFR < 15 mL/min/1.73m2 Glucose 102 60 - 115 mg/dL [facility] Calcium 8.9 8.4 - 10.2 mg/dL [facility] Bilirubin, Total 0.9 0.0 - 1.0 mg/dL [facility] Aspartate Amino Transferase 18 5 - 37 U/L [facility] Alanine Aminotransferase 14 0 - 40 U/L [facility] Total Protein 6.7 6.5 - 8.0 g/dL [facility] Albumin Level 4.4 3.5 - 5.0 g/dL [facility] Alkaline Phosphatase 41 39 - 117 U/L [facility] 02/26/2024 12:3 9 PM EST 02/26/2024 12:42 PM EST us Generic External Data Provider LAB BLOOD ORDERAB LES Final Result [facility] [address] [place] [address] [phone] * Lipase (02/26/2024 12:38 PM EST) Lipase 27 8 - 78 U/L [facility] 02/26/2024 12:3 8 PM EST 02/26/2024 12:42 PM EST us Generic External Data Provider LAB BLOOD ORDERAB LES Final Result Performing Organization Address [facility] Co de Phone Number [facility] [address] [place] [address] [phone] * Creatine Kinase, Total (02/26/2024 12:38 PM EST) Creatine Kinase Total 95 38 - 174 U/L [facility] 02/26/2024 12:3 8 PM EST 02/26/2024 12:42 PM EST Generic External Data Provider LAB BLOOD ORDERAB LES Final Result Performing Organization Address [facility] de Phone Number [facility] [address] [place] [address] [phone] * CTA Abdomen Pelvis w/ and w/o Contrast (02/26/2024 11:43 AM EST) Anatomical Region Laterality Modality Body, Pelvis, Abdomen Computed T omography 02/26/2024 11:4 3 AM EST Narrative 02/26/2024 12:52 PM EST ? [facility] ?[address] ?[place] [address] ? CT Scan Report ? Signed ? Patient: Jerry Stuart ?MR#: [id number] ?? 1 ? : 1985 ?Acct:[id number] ? Age/Sex: 38 / M ?ADM Date: 02/25/ ? Loc: HO.ED ? Attending Dr: ? Ordering Physician: Katty Bajwa ?? Date of Service: 02/26/24 ?? Procedure(s): CT angio abdomen pelvis ?? Accession Number(s): [id number] ? cc: Katty Bajwa; Una Sawyer ? [...] DD/ 1143 ? TD/TT: 02/26/24 1212 ? Building Construction Contractor: ? Procedure Note Donfifivivieninterpreter, Image - 02/26/[address] [place] [address] [address] Scan Report Signed Patient: Guillermo Stuart#: [id number] 1 : 1985Acct:[id number] Age/Sex: 38 / MADM Date: 02/26/24 Loc: HO.ED Attending Dr: Ordering Physician: Katty Bajwa Date of Service: 02/26/24 Procedure(s): CT angio abdomen pelvis Accession Number(s): [id number] cc: Katty Bajwa; [facility] EXAMINATION: CT ANGIOGRAM ABDOMEN AND PELVIS [...] 02/26/24 1248 DD/ 1143 TD/TT: 02/26/24 1212 Building Construction Contractor: [facility] External Provider IMG CT PROCEDURES Final Result * CT Head w/o Contrast (02/26/2024 11:40 AM EST) Anatomical Region Laterality Modality Head, Neck Computed Tomogra phy 02/26/2024 11:4 0 AM EST Narrative 02/26/2024 12:43 PM EST ? [facility] ?[address] ?[place] [address] ? CT Scan Report ? Signed ? Patient: Narciso,Jerry ?MR#: [id number] ?? 1 ? : 1985 ?Acct:[id number] ? Age/Sex: 38 / M ?ADM Date: 02/26/24 ? Loc: HO.ED ? Attending Dr: ? Ordering Physician: Katty Bajwa ?? Date of Service: 02/26/24 ?? Procedure(s): CT head/brain wo IV con ?? Accession Number(s): [id number] ? cc: Katty Bajwa; Una SawyerP ? EXAMINATION: ?? CT HEAD WITHOUT CONTRAST [...] DD/ 1140 ? TD/TT: 02/26/24 1210 ? Building Construction Contractor: ? Procedure Note Donotuseinterpreter, Image - 02/26/[address] [address] [address] Scan Report Signed Patient: Jerry StuartMR#: [id number] 1 : 1985Acct:[id number] Age/Sex: 38 / MADM Date: 02/26/24 Loc: HO.ED Attending Dr: Ordering Physician: Katty Bajwa Date of Service: 02/26/24 Procedure(s): CT head/brain wo IV con Accession Number(s): [id number] cc: Katty Bajwa; [facility] EXAMINATION: CT HEAD WITHOUT CONTRAST CLINICAL [...] 02/26/24 1239 DD/ 1140 TD/TT: 02/26/24 1210 Building Construction Contractor: us [facility] External Provider IMG CT PROCEDURES Final Result * CTA Chest w/ and w/o Contrast (02/26/2024 11:35 AM EST) Anatomical Region Laterality Modality Body, Chest Computed Tomogra phy 02/26/2024 11:3 5 AM EST Narrative 02/26/2024 12:52 PM EST ? [facility] ?[address] ?[place] [address] ? CT Scan Report ? Signed ? Patient: Jerry Stuart ?MR#: [id number] ?? 1 ? : 1985 ?Acct:[id number] ? Age/Sex: 38 / M ?ADM Date: 02/26/24 ? Loc: HO.ED ? Attending Dr: ? Ordering Physician: Katty Bajwa ?? Date of Service: 02/26/24 ?? Procedure(s): CT angio chest aorta ?? Accession Number(s): [id number] ? cc: Katty Bajwa; Una Sawyer ? [...] DD/ 1135 ? TD/TT: 02/26/24 1212 ? Building Construction Contractor: ? Procedure Note Donotuseinterpreter, Image - 02/26/[address] [address] [address] Scan Report Signed Patient: Jerry StuartMR#: [id number] 1 : 1985Acct:[id number] Age/Sex: 38 / MADM Date: 02/26/24 Loc: HO.ED Attending Dr: Ordering Physician: Katty Bajwa Date of Service: 02/26/24 Procedure(s): CT angio chest aorta Accession Number(s): [id number] cc: Katty Bajwa; [facility] EXAMINATION: CT ANGIOGRAM ABDOMEN AND PELVIS [...] 02/26/24 1248 DD/ 1135 TD/TT: 02/26/24 1212 Building Construction Contractor: [facility] External Provider IM CT PROCEDURES Final Result * (ABNORMAL) Lipid Panel, Standard (06/05/2022 2:49 PM EDT) Cholesterol, Total 188 <200 mg/dL [facility] HDL Cholesterol 61 > OR = 40 mg/dL [facility] Triglycerides 134 <150 mg/dL [facility] LDL Cholesterol 104(H) mg/dL (calc) [facility] Comment: Reference range: <100 Desirable range <100 mg/dL for primary prevention; ?? <70 mg/dL for patients with CHD or diabetic patients with > or = 2 CHD risk factors. LDL-C is now calculated using the Aftab calculation, which is a validated novel method providing better accuracy than the Friedewald equation in the estimation of LDL-C. Umang SS et al. GINA. 2013;310(19): 1569-7122 (http://education.LIFT12.doxIQ/faq/FHB466) Chol/HDLC Ratio 3.1 <5.0 (calc) [facility] Non-HDL Cholesterol 127 <130 mg/dL (calc) [facility] Comment: For patients with diabetes plus 1 major ASCVD risk factor, treating to a non-HDL-C goal of <100 mg/dL (LDL-C of <70 mg/dL) is considered a therapeutic option. Blood Venous blood specimen / Unknown 06/05/2022 2:49 PM EDT 06/05/2022 2:49 PM EDT Narrative [facility] - 06/09/2022 12:52 PM EDT FASTING:NO FASTING: NO [facility] PROFESSIONAL POKER PLAYER LAB BLOOD ORDERABLES Final Re sult [facility] [address], [place] [address] [facility] [address] [place] [address] from Last 3 Months or Most Recently Relevant to Health Maintenance Insurance [facility] C3 [facility] FULL Care Teams Senior Data Integration Developer Relationship Specialty Start Date End Date Una Sawyer FNP [address] [place] [address] PCP - General Family Medicine 08/21/21
--- OUTSIDE RECORDS SUMMARY | 2024-04-27 07:33 | XMS_ITS | Encounter Summary ---
Author Organization [employer] Address [address] [facility] 7t [place] [address] Care Team Providers Care Rehabilitation Technician Name Role Phone [facility] Primary Care Provider [phone] Encounter Details Date Type Department Care Team ([facility] st Contact Info) Description 04/22/2024 Telephone [facility] [address] [place], [place] [phone] [facility] [address] [place] [address] Social History Tobacco Use Types Packs/Day Years [...] encounter Miscellaneous Notes * Telephone Encounter - Christy Rene RN - 04/22/2024 1:41 PM EST ----- Message from Sari Lyn sent at 04/22/2024 1:08 PM EST ----- How it patient feeling, ultrasound was normal ----- Message ----- From: Geno Ris Results In Sent: 03/31/2024 7:49 AM EST To: Sari Lyn NP documented in this encounter Plan of Treatment Upcoming Encounters Date Type Department Care Team (Late st Contact Info) Description 04/29/2024 11:15 AM EST Office Visit [address] [address] [address] [address] 05/30/2024 10:00 AM EDT Office Visit [address] [address] documented as of this encounter Visit Diagnoses Not on filedocumented in this encounter Additional Health Concerns Assessment Noted Time PHQ-9 Depression Total Score: 6 03/23/19 25 9:29 AM EST documented as of this encounter Care Teams Rehabilitation Technician Relationship Specialty Start Date End Date [facility]lius[facility]na FNP [address] [place] [address] PCP - General Family Medicine 08/21/21 documented as of this encounter
--- OUTSIDE RECORDS SUMMARY | 2024-04-27 07:33 | XMS_ITS | Encounter Summary ---
Author Organization [employer] Address [address] [place] [address] 7 [place] [address] Care Team Providers Care Remote Sensing Surveyor Name Role Phone [facility] Primary Care Provider [phone] Reason for Visit * Reason Onset Date Comments Nurse Triage 03/21/2024 Encounter Details Date Type Department Care Team ([facility] st Contact Info) Description 03/21/2024 Telephone [facility] [address] [place], [place] [phone] [facility] [address] [place] [address] Nurse Triage Social History Tobacco Use Types [...] Description 04/29/2024 11:15 AM EST Office Visit [facility] [address] [place] [address] Una Sawyer [address] [address] 05/30/2024 10:00 AM EDT Office Visit [address] [address] Una Sawyer FNP [address] [place] [address] documented as of this encounter Visit Diagnoses Not on filedocumented in this encounter Additional Health Concerns Assessment Noted Time PHQ-9 Depression Total Score: 0 05/29/19 24 9:41 AM EDT documented as of this encounter Care Teams Remote Sensing Surveyor Relationship Specialty Start Date End Date Una Sawyer FNP [address] [place] [address] PCP - General Family Medicine 08/21/21 documented as of this encounter
--- OUTSIDE RECORDS SUMMARY | 2024-04-27 07:33 | XMS_ITS | Encounter Summary ---
Author Organization [employer] Address [address] [place] [address] 7 [place] [address] Care Team Providers Care Bus Repair Supervisor Name Role Phone [facility] Primary Care Provider [phone] Reason for Referral * Consultation (Routine) - Closed Specialty Diagnoses / Procedures Referred By Contrenan t Referred To Contact Behavioral Health Diagnoses Anxiety Sari Lyn NP [address] [place] [address] Phone: tel: fax: Referral ID Status Reason Start Date Expiration Date V isits Requested Visits Authorized [id number] Closed Specialty Services Required 04/22/2024 04/22/2025 1 1 Encounter Details Date Type Department Care Team (Late st Contact Info) Description 04/22/2024 Orders Only [facility] [address] [place], [place] [phone] Sari Lyn NP [address] [place] [address] Anxiety (Primary Dx) Social History Tobacco Use Types [...] Description 04/29/2024 11:15 AM EST Office Visit [address] [address] 05/30/2024 10:00 AM EDT Office Visit [facility] [address] [place] [address] [address] Scheduled Referrals Name Type Priority Associated Diagnoses Order Schedule Referral to Behavioral Health Outpatient Referral Routine Anxiety Expected: 04/22/2024 (Approximate), Expires: 04/22/2025 documented as of this encounter Visit Diagnoses Diagnosis Anxiety- Primary Anxiety state, unspecified documented in this encounter Additional Health Concerns Assessment Noted Time PHQ-9 Depression Total Score: 6 03/23/19 25 9:29 AM EST documented as of this encounter Care Teams Bus Repair Supervisor Relationship Specialty Start Date End Date Una Sawyer FNP [address] [place] [address] PCP - General Family Medicine 08/21/21 documented as of this encounter
--- OUTSIDE RECORDS SUMMARY | 2024-04-27 07:33 | XMS_ITS | Encounter Summary ---
Author Organization [employer] Address [address] [facility] 7 [place] [address] Care Team Providers Care Wood Turning Lathe Operator Name Role Phone [facility] Primary Care Provider [phone] Reason for Visit * Reason Onset Date Comments Referral 04/05/2024 Encounter Details Date Type Department Care Team ([facility] st Contact Info) Description 04/05/2024 Telephone [facility] [address] [place], [place] [phone] [facility] [address] [place], [place] [phone] Referral Social History Tobacco Use Types Packs/Day [...] he is already on his way to [facility] to go to the pharmacy so he will go to walk-in as needed at this time. Will forward to PCP as FYI of patient disposition. * Telephone Encounter - Caroline Conroy - 04/05/2024 1:41 PM EST Tc from pt requesting change facility from Urologist referral. Pt states theres no available appt until June. If any questions contact pt. [phone] documented in this encounter Plan of Treatment Upcoming Encounters Date Type Department Care Team ([facility] st Contact Info) Description 04/29/2024 11:15 AM EST Office Visit [facility] [address] [place] [address] [address] [address] 05/30/2024 10:00 AM EDT Office Visit [facility] [address] [place] [address] [facility] connelly [address] [address] documented as of this encounter Visit Diagnoses Not on filedocumented in this encounter Additional Health Concerns Assessment Noted Time PHQ-9 Depression Total Score: 6 03/23/19 25 9:29 AM EST documented as of this encounter Care Teams Wood Turning Lathe Operator Relationship Specialty Start Date End Date Una Sawyer FNP [address] [place] [address] PCP - General Family Medicine 08/21/21 documented as of this encounter
--- OUTSIDE RECORDS SUMMARY | 2024-04-27 07:33 | XMS_ITS | Encounter Summary ---
Author Organization [employer] Address [address] [place] [address] 7 [place] [address] Care Team Providers Care Slot Attendant Name Role Phone [facility] Primary Care Provider [phone] Reason for Visit * Reason Onset Date Comments Results 02/26/2023 Encounter Details Date Type Department Care Team ([facility] Contact Info) Description 02/26/2023 Telephone [facility] [address] [place], [place] [phone] [facility] [address] [place], [place] [phone] Results Social History Tobacco Use Types Packs/Day [...] Description 04/29/2024 11:15 AM EST Office Visit [facility] [address] [place] [address] [facility] [address] [place] [address] 05/30/2024 10:00 AM EDT Office Visit [address] [address] [address] [address] documented as of this encounter Visit Diagnoses Not on filedocumented in this encounter Additional Health Concerns Assessment Noted Time PHQ-9 Depression Total Score: 5 03/28/19 23 10:55 AM EST documented as of this encounter Care Teams Slot Attendant Relationship Specialty Start Date End Date Una Sawyer FNP [address] [place] [address] PCP - General Family Medicine 08/21/21 documented as of this encounter
--- NOTE | 2024-04-27 07:35 | A.OFFVIS_ITS ---
Vital Signs 04/27/24 07:41 Height 6 ft 2 in Weight 222 lb BMI 28.5 BP 145/71 H Blood Pressure Location Rt brachial Position Sitting Pulse 89 Intake Visit Reasons: inguinal hernia Intake Note: Patient scheduled today's appointment concern with Inguinal hernia. Patient c/o: pain on left testicle. 7/10 pain scale. Denies nausea. Mercerizing Range Controller Required: No Accompanied by: Self / Same As Patient Allergies No Known Allergies Allergy (Verified 04/27/24 07:40) HPI Comments Details: Patient presents because of scrotal discomfort. He has been seen by urologist outside of the system were an ultrasound done which was reviewed. Patient was states that the urologist tells him he has bilateral hernias. When he was originally seen by me a few months ago, he had a CT scan as well as exam by me which demonstrated no inguinal hernias and under the umbilical hernia. [facility] Medical History Elbow pain, right Testicular pain, left Patient denies significant medical history Erectile dysfunction Anxiety Depression Surgical History Hx of tooth extraction Social History Patient Tobacco Use Status: Former Tobacco user Substance Use Type: Marijuana Physical Exam Vital Signs: Last Vital Signs Pulse 89 04/27/24 07:41 BP 145/71 H 04/27/24 07:41 BMI result Body Mass Index 28.5 GI Other: Patient was examined both supine and standing with Valsalva. Abdomen is soft, benign. Umbilical hernia wound well healed. Again no obvious inguinal hernias demonstrated. Genitalia grossly within normal limits. Assessment & Plan Assessment & Plan (1) Testicular pain: Code(s): N50.819 - Testicular pain, unspecified Category: Surgical Plan Patient was scrotal symptoms are unrelated to any inguinal pathology. CT scan was reviewed from last February which again demonstrates no inguinal hernia and exam demonstrates no inguinal hernia. Patient was told that if he had significant inguinal hernias that were palpable and entering the scrotum, they may result in his symptomatology but there are no hernia defects demonstrated bilaterally. At the present time, no surgical intervention plan. Patient was should follow-up with his urologist. Should his urologist wished to discuss this with me, patient was been encouraged to give him my card/number and I will gladly discussed the case with him. Patient will otherwise follow-up p.r.n.. Coding Level of Care Code Est Pt Level 4 (29155) Global (36222) Diagnoses Testicular pain N50.819
[2024-04-27 07:41] VITALS: BP 145/71; PULSE 89; BMI 28.5
== END 2024-04-27 07:55 | disposition home or self-care (01) ==
PROVIDERS: PCP Registered Nurse; Visit Provider Surgery
DX: N50.819 Testicular pain, unspecified (principal)
CPT/HCPCS: 99213

== ENCOUNTER → 2024-04-27 07:31 | Outpatient (BNVA) | payer MEDICAID, SELFPAY | PROVIDERS: PCP Registered Nurse; Visit Provider Surgery | DX: N50.819 Testicular pain, unspecified (principal) | CPT/HCPCS: 99212 ==

== ENCOUNTER 2024-05-03 09:17 | Outpatient (AMB) | payer MEDICAID, SELFPAY ==
--- NOTE | 2024-05-03 09:38 | MHC.OFFVIS ---
Intake Visit Reasons: testicular swelling/bilateral vericoceles Intake Note: Patient presents today for testicular swelling and bilateral vericoceles Urology Medications: tadalafil Blood Thinner: none Publication Distributor Required: No Contract Assistant: Contract Assistant offered & declined Accompanied by: Self / Same As Patient Allergies No Known Allergies Allergy (Verified 05/03/24 13:28) Medication List - Last Reconciled 05/03/24 by SAMANTHA Duarte- fluoxetine 10 mg PO QAM hydroxyzine pamoate 25 mg PO lisinopril 10 mg PO DAILY meloxicam 15 mg PO DAILY 30 days HPI Comments Details: Jerry is a pleasant 38 year-old male patient of Dr. Sawyer. He presents to the office today for ongoing left-sided testicular swelling and discomfort he has been experiencing. Of note, patient was last seen approximately 18 months ago for erectile dysfunction however presents today for other urological issues and concerns he has been experiencing. He discusses having had a recent umbilical hernia repair with Dr. Manriquez earlier this year and since has been experiencing ongoing left-sided testicular swelling and pain. He reports having followed up with [facility] Dr. Agosto who recommended following up with General surgery as patient was noted to have inguinal hernias on exam. Upon referral back to general surgery patient was not noted to have any inguinal hernias and recommendations were made for follow-up with Urology. He reports having attempted to follow-up with [facility] however was unable to make an appointment as patient was referred to general surgery per urology recommendation. In assessment of the patient today no palpable inguinal hernias were noted. However patient with significant left-sided inguinal pain on exam small left sided epididymal head cysts noted otherwise no open areas, drainage, and or masses palpated. He reports taking meloxicam as prescribed with somewhat relief. Patient reports during exam with previous urologist he passed out and was sent to the emergency room as he had also been experiencing chest pain. We discussed obtaining CT pelvis for further assessment evaluation. Patient otherwise denies any urinary issues. When asked he denies urinary urgency, urinary frequency, incontinence, nocturia, hematuria, dysuria, foul smelling urine, changes to urinary stream, flank pain, fever, and or chills. He is happy with his current voiding parameters. Previous urology records and ER records were reviewed today. Most recent scrotal ultrasound 04/02 normal left testicle with no evidence of torsion or other acute abnormality. A symmetrical size in the right testicle when compared to the left. 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 No evidence of acute torsion or other acute abnormalities noted. In office urinalysis results reviewed with the patient today. We discussed further treatment options of left-sided testicular discomfort he has been experiencing. We also discussed importance of stretching of groin. He otherwise offers no other issues or concerns at time. [facility] Medical History Elbow pain, right Testicular pain, left Patient denies significant medical history Erectile dysfunction Anxiety Depression Surgical History Hx of tooth extraction Social History Patient Tobacco Use Status: Former Tobacco user Substance Use Type: Marijuana Review of Systems Const All systems reviewed & are unremarkable except as noted in HPI and below Physical Exam Const General: cooperative, healthy appearing, comfortable, no acute distress, well developed, alert and awake Orientation/consciousness: patient oriented x3 Limitations: no limitations HEENT Head: Yes normal to inspection, Yes normocephalic and Yes atraumatic Ears: hearing grossly normal bilaterally Eyes General: appearance normal, both eyes and all related structures Neck Neck: Yes normal visual inspection and Yes trachea midline Chest Chest palpation & inspection: normal inspection of the chest Resp Effort & Inspection: normal respiratory effort and able to speak in complete sentences Cardio Rate: regular rate GI Inspection: Yes normal to inspection General: Yes no CVA tenderness Penis: normal penis and circumcised Meatus: meatus normal Scrotum: other (see HPI) Testes: other (see HPI) Back/Spine/Pelvis Back: no CVA tenderness Skin General skin exam: no rashes or lesions noted Neuro General: patient oriented x3 Extrem General: Yes normal to inspection Psych Appearance: grossly normal and well kempt Mental Status: mental status grossly normal Speech and movement: Normal speech and movement present and Clear speech present Affect: normal affect Attitude: cooperative Thought process: Normal thought process present Thought content: Normal thought content present Insight: Fair insight present (Psych) Judgement: Fair judgement present (Psych) Results AMB Urinalysis, Automated UA Leukoctes 0 Selena/uL Last Edit by Lorelei Mc on 05/03/24 09:59 UA Nitrite Last Edit by Lorelei Mc on 05/03/24 09:59 UA Urobilinogen 0.2 mg/dL Last Edit by Lorelei Mc on 05/03/24 09:59 UA Protein 0 mg/dL Last Edit by Lorelei Mc on 05/03/24 09:59 UA pH 7.5 Last Edit by Lorelei Mc on 05/03/24 09:59 UA Blood 0 Sander/uL Last Edit by Lorelei Mc on 05/03/24 09:59 UA Specific [place] 1.010 Last Edit by Lorelei Mc on 05/03/24 09:59 UA Ketone Last Edit by Lorelei Mc on 05/03/24 09:59 UA Bilirubin 0 mg/dL Last Edit by Lorelei Mc on 05/03/24 09:59 UA Glucose 0 mg/dL Last Edit by Lorelei Mc on 05/03/24 09:59 Results Reviewed Results Reviewed: Laboratory Last Values Urine pH (Auto) 7.5 05/03/24 09:57 Specific [place] (Auto) 1.010 05/03/24 09:57 Urine Protein (Auto) 0 mg/dL 05/03/24 09:57 Glucose (UA)(Auto) 0 mg/dL 05/03/24 09:57 Urine Blood (Auto) 0 Sander/uL 05/03/24 09:57 Urine Bilirubin (Auto) 0 mg/dL 05/03/24 09:57 Urine Urobilinogen (Auto) 0.2 mg/dL 05/03/24 09:57 Leukocyte Esterase (Auto) 0 Selena/uL 05/03/24 09:57 Assessment & Plan Assessment & Plan (1) Deep inguinal pain, left: Code(s): R10.32 - Left lower quadrant pain Category: Medical (2) Testicular pain: Code(s): N50.819 - Testicular pain, unspecified Category: Surgical Plan In office urinalysis results reviewed the patient today; as noted above. We discussed at length potential causes of left scrotal/testicular discomfort patient was experiencing as well as further treatment options and risks and benefits of these treatment options. Reassurance provided. Will obtain CT pelvis as discussed and prescribed. Patient currently denies any bothersome urinary issues. He reports to be happy with current voiding parameters. Follow-up in 1-2 months with imaging to be completed prior; or sooner with any issues, concerns, and or questions. Orders: Orders AMB Urinalysis Automated Today Z13.9 - Encounter for screening, unspecified CT pelvis wo IV con Today K40.90 - Unilateral inguinal hernia, without obstruction or gangrene, not specified as recurrent Patient Instructions: The patient had an opportunity to ask questions regarding the treatment plan. All questions were answered. Physical exam, labs, and imaging were discussed and reviewed in detail. As well as risks, benefits, and discussion of treatment choices. No major barriers to understanding were identified. The patient expressed understanding and agreement with the above treatment plan. The patient was made aware they should contact our office by phone for worsening of their current condition, the appearance of new symptoms, or with any questions or concerns. Compliance is encouraged with any medications and follow up testing that is ordered. It is a privilege to be allowed the opportunity to participate in? your urological care.? Again, if you have any questions or concerns If you have any questions or concerns please do not hesitate to contact me. The office is [phone]. This note is constructed using voice recognition software. While every effort has been made to ensure accuracy semiconductor packages tester errors may have been included. Yours sincerely, DEE Duarte Coding Level of Care Code Est Pt Level 4 (87478) Diagnoses Deep inguinal pain, left R10.32 Testicular pain N50.819 Time Spent (min) 35
--- OUTSIDE RECORDS SUMMARY | 2024-05-03 10:09 | XMS_ITS | Encounter Summary ---
Author Organization [employer] Address [address] [place] [address] Care Team Providers Care Farmworkers Name Role Phone [facility] Primary Care Provider [phone] Encounter Details Date Type Department Care Team ([facility] st Contact Info) Description 04/22/2024 Telephone [facility] [address] [place], [place] [phone] [facility] [address] [place] [address] Social History Tobacco Use Types Packs/Day Years [...] Care Team (Late st Contact Info) Description 05/30/2024 10:00 AM EDT Office Visit [facility] [address] [place] [address] Una Sawyer FNP [address] [place] [address] documented as of this encounter Visit Diagnoses Not on filedocumented in this encounter Additional Health Concerns Assessment Noted Time PHQ-9 Depression Total Score: 6 03/23/19 25 9:29 AM EST documented as of this encounter Care Teams Farmworkers Relationship Specialty Start Date End Date Una Sawyer FNP [address] [place] [address] PCP - General Family Medicine 08/21/21 documented as of this encounter
--- OUTSIDE RECORDS SUMMARY | 2024-05-03 10:09 | XMS_ITS | Encounter Summary ---
Author Organization [employer] Address [address] [place] [address] 7 [place] [address] Care Team Providers Care Wire Rope Fabrication Supervisor Name Role Phone [facility] Primary Care Provider [phone] Reason for Referral * Consultation (Routine) - Closed Specialty Diagnoses / Procedures Referred By Contrenan t Referred To Contact Behavioral Health Diagnoses Anxiety Sari Lyn NP [address] [place] [address] Phone: tel: fax: Referral ID Status Reason Start Date Expiration Date V isits Requested Visits Authorized [id number] Closed Specialty Services Required 04/22/2024 04/22/2025 1 1 Encounter Details Date Type Department Care Team (Late st Contact Info) Description 04/22/2024 Orders Only [facility] [address] [place], [place] [phone] Sari Lyn NP [address] [place] [address] Anxiety (Primary Dx) Social History Tobacco Use [...] Description 05/30/2024 10:00 AM EDT Office Visit [facility] [address] [place] [address] [facility] [address] [place] [address] Scheduled Referrals Name Type Priority Associated Diagnoses Order Schedule Referral to Behavioral Health Outpatient Referral Routine Anxiety Expected: 04/22/2024 (Approximate), Expires: 04/22/2025 documented as of this encounter Visit Diagnoses Diagnosis Anxiety- Primary Anxiety state, unspecified documented in this encounter Additional Health Concerns Assessment Noted Time PHQ-9 Depression Total Score: 6 03/23/19 25 9:29 AM EST documented as of this encounter Care Teams Wire Rope Fabrication Supervisor Relationship Specialty Start Date End Date [facility] [address] [place] [address] PCP - General Family Medicine 08/21/21 documented as of this encounter
--- OUTSIDE RECORDS SUMMARY | 2024-05-03 10:09 | XMS_ITS | Encounter Summary ---
Author Organization [employer] Address [address] 7t [place] [address] Care Team Providers Care Mud Car Worker Name Role Phone [facility] Primary Care Provider [phone] Encounter Details Date Type Department Care Team (Latest Contact Info) Description 04/29/2024 Travel Social History Tobacco Use Types Packs/Day [...] Date Recorded Patient Health Questionnaire-2 Score 0 04/29/2024 Internet Access Answer Date Recorded Internet Access Q1 Yes 04/29/2024 Internet Access Q2 Not on file 04/29/2024 Sex and Gender Information Value Date Recorded Sex Assigned at Male 01/06/2022 10:40 AM EDT Legal Sex Male 10:40 AM EDT Gender Identity Male 01/06/2022 10:40 AM EDT Sexual Orientation Straight 01/06/2022 10 :40 AM EDT documented as of this encounter Plan of Treatment Upcoming Encounters Date Type Department Care Team (Late st Contact Info) Description 05/30/2024 10:00 AM EDT Office Visit [facility]INE [address] [place] [address] Una Sawyer FNP [address] [place] [address] documented as of this encounter Visit Diagnoses Not on filedocumented in this encounter Additional Health Concerns Assessment Noted Time PHQ-9 Depression Total Score: 6 03/23/19 25 9:29 AM EST documented as of this encounter Care Teams Mud Car Worker Relationship Specialty Start Date End Date Una Sawyer FNP [address] [place] [address] PCP - General Family Medicine 08/21/21 documented as of this encounter
--- OUTSIDE RECORDS SUMMARY | 2024-05-03 10:09 | XMS_ITS | Encounter Summary ---
Author Organization [employer] Address [address] [place] [address] Care Team Providers Care Engine Test Cell Technician Name Role Phone [facility] Primary Care Provider [phone] Encounter Details Date Type Department Care Team ([facility] st Contact Info) Description 04/22/[address] [facility] MEDICINE [address] [place], [place] [phone] Christy Rene RN Social History Tobacco Use [...] t he electric, gas, oil or water [employer] threatened to shut off services in your [...] Description 05/30/2024 10:00 AM EDT Office Visit [facility] [address] [place] [address] Una Sawyer FNP [address] [place] [address] documented as of this encounter Visit Diagnoses Not on filedocumented in this encounter Additional Health Concerns Assessment Noted Time PHQ-9 Depression Total Score: 6 03/23/19 25 9:29 AM EST documented as of this encounter Care Teams Engine Test Cell Technician Relationship Specialty Start Date End Date Una Sawyer FNP [address] [place] [address] PCP - General Family Medicine 08/21/21 documented as of this encounter
--- OUTSIDE RECORDS SUMMARY | 2024-05-03 10:09 | XMS_ITS | Encounter Summary ---
Author Organization [employer] Address [address] [place] [address] 7 [place] [address] Care Team Providers Care Rotor Winder Name Role Phone [place] [facility] Primary Care Provider [phone] Reason for Visit * Reason Comments Follow-up Encounter Details Date Type Department Care Team ([facility] st Contact Info) Description 04/29/2024 11:15 AM EST Office Visit [facility] [address] [place], [place] [phone] [facility] [address] [place], [place] [phone] Pain in scrotum (Primary Dx); Hypertension, unspecified type Social History Tobacco Use Types Packs/Day [...] Sign Reading Time Taken Comments Blood Pressure 130/80 04/29/2024 11:37 AM EST Pulse 84 04/29/2024 11:09 AM EST Temperature 36.9 ??C (98.5 ??F) 04/29/2024 11:[address] Respiratory Rate 16 04/29/2024 11:09 AM EST Oxygen Saturation - - Inhaled Oxygen Concentration - - Weight 100 kg (220 lb 6 oz) 04/29/2024 11:09 AM EST Height 188 cm (6' 2 ) 04/29/2024 11:09 AM EST Body Mass Index 28.29 04/29/2024 11:09 AM EST documented in this encounter Progress Notes * [facility], HEEL SEAT FITTER MACHINE - 04/29/2024 11:15 AM EST SUBJECTIVE: Jerry Stuart is a 38 y.o. year old male who presents for hypertension and persistent scrotal pain follow-up . HPI -Persistent scrotal pain worse on left side -Scrotal ultrasound 03/30/2024 with small bilateral varicoceles and small left epididymal cyst. Otherwise unremarkable - STI screening, mycoplasma/Ureaplasma, negative 03/2024 - UA unremarkable 02/2024 - Referred to urology and has upcoming appointment with Dr. Chapa at [facility] next month - Today patient reports that he was able to be seen at [facility] urology and was told that he had bilateral inguinal hernias, worse on the left, which could be contributing to his symptoms and he was referred back to general surgery Dr. Manriquez at [facility]. Per visit note Dr. Manriquez did not palpate any hernia and did not feel there was any surgical intervention Interim Updates: - HTN-started treatment with lisinopril 03/25/2024. Tolerating well. Home BP well-controlled Anxiety-patient focusing on lifestyle interventions. Has stopped marijuana and alcohol use, focusing on diet and exercise. Social History Social History Narrative Children: Has children with previous relationsihp. 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 Would like to back to community based work Tobacco Use: Former 1/2 PPPD x 5 years. 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 years; finds helps with anxiety Other drug use: None [employer] Sexually Active: yes-2 current partners Partners are: AMAB, AFAB Patient Active Problem List Diagnosis Depressive disorder Erectile dysfunction Axillary hyperhidrosis Chronic elbow pain, right Closed fracture of right elbow Right elbow pain JORDAN (generalized anxiety disorder) Discomfort Dysuria Elevated blood pressure reading Periumbilical abdominal pain Syncope Abdominal pain Umbilical hernia Vasovagal syncope Urethritis History of marijuana use Swelling of left testicle Hypertension Anxiety Past Surgical History: Procedure Laterality Date CTA ABDOMEN PELVIS W AND WO CONTRAST 02/26/2024 CTA ABDOMEN PELVIS W AND WO CONTRAST CTA CHEST W AND WO CONTRAST 02/26/2024 CTA CHEST W AND WO CONTRAST No family history on file. Review of Systems Constitutional: Negative for activity change, diaphoresis, fatigue, fever and unexpected weight change. Eyes: Negative for visual disturbance. Respiratory: Negative for apnea, cough, chest tightness and shortness of breath. Cardiovascular: Negative for chest pain, palpitations and leg swelling. Gastrointestinal: Negative for abdominal pain and nausea. Genitourinary: See HPI Neurological: Negative for dizziness, syncope, light-headedness and headaches. OBJECTIVE: Vitals: 04/29/24 1109 04/29/24 1137 BP: (!) 150/78 130/80 BP Location: Left arm Patient Position: Sitting BP Cuff Size: Adult Pulse: 84 Resp: 16 Temp: 98.5 ??F (36.9 ??C) TempSrc: Oral Weight: 220 lb 6 oz (100 kg) Height: 6' 2 (1.88 m) Physical Exam Constitutional: Appearance: Normal appearance. HENT: Head: Normocephalic. Right Ear: External ear normal. Left Ear: External ear normal. Nose: Nose normal. Eyes: Conjunctiva/sclera: Conjunctivae normal. Cardiovascular: Rate and Rhythm: Normal rate and regular rhythm. Heart sounds: Normal heart sounds. Pulmonary: Effort: Pulmonary effort is normal. Breath sounds: Normal breath sounds. Abdominal: Hernia: There is no hernia in the left inguinal area or right inguinal area. Genitourinary: Penis: Normal. Testes: Normal. Epididymis: Right: Normal. Left: Normal. Musculoskeletal: Right lower leg: No edema. Left lower leg: No edema. Skin: General: Skin is warm and dry. Capillary Refill: Capillary refill takes less than 2 seconds. Neurological: General: No focal deficit present. Mental Status: He is alert and oriented to person, place, and time. Psychiatric: Mood and Affect: Mood normal. Behavior: Behavior normal. ASSESSMENT/PLAN Scrotal Pain -Etiology unclear. Physical exam unremarkable. No inguinal hernia on palpation - Patient will follow up as scheduled with Dr. Wilkes for second opinion - Okay to continue NSAID use if beneficial for pain management - Will consult with urology if more advanced imaging would be beneficial prior to appointment - ED precautions advised HTN -Blood pressure well-controlled - Continue lisinopril 10 mg daily ED precautions to include chest pain, shortness of breath, severe headache, sudden vision changes or BP >=180/>=120 mmHg. Contact HC if three or more BP readings >140/90. Diagnosis Plan 1. Pain in scrotum 2. Hypertension, unspecified type Follow Up: Routine PE Current Outpatient Medications on File Prior to Visit Medication Sig Dispense Refill Blood Pressure Monitoring (Adult Blood Pressure Cuff Lg) kit 1 kit if needed each day (as needed). 1 kit 0 doxycycline (Vibra-Tabs) 100 MG tablet Take 2 tabs once within 72 hours of intercourse. Take with afull glass of water and do not lie down for at least 30 minutes after. 30 tablet 0 FLUoxetine (PROzac) 10 MG capsule Take 1 capsule (10 mg) by mouth in the morning. 30 capsule 0 hydrOXYzine pamoate (Vistaril) 25 MG capsule Take 1 capsule (25 mg) by mouth if needed in the morning and at bedtime for anxiety. 60 capsule 0 ketoconazole (Nizoral) 2 % shampoo Apply topically [...] PRN prior to intercourse 90 tablet 3 [DISCONTINUED] escitalopram (Lexapro) 5 MG tablet Take 1 tablet (5 mg) by mouth Once per day. 30 tablet 2 No current facility-administered medications on file prior to visit. documented in this encounter Plan of Treatment Upcoming Encounters Date Type Department Care Team (Late st Contact Info) Description 05/30/2024 10:00 AM EDT Office Visit [facility] [address] [place] [address] Una Sawyer FNP [address] [place] [address] documented as of this encounter Visit Diagnoses Diagnosis Pain in scrotum- Primary Unspecified disorder of male genital organs Hypertension, unspecified type documented in this encounter Additional Health Concerns Assessment Noted Time PHQ-9 Depression Total Score: 6 03/23/19 25 9:29 AM EST documented as of this encounter Care Teams Rotor Winder Relationship Specialty Start Date End Date Una Sawyer FNP [address] [place] [address] PCP - General Family Medicine 08/21/21 documented as of this encounter
--- OUTSIDE RECORDS SUMMARY | 2024-05-03 10:09 | XMS_ITS | Encounter Summary ---
Author Organization [employer] Address [address] [place] [address] [address] [place] [address] Care Team Providers Care Marble Mechanic Helper Name Role Phone [facility] Primary Care Provider Reason for Visit * Reason Onset Date Comments chart prep 04/28/2024 Encounter Details Date Type Department Care Team ([facility] Contact Info) Description 04/28/2024 Telephone [facility] [address] [place], [place] [phone] [facility] [address] [place] [address] chart prep Social History Tobacco Use Types Packs/Day Years [...] encounter Miscellaneous Notes * Telephone Encounter - Osiris Mantilla [place] - 04/28/2024 1:40 PM EST Chart Prep Labs: done Images: done Vaccines due: yes Referrals: pending appt Overdue care gaps: SDOH, PHQ-9, Oral Health documented in this encounter Plan of Treatment Upcoming Encounters Date Type Department Care Team (Late st Contact Info) Description 05/30/2024 10:00 AM EDT Office Visit [facility] MED[facility] [address] [place] [address] Una Sawyer FNP [address] [place] [address] documented as of this encounter Visit Diagnoses Not on filedocumented in this encounter Additional Health Concerns Assessment Noted Time PHQ-9 Depression Total Score: 6 03/23/19 25 9:29 AM EST documented as of this encounter Care Teams Marble Mechanic Helper Relationship Specialty Start Date End Date Una Sawyer FNP [address] [place] [address] PCP - General Family Medicine 08/21/21 documented as of this encounter
--- OUTSIDE RECORDS SUMMARY | 2024-05-03 10:09 | XMS_ITS | Encounter Summary ---
Author Organization [employer] Address [address] [facility] [address] [place] [address] Care Team Providers Care Electric Meter Installer Helper Name Role Phone [facility] Primary Care Provider Encounter Details Date Type Department Care Team ([facility] st Contact Info) Description 03/30/2024 Orders Only [facility] [address] [place], [place] [phone] Felipa Bryant MD [address] [place], [place] [phone] Urethritis (Primary Dx) Social History Tobacco Use [...] 10:00 AM EDT Office Visit [facility] [address] [place] [address] [facility] [address] [place], [place] [phone] Scheduled Orders Name Type Priority Associated Diagnoses Orde r Schedule Mycoplasma/Ureaplas ma??Panel Microbiology Routine Urethritis Expected: 03/30/2024 (Approximate), Expires: 03/30/2025 documented as of this encounter Procedures Procedure Name Priority Date/Time Associated Diagnosis Comments MYCOPLASMA/UREAPLAS MA PANEL Routine 03/30/2024 2:45 PM EST Urethritis documented in this encounter Results * Mycoplasma/Ureaplasma??Panel (03/30/2024 2:45 PM EST) Jonathan(R), Mycoplasma Hominis, Real-Time Pcr Not Detected Not Detected [facility] Comment:THIS TEST WAS PERFOR MED AT:[facility]/[employer] [id number] [place] [address]LBLCDBZSANTOS SANTIAGO MD,PHD Mycoplasma Genitalium, rRNA,TMA Not Detected Not Detected [facility] Comment:THIS TEST WAS PERFOR MED AT:[facility]/[employer] [id number] [place] [address]MANRLUSSANTOS SANTIAGO MD,PHD U. Parvum DNA Not Detected Not Detected [facility] U. Urealyticum DNA Not Detected Not Detected [facility] Comment:This test was develo ped and its analyticalperformance characteristics have been determinedby [employer] [place], [place].It has not been cleared or approved by the FDA. Thisassay has been validated pursuant to the CLIAregulations and is used for clinical purposes.THIS TEST WAS PERFORMED AT:[employer] [id number] [place] [address]XZFMLPUSANTOS SANTIAGO MD,PHD 03/30/2024 2:45 PM EST 03/30/2024 4:05 PM EST [facility] MICROBIOLOGY - GENERAL OR DERABLES Final Result [facility] [address] [place] [phone] documented in this encounter Visit Diagnoses Diagnosis Urethritis- Primary Unspecified urethritis documented in this encounter Additional Health Concerns Assessment Noted Time PHQ-9 Depression Total Score: 6 03/23/19 25 9:29 AM EST documented as of this encounter Care Teams Electric Meter Installer Helper Relationship Specialty Start Date End Date Una Sawyer [employer] [address] [place] [phone] PCP - General Family Medicine 08/21/21 documented as of this encounter
--- OUTSIDE RECORDS SUMMARY | 2024-05-03 10:10 | XMS_ITS | Encounter Summary ---
Author Organization [employer] Address [address] [facility] [address] [place] [address] Care Team Providers Care Ticket Broker Name Role Phone [facility] Primary Care Provider [phone] Reason for Visit * Reason Onset Date Comments Med Refill 06/03/2023 Encounter Details Date Type Department Care Team ([facility] st Contact Info) Description 06/03/2023 Refill [facility] [address] [place], [place] [phone] Mindy Cardona MD [address] [place] [address] Erectile dysfunction, unspecified erectile dysfunction type Social [...] EDT Office Visit [facility] [address] [place] [phone] Una Sawyer FNP [address] [place] [address] documented as of this encounter Visit Diagnoses Diagnosis Erectile dysfunction, unspecified erectile dysfunction type documented in this encounter Additional Health Concerns Assessment Noted Time PHQ-9 Depression Total Score: 0 05/29/19 24 9:41 AM EDT documented as of this encounter Care Teams Ticket Broker Relationship Specialty Start Date End Date Una Sawyer FNP [address] [place] [phone] PCP - General Family Medicine 08/21/21 documented as of this encounter
--- OUTSIDE RECORDS SUMMARY | 2024-05-03 10:10 | XMS_ITS | Clinical Summary ---
Author Organization [employer] Address [address] [facility] [address] [place] [address] Care Team Providers Care Skate Maker Name Role Phone [facility] Primary Care Provider [phone] Allergies No known active allergies Medications * This document contains information received from the source organization and may not represent a complete record from that organization. ketoconazole (Nizoral) 2 % shampooIndication s:Seborrheic dermatitis Apply topically 2 (two) times a week. 120 mL 3 06/01/19 24 Active Salicylic Acid 40 % padsIndications:L eft foot pain,Plantar wart, left foot Apply one pad topically directly to wart on dry skin daily. Do not exceed 90 days. 90 each 07/24/19 24 Active tadalafil (Cialis) 5 MG tabletIndications :Erectile dysfunction, unspecified erectile dysfunction type Take 1 tablet daily by oral route. May take additional 20 mg Tadalafil one daily PRN prior to intercourse 90 tablet 3 08/24/19 24 Active tadalafil (Cialis) 20 MG tabletIndications :Erectile dysfunction, unspecified erectile dysfunction type TAKE 1 TABLET 1 HOUR BEFORE SEXUAL RELATIONS ONCE DAILY NEEDED. 10 tablet 11/27/19 24 Active doxycycline (Vibra-Tabs) 100 MG tabletIndications :Possible exposure to STI Take 2 tabs once within 72 hours of intercourse. Take with a full glass of water and do not lie down for at least 30 minutes after. 30 tablet 03/14/19 25 Active LORazepam 1 MG/0.5ML concentration as needed for Anxiety 03/18/19 25 Active Blood Pressure Monitoring (Adult Blood Pressure Cuff Lg) kit 1 kit if needed each day (as needed). 1 kit 03/25/19 25 Active lisinopril 10 MG tablet Take 1 tablet (10 mg) by mouth Once per day. 30 tablet 2 03/25/19 25 025 Active FLUoxetine (PROzac) 10 MG capsuleIndication s:Depressive disorder Take 1 capsule (10 mg) by mouth in the morning. 30 capsule 04/28/19 25 025 Active hydrOXYzine pamoate (Vistaril) 25 MG capsuleIndication s:JORDAN (generalized anxiety disorder) Take 1 capsule (25 mg) by mouth if needed in the morning and at bedtime for anxiety. 60 capsule 04/28/19 25 025 Active escitalopram (Lexapro) 5 MG tablet Take 1 tablet (5 mg) by mouth Once per day. 30 tablet 2 03/21/19 25 025 Discontin ued(Side effects) Active Problems Problem Noted Date Diagnosed Date [...] - States he was raised in strict sikhism family and has struggled over the years coming to terms with his beliefs about organized yazdanism. he attributes feelings of guilt and low self esteems to his experiences in congregation. Especially difficult because he has realized he identifies as bisexual and has not felt accepted. Encounters * This document contains information received from the source organization and may not represent a complete record from that organization. Date Type Department Care Team Description 04/29/2024 11:15 AM EST Office Visit [facility] [address] [place] [phone] Una Sawyer FNP Pain in scrotum (Primary Dx); Hypertension, unspecified type 04/29/2024 Travel 04/28/2024 Telephone [facility] [address] [place] [address] Una Sawyer FNP chart prep 04/22/2024 Orders Only [facility] [address] [place] [address] Sari Lyn NP Anxiety (Primary Dx) 04/22/[address] [address] Christy Rene, COUTRNEY 04/22/2024 Telephone [facility] [address] [facility] [place] [address] [facility], [facility] 04/05/2024 Telephone [facility] [address] [facility] [place] [address] [facility], [employer] Referral 04/01/2024 Telephone [facility] [address] [place] [address] [facility], [employer]ACT[employer]IOLOG[employer]RI[employer] Results 03/30/2024 Telephone [facility] [address] [place] [address] Latha Harkins, COURTNEY Labs Only 03/30/2024 Orders Only [address] [place] [address] Felipa Bryant MD Urethritis (Primary Dx) 03/29/[address] [address] [facility] Nurse Triage 03/25/2024 10:30 AM EST Office Visit [facility] [place] [address] Sari Lyn NP Swelling of left testicle (Primary Dx); Hypertension, unspecified type; Right elbow pain; JORDAN (generalized anxiety disorder) 03/23/2024 Telephone [facility] [place] [address] [facility], [employer]ACTERIOLOG[employer]RI[employer] Results 03/21/2024 3:30 PM EST Office Visit [facility] [place] [place] [address] Felipa Bryant MD Urethritis (Primary Dx); Dietary counseling; Exercise counseling; Overweight 03/21/2024 Travel 03/21/2024 Telephone [facility] [address] [place] [address] Sarah Chambers MA Chart Prep 03/21/2024 Telephone [facility] [address] [place] [address] [facility]OLOG[facility] [employer] Nurse Triage 03/18/[address] [place] [address] Una Sawyer FNP Nurse Triage 03/17/[address] [address] Una Sawyer FNP ER Follow-up 03/14/2024 2:00 PM EST Office Visit [facility] [address] [address] Soha Sheth ANP Swelling of left testicle (Primary Dx); Possible exposure to STI 03/14/[address] [address] Una Sawyer FNP 03/14/[address] [address] Una Sawyer FNP Nurse Triage 02/29/2024 1:00 PM EST Office Visit [address] [address] Sari Lyn NP Right elbow pain (Primary Dx); Periumbilical abdominal pain; Vasovagal syncope 02/29/[address] [address] Una Sawyer FNP Chart Prep 02/26/2024 10:30 AM EST Office Visit [address] [address] Hina Diaz MD Periumbilical abdominal pain (Primary Dx); Syncope, unspecified syncope type 02/26/2024 Orders Only [facility] External Provider, [facility] 02/26/[address] [address] Latha Harkins, IRRIGATION LABORER expect 02/26/2024 Travel 02/26/[address] [address] Una Sawyer FNP Nurse Triage from Last [...] 16 04/29/2024 11:09 AM EST Oxygen Saturation 98% 03/25/2024 10:45 AM EST Inhaled Oxygen Concentration - - Weight 100 kg (220 lb 6 oz) 04/29/2024 11:09 AM EST Height 188 cm (6' 2 ) 04/29/2024 11:09 AM EST Body Mass Index 28.29 04/29/2024 11:09 AM EST Plan of Treatment Upcoming Encounters Date Type Department Care Team (Late st Contact Info) Description 05/30/2024 10:00 AM EDT Office Visit [facility] [address] [place] [address] [place] [place], BACT[employer]IOLOGIST [employer]RIAL [address] [place], [place] [phone] Health Maintenance Due Date Last Done Comments Family Planning (PISQ) 2000 Hepatitis A Vaccines (1 of 2 - Risk 2-dose series) 2004 Hepatitis B Vaccines (1 of 3 - 19+ 3-dose series) 2004 COVID-19 Vaccine ( - 2023- season) 2023 Influenza Vaccine (#1) 2023 01/02/2020, 2017 Alcohol/Substance Use Screening 05/28/2024 05/29/2023 Depression Screening 04/29/2025 04/29/2024, 03/23/19 SDOH Screening 04/29/2025 04/29/2024 Tobacco Screening 05/01/2025 05/01/2024 Lipid Panel 06/06/2027 06/05/2022, 08/27/2021 DTaP/Tdap/Td Vaccines [...] EST ? [facility] ?[address] ? [place] [address] ? Ultrasound Report ? Signed ? Patient: Jerry Stuart ?MR#: [id number] ?? 1 ? : 1985 ?Acct:[id number] ? Age/Sex: 38 / M ?ADM Date: 03/30/24 ? Loc: HO.HMGCX ? Attending Dr: Sari Lyn NP ? Ordering Physician: Sari Lyn NP ?? Date of Service: 03/30/24 ?? Procedure(s): US scrotum ?? Accession Number(s): [id number] ? cc: Sari Lyn [employer]PERVISOR [employer]; Una Sawyer BACTERIOLOGIST [employer]USTRIAL ? EXAMINATION: US SCROTUM ? HISTORY: worsening [...] is seen. ? OTHER COMMENTS: None. ? US/ scrotum ?? IMPRESSION: ? 1. Heterogeneous echotexture [...] signed by Hudson Mercado MD in OV> ?03/31/2446 ? DD/ 1532 ? TD/TT: 03/30/24 1555 ? Private Secretary: ? Procedure Note Alysa Candelario - 03/31/2024 [facility] [address] [place] [address] [place] [address] Ultrasound Report Signed Patient: Jerry Stuart#: [id number] 1 : 1985Acct:[id number] Age/Sex: 38 / MADM Date: 03/30/24 Loc: HO.HMGCX Attending Dr: Sari Lyn NP Ordering Physician: Sari Lyn NP Date of Service: 03/30/24 Procedure(s): US scrotum Accession Number(s): [id number] cc: Sari Lyn SUPERVISOR [employer] INSTALLATIONS; [facility] EXAMINATION: US SCROTUM HISTORY: worsening testicular [...] 03/31/24 0746 DD/ 1532 TD/TT: 03/30/24 1555 Private Secretary: us Sari Lyn NP IMG US PROCEDURES Final Result * Trichomonas RNA (Urine/Vaginal) (03/30/2024 2:45 PM EST) Trichomas vaginalis RNA, QL, TMA Not Detected Not Detected [facility] Comment:For additional infor carola, please refer tohttp://education.[employer]/faq/Trichomonastma (This link is being providedfor information/educational purposes only).THIS TEST WAS PERFORMED AT:[facility]/[id number] [place] [phone] SANTIAGO MD,PHD Urine (Urine, Random) 03/30/2024 2:45 PM EST 03/30/2024 4:05 PM EST us [facility] LAB BODY FLUIDS AND STOOLS OR DERABLES Final Result [facility] [address] [place] [address] [phone] * Mycoplasma/Ureaplasma??Panel (03/30/2024 2:45 PM EST) Sureswab(R), Mycoplasma Hominis, Real-Time Pcr Not Detected Not Detected [facility] Comment:THIS TEST WAS PERFOR MED AT:[facility] [address] [id number] SANTIAGO MD,PHD Mycoplasma Genitalium, rRNA,TMA Not Detected Not Detected [facility] Comment:THIS TEST WAS PERFOR MED AT:[facility] [address] [id number] SANTIAGO MD,PHD U. Parvum DNA Not Detected Not Detected [facility] U. Urealyticum DNA Not Detected Not Detected [facility] Comment:This test was develo ped and its analyticalperformance characteristics have been determinedby [employer], [place].It has not been cleared or approved by the FDA. Thisassay has been validated pursuant to the CLIAregulations and is used for clinical purposes.THIS TEST WAS PERFORMED AT:[facility] [id number] [place] [id number] SANTIAGO MD,PHD 03/30/2024 2:45 PM EST 03/30/2024 4:05 PM EST [facility] BACTERIOLOGIST INDUSTRIAL LAB MICROBIOLOGY - GENERAL OR DERABLES Final Result [facility] [address] [place] [address] [phone] * RPR (Monitor) with Reflex to??Titer (03/30/2024 9:39 AM EST) RPR (Monitor) w/Refl Titer NON-REACTI VE NON-REACT YEFRI [facility] Comment:THIS TEST WAS PERFOR MED AT:[facility] [place] [id number] A FREGOSO MD Rapid Plasma Reagin Ab Titer TNP [facility] Blood Venous blood specimen / Unknown 03/30/2024 9:39 AM EST 03/30/2024 11:45 AM EST us Felipa Bryant MD LAB BLOOD ORDERABLES Final Res ult [facility] [address] [place] [address] [phone] * (ABNORMAL) Drug Monitoring, Panel 1, Screen, Urine (03/30/2024 8:50 AM EST) Only the most recent of2 resultswithin the time period is included. Opiate Screen Urine Not Detected Not Detect [facility] Comment:Opiate cut-off is 30 0 ng/mL.Positive results are unconfirmed and should not be used fornon-medical purposes. Barbiturates, Urine Not Detected Not Detect [facility] Comment:Barbiturate cut-off is 200 ng/mL.Positive results are unconfirmed and should not be used fornon-medical purposes. Phencyclidine Screen Urine Not Detected Not Detect [facility] Comment:Phencyclidine cut-of f is 25 ng/mL.Positive results are unconfirmed and should not be used fornon-medical purposes. Amphetamine Screen Urine Not Detected Not Detect [facility] Comment:Amphetamine cut-off is 1000 ng/mL.Positive results are unconfirmed and should not be used fornon-medical purposes. Benzodiazepines Screen Urine Not Detected Not Detect [facility] Comment:Benzodiazepine cut-o ff is 200 ng/mL.Positive results are unconfirmed and should not be used fornon-medical purposes. Cocaine Screen Urine Not Detected Not Detect [facility] Comment:Cocaine cut-off is 3 00 ng/mL.Positive results are unconfirmed and should not be used fornon-medical purposes. Cannabinoid Screen Urine POSITIVE(A) Not Detect [facility] Comment:Cannabinoid cut-off is 50 ng/mL.Positive results are unconfirmed and should not be used fornon-medical purposes. Methadone Screen, Urine Not Detected Not Detect ng/mL [facility] Comment:Methadone cut-off is 300 ng/mL.Positive results are unconfirmed and should not be used fornon-medical purposes. FENTANYL URINE Not Detected Not Detect [facility] Comment:Fentanyl cut-off is 1 ng/mL.Positive results are unconfirmed and should not be used fornon-medical purposes. Oxycodone Urine Screen Not Detected Not Detect ng/mL [facility] Comment:Oxycodone cut-off is 100 ng/mL.Positive results are unconfirmed and should not be used fornon-medical purposes. Buprenorphine Screen Not Detected Not Detect ng/mL [facility] Comment:Buprenorphine cut-of f is 5 ng/mL.Positive results are unconfirmed and should not be used fornon-medical purposes. Urine (Urine, Random) 03/30/2024 8:50 AM EST 03/30/2024 11:51 AM EST [facility] URINE ORDERABLES Final Re sult [facility] [address] [place] [phone] * Measles, Mumps, and Rubella (MMR) Antibodies??(IgG) Panel, Immune Status (03/22/2024 9:08 AM EST) Mumps Virus IgG Antibody 36.00 AU/mL [facility] Comment:AU/mL Interpretation ------- <9.00 Not consistent with immunity9.00-10.99 Equivocal>10.99 Consistent with immunityThe presence of mumps IgG antibody suggests immunizationor past or current infection with mumps virus. Rubella IgG Antibody 3.22 Index [facility] Comment:Index Interpretation ----- <0.90 Not consistent with immunity 0.90-0.99 Equivocal > or = 1.00 Consistent with immunityThe presence of rubella IgG antibody suggestsimmunization or past or current infection withrubella virus.THIS TEST WAS PERFORMED AT:[facility] [place] [id number] A FREGOSO MD Rubeola IgG (Measles) 55.00 AU/mL [facility] Comment:AU/mL Interpretation ----- <13.50 Not consistent with weapvngm66.50-16.49 Equivocal>16.49 Consistent with immunityThe presence of measles IgG suggests immunization orpast or current infection with measles virus.For additional information, please refer tohttp://education.[employer]/faq/QQC047(This link is being provided for informational/educational purposes only.) Blood Venous blood specimen / Unknown 03/22/2024 9:08 AM EST 03/22/2024 11:21 AM EST [facility] LAB BLOOD ORDERABLES Final Re sult Performing Organization Address [facility] Co de Phone Number [facility] [address] [place] [address] [phone] * Hepatitis Panel, General (03/22/2024 9:08 AM EST) Hepatitis A IgM Nonreactive Nonreactive [facility] Comment:IgM antibodies to MUNOZ V not detected; does not exclude earlyacute or recovered HAV infection. ~Hepatitis B Surface Antibody REACTIVE Nonreactive [facility] Comment:REACTIVE: > 11.99 mI U/mL Hepatitis B Core Antibody Nonreactive Nonreactive [facility] Hepatitis C Antibody Nonreactive Nonreactive [facility] Comment:Antibodies to HCV no t detected; does not exclude early acuteHCV infection. Hepatitis B Surface Ag Negative Negative [facility] Blood 03/22/2024 9:08 AM EST 03/22/2024 11:21 AM EST [facility] LAB BLOOD ORDERABLES Final Re sult Performing Organization Address City/[facility]/ZIP Co de Phone Number [facility] [address] [place] [phone] * Hepatitis C Antibody with Reflex to HCV, RNA, Quantitative, Real-Time PCR (03/22/2024 9:08 AM EST) Hepatitis C Antibody Nonreactive Nonreactive [facility] Comment:Antibodies to HCV no t detected; does not exclude early acuteHCV infection. Blood Venous blood specimen / Unknown 03/22/2024 9:08 AM EST 03/22/2024 11:21 AM EST us Felipa Bryant MD LAB BLOOD ORDERABLES Final Res ult Performing Organization Address [facility] Number [facility] [address] [place] [phone] * HIV-1/2 Antigen and Antibodies, Fourth Generation, with Reflexes (03/22/2024 9:08 AM EST) HIV AB/AG Nonreactive Nonreactive [facility] Comment:HIV-1 p24 Ag and/or HIV-1/HIV-2 Ab not detected.A test result that is nonreactive does not exclude thepossibility of exposure to or infection with HIV-1 and/orHIV-2. Nonreactive results in this assay for individualswith prior exposure to HIV-1 and/or HIV-2 may be due toantigen and antibody levels that are below the limit ofdetection of this assay.The [employer] HIV Ag/Ab Combo assay result andsupplemental assay results should be interpreted inconjunction with the patient's clinical presentation,history and other laboratory results. If the results areinconsistent with clinical evidence, additional testing issuggested to confirm the result. Blood Venous blood specimen / Unknown 03/22/2024 9:08 AM EST 03/22/2024 11:21 AM EST us Felipa Bryant MD LAB BLOOD ORDERABLES Final Res ult Performing Organization Address [facility] Co de Phone Number [facility] [address] [place] [address] [phone] * Varicella Zoster Antibody, IgG (03/22/2024 9:08 AM EST) [facility] Varicella IgG Antibody 4.45 S/CO [facility] Comment:Signal to Cut-off S/ CO [...] Antibody Immunity Screen, ACIF.THIS TEST WAS PERFORMED AT:[facility] [place] [id number] A FREGOSO MD Blood Venous blood specimen / Unknown 03/22/2024 9:08 AM EST 03/22/2024 11:21 AM EST [facility] LAB BLOOD ORDERABLES Final Re sult [facility] [address] [place] [address] [phone] * Chlamydia/N. Gonorrhoeae RNA, TMA, Urogenitial (03/21/2024 4:05 PM EST) [facility] CT PCR NOT DETECTED Not Detect. [facility] Comment:A not detected test result [...] psychologicalconsequences. NG PCR NOT DETECTED Not Detect. [facility] Comment:A not detected test result [...] PM EST 03/21/2024 5:47 PM EST Narrative [facility] - 03/22/2024 5:49 AM EST Urine us Felipa Bryant MD LAB MICROBIOLOGY - GENERAL ORD ERABLES Final Result Performing Organization Address City/State/[facility] Co de Phone Number [facility] [address] [place] [phone] * XR Elbow 3+ Views Right (03/14/2024 2:03 PM EST) Anatomical Region Laterality Modality Upper Extremities, Elbow Right Radiogr aphic Imaging 03/14/2024 2:03 PM EST Narrative 03/14/2024 3:29 PM EST ?[facility] [facility] ?[address] ?[place] [address] ?XRay Report ? Signed ? Patient: Narciso,Jerry ?MR#: [id number] ?? 1 ? : 1985 ?Acct:[id number] ? Age/Sex: 38 / M ?ADM Date: 03/14/24 ? Loc: HO.HHCX ? Attending Dr: Sari Lyn SUPERVISOR [employer]ST[employer]ATIONS ? Ordering Physician: Sari Lyn SUPER[employer]OR [employer]ST[employer] ?? Date of Service: 03/14/24 ?? Procedure(s): XR elbow RT min 3V ?? Accession Number(s): [id number] ? cc: Sari Lyn SUPERVISOR [employer] INSTALLATIONS ? EXAMINATION: ??XR ELBOW 3 VIEWS RIGHT [...] DD/ 1403 ? TD/TT: 03/14/24 1500 ? Private Secretary: ? Procedure Note [employer], Image - 03/14/[address] [address] XRay Report Signed Patient: Guillermo Stuart#: [id number] 1 : 1985Acct:[id number] Age/Sex: 38 / MADM Date: 03/14/24 Loc: HO.HHCX Attending Dr: Sari Lyn SUPERVISOR [employer]STALLATIONS Ordering Physician: Sari Lyn NP Date of Service: 03/14/24 Procedure(s): XR elbow RT min 3V Accession Number(s): [id number] cc: Sari Lyn SUPERVISOR [employer] INSTALLATIONS EXAMINATION: XR ELBOW 3 VIEWS RIGHT HISTORY: [...] 03/14/24 1526 DD/ 1403 TD/TT: 03/14/24 1500 Private Secretary: us Sari Lyn SUPERVISOR [employer] INSTALLATIONS IMG XR PROCEDURES Final Result * High Sensitivity Troponin I (02/26/2024 2:24 PM EST) Only the most recent of2 resultswithin the time period is included. TROPONIN I HIGH SENSITIVITY <2.7 <3.5 - 35.0 ng/L [facility] Comment:The [place] high sens itivity Troponin-I results should beused in conjunction with other diagnostic information suchas ECG, clinical observations and information, and patientsymptoms to aid in the diagnosis of MS. 02/26/2024 2:24 PM EST 02/26/2024 2:26 PM EST us Generic External Data Provider LAB BLOOD ORDERAB LES Final Result [facility] [address] [place] [address] [phone] * (ABNORMAL) Urinalysis w/reflex microscopic (02/26/2024 12:47 PM EST) Color Urine Yellow [facility] Appearance Urine Cloudy [facility] PH 8.0 5.0 - 9.0 [facility] Glucose Urine UA Negative Negative mg/dL [facility] Urine Blood Negative Negative [facility] Specific [place] - Urine >=1.030(H) 1.005 - 1.025 [facility] Urine Protein Negative Neg-Trace mg/dL [facility] Urine Ketones Negative Negative mg/dL [facility] Nitrite Urine Negative Negative [facility] Leukocyte Esterase Urine Negative Negative [facility] 02/26/2024 12:4 7 PM EST 02/26/2024 12:50 PM EST Narrative [facility] - 02/26/2024 12:54 PM EST [id number], [employer] Generic External Data Provider LAB URINE ORDERAB LES Final Result Performing Organization Address [facility] Co de Phone Number [facility] [address] [place] [phone] * Ethanol (02/26/2024 12:39 PM EST) ETHANOL (MG/DL) IN SER/PLAS <10 mg/dL [facility] Comment:Serum/plasma ethanol results are to be used formedical/treatment purposes only. 02/26/2024 12:3 9 PM EST 02/26/2024 12:42 PM EST us Generic External Data Provider LAB BLOOD ORDERAB LES Final Result Performing Organization Address [facility] de Phone Number [facility] [address] [place] [phone] * (ABNORMAL) CBC auto differential (02/26/2024 12:39 PM EST) White Blood Count 10.8 4.8 - 10.8 X10*3/uL [facility] Red Blood Count 5.05 4.60 - 5.80 X10*6/uL [facility] Hemoglobin 15.2 14.0 - 18.0 g/dl [facility] Hematocrit 43.6 42.0 - 52.0 % [facility] Mean Corpuscular Volume 86.3 80.0 - 98.0 fL [facility] Mean Corpuscular Hemoglobin 30.1 27.0 - 33.0 pg [facility] Mean Corpuscular HGB Conc 34.9 31.0 - 36.0 g/dl [facility] Red Cell Distribution Width 12.3 11.0 - 16.0 % [facility] Platelet Count 225 160 - 400 X10*3/uL [facility] Mean Platelet Volume 9.9 9.4 - 12.4 fL [facility] Neutrophils Percent Auto 83.2(H) 45 - 73 % [facility] Imm Gran Pct Auto 0.3 0.0 - 0.4 % [facility] Lymphocytes Percent Auto 9.7(L) 20 - 40 % [facility] Monocytes Percent Auto 6.0 2 - 11 % [facility] Eosinophils Percent Auto 0.6 0 - 4 % [facility] Basophils Percent Auto 0.2 0 - 2 % [facility] NRBC Pct Auto 0.0 0.0 - 0.2 /100WBC [facility] Neutrophils Absolute Auto 9.0(H) 2.0 - 8.3 x10*3/uL [facility] Imm Gran Abs Auto 0.03 0.00 - 0.03 X10*3/uL [facility] Lymphocytes Absolute Auto 1.1(L) 1.2 - 4.9 X10*3/uL [facility] Monocytes Absolute Auto 0.7 0.1 - 1.2 X10*3/uL [facility] Eosinophils Absolute Auto 0.1 0.0 - 0.4 X10*3/uL [facility] Basophils Absolute Auto 0.0 0.0 - 0.2 X10*3/uL [facility] NRBC Abs Auto 0.000 0.0 - 0.012 X10*3/uL [facility] 02/26/2024 12:3 9 PM EST 02/26/2024 12:42 PM EST us Generic External Data Provider LAB BLOOD ORDERAB LES Final Result Performing Organization Address City/State/[facility] Co de Phone Number [facility] [address] [place] [phone] * Prothrombin Time-INR (02/26/2024 12:39 PM EST) Prothrombin Time 11.4 10.9 - 12.4 SEC [facility] INTERNATIONAL NORM RATIO 1.0 0.9 - 1.1 [facility] Comment:INTERNATIONAL NORMAL IZED RATIO (INR) [...] ORDERAB LES Final Result Performing Organization Address [facility] Co de Phone Number [facility] [address] [place] [phone] * Magnesium (02/26/2024 12:39 PM EST) Pathologist [facility] Magnesium 2.0 1.6 - 2.6 mg/dL [facility] 02/26/2024 12:3 9 PM EST 02/26/2024 12:42 PM EST Generic External Data Provider LAB BLOOD ORDERAB LES Final Result Performing Organization Address [facility] Co de Phone Number [facility] [address] [place] [phone] * Lactic Acid (02/26/2024 12:39 PM EST) Lactic Acid 0.8 0.5 - 2.0 mmol/L [facility] 02/26/2024 12:3 9 PM EST 02/26/2024 12:42 PM EST us Generic External Data Provider LAB BLOOD ORDERAB LES Final Result [facility] [address] [place] [phone] [phone] * (ABNORMAL) Comprehensive Metabolic Panel (02/26/2024 12:39 PM EST) Sodium 139 135 - 145 mmol/L [facility] Potassium 4.1 3.3 - 5.1 mmol/L [facility] Chloride 105 96 - 108 mmol/L [facility] Carbon Dioxide 28 22 - 29 mmol/L [facility] Anion Gap 10(L) - [facility] Urea Nitrogen (BUN) 9 9 - 16 mg/dL [facility] Creatinine, Serum 1.07 0.5 - 1.4 mg/dL [facility] Creatinine Clr Calc Pharmacy 125.8 [facility] Comment:eGFR (calculated fro m the MDRD study equation) and eCrCl(calculated from the Cockcroft-Gault equation) are based ondifferent parameters and may not yield comparable results.If eCrCl result is absurd, please check patient'sheight/weight. Estimated Glomerular Filt Rate >60 [facility] Comment:Chronic Kidney Disea se: Estimated GFR < 60 mL/min/1.59q8Vlyxid Kidney Disease: Estimated GFR < 15 mL/min/1.73m2 Glucose 102 60 - 115 mg/dL [facility] Calcium 8.9 8.4 - 10.2 mg/dL [facility] Bilirubin, Total 0.9 0.0 - 1.0 mg/dL [facility] Aspartate Amino Transferase 18 5 - 37 U/L [facility] Alanine Aminotransferase 14 0 - 40 U/L [facility] Total Protein 6.7 6.5 - 8.0 g/dL [facility] Albumin Level 4.4 3.5 - 5.0 g/dL [facility] Alkaline Phosphatase 41 39 - 117 U/L [facility] 02/26/2024 12:3 9 PM EST 02/26/2024 12:42 PM EST us Generic External Data Provider LAB BLOOD ORDERAB LES Final Result Performing Organization Address [facility] de Phone Number [facility] [address] [place] [phone] [phone] * Lipase (02/26/2024 12:38 PM EST) Lipase 27 8 - 78 U/L [facility] 02/26/2024 12:3 8 PM EST 02/26/2024 12:42 PM EST us Generic External Data Provider LAB BLOOD ORDERAB LES Final Result Performing Organization Address [facility] Phone Number [facility] [address] [place] [phone] * Creatine Kinase, Total (02/26/2024 12:38 PM EST) Creatine Kinase Total 95 38 - 174 U/L [facility] 02/26/2024 12:3 8 PM EST 02/26/2024 12:42 PM EST Generic External Data Provider LAB BLOOD ORDERAB LES Final Result Performing Organization Address [facility] Phone Number [facility] [address] [place] [phone] * CTA Abdomen Pelvis w/ and w/o Contrast (02/26/2024 11:43 AM EST) Anatomical Region Laterality Modality Body, Pelvis, Abdomen Computed T omography 02/26/2024 11:4 3 AM EST Narrative 02/26/2024 12:52 PM EST ? [place] [facility] ?[address] ?[place] [address] ? CT Scan Report ? Signed ? Patient: Narciso,Jerry ?MR#: [id number] ?? 1 ? : 1985 ?Acct:[id number] ? Age/Sex: 38 / M ?ADM Date: 02/26/24 ? Loc: HO.ED ? Attending Dr: ? Ordering Physician: Katty Bajwa ?? Date of Service: 02/26/24 ?? Procedure(s): CT angio abdomen pelvis ?? Accession Number(s): [id number] ? cc: Katty Bajwa; Una Sawyer ? [...] DD/ 1143 ? TD/TT: 02/26/24 1212 ? Private Secretary: ? Procedure Note Alysa Candelario - 02/26/[address] [address] [place] Scan Report Signed Patient: Jerry StuartMR#: [id number] 1 : 1985Acct:[id number] Age/Sex: 38 / MADM Date: 02/26/24 Loc: HO.ED Attending Dr: Ordering Physician: Katty Bajwa Date of Service: 02/26/24 Procedure(s): CT angio abdomen pelvis Accession Number(s): [id number] cc: Katty Bajwa; [facility] EXAMINATION: CT ANGIOGRAM ABDOMEN AND PELVIS [...] 02/26/24 1248 DD/ 1143 TD/TT: 02/26/24 1212 Private Secretary: us [facility] External Provider IMG CT PROCEDURES Final Result * CT Head w/o Contrast (02/26/2024 11:40 AM EST) Anatomical Region Laterality Modality Head, Neck Computed Tomogra phy 02/26/2024 11:4 0 AM EST Narrative 02/26/2024 12:43 PM EST ? [facility] ?[address] ?[place] [address] ? CT Scan Report ? Signed ? Patient: Jerry Stuart ?MR#: [id number] ?? 1 ? : 1985 ?Acct:[id number] ? Age/Sex: 38 / M ?ADM Date: 02/26/24 ? Loc: HO.ED ? Attending Dr: ? Ordering Physician: Katty Bajwa ?? Date of Service: 02/26/24 ?? Procedure(s): CT head/brain wo IV con ?? Accession Number(s): [id number] ? cc: Katty Bajwa; Una Sawyer ? [...] Caputo MD ??02/26/2024 12:39 PM ?? EST ? Dictated By: ?Kyrie Hammond MD ? Signed By: ?<Electronically signed by Kyrie Yang MD in OV> ? 02/26/24 1239 ? DD/ 1140 ? TD/TT: 02/26/24 1210 ? Private Secretary: ? Procedure Note Alysa Candelario - 02/26/[address] [place] [address] [address] Scan Report Signed Patient: Guillermo Stuart#: [id number] 1 : 1985Acct:[id number] Age/Sex: 38 / MADM Date: 02/26/24 Loc: HO.ED Attending Dr: Ordering Physician: Katty Bajwa Date of Service: 02/26/24 Procedure(s): CT head/brain wo IV con Accession Number(s): [id number] cc: Katty Bajwa; [facility] EXAMINATION: CT HEAD WITHOUT CONTRAST CLINICAL [...] 02/26/24 1239 DD/ 1140 TD/TT: 02/26/24 1210 Private Secretary: [facility] External Provider IMG CT PROCEDURES Final Result * CTA Chest w/ and w/o Contrast (02/26/2024 11:35 AM EST) Anatomical Region Laterality Modality Body, Chest Computed Tomogra phy 02/26/2024 11:3 5 AM EST Narrative 02/26/2024 12:52 PM EST ? [facility] ?[address] ?[place] [address] ? CT Scan Report ? Signed ? Patient: Narciso,Jerry ?MR#: [id number] ?? 1 ? : 1985 ?Acct:[id number] ? Age/Sex: 38 / M ?ADM Date: 12/20/24 ? Loc: HO.ED ? Attending Dr: ? Ordering Physician: Katty Bajwa ?? Date of Service: 02/26/24 ?? Procedure(s): CT angio chest aorta ?? Accession Number(s): [id number] ? cc: Katty Bajwa; [facility] ? EXAMINATION: ?? CT ANGIOGRAM ABDOMEN AND [...] DD/ 1135 ? TD/TT: 02/26/24 1212 ? Private Secretary: ? Procedure Note Alysa Candelario - 02/26/[address] [place] [address] [address] Scan Report Signed Patient: Jerry StuartMR#: [id number] 1 : 1985Acct:[id number] Age/Sex: 38 / MADM Date: 02/26/24 Loc: .ED Attending Dr: Ordering Physician: Katty Bajwa Date of Service: 02/26/24 Procedure(s): CT angio chest aorta Accession Number(s): [id number] cc: Katty Bajwa; Una Sawyer [facility] EXAMINATION: CT ANGIOGRAM ABDOMEN AND PELVIS CLINICAL [...] 02/26/24 1248 DD/ 1135 TD/TT: 02/26/24 1212 Private Secretary: [facility] External Provider IMG CT PROCEDURES Final Result * (ABNORMAL) Lipid Panel, Standard (06/05/2022 2:49 PM EDT) Cholesterol, Total 188 <200 mg/dL [facility] HDL Cholesterol 61 > OR = 40 mg/dL [facility] Triglycerides 134 <150 mg/dL [facility] LDL Cholesterol 104(H) mg/dL (calc) [facility] Comment: Reference range: <100 Desirable range <100 mg/dL for primary prevention; ?? <70 mg/dL for patients with CHD or diabetic patients with > or = 2 CHD risk factors. LDL-C is now calculated using the Aftab calculation, which is a validated novel method providing better accuracy than the Friedewald equation in the estimation of LDL-C. Umang SS et al. GINA. 2013;310(19): 0195-6897 (http://education.Realtime Worlds/faq/CGL495) Chol/HDLC Ratio 3.1 <5.0 (calc) [facility] Non-HDL Cholesterol 127 <130 mg/dL (calc) [facility] Comment: For patients with diabetes plus 1 major ASCVD risk factor, treating to a non-HDL-C goal of <100 mg/dL (LDL-C of <70 mg/dL) is considered a therapeutic option. Blood Venous blood specimen / Unknown 06/05/2022 2:49 PM EDT 06/05/2022 2:49 PM EDT Narrative [facility] - 06/09/2022 12:52 PM EDT FASTING:NO FASTING: NO [facility] BACTERIOLOGIST INDUSTRIAL LAB BLOOD ORDERABLES Final Re sult [facility] [address], [place] [address] [facility] [address] [place] [phone] from Last 3 Months or Most Recently Relevant to Health Maintenance Insurance [place] C[employer] FULL Care Teams Skate Maker Relationship Specialty Start Date End Date Una Sawyer FNP [address] [place] [phone] PCP - General Family Medicine 08/21/21
--- OUTSIDE RECORDS SUMMARY | 2024-05-03 10:10 | XMS_ITS | Encounter Summary ---
Author Organization [employer] Address [address] [facility] 7 [place] [address] Care Team Providers Care Basketball Scout Name Role Phone [facility] Primary Care Provider [phone] Reason for Visit * Reason Onset Date Comments Results 04/01/2024 Encounter Details Date Type Department Care Team ([facility] Contact Info) Description 04/01/2024 Telephone [facility] [address] [place], [place] [phone] [facility] [address] [place], [place] [phone] Results Social History Tobacco Use Types Packs/Day [...] back to pt to relay message from software testing specialist: Unless referral is urgent every specialty is scheduling may and . I can send him to a differenturology but its not guaranteed he will be seen sooner. But I am going to refer him to [facility] Urology they are scheduling end of [...] pt until June. RN will forward to software testing specialist to see if there is anything that can be done by [facility] to expedite his care. At [...] not have any issues, butsince PCP is party plan dealer, it is difficult to get an appointment [...] results: Ultrasound Date when done: 03/30/24 Facility: [facility] Contact pt at [phone] documented in this encounter Plan of Treatment Upcoming Encounters Date Type Department Care Team (Late st Contact Info) Description 05/30/2024 10:00 AM EDT Office Visit [facility] [address] [place] [address] [employer] [facility] [address] [place], [place] [phone] documented as of this encounter Visit Diagnoses Not on filedocumented in this encounter Additional Health Concerns Assessment Noted Time PHQ-9 Depression Total Score: 6 03/23/19 25 9:29 AM EST documented as of this encounter Care Teams Basketball Scout Relationship Specialty Start Date End Date Una Sawyer FNP [address] [place] [phone] PCP - General Family Medicine 08/21/21 documented as of this encounter
--- OUTSIDE RECORDS SUMMARY | 2024-05-03 10:10 | XMS_ITS | Encounter Summary ---
Author Organization [employer] Address [address] [place] [address] 7 [place] [address] Care Team Providers Care Risk Adjustment Specialist Name Role Phone [facility] Primary Care Provider [phone] Reason for Visit * Reason Onset Date Comments Results 02/26/2023 Encounter Details Date Type Department Care Team ([facility] Contact Info) Description 02/26/2023 Telephone [facility] MEDICINE [address] [place], [place] [phone] [facility] [address] [place], [place] [phone] Results Social History Tobacco Use Types Packs/Day [...] Office Visit [facility] [address] [place] [address] [employer] [facility] [address] [place] [address] documented as of this encounter Visit Diagnoses Not on filedocumented in this encounter Additional Health Concerns Assessment Noted Time PHQ-9 Depression Total Score: 5 03/28/19 23 10:55 AM EST documented as of this encounter Care Teams Risk Adjustment Specialist Relationship Specialty Start Date End Date Una Sawyer FNP [address] [place] [address] PCP - General Family Medicine 08/21/21 documented as of this encounter
--- OUTSIDE RECORDS SUMMARY | 2024-05-03 10:10 | XMS_ITS | Encounter Summary ---
Author Organization [employer] Address [address] [facility] 7 [place] [address] Care Team Providers Care Powered Bridge Specialist Name Role Phone [facility] Primary Care Provider [phone] Reason for Visit * Reason Onset Date Comments Referral 04/05/2024 Encounter Details Date Type Department Care Team ([facility] st Contact Info) Description 04/05/2024 Telephone [facility] [address] [place], [place] [phone] [facility] [address] [place], [place] [phone] Referral Social History Tobacco Use Types Packs/Day [...] he is already on his way to [facility] to go to the pharmacy so he will go to walk-in as needed at this time. Will forward to PCP as FYI of patient disposition. * Telephone Encounter - Caroline Conroy - 04/05/2024 1:41 PM EST Tc from pt requesting change facility from Urologist referral. Pt states theres no available appt until June. If any questions contact pt. [phone] documented in this encounter Plan of Treatment Upcoming Encounters Date Type Department Care Team ([facility] st Contact Info) Description 05/30/2024 10:00 AM EDT Office Visit [facility] [address] [place] [address] Una Sawyer FNP [address] [place] [address] documented as of this encounter Visit Diagnoses Not on filedocumented in this encounter Additional Health Concerns Assessment Noted Time PHQ-9 Depression Total Score: 6 03/23/19 25 9:29 AM EST documented as of this encounter Care Teams Powered Bridge Specialist Relationship Specialty Start Date End Date Una Sawyer FNP [address] [place] [address] PCP - General Family Medicine 08/21/21 documented as of this encounter
--- OUTSIDE RECORDS SUMMARY | 2024-05-03 10:10 | XMS_ITS | Encounter Summary ---
Author Organization [employer] Address [address] [place] [address] 7 [place] [address] Care Team Providers Care Residential Glazier Name Role Phone [facility] Primary Care Provider [phone] Reason for Visit * Reason Onset Date Comments Nurse Triage 03/21/2024 Encounter Details Date Type Department Care Team ([facility] st Contact Info) Description 03/21/2024 Telephone [facility]INE [address] [place], [place] [phone] [facility] [address] [place] [address] Nurse Triage Social History Tobacco Use Types [...] become worse * Telephone Encounter - Jacinta Nnamdi - 03/21/2024 8:56 AM EST Symptom: Testicle Symptoms Outcome: Talk to a nurse or provider within 15 minutes Reason: Pain in the testicle The caller accepted this outcome. documented in this encounter Plan of Treatment Upcoming Encounters Date Type Department Care Team (Late st Contact Info) Description 05/30/2024 10:00 AM EDT Office Visit [facility] [address] [place] [address] Una Sawyer FNP [address] [place] [address] documented as of this encounter Visit Diagnoses Not on filedocumented in this encounter Additional Health Concerns Assessment Noted Time PHQ-9 Depression Total Score: 0 05/29/19 9:41 AM EDT documented as of this encounter Care Teams Residential Glazier Relationship Specialty Start Date End Date Una Sawyer FNP [address] [place] [address] PCP - General Family Medicine 08/21/21 documented as of this encounter
== END 2024-05-03 10:29 | disposition home or self-care (01) ==
PROVIDERS: PCP Registered Nurse; Visit Provider Nurse Practitioner Family
DX: R10.32 Left lower quadrant pain (principal); N50.819 Testicular pain, unspecified; Z13.9 Encounter for screening, unspecified
CPT/HCPCS: 99214

== ENCOUNTER → 2024-05-03 09:17 | Outpatient (BNVA) | payer MEDICAID, SELFPAY | PROVIDERS: PCP Registered Nurse; Visit Provider Nurse Practitioner Family | DX: N50.819 Testicular pain, unspecified (principal); R10.32 Left lower quadrant pain | CPT/HCPCS: 81003; 99212 ==

== ENCOUNTER 2024-05-19 08:18 | Outpatient (AMB) | payer MEDICAID, SELFPAY ==
--- NOTE | 2024-05-19 08:19 | MHC.OFFVIS ---
Intake Visit Reasons: pain in umbilical hernia area Intake Note: Patient here c/o discomfort, tenderness to the Rt lower side of umbilical hernia incision. Hx of open umbilical herniorrhaphy with Bard mesh on 03-18-2024. Global Account Executive Required: No Accompanied by: Self / Same As Patient Allergies No Known Allergies Allergy (Verified 05/03/24 13:28) HPI Comments Details: Patient has been seen by Urology and is scheduled for pelvic CT scan regarding his genitourinary symptoms. In the meantime he is having nonspecific umbilical discomfort is sporadic. He is otherwise tolerating a diet. He is having regular bowel habits. He is slowly but steadily increasing activity level. No other wound issues or complaints. [facility] Medical History Elbow pain, right Testicular pain, left Patient denies significant medical history Erectile dysfunction Anxiety Depression Surgical History Hx of tooth extraction Social History Patient Tobacco Use Status: Former Tobacco user Substance Use Type: Marijuana Physical Exam GI Other: Patient was examined supine and standing with Valsalva. Abdomen is soft and benign. Umbilical hernia well healed. No evidence of any recurrence or infection. Assessment & Plan Assessment & Plan (1) Status post umbilical hernia repair, follow-up exam: Code(s): Z09 - Encounter for follow-up examination after completed treatment for conditions other than malignant neoplasm Category: Medical Plan Patient was reassured that he has no umbilical postoperative issues of concern. No evidence of any recurrence or infection. He can start increasing his activity level. In the meantime, patient will follow up with his Urology regarding those issues. All questions answered. Patient will otherwise follow-up p.r.n.. Coding Level of Care Code Global (63612) Diagnoses Status post umbilical hernia repair, follow-up exam Z09
--- OUTSIDE RECORDS SUMMARY | 2024-05-19 08:41 | XMS_ITS | Encounter Summary ---
Author Organization [employer] Address [address] [place] [address] Care Team Providers Care Team Primary Care Physician Name Role Phone [facility] Primary Care Provider [phone] Encounter Details Date Type Department Care Team ([facility] st Contact Info) Description 04/22/2024 Telephone [facility]INE [address] [place], [place] [phone] Christy Rene RN Social History Tobacco Use [...] t he electric, gas, oil or water [email or web address] threatened to shut off services in your [...] 10:00 AM EDT Office Visit [facility] MEDICINE [address] [place] [phone] Una Sawyer FNP [address] [place] [address] documented as of this encounter Visit Diagnoses Not on filedocumented in this encounter Additional Health Concerns Assessment Noted Time PHQ-9 Depression Total Score: 6 03/23/19 25 9:29 AM EST documented as of this encounter Care Teams Team Primary Care Physician Relationship Specialty Start Date End Date Una Sawyer FNP [address] [place] [address] PCP - General Family Medicine 08/21/21 documented as of this encounter
--- OUTSIDE RECORDS SUMMARY | 2024-05-19 08:41 | XMS_ITS | Encounter Summary ---
Author Organization [employer] Address [address] [place] [address] 7 [place] [address] Care Team Providers Care Integrity Specialist Name Role Phone [facility] Primary Care Provider [phone] Reason for Visit * Reason Onset Date Comments chart prep 04/28/2024 Encounter Details Date Type Department Care Team ([facility] Contact Info) Description 04/28/2024 Telephone [facility] MEDICINE [address] [place], [place] [phone] [facility] [address] [place] [address] chart prep Social History Tobacco Use Types [...] Description 05/30/2024 10:00 AM EDT Office Visit [facility]INE [address] [place] [address] Una Sawyer FNP [address] [place] [address] documented as of this encounter Visit Diagnoses Not on filedocumented in this encounter Additional Health Concerns Assessment Noted Time PHQ-9 Depression Total Score: 6 03/23/19 25 9:29 AM EST documented as of this encounter Care Teams Integrity Specialist Relationship Specialty Start Date End Date Una Sawyer FNP [address] [place] [address] PCP - General Family Medicine 08/21/21 documented as of this encounter
--- OUTSIDE RECORDS SUMMARY | 2024-05-19 08:41 | XMS_ITS | Encounter Summary ---
Author Organization [employer] Address [address] [facility] 7t [place] [address] Care Team Providers Care Manager Administrative Name Role Phone [facility] Primary Care Provider [phone] Encounter Details Date Type Department Care Team ([facility] st Contact Info) Description 03/30/2024 Orders Only [facility] [address] [place], [place] [phone] Felipa Bryant MD [address] [place], [place] [phone] Urethritis (Primary Dx) Social History Tobacco Use [...] Description 05/30/2024 10:00 AM EDT Office Visit [facility] [address] [place] [address] [facility] [address] [place], [place] [phone] Scheduled Orders Name Type Priority Associated Diagnoses Orde r Schedule Mycoplasma/Ureaplas ma??Panel Microbiology Routine Urethritis Expected: 03/30/2024 (Approximate), Expires: 03/30/2025 documented as of this encounter Procedures Procedure Name Priority Date/Time Associated Diagnosis Comments MYCOPLASMA/UREAPLAS MA PANEL Routine 03/30/2024 2:45 PM EST Urethritis documented in this encounter Results * Mycoplasma/Ureaplasma??Panel (03/30/2024 2:45 PM EST) Jonathan(R), Mycoplasma Hominis, Real-Time Pcr Not Detected Not Detected [facility] Comment:THIS TEST WAS PERFOR MED AT:[facility] [id number] [place] [address]CBGXMRTSANTOS SANTIAGO MD,PHD Mycoplasma Genitalium, rRNA,TMA Not Detected Not Detected [facility] Comment:THIS TEST WAS PERFOR MED AT:[facility] [id number] [place] [address]BYDFCCLSANTOS SANTIAGO MD,PHD U. Parvum DNA Not Detected Not Detected [facility] U. Urealyticum DNA Not Detected Not Detected [facility] Comment:This test was develo ped and its analyticalperformance characteristics have been determinedby [employer] [place], [place].It has not been cleared or approved by the FDA. Thisassay has been validated pursuant to the CLIAregulations and is used for clinical purposes.THIS TEST WAS PERFORMED AT:[employer] [id number] [place] [address]XAPAKUFSANTOS SANTIAGO MD,PHD 03/30/2024 2:45 PM EST 03/30/2024 4:05 PM EST [facility] MICROBIOLOGY - GENERAL OR DERABLES Final Result [facility] [address] [place] [phone] documented in this encounter Visit Diagnoses Diagnosis Urethritis- Primary Unspecified urethritis documented in this encounter Additional Health Concerns Assessment Noted Time PHQ-9 Depression Total Score: 6 03/23/19 25 9:29 AM EST documented as of this encounter Care Teams Manager Administrative Relationship Specialty Start Date End Date Una Sawyer CONSUMER SERVICES ADVISOR [address] [place] [id number] PCP - General Family Medicine 08/21/21 documented as of this encounter
--- OUTSIDE RECORDS SUMMARY | 2024-05-19 08:41 | XMS_ITS | Encounter Summary ---
Author Organization [employer] Address [address] [place] [address] 7 [place] [address] Care Team Providers Care Miller Helper Name Role Phone [facility] Primary Care Provider [phone] Reason for Referral * Consultation (Routine) - Closed Specialty Diagnoses / Procedures Referred By Contrenan t Referred To Contact Behavioral Health Diagnoses Anxiety Sari Lyn NP [address] [place] [address] Phone: tel: fax: Referral ID Status Reason Start Date Expiration Date V isits Requested Visits Authorized [id number] Closed Specialty Services Required 04/22/2024 04/22/2025 1 1 Encounter Details Date Type Department Care Team (Late st Contact Info) Description 04/22/2024 Orders Only [facility] [address] [place], [place] [phone] Sari Lyn NP [address] [place] [address] Anxiety (Primary Dx) Social History Tobacco Use [...] Description 05/30/2024 10:00 AM EDT Office Visit [facility] [address] [place] [address] [facility] 230 [place] [address] Scheduled Referrals Name Type Priority Associated Diagnoses Order Schedule Referral to Behavioral Health Outpatient Referral Routine Anxiety Expected: 04/22/2024 (Approximate), Expires: 04/22/2025 documented as of this encounter Visit Diagnoses Diagnosis Anxiety- Primary Anxiety state, unspecified documented in this encounter Additional Health Concerns Assessment Noted Time PHQ-9 Depression Total Score: 6 03/23/19 25 9:29 AM EST documented as of this encounter Care Teams Miller Helper Relationship Specialty Start Date End Date [facility] [address] [place] [address] PCP - General Family Medicine 08/21/21 documented as of this encounter
--- OUTSIDE RECORDS SUMMARY | 2024-05-19 08:41 | XMS_ITS | Encounter Summary ---
Author Organization [employer] Address [address] [facility] 7t [place] [address] Care Team Providers Care Scheduler Conveyor Name Role Phone [facility] Primary Care Provider [phone] Encounter Details Date Type Department Care Team ([facility] st Contact Info) Description 04/22/2024 Telephone [facility] [address] [place], [place] [phone] [facility] [address] [place] [address] Social History Tobacco Use Types Packs/Day Years [...] Description 05/30/2024 10:00 AM EDT Office Visit [facility] [address] [place] [address] Una Sawyer FNP [address] [place] [address] documented as of this encounter Visit Diagnoses Not on filedocumented in this encounter Additional Health Concerns Assessment Noted Time PHQ-9 Depression Total Score: 6 03/23/19 25 9:29 AM EST documented as of this encounter Care Teams Scheduler Conveyor Relationship Specialty Start Date End Date Una Sawyer FNP [address] [place] [phone] PCP - General Family Medicine 08/21/21 documented as of this encounter
--- OUTSIDE RECORDS SUMMARY | 2024-05-19 08:41 | XMS_ITS | Encounter Summary ---
Author Organization [employer] Address [address] [facility] 7t [place] [address] Care Team Providers Care Software Licensing Specialist Name Role Phone [facility] Primary Care Provider [phone] Encounter Details Date Type Department Care Team [...] Office Visit [facility] [address] [place] [address] Una Sawyer FNP [address] [place] [address] documented as of this encounter Visit Diagnoses Not on filedocumented in this encounter Additional Health Concerns Assessment Noted Time PHQ-9 Depression Total Score: 6 03/23/19 25 9:29 AM EST documented as of this encounter Care Teams Software Licensing Specialist Relationship Specialty Start Date End Date Una Sawyer FNP [address] [place] [address] PCP - General Family Medicine 08/21/21 documented as of this encounter
--- OUTSIDE RECORDS SUMMARY | 2024-05-19 08:42 | XMS_ITS | Encounter Summary ---
Author Organization [employer] Address [address] [place] [address] 7 [place] [address] Care Team Providers Care Refinery Pipeline Operator Name Role Phone [facility] Primary Care Provider [phone] Reason for Visit * Reason Comments Follow-up Encounter Details Date Type Department Care Team ([facility] st Contact Info) Description 04/29/2024 11:15 AM EST Office Visit [facility] [address] [place], [place] [phone] [facility] [address] [place], [place] [phone] Pain in scrotum (Primary Dx); Hypertension, unspecified [...] documented in this encounter Progress Notes * [facility], [place] - 04/29/2024 11:15 AM EST SUBJECTIVE: Jerry [...] has upcoming appointment with Dr. Chapa at [facility] [place] next [place] - Today patient reports that he was able to be seen at [facility] urology and was told that he had bilateral inguinal hernias, worse on the left, which could be contributing to his symptoms and he was referred back to general surgery Dr. Manriquez at [facility] [place]. 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 Would [...] Description 05/30/2024 10:00 AM EDT Office Visit [facility] [address] [place] [address] Una Sawyer FNP [address] [place] [address] documented as of this encounter Visit Diagnoses Diagnosis Pain in scrotum- Primary Unspecified disorder of male genital organs Hypertension, unspecified type documented in this encounter Additional Health Concerns Assessment Noted Time PHQ-9 Depression Total Score: 6 03/23/19 25 9:29 AM EST documented as of this encounter Care Teams Refinery Pipeline Operator Relationship Specialty Start Date End Date Una Sawyer FNP [address] [place] [address] PCP - General Family Medicine 08/21/21 documented as of this encounter
--- OUTSIDE RECORDS SUMMARY | 2024-05-19 08:42 | XMS_ITS | Encounter Summary ---
Author Organization [employer] Address [address] [place] [address] 7 [place] [address] Care Team Providers Care Hot Plate Plywood Press Laborer Name Role Phone [facility] Primary Care Provider [phone] Reason for Visit * Reason Onset Date Comments Results 02/26/2023 Encounter Details Date Type Department Care Team ([facility] Contact Info) Description 02/26/2023 Telephone [facility] [address] [place], [place] [phone] [facility] [address] [place], [place] [phone] Results Social History Tobacco Use Types Packs/Day [...] Description 05/30/2024 10:00 AM EDT Office Visit [facility] [address] [place] [address] [employer] [facility] [address] [place] [address] documented as of this encounter Visit Diagnoses Not on filedocumented in this encounter Additional Health Concerns Assessment Noted Time PHQ-9 Depression Total Score: 5 03/28/19 23 10:55 AM EST documented as of this encounter Care Teams Hot Plate Plywood Press Laborer Relationship Specialty Start Date End Date Una Sawyer FNP [address] [place] [address] PCP - General Family Medicine 08/21/21 documented as of this encounter
--- OUTSIDE RECORDS SUMMARY | 2024-05-19 08:42 | XMS_ITS | Encounter Summary ---
Author Organization [employer] Address [address] [place] [address] 7 [place] [address] Care Team Providers Care Rock Cutter Name Role Phone [facility] Primary Care Provider [phone] Reason for Visit * Reason Onset Date Comments Nurse Triage 03/21/2024 Encounter Details Date Type Department Care Team ([facility] st Contact Info) Description 03/21/2024 Telephone [facility] [address] [place], [place] [phone] [facility] [address] [place] [address] Nurse Triage Social History Tobacco Use Types [...] Description 05/30/2024 10:00 AM EDT Office Visit [facility] [address] [place] [address] Una Sawyer FNP [address] [place] [address] documented as of this encounter Visit Diagnoses Not on filedocumented in this encounter Additional Health Concerns Assessment Noted Time PHQ-9 Depression Total Score: 0 05/29/19 9:41 AM EDT documented as of this encounter Care Teams Rock Cutter Relationship Specialty Start Date End Date Una Sawyer FNP [address] [place] [address] PCP - General Family Medicine 08/21/21 documented as of this encounter
--- OUTSIDE RECORDS SUMMARY | 2024-05-19 08:42 | XMS_ITS | Clinical Summary ---
Author Organization [employer] Address [address] [place] [address] 7[address] [place] [address] Care Team Providers Care Behavior Interventionist Name Role Phone [place] [facility] Primary Care Provider [phone] Allergies No known active allergies Medications * This document contains information received from the source organization and may not represent a complete record from that organization. ketoconazole (Nizoral) 2 % shampooIndicatio ns:Seborrheic dermatitis Apply topically 2 (two) times a week. 120 mL 3 024 Active Salicylic Acid 40 % padsIndications: Left foot pain,Plantar wart, left foot Apply one pad topically directly to wart on dry skin daily. Do not exceed 90 days. 90 each 024 Active tadalafil (Cialis) 5 MG tabletIndication s:Erectile dysfunction, unspecified erectile dysfunction type Take 1 tablet daily by oral route. May take additional 20 mg Tadalafil one daily PRN prior to intercourse 90 tablet 3 024 Active tadalafil (Cialis) 20 MG tabletIndication s:Erectile dysfunction, unspecified erectile dysfunction type TAKE 1 TABLET 1 HOUR BEFORE SEXUAL RELATIONS ONCE DAILY NEEDED. 10 tablet 024 Active doxycycline (Vibra-Tabs) 100 MG tabletIndication s:Possible exposure to STI Take 2 tabs once within 72 hours of intercourse. Take with a full glass of water and do not lie down for at least 30 minutes after. 30 tablet 025 Active LORazepam 1 MG/0.5ML concentration as needed for Anxiety 025 Active Blood Pressure Monitoring (Adult Blood Pressure Cuff Lg) kit 1 kit if needed each day (as needed). 1 kit 01/17/2 025 Active lisinopril 10 MG tablet Take 1 tablet (10 mg) by mouth Once per day. 30 tablet 2 025 2024 Active hydrOXYzine pamoate (Vistaril) 25 MG capsuleIndicatio ns:JORDAN (generalized anxiety disorder) Take 1 capsule (25 mg) by mouth if needed in the morning and at bedtime for anxiety. 60 capsule 025 2024 Active traZODone (Desyrel) 50 MG tabletIndication s:Depressive disorder Take 0.5 tablets (25 mg) by mouth at bedtime. Pt may take 1 tab as needed for sleep. 20 tablet 025 2024 Active escitalopram (Lexapro) 5 MG tablet Take 1 tablet (5 mg) by mouth Once per day. 30 tablet 2 025 2024 Discontinued(S griffin effects) FLUoxetine (PROzac) 10 MG capsuleIndicatio ns:Depressive disorder Take 1 capsule (10 mg) by mouth in the morning. 30 capsule 025 2024 Discontinued(S griffin effects) hydrOXYzine pamoate (Vistaril) 25 MG capsuleIndicatio ns:JORDAN (generalized anxiety disorder) Take 1 capsule (25 mg) by mouth if needed in the morning and at bedtime for anxiety. 60 capsule 025 2024 Discontinued(R eorder (will not trigger notification to Pharmacy)) Active Problems Problem Noted Date Diagnosed Date [...] & Plan (04/03/2024 1:05 PM EST): Resume yamilethapro Chronic elbow pain, right 04/24/2023 Assessment & [...] - States he was raised in strict jain family and has struggled over the years coming to terms with his beliefs about organized jew. he attributes feelings of guilt and low self esteems to his experiences in faith. Especially difficult because he has realized he identifies as bisexual and has not felt accepted. Encounters * This document contains information received from the source organization and may not represent a complete record from that organization. Date Type Department Care Team Description 04/29/2024 11:15 AM EST Office Visit [facility] [address], [place] [address] [place] [employer]UR[employer] ENGINEERING TEACHER Pain in scrotum (Primary Dx); Hypertension, unspecified type 04/29/2024 Travel 04/28/2024 Telephone [facility] [address], [place] [address] [place] connelly [employer]ALLUR[employer] ENGINEERING TEACHER chart prep 04/22/2024 Orders Only [facility] [address], [place] [address] Sari Lyn, KAMALA Anxiety (Primary Dx) 04/22/2024 Telephone [facility] [address], [place] [address] Christy Rene, RN 04/22/2024 Telephone [facility] [place] [address] [place], METALLURGICAL ENGINEERING TEACHER 04/05/2024 Telephone [facility] [address] [facility], [place] [address] [place]a, METALLURGICAL ENGINEERING TEACHER Referral 04/01/2024 Telephone [facility] [address] [facility], [place] [address] [place] Una [employer]ALLURGICAL ENGINEERING TEACHER Results 03/30/2024 Telephone [facility] [address], [place] [address] Latha Harkins, RN Labs Only 03/30/2024 Orders Only [facility] [place] [address] Felipa Bryant MD Urethritis (Primary Dx) 03/29/2024 Telephone [facility] [address] [facility], [place] [address] [place] [employer]INEERING TE[employer]ER Nurse Triage 03/25/2024 10:30 AM EST Office Visit [facility] [address], [place] [address] Sari Lyn NP Swelling of left testicle (Primary Dx); Hypertension, unspecified type; Right elbow pain; JORDAN (generalized anxiety disorder) 03/23/2024 Telephone [facility] [address] [facility] [place] [address] [place] connelly, METALLURGICAL ENGINEERING TEACHER Results 03/21/2024 3:30 PM EST Office Visit [facility] [address] [place] [address] Felipa Bryant MD Urethritis (Primary Dx); Dietary counseling; Exercise counseling; Overweight 03/21/2024 Travel 03/21/[address] [address] Sarah Chambers MA Chart Prep 03/21/[address] [address] [facility] 03/18/[address] [address] [facility] Nurse Triage 03/17/[address] [address] [place] [facility] ER Follow-up 03/14/2024 2:00 PM EST Office Visit [facility] [address] [address] Soha Sheth ANP Swelling of left testicle (Primary Dx); Possible exposure to STI 03/14/[address] [address] [place] [facility] 03/14/[address] [address] [facility] Nurse Triage 02/29/2024 1:00 PM EST Office Visit [address] [address] Sari Lyn NP Right elbow pain (Primary Dx); Periumbilical abdominal pain; Vasovagal syncope 02/29/[address] [address] [place] [facility] Chart Prep 02/26/2024 10:30 AM EST Office Visit [address] [address] Hina Diaz MD Periumbilical abdominal pain (Primary Dx); Syncope, unspecified syncope type 02/26/2024 Orders Only [facility] External Provider, [facility] 02/26/[address] [address] Latha Harkins, BANQUET STEWARD expect 02/26/2024 Travel 02/26/2024 Telephone [facility] [address] [place] [address] Una Sawyer FNP Nurse Triage from Last [...] Description 05/30/2024 10:00 AM EDT Office Visit [facility] [address] [place] [address] [facility], [facility] [address] [place] [address] Health Maintenance Due Date Last Done Comments Family Planning (PISQ) 2000 Hepatitis B Vaccines (1 of 3 - 19+ 3-dose series) 2004 COVID-19 Vaccine ( - 2023- season) 2023 Influenza Vaccine (#1) 2023 01/02/2020, 2017 Alcohol/Substance Use Screening 05/28/2024 05/29/2023 Depression Screening 04/29/2025 04/29/2024, 03/23/19 SDOH Screening 04/29/2025 04/29/2024 Tobacco Screening 05/17/2025 05/17/2024 Lipid Panel 06/06/2027 06/05/2022, 08/27/2021 DTaP/Tdap/Td Vaccines [...] EST Narrative 03/31/2024 7:49 AM EST ? [facility] ?[address] ? [place] [address] ? Ultrasound Report ? Signed ? Patient: Jerry Stuart ?MR#: [id number] ?? 1 ? : 1985 ?Acct:[id number] ? Age/Sex: 38 / M ?ADM Date: 03/30/24 ? Loc: HO.HMGCX ? Attending Dr: Sari Lyn MERCHANDISE ADJUSTMENT CLERK ? Ordering Physician: Sari Lyn NP ?? Date of Service: 03/30/24 ?? Procedure(s): US scrotum ?? Accession Number(s): [id number] ? cc: Sari Lyn MERCHANDISE ADJUSTMENT CLERK; Una SawyerP ? EXAMINATION: US SCROTUM ? HISTORY: worsening [...] ??Hudson Mercado MD ??03/31/2024 07:46 AM EST ? Dictated By: ?Hudson Mercado MD ? Signed By: ?<Electronically signed by Hudson Mercado MD in OV> ?03/31/24 0746 ? DD/ 1532 ? TD/TT: 03/30/24 1555 ? Director Of [employer]: ? Procedure Note [employer], Image - 03/31/2024 [facility] [place] [address] Ultrasound Report Signed Patient: Guillermo Stuart#: [id number] 1 : 1985Acct:[id number] Age/Sex: 38 / MADM Date: 03/30/24 Loc: HO.HMGCX Attending Dr: Sari Lyn MERCHANDISE ADJUSTMENT CLERK Ordering Physician: Sari Lyn NP Date of Service: 03/30/24 Procedure(s): US scrotum Accession Number(s): [id number] cc: Sari Lyn MERCHANDISE ADJUSTMENT CLERK; [facility] EXAMINATION: US SCROTUM HISTORY: worsening testicular swelling. [...] 03/31/24 0746 DD/ 1532 TD/TT: 03/30/24 1555 Director Of [employer]ance [employer]: Sari Lyn NP [facility] US PROCEDURES Final Result * Trichomonas RNA (Urine/Vaginal) (03/30/2024 2:45 PM EST) Trichomas vaginalis RNA, QL, TMA Not Detected Not Detected [facility] Comment:For additional infor carola, please refer tohttp://education.Medityplus/faq/Trichomonastma (This link is being providedfor information/educational purposes only).THIS TEST WAS PERFORMED AT:[id number] [place] [address]CUZPBAXSANTOS SANTIAGO MD,PHD Urine (Urine, Random) 03/30/2024 2:45 PM EST 03/30/2024 4:05 PM EST [facility] LAB BODY FLUIDS AND STOOLS OR DERABLES Final Result [facility] [address] [place] [phone] * Mycoplasma/Ureaplasma??Panel (03/30/2024 2:45 PM EST) Suregustavo(R), Mycoplasma Hominis, Real-Time Pcr Not Detected Not Detected [facility] Comment:THIS TEST WAS PERFOR MED AT:[employer] [id number] [place] [address]PWEGTIGSANTOS SANTIAGO MD,PHD Mycoplasma Genitalium, rRNA,TMA Not Detected Not Detected [facility] Comment:THIS TEST WAS PERFOR MED AT:[employer] [id number] [place] [address]OMGCXBCSANTOS SANTIAGO MD,PHD U. Parvum DNA Not Detected Not Detected [facility] U. Urealyticum DNA Not Detected Not Detected [facility] Comment:This test was develo ped and its analyticalperformance characteristics have been determinedby [employer] [place], [place].It has not been cleared or approved by the FDA. Thisassay has been validated pursuant to the CLIAregulations and is used for clinical purposes.THIS TEST WAS PERFORMED AT:[id number] [place] [address]MSWQLGHSANTOS SANTIAGO MD,PHD 03/30/2024 2:45 PM EST 03/30/2024 4:05 PM EST [facility] LAB MICROBIOLOGY - GENERAL OR DERABLES Final Result Performing Organization Address [facility]/ZIP Co de Phone Number [facility] [address] [place] [phone] * RPR (Monitor) with Reflex to??Titer (03/30/2024 9:39 AM EST) RPR (Monitor) w/Refl Titer NON-REACTI VE NON-REACT YEFRI [facility] Comment:THIS TEST WAS PERFOR MED AT:[facility] [place] [phone] A FREGOSO MD Rapid Plasma Reagin Ab Titer TNP [facility] Blood Venous blood specimen / Unknown 03/30/2024 9:39 AM EST 03/30/2024 11:45 AM EST Felipa Bryant MD LAB BLOOD ORDERABLES Final Res ult Performing Organization Address [facility]/ZIP Co de Phone Number [facility] [address] [place] [phone] * (ABNORMAL) Drug Monitoring, Panel 1, Screen, Urine (03/30/2024 8:50 AM EST) Only the most recent of2 resultswithin the time period is included. Opiate Screen Urine Not Detected Not Detect [facility] Comment:Opiate cut-off is 30 0 ng/mL.Positive results are unconfirmed and should not be used fornon-medical purposes. Barbiturates, Urine Not Detected Not Detect [facility] Comment:Barbiturate cut-off is 200 ng/mL.Positive results are unconfirmed and should not be used fornon-medical purposes. Phencyclidine Screen Urine Not Detected Not Detect [facility] Comment:Phencyclidine cut-of f is 25 ng/mL.Positive results are unconfirmed and should not be used fornon-medical purposes. Amphetamine Screen Urine Not Detected Not Detect [facility] Comment:Amphetamine cut-off is 1000 ng/mL.Positive results are unconfirmed and should not be used fornon-medical purposes. Benzodiazepines Screen Urine Not Detected Not Detect [facility] Comment:Benzodiazepine cut-o ff is 200 ng/mL.Positive results are unconfirmed and should not be used fornon-medical purposes. Cocaine Screen Urine Not Detected Not Detect [facility] Comment:Cocaine cut-off is 3 00 ng/mL.Positive results are unconfirmed and should not be used fornon-medical purposes. Cannabinoid Screen Urine POSITIVE(A) Not Detect [facility] Comment:Cannabinoid cut-off is 50 ng/mL.Positive results are unconfirmed and should not be used fornon-medical purposes. Methadone Screen, Urine Not Detected Not Detect ng/mL [facility] Comment:Methadone cut-off is 300 ng/mL.Positive results are unconfirmed and should not be used fornon-medical purposes. FENTANYL URINE Not Detected Not Detect [facility] Comment:Fentanyl cut-off is 1 ng/mL.Positive results are unconfirmed and should not be used fornon-medical purposes. Oxycodone Urine Screen Not Detected Not Detect ng/mL [facility] Comment:Oxycodone cut-off is 100 ng/mL.Positive results are unconfirmed and should not be used fornon-medical purposes. Buprenorphine Screen Not Detected Not Detect ng/mL [facility] Comment:Buprenorphine cut-of f is 5 ng/mL.Positive results are unconfirmed and should not be used fornon-medical purposes. Urine (Urine, Random) 03/30/2024 8:50 AM EST 03/30/2024 11:51 AM EST [facility] URINE ORDERABLES Final Re sult [facility] [address] [place] [address] [phone] * Measles, Mumps, and Rubella (MMR) Antibodies??(IgG) Panel, Immune Status (03/22/2024 9:08 AM EST) Mumps Virus IgG Antibody 36.00 AU/mL [facility] Comment:AU/mL Interpretation ------- <9.00 Not consistent with immunity9.00-10.99 Equivocal>10.99 Consistent with immunityThe presence of mumps IgG antibody suggests immunizationor past or current infection with mumps virus. Rubella IgG Antibody 3.22 Index [facility] Comment:Index Interpretation ----- <0.90 Not consistent with immunity 0.90-0.99 Equivocal > or = 1.00 Consistent with immunityThe presence of rubella IgG antibody suggestsimmunization or past or current infection withrubella virus.THIS TEST WAS PERFORMED AT:[facility] [place] [phone] A FREGOSO MD Rubeola IgG (Measles) 55.00 AU/mL [facility] Comment:AU/mL Interpretation ----- <13.50 Not consistent with lxqkipfd81.50-16.49 Equivocal>16.49 Consistent with immunityThe presence of measles IgG suggests immunization orpast or current infection with measles virus.For additional information, please refer tohttp://education.Zinc software/faq/IGY478(This link is being provided for informational/educational purposes only.) Blood Venous blood specimen / Unknown 03/22/2024 9:08 AM EST 03/22/2024 11:21 AM EST [facility] LAB BLOOD ORDERABLES Final Re sult [facility] [address] [place] [address] [phone] * Hepatitis Panel, General (03/22/2024 9:08 AM EST) Hepatitis A IgM Nonreactive Nonreactive [facility] Comment:IgM antibodies to MUNOZ V not detected; does not exclude earlyacute or recovered HAV infection. ~Hepatitis B Surface Antibody REACTIVE Nonreactive [facility] Comment:REACTIVE: > 11.99 mI U/mL Hepatitis B Core Antibody Nonreactive Nonreactive [facility] Hepatitis C Antibody Nonreactive Nonreactive [facility] Comment:Antibodies to HCV no t detected; does not exclude early acuteHCV infection. Hepatitis B Surface Ag Negative Negative [facility] Blood 03/22/2024 9:08 AM EST 03/22/2024 11:21 AM EST [facility] LAB BLOOD ORDERABLES Final Re sult Performing Organization Address [facility]/ZIP Co de Phone Number [facility] [address] [place] [address] [phone] * Hepatitis C Antibody with Reflex to HCV, RNA, Quantitative, Real-Time PCR (03/22/2024 9:08 AM EST) Hepatitis C Antibody Nonreactive Nonreactive [facility] Comment:Antibodies to HCV no t detected; does not exclude early acuteHCV infection. Blood Venous blood specimen / Unknown 03/22/2024 9:08 AM EST 03/22/2024 11:21 AM EST Felipa Bryant MD LAB BLOOD ORDERABLES Final Res ult Performing Organization Address [facility] Co de Phone Number [facility] [address] [place] [address] [phone] * HIV-1/2 Antigen and Antibodies, Fourth Generation, with Reflexes (03/22/2024 9:08 AM EST) HIV AB/AG Nonreactive Nonreactive [facility] Comment:HIV-1 p24 Ag and/or HIV-1/HIV-2 Ab not detected.A test result that is nonreactive does not exclude thepossibility of exposure to or infection with HIV-1 and/orHIV-2. Nonreactive results in this assay for individualswith prior exposure to HIV-1 and/or HIV-2 may be due toantigen and antibody levels that are below the limit ofdetection of this assay.The [employer] HIV Ag/Ab Combo assay result andsupplemental assay results should be interpreted inconjunction with the patient's clinical presentation,history and other laboratory results. If the results areinconsistent with clinical evidence, additional testing issuggested to confirm the result. Blood Venous blood specimen / Unknown 03/22/2024 9:08 AM EST 03/22/2024 11:21 AM EST Felipa Bryant MD LAB BLOOD ORDERABLES Final Res ult Performing Organization Address [facility] Co de Phone Number [facility] [address] [place] [phone] * Varicella Zoster Antibody, IgG (03/22/2024 9:08 AM EST) [facility] Varicella IgG Antibody 4.45 S/CO [facility] Comment:Signal to Cut-off S/ CO [...] Antibody Immunity Screen, ACIF.THIS TEST WAS PERFORMED AT:[facility] [place] [phone] A FREGOSO MD Blood Venous blood specimen / Unknown 03/22/2024 9:08 AM EST 03/22/2024 11:21 AM EST [facility] LAB BLOOD ORDERABLES Final Re sult Performing Organization Address [facility] Co de Phone Number [facility] [address] [place] [address] [phone] * Chlamydia/N. Gonorrhoeae RNA, TMA, Urogenitial (03/21/2024 4:05 PM EST) CT PCR NOT DETECTED Not Detect. [facility] Comment:A not detected test result [...] psychologicalconsequences. NG PCR NOT DETECTED Not Detect. [facility] Comment:A not detected test result [...] PM EST 03/21/2024 5:47 PM EST Narrative [facility] - 03/22/2024 5:49 AM EST Urine us Felipa Bryant MD LAB MICROBIOLOGY - GENERAL ORD ERABLES Final Result [facility] [address] [place] [address] [phone] * XR Elbow 3+ Views Right (03/14/2024 2:03 PM EST) Anatomical Region Laterality Modality Upper Extremities, Elbow Right Radiogr aphic Imaging 03/14/2024 2:03 PM EST Narrative 03/14/2024 3:29 PM EST ?[facility] ?[address] ?[place] [address] ?XRay Report ? Signed ? Patient: Jerry Stuart ?MR#: [id number] ?? 1 ? : 1985 ?Acct:[id number] ? Age/Sex: 38 / M ?ADM Date: 03/14/24 ? Loc: HO.HHCX ? Attending Dr: Sari Lyn MERCHANDISE ADJUSTMENT CLERK ? Ordering Physician: Sari yLn NP ?? Date of Service: 03/14/24 ?? Procedure(s): XR elbow RT min 3V ?? Accession Number(s): [id number] ? cc: Sari Lyn NP ? EXAMINATION: [...] DD/ 1403 ? TD/TT: 03/14/24 1500 ? Director Of [employer]: ? Procedure Note Alysa Candelario - 03/14/2024 [facility] [address] [place] [address] XRay Report Signed Patient: Jerry StuartMR#: [id number] 1 : 1985Acct:[id number] Age/Sex: 38 / MADM Date: 03/14/24 Loc: HO.HHCX Attending Dr: Sari Lyn NP Ordering Physician: Sari Lyn NP Date of Service: 03/14/24 Procedure(s): XR elbow RT min 3V Accession Number(s): [id number] cc: Sari Lyn MERCHANDISE ADJUSTMENT CLERK EXAMINATION: XR ELBOW 3 VIEWS RIGHT HISTORY: [...] 03/14/24 1526 DD/ 1403 TD/TT: 03/14/24 1500 Director Of [employer]: Sari Lyn NP IMG XR PROCEDURES Final Result * High Sensitivity Troponin I (02/26/2024 2:24 PM EST) Only the most recent of2 resultswithin the time period is included. TROPONIN I HIGH SENSITIVITY <2.7 <3.5 - 35.0 ng/L [facility] Comment:The [place] high sens itivity Troponin-I results should beused in conjunction with other diagnostic information suchas ECG, clinical observations and information, and patientsymptoms to aid in the diagnosis of [place]. 02/26/2024 2:24 PM EST 02/26/2024 2:26 PM EST us Generic External Data Provider LAB BLOOD ORDERAB LES Final Result Performing Organization Address [facility] Co de Phone Number [facility] [address] [place] [phone] * (ABNORMAL) Urinalysis w/reflex microscopic (02/26/2024 12:47 PM EST) Color Urine Yellow [facility] Appearance Urine Cloudy [facility] PH 8.0 5.0 - 9.0 [facility] Glucose Urine UA Negative Negative mg/dL [facility] Urine Blood Negative Negative [facility] Specific [place] - Urine >=1.030(H) 1.005 - 1.025 [facility] Urine Protein Negative Neg-Trace mg/dL [facility] Urine Ketones Negative Negative mg/dL [facility] Nitrite Urine Negative Negative [facility] Leukocyte Esterase Urine Negative Negative [facility] 02/26/2024 12:4 7 PM EST 02/26/2024 12:50 PM EST Narrative [facility] - 02/26/2024 12:54 PM EST [id number], [employer] Generic External Data Provider LAB URINE ORDERAB LES Final Result Performing Organization Address [facility] Phone Number [facility] [address] [place] [phone] * Ethanol (02/26/2024 12:39 PM EST) ETHANOL (MG/DL) IN SER/PLAS <10 mg/dL [facility] Comment:Serum/plasma ethanol results are to be used formedical/treatment purposes only. 02/26/2024 12:3 9 PM EST 02/26/2024 12:42 PM EST Generic External Data Provider LAB BLOOD ORDERAB LES Final Result Performing Organization Address [facility] Co de Phone Number [facility] [address] [place] [address] [place] [phone] * (ABNORMAL) CBC auto differential (02/26/2024 12:39 PM EST) White Blood Count 10.8 4.8 - 10.8 X10*3/uL [facility] Red Blood Count 5.05 4.60 - 5.80 X10*6/uL [facility] Hemoglobin 15.2 14.0 - 18.0 g/dl [facility] Hematocrit 43.6 42.0 - 52.0 % [facility] Mean Corpuscular Volume 86.3 80.0 - 98.0 fL [facility] Mean Corpuscular Hemoglobin 30.1 27.0 - 33.0 pg [facility] Mean Corpuscular HGB Conc 34.9 31.0 - 36.0 g/dl [facility] Red Cell Distribution Width 12.3 11.0 - 16.0 % [facility] Platelet Count 225 160 - 400 X10*3/uL [facility] Mean Platelet Volume 9.9 9.4 - 12.4 fL [facility] Neutrophils Percent Auto 83.2(H) 45 - 73 % [facility] Imm Gran Pct Auto 0.3 0.0 - 0.4 % [facility] Lymphocytes Percent Auto 9.7(L) 20 - 40 % [facility] Monocytes Percent Auto 6.0 2 - 11 % [facility] Eosinophils Percent Auto 0.6 0 - 4 % [facility] Basophils Percent Auto 0.2 0 - 2 % [facility] NRBC Pct Auto 0.0 0.0 - 0.2 /100WBC [facility] Neutrophils Absolute Auto 9.0(H) 2.0 - 8.3 x10*3/uL [facility] Imm Gran Abs Auto 0.03 0.00 - 0.03 X10*3/uL [facility] Lymphocytes Absolute Auto 1.1(L) 1.2 - 4.9 X10*3/uL [facility] Monocytes Absolute Auto 0.7 0.1 - 1.2 X10*3/uL [facility] Eosinophils Absolute Auto 0.1 0.0 - 0.4 X10*3/uL [facility] Basophils Absolute Auto 0.0 0.0 - 0.2 X10*3/uL [facility] NRBC Abs Auto 0.000 0.0 - 0.012 X10*3/uL [facility] 02/26/2024 12:3 9 PM EST 02/26/2024 12:42 PM EST Generic External Data Provider LAB BLOOD ORDERAB LES Final Result Performing Organization Address [facility]/ZIP Co de Phone Number [facility] [address] [place] [phone] * Prothrombin Time-INR (02/26/2024 12:39 PM EST) Prothrombin Time 11.4 10.9 - 12.4 SEC [facility] INTERNATIONAL NORM RATIO 1.0 0.9 - 1.1 [facility] Comment:INTERNATIONAL NORMAL IZED RATIO (INR) [...] 9 PM EST 02/26/2024 12:42 PM EST [employer] External Data Provider LAB BLOOD ORDERAB LES Final Result Performing Organization Address [facility]/ZIP Co de Phone Number [facility] [address] [place] [phone] * Magnesium (02/26/2024 12:39 PM EST) Magnesium 2.0 1.6 - 2.6 mg/dL [facility] 02/26/2024 12:3 9 PM EST 02/26/2024 12:42 PM EST us Generic External Data Provider LAB BLOOD ORDERAB LES Final Result Performing Organization Address City/[facility]/ZIP Co de Phone Number [facility] [address] [place] [phone] * Lactic Acid (02/26/2024 12:39 PM EST) Lactic Acid 0.8 0.5 - 2.0 mmol/L [facility] 02/26/2024 12:3 9 PM EST 02/26/2024 12:42 PM EST us [employer] External Data Provider LAB BLOOD ORDERAB LES Final Result Performing Organization Address [facility] Co de Phone Number [facility] [address] [place] [address] [phone] * (ABNORMAL) Comprehensive Metabolic Panel (02/26/2024 12:39 PM EST) Sodium 139 135 - 145 mmol/L [facility] Potassium 4.1 3.3 - 5.1 mmol/L [facility] Chloride 105 96 - 108 mmol/L [facility] Carbon Dioxide 28 22 - 29 mmol/L [facility] Anion Gap 10(L) 12 - 20 [facility] Urea Nitrogen (BUN) 9 9 - 16 mg/dL [facility] Creatinine, Serum 1.07 0.5 - 1.4 mg/dL [facility] Creatinine Clr Calc Pharmacy 125.8 [facility] Comment:eGFR (calculated fro m the MDRD study equation) and eCrCl(calculated from the Cockcroft-Gault equation) are based ondifferent parameters and may not yield comparable results.If eCrCl result is absurd, please check patient'sheight/weight. Estimated Glomerular Filt Rate >60 [facility] Comment:Chronic Kidney Disea se: Estimated GFR < 60 mL/min/1.40v0Gcwzvh Kidney Disease: Estimated GFR < 15 mL/min/1.73m2 Glucose 102 60 - 115 mg/dL [facility] Calcium 8.9 8.4 - 10.2 mg/dL [facility] Bilirubin, Total 0.9 0.0 - 1.0 mg/dL [facility] Aspartate Amino Transferase 18 5 - 37 U/L [facility] Alanine Aminotransferase 14 0 - 40 U/L [facility] Total Protein 6.7 6.5 - 8.0 g/dL [facility] Albumin Level 4.4 3.5 - 5.0 g/dL [facility] Alkaline Phosphatase 41 39 - 117 U/L [facility] 02/26/2024 12:3 9 PM EST 02/26/2024 12:42 PM EST us Generic External Data Provider LAB BLOOD ORDERAB LES Final Result Performing Organization Address [facility] Co de Phone Number [facility] [address] [place] [phone] * Lipase (02/26/2024 12:38 PM EST) Lipase 27 8 - 78 U/L [facility] 02/26/2024 12:3 8 PM EST 02/26/2024 12:42 PM EST Generic External Data Provider LAB BLOOD ORDERAB LES Final Result Performing Organization Address [facility] Co de Phone Number [facility] [address] [place] [phone] * Creatine Kinase, Total (02/26/2024 12:38 PM EST) Creatine Kinase Total 95 38 - 174 U/L [facility] 02/26/2024 12:3 8 PM EST 02/26/2024 12:42 PM EST us Generic External Data Provider LAB BLOOD ORDERAB LES Final Result Performing Organization Address [facility]/ZIP Co de Phone Number [facility] [address] [place] [phone] * CTA Abdomen Pelvis w/ and w/o Contrast (02/26/2024 11:43 AM EST) Anatomical Region Laterality Modality Body, Pelvis, Abdomen Computed T omography 02/26/2024 11:4 3 AM EST Narrative 02/26/2024 12:52 PM EST ? [facility] ?[address] ?[place] [address] ? CT Scan Report ? Signed ? Patient: Jerry Stuart ?MR#: [id number] ?? 1 ? : 1985 ?Acct:[id number] ? Age/Sex: 38 / M ?ADM Date: 02/26/24 ? Loc: HO.ED ? Attending Dr: ? Ordering Physician: Katty Bajwa ?? Date of Service: 02/26/24 ?? Procedure(s): CT angio abdomen pelvis ?? Accession Number(s): [id number] ? cc: Katty Bajwa; Una Sawyer [facility] ? EXAMINATION: ?? CT ANGIOGRAM ABDOMEN [...] DD/ 1143 ? TD/TT: 02/26/24 1212 ? [employer]: ? Procedure Note [employer], Image - 02/26/[address] [address] [address] Scan Report Signed Patient: Guillermo Stuart#: [id number] 1 : 1985Acct:[id number] Age/Sex: 38 / MADM Date: 02/26/24 Loc: HO.ED Attending Dr: Ordering Physician: Katty Bajwa Date of Service: 02/26/24 Procedure(s): CT angio abdomen pelvis Accession Number(s): [id number] cc: Katty Bajwa; [facility] EXAMINATION: CT ANGIOGRAM ABDOMEN AND PELVIS CLINICAL [...] 02/26/24 1248 DD/ 1143 TD/TT: 02/26/24 1212 Director [employer]: [facility] External Provider IMG CT PROCEDURES Final Result * CT Head w/o Contrast (02/26/2024 11:40 AM EST) Anatomical Region Laterality Modality Head, Neck Computed Tomogra phy 02/26/2024 11:4 0 AM EST Narrative 02/26/2024 12:43 PM EST ? [facility] ?[address] ?[place] [address] ? CT Scan Report ? Signed ? Patient: Jerry Stuart ?MR#: [id number] ?? 1 ? : 1985 ?Acct:[id number] ? Age/Sex: 38 / M ?ADM Date: 12/20/24 ? Loc: HO.ED ? Attending Dr: ? Ordering Physician: Katty Bajwa ?? Date of Service: 02/26/24 ?? Procedure(s): CT head/brain wo IV con ?? Accession Number(s): [id number] ? cc: Ktaty Bajwa; [facility] ? EXAMINATION: ?? CT HEAD WITHOUT CONTRAST [...] DD/ 1140 ? TD/TT: 02/26/24 1210 ? [employer]: ? 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 [facility] ?[address] ?[place] [address] ? CT Scan Report ? Signed ? Patient: Narciso,Jerry ?MR#: [id number] ?? 1 ? : 1985 ?Acct:[id number] ? Age/Sex: 38 / M ?ADM Date: 02/26/24 ? Loc: HO.ED ? Attending Dr: ? Ordering Physician: Katty Bajwa ?? Date of Service: 02/26/24 ?? Procedure(s): CT angio chest aorta ?? Accession Number(s): [id number] ? cc: Katty Bajwa; Una Sawyer ? [...] DD/ 1135 ? TD/TT: 02/26/24 1212 ? [employer]: ? Procedure Note Alysa Candelario - 02/26/[address] [address] [address] Scan Report Signed Patient: Jerry Stuart#: [id number] 1 : 1985Acct:[id number] Age/Sex: 38 / MADM Date: 02/26/24 Loc: HO.ED Attending Dr: Ordering Physician: Katty Bajwa Date of Service: 02/26/24 Procedure(s): CT angio chest aorta Accession Number(s): [id number] cc: Katty Bajwa; [facility] EXAMINATION: CT ANGIOGRAM ABDOMEN AND PELVIS CLINICAL [...] 02/26/24 1248 DD/ 1135 TD/TT: 02/26/24 1212 Director Of [employer]: [facility] External Provider IMG CT PROCEDURES Final Result * (ABNORMAL) Lipid Panel, Standard (06/05/2022 2:49 PM EDT) Cholesterol, Total 188 <200 mg/dL [facility] HDL Cholesterol 61 > OR = 40 mg/dL [facility] Triglycerides 134 <150 mg/dL [facility] LDL Cholesterol 104(H) mg/dL (calc) [facility] Comment: Reference range: <100 Desirable range <100 mg/dL for primary prevention; ?? <70 mg/dL for patients with CHD or diabetic patients with > or = 2 CHD risk factors. LDL-C is now calculated using the Umang-Diaz calculation, which is a validated novel method providing better accuracy than the Friedewald equation in the estimation of LDL-C. Umang SS et al. GINA. 2013;310(19): 8355-2799 (http://education.Zinc software/faq/YFE535) Chol/HDLC Ratio 3.1 <5.0 (calc) [facility] Non-HDL Cholesterol 127 <130 mg/dL (calc) [facility] Comment: For patients with diabetes plus 1 major ASCVD risk factor, treating to a non-HDL-C goal of <100 mg/dL (LDL-C of <70 mg/dL) is considered a therapeutic option. Blood Venous blood specimen / Unknown 06/05/2022 2:49 PM EDT 06/05/2022 2:49 PM EDT Narrative [facility] - 06/09/2022 12:52 PM EDT FASTING:NO FASTING: NO [facility] LAB BLOOD ORDERABLES Final Re sult [facility] [address] [facility], [facility], [place] [address] [facility] [address] [place] [address] from Last 3 Months or Most Recently Relevant to Health Maintenance Insurance [facility] C3 HSN FULL Care Teams Behavior Interventionist Relationship Specialty Start Date End Date SilverioUna connelly [facility] [address] [place] [phone] PCP - General Family Medicine 08/21/21
--- OUTSIDE RECORDS SUMMARY | 2024-05-19 08:42 | XMS_ITS | Encounter Summary ---
Author Organization [employer] Address [address] [facility] 7 [place] [address] Care Team Providers Care Near East Archeology Professor Name Role Phone [facility] Primary Care Provider [phone] Reason for Visit * Reason Onset Date Comments Med Refill 06/03/2023 Encounter Details Date Type Department Care Team ([facility] st Contact Info) Description 06/03/2023 Refill [facility] [address] [place], [place] [phone] Mindy Cardona MD [address] [place] [address] Erectile dysfunction, unspecified erectile dysfunction type Social [...] Description 05/30/2024 10:00 AM EDT Office Visit [facility] [address] [place] [phone] Una Sawyer FNP [address] [place] [address] documented as of this encounter Visit Diagnoses Diagnosis Erectile dysfunction, unspecified erectile dysfunction type documented in this encounter Additional Health Concerns Assessment Noted Time PHQ-9 Depression Total Score: 0 05/29/19 24 9:41 AM EDT documented as of this encounter Care Teams Near East Archeology Professor Relationship Specialty Start Date End Date Una Sawyer FNP [address] [place] [phone] PCP - General Family Medicine 08/21/21 documented as of this encounter
== END 2024-05-19 08:46 | disposition home or self-care (01) ==
LOC: HO.HGS 08:19
PROVIDERS: PCP Registered Nurse; Visit Provider Surgery
DX: Z09 Encounter for follow-up examination after completed treatment for conditions other than malignant neoplasm (principal)
CPT/HCPCS: 99212

== ENCOUNTER → 2024-05-19 08:18 | Outpatient (BNVA) | payer MEDICAID, SELFPAY | PROVIDERS: PCP Registered Nurse; Visit Provider Surgery | DX: Z09 Encounter for follow-up examination after completed treatment for conditions other than malignant neoplasm (principal); Z87.19 Personal history of other diseases of the digestive system; Z98.890 Other specified postprocedural states | CPT/HCPCS: 99212 ==

== ENCOUNTER 2024-05-26 08:46 | Outpatient (AMB) | payer MEDICAID, SELFPAY ==
--- NOTE | 2024-05-26 08:57 | A.OFFVIS_ITS ---
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 Patient reports that he has had pain for over a year. He has had 4 cortisone injections in the right elbow, most recent being in october. He explains that he took a fall in February and re injured his elbow. Who would like to be active but feels limited and he descri bes pain at night. [facility] Medical History (Updated 05/29/24 @ 07:55 by Cristobal Wynn MD) Elbow pain, right Testicular pain, left Patient denies significant medical history Erectile dysfunction Anxiety Depression Surgical History (Updated 05/26/24 @ 09:02 by Dana Escalante CMA) H/O umbilical hernia repair Hx of tooth extraction Social History Patient Tobacco Use Status: Former Tobacco user Substance Use Type: Marijuana Physical Exam Vital Signs: BMI result Body Mass Index 28.5 Extrem Other: Full ROM right elbow. There is sharp ttp over the lateral epicondyle and sharp pain with resisted wrist and LF resisted extension Results Reviewed Results Reviewed: I personally reviewed the MR images. 1. Moderate common extensor tendinosis with probable longitudinal partial tearing. Sclerotic ossification as seen on the prior radiographs with mild associated marrow edema, likely representing a subacute/chronic avulsion injury. Edema extends distally along the myotendinous junction. 2. Minimal common flexor tendinosis without a measurable tendon tear. 3. Small elbow joint effusion. I personally reviewed relevant radiographs. Elbow radiographs unremarkable Assessment & Plan Assessment & Plan (1) Lateral epicondylitis, right elbow: Code(s): M77.11 - Lateral epicondylitis, right elbow Category: Medical Plan: This is a 38 yo M with lateral epicondylitis and an MRI from over one year ago demonstrating avulsion injury. He has been treated with PT and injections but reinjured this about 3 months ago. Now it is preventing him from lifting and sleeping. I discussed treatment options and recommend repeat MRI. Once this is done we will discuss treatment options. Orders: Orders MR elbow RT wo con Today M77.11 - Lateral epicondylitis, right elbow Coding Level of Care Code New Pt Level 3 (23022) Diagnoses Lateral epicondylitis, right elbow M77.11
[2024-05-26 09:02] VITALS: BMI 28.5
== END 2024-05-26 09:20 | disposition home or self-care (01) ==
LOC: HO.HOS 08:47
PROVIDERS: PCP Registered Nurse; Visit Provider Orthopaedic Surgery
DX: M77.11 Lateral epicondylitis, right elbow (principal)
CPT/HCPCS: 99203

== ENCOUNTER → 2024-05-26 08:46 | Outpatient (BNVA) | payer MEDICAID, SELFPAY | PROVIDERS: PCP Registered Nurse; Visit Provider Orthopaedic Surgery | DX: M77.11 Lateral epicondylitis, right elbow (principal) | CPT/HCPCS: 99202 ==

== ENCOUNTER 2024-06-03 19:50 | Outpatient (REF) | payer MEDICAID, SELFPAY ==
--- NOTE | ~2024-06-03 | MR_ITS ---
CLINICAL HISTORY: M77.11 - Lateral epicondylitis, right elbow MR right elbow without gadolinium Comparison: CR/SR - XR ELBOW RT MIN 3V - 03/14/24 15:11 EST MR/SR - MR ELBOW RT WO CON - 05/05/23 19:43 EST Findings: No fracture or dislocation. No significant osteoarthritis or elbow joint effusion. Mild marrow edema signal within the lateral epicondyle of the distal humerus. The ulnar collateral ligament and lateral collateral ligament complex are intact. Mostly linear abnormal signal is present at the common extensor tendon origin most conspicuous along the undersurface and intrasubstance. The common flexor tendon origin is intact. The insertions of the brachialis, biceps, and triceps tendons are intact. The course of the ulnar nerve is unremarkable. Minimal enlargement and fascicular T2 hyperintensity of the ulnar nerve just proximal to the cubital tunnel. IMPRESSION: Lateral epicondylitis and partial-thickness tearing of the common extensor tendon origin. This document has been electronically signed by: Corey Jones DO on 06/06/2024 12:43:34
== END 2024-06-03 19:51 | disposition home or self-care (01) ==
LOC: HO.MRI 19:50
PROVIDERS: PCP Registered Nurse; Visit Provider Orthopaedic Surgery
DX: M77.11 Lateral epicondylitis, right elbow (principal)
CPT/HCPCS: 73221

== ENCOUNTER → 2024-06-03 19:50 | Outpatient (BNV) | payer MEDICAID, SELFPAY | PROVIDERS: PCP Registered Nurse; Visit Provider Radiology Diagnostic Radiology | DX: M77.11 Lateral epicondylitis, right elbow (principal); M66.221 Spontaneous rupture of extensor tendons, right upper arm | CPT/HCPCS: 73221 ==

== ENCOUNTER 2024-06-13 12:57 | Outpatient (REF) | payer MEDICAID, SELFPAY ==
--- NOTE | ~2024-06-13 | CT_ITS ---
CLINICAL HISTORY: R10.32 - Left lower quadrant pain CT pelvis without contrast Comparison: None Findings: Examination is limited due to lack of IV contrast. Pelvic contents unremarkable. No evidence of acute appendicitis. The bones are intact. IMPRESSION: No acute findings. This document has been electronically signed by: Xenia Irizarry MD on 06/14/2024 21:13:37
--- OUTSIDE RECORDS SUMMARY | 2024-06-13 15:22 | XMS_ITS | Encounter Summary ---
Author Organization [employer] Address [address] [facility] 7 [place] [address] Care Team Providers Care Appliquer Name Role Phone [facility] Primary Care Provider [phone] Encounter Details Date Type Department Care Team ([facility] st Contact Info) Description 03/30/2024 Orders Only [facility] [address] [place], [place] [phone] Felipa Bryant MD [address] [place], [place] [phone] Urethritis (Primary Dx) Social History Tobacco Use [...] as of this encounter Plan of Treatment Scheduled Orders Name Type Priority Associated Diagnoses Orde r Schedule Mycoplasma/Ureaplas ma??Panel Microbiology Routine Urethritis Expected: 03/30/2024 (Approximate), Expires: 03/30/2025 documented as of this encounter Procedures Procedure Name Priority Date/Time Associated Diagnosis Comments MYCOPLASMA/UREAPLAS MA PANEL Routine 03/30/2024 2:45 PM EST Urethritis documented in this encounter Results * Mycoplasma/Ureaplasma??Panel (03/30/2024 2:45 PM EST) Jonathan(R), Mycoplasma Hominis, Real-Time Pcr Not Detected Not Detected [facility] Comment:THIS TEST WAS PERFOR MED AT:[email or web address]JON [address] [address]UKYZMLLSANTOS SANTIAGO MD,PHD Mycoplasma Genitalium, rRNA,TMA Not Detected Not Detected [facility] Comment:THIS TEST WAS PERFOR MED AT:[email or web address]/Levanta [id number] [place] [address]NHWOODLSANTOS SANTIAGO MD,PHD U. Parvum DNA Not Detected Not Detected [facility] U. Urealyticum DNA Not Detected Not Detected [facility] Comment:This test was develo ped and its analyticalperformance characteristics have been determinedby FUJIAN HAIYUAN [place], [place].It has not been cleared or approved by the FDA. Thisassay has been validated pursuant to the CLIAregulations and is used for clinical purposes.THIS TEST WAS PERFORMED AT:[email or web address]/JON [id number] [place] [address]BQFJPDSSANTOS SANTIAGO MD,PHD 03/30/2024 2:45 PM EST 03/30/2024 4:05 PM EST [facility] MICROBIOLOGY - GENERAL OR DERABLES Final Result [facility] [address] [place] [phone] documented in this encounter Visit Diagnoses Diagnosis Urethritis- Primary Unspecified urethritis documented in this encounter Additional Health Concerns Assessment Noted Time PHQ-9 Depression Total Score: 6 03/23/19 25 9:29 AM EST documented as of this encounter Care Teams Appliquer Relationship Specialty Start Date End Date Una Sawyer FNP [address] [place] [phone] PCP - General Family Medicine 08/21/21 documented as of this encounter
--- OUTSIDE RECORDS SUMMARY | 2024-06-13 15:22 | XMS_ITS | Encounter Summary ---
Author Organization [employer] Address [address] [address] Care Team Providers Care Medical Record Librarian Name Role Phone [facility] Primary Care Provider [phone] Reason for Visit * Reason Onset Date Comments Nurse Triage 03/21/2024 Encounter Details Date Type Department Care Team ([facility] st Contact Info) Description 03/21/2024 Telephone [facility] [address] [place], [place] [phone] [facility] [address] [place] [address] Nurse Triage Social History Tobacco Use Types [...] documented in this encounter Plan of Treatment Not on file documented as of this encounter Visit Diagnoses Not on filedocumented in this encounter Additional Health Concerns Assessment Noted Time PHQ-9 Depression Total Score: 0 05/29/19 24 9:41 AM EDT documented as of this encounter Care Teams Medical Record Librarian Relationship Specialty Start Date End Date Una Sawyer FNP [address] [place] [phone] PCP - General Family Medicine 08/21/21 documented as of this encounter
--- OUTSIDE RECORDS SUMMARY | 2024-06-13 15:22 | XMS_ITS | Clinical Summary ---
Author Organization [employer] Address [address] [place] [address] 7 [place] [address] Care Team Providers Care Rn Intern Name Role Phone [facility] [place] Primary Care Provider [phone] Allergies No known active allergies Medications * [...] for sleep. 20 tablet 025 2024 Active Fluocinolone Acetonide Scalp (Margaret-Smoothe/F S Scalp) 0.01 % oilIndications:S eborrheic dermatitis of scalp Massage into damp scalp nightly 118 mL 1 Active FLUoxetine (PROzac) 10 MG capsuleIndicatio ns:Depressive disorder [...] - States he was raised in strict restoration family and has struggled over the years coming to terms with his beliefs about organized muslim. he attributes feelings of guilt and low self esteems to his experiences in protestant. Especially difficult because he has realized he identifies as bisexual and has not felt accepted. Encounters * This document contains information received from the source organization and may not represent a complete record from that organization. Date Type Department Care Team Description 05/30/2024 10:00 AM EDT Office Visit [facility] [place] [address] Una Sawyer FNP Healthcare maintenance (Primary Dx); Hypertension, unspecified type; Seborrheic dermatitis of scalp 05/30/2024 Travel 05/20/2024 Patient Outreach [facility] [place] [address] Una Sawyer FNP Pre-visit Planning (SDOH screening completed on 04/29/2024) 05/20/2024 Population Health Risk Score [facility] () [address] [phone] Provider, Population Health Generic 04/29/2024 11:15 AM EST Office Visit [facility] [place] [address] Una Sawyer FNP Pain in scrotum (Primary Dx); Hypertension, unspecified type 04/29/2024 Travel 04/28/2024 Telephone [facility] [place] [address] Una Sawyer FNP chart prep 04/22/2024 Orders Only [facility] [place] [address] Sari Lyn NP Anxiety (Primary Dx) 04/22/2024 Telephone [facility] [place] [address] Christy Rene, COURTNEY 04/22/2024 Telephone [facility] [place] [address] Una Sawyer FNP 04/05/2024 Telephone [facility] [place] [address] Una Sawyer FNP Referral 04/01/2024 Telephone [facility] [place] [address] Una Sawyer FNP Results 03/30/2024 Telephone [facility] [place] [address] Latha Harkins, RN Labs Only 03/30/2024 Orders Only [facility] [place], [place] [address] Felipa Bryant MD Urethritis (Primary Dx) 03/29/[address] [address] [facility] Nurse Triage 03/25/2024 10:30 AM EST Office Visit [address] [address] Sari Lyn NP Swelling of left testicle (Primary Dx); Hypertension, unspecified type; Right elbow pain; JORDAN (generalized anxiety disorder) 03/23/[address] [address] [facility] Results 03/21/2024 3:30 PM EST Office Visit [address] [address] Felipa Bryant MD Urethritis (Primary Dx); Dietary counseling; Exercise counseling; Overweight 03/21/2024 Travel 03/21/[address] [address] Sarah Chambers MA Chart Prep 03/21/[address] [address] [facility] Nurse Triage 03/18/[address] [address] [facility] Nurse Triage 03/17/[address] [address] [facility] ER Follow-up from Last 3 Months Immunizations Name Administration [...] Date Recorded Patient Health Questionnaire-9 Score 0 05/30/2024 Patient Health Questionnaire-9 Score 0 05/30/2024 Last PHQ-9: Questionnaire Data Not on file 0 05/30/2024 Housing Stability Answer Date Recorded What is [...] Date Recorded Patient Health Questionnaire-2 Score 0 05/30/2024 Internet Access Answer Date Recorded Internet Access [...] Sign Reading Time Taken Comments Blood Pressure 130/70 05/30/2024 10:18 AM EDT Pulse 86 05/30/2024 9:50 AM EDT Temperature 36.1 ??C (97 ??F) 05/30/2024 9:50 AM EDT Respiratory Rate 20 05/30/2024 9:50 AM EDT Oxygen Saturation 99% 05/30/2024 9:50 AM EDT Inhaled Oxygen Concentration - - Weight 103 kg (226 lb 6.4 oz) 05/30/2024 9:50 AM EDT Height 188 cm (6' 2 ) 05/30/2024 9:50 AM EDT Body Mass Index 29.07 05/30/2024 9:50 AM EDT Plan of Treatment Health Maintenance Due Date Last Done Comments Family Planning (PISQ) 2000 Hepatitis B Vaccines (1 of 3 - 19+ 3-dose series) 2004 COVID-19 Vaccine ( - 2023- season) 2023 Influenza Vaccine (#1) 2023 01/02/2020, 2017 SDOH Screening 04/29/2025 04/29/2024 Alcohol/Substance Use Screening 05/30/2025 05/30/2024 Depression Screening 05/30/2025 05/30/2024, 05/31/19 Tobacco Screening 05/31/2025 05/31/2024 Lipid Panel 06/06/2027 06/05/2022, 08/27/2021 DTaP/Tdap/Td Vaccines (3 - Td or Tdap) 06/05/2032 06/05/2022, 09/26/2013, 09/06/2009 Zoster Vaccines (1 of 2) 12/14/2035 RSV Patients and Patients Aged 60 years or older (1 - 1-dose 75+ series) 2060 HIV Screening Completed 03/22/2024, 0203/2023, 02/26/2023, Additional history exists Hepatitis C Screening [...] Procedure Name Priority Date/Time Associated Diagnosis Comments MR LAWLER WO CONTRAST RIGHT Routine 06/06/2024 12:43 PM EDT US SCROTUM Routine 03/30/2024 3:32 PM EST Swelling of left testicle TRICHOMONAS VAGINALIS RNA, QUALITATIVE, TMA Routine 03/30/2024 2:45 PM EST Urethritis MYCOPLASMA/UREAPLASM A PANEL Routine 03/30/2024 2:45 PM EST Urethritis [...] UROGENITAL Routine 03/21/2024 4:05 PM EST Urethritis LIPID PANEL, STANDARD Routine 06/05/2022 2:49 PM EDT Encounter for routine adult health examination without abnormal findings from Last 3 Months or Most Recently Relevant to Health Maintenance Results * MR Lawler w/o Contrast Right (06/06/2024 12:43 PM EDT) Anatomical Region Laterality Modality Upper Extremities, Elbow Right Magneti c Resonance 06/06/2024 12:4 3 PM EDT Narrative 06/06/2024 12:44 PM EDT ? [facility] ?[address] ?[place] [address] ? Magnetic Resonance Report ? Signed ? Patient: Jerry Stuart ?MR#: [id number] ?? 1 ? : 1985 ?Acct:[id number] ? Age/Sex: 38 / M ?ADM Date: 06/03/24 ? Loc: HO.MRI ? Attending Dr: Cristobal Wynn MD ? Ordering Physician: Cristobal Wynn MD ?? Date of Service: 06/03/24 ?? Procedure(s): MR elbow RT wo con ?? Accession Number(s): [id number] ? cc: Cristobal Wynn MD; Una Sawyer ? CLINICAL HISTORY: M77.11 - Lateral epicondylitis, right elbow ? MR right elbow without gadolinium ? Comparison: CR/SR - XR ELBOW RT MIN 3V - 03/14/24 15:11 EST ?? MR/SR - MR ELBOW RT WO CON - 05/05/23 19:43 EST ? Findings: ?? No fracture or dislocation. No significant osteoarthritis or elbow joint ?? effusion. Mild marrow edema signal within the lateral epicondyle of the ?? distal humerus. ? The ulnar collateral ligament and lateral collateral ligament complex are ?? intact. ? Mostly linear abnormal signal is present at the common extensor tendon ?? origin most conspicuous along the undersurface and intrasubstance. The ?? common flexor tendon origin is intact. The insertions of the brachialis, ?? biceps, and triceps tendons are intact. ? The course of the ulnar nerve is unremarkable. Minimal enlargement and ?? fascicular T2 hyperintensity of the ulnar nerve just proximal to the ?? cubital tunnel. ? IMPRESSION: ?? Lateral epicondylitis and partial-thickness tearing of the common extensor ?? tendon origin. ? This document has been electronically signed by: Corey Jones DO on ?? 06/06/2024 12:43:34 ? Dictated By: ?Corey Jones MD ? Signed By: ?<Electronically signed by Corey Jones MD in OV> ? 06/06/244 ? DD/ 1243 ? TD/TT: 06/06/24 1243 ? Bottle Feeder: ? Procedure Note Donotuseinterpreter, Image - 06/06/[address] [address] Magnetic Resonance Report Signed Patient: Guillermo Stuart#: [id number] 1 : 1985Acct:[id number] Age/Sex: 38 / MADM Date: 06/03/24 Loc: HO.MRI Attending Dr: Cristobal Wynn MD Ordering Physician: Cristobal Wynn MD Date of Service: 06/03/24 Procedure(s): MR elbow RT wo con Accession Number(s): [id number] cc: Cristobal Wynn MD; [facility] CLINICAL HISTORY: M77.11 - Lateral epicondylitis, right elbow MR right elbow without gadolinium Comparison: CR/SR - XR ELBOW RT MIN 3V - 03/14/24 15:11 EST MR/SR - MR ELBOW RT WO CON - 05/05/23 19:43 EST Findings: No fracture or dislocation. No significant osteoarthritis or elbow joint effusion. Mild marrow edema signal within the lateral epicondyle of the distal humerus. The ulnar collateral ligament and lateral collateral ligament complex are intact. Mostly linear abnormal signal is present at the common extensor tendon origin most conspicuous along the undersurface and intrasubstance. The common flexor tendon origin is intact. The insertions of the brachialis, biceps, and triceps tendons are intact. The course of the ulnar nerve is unremarkable. Minimal enlargement and fascicular T2 hyperintensity of the ulnar nerve just proximal to the cubital tunnel. IMPRESSION: Lateral epicondylitis and partial-thickness tearing of the common extensor tendon origin. This document has been electronically signed by: Corey Jones DO on 06/06/2024 12:43:34 Dictated By: Corey Jones MD Signed By: <Electronically signed by Corey Jones MD in OV> 06/06/24 1244 DD/ 1243 TD/TT: 06/06/24 1243 Bottle Feeder: [facility] External Provider IMG MRI PROCEDURES Final Result * US Scrotum (03/30/2024 3:32 PM EST) Anatomical Region Laterality Modality Body Ultrasound 03/30/2024 3:32 PM EST Narrative 03/31/2024 7:49 AM EST ? [facility] ?[address] ? [place] [address] ? Ultrasound Report ? Signed ? Patient: Jerry Stuart ?MR#: [id number] ?? 1 ? : 1985 ?Acct:[id number] ? Age/Sex: 38 / M ?ADM Date: 03/30/24 ? Loc: HO.HMGCX ? Attending Dr: Sari Lyn INTEGRATED CIRCUIT DESIGN ENGINEER ? Ordering Physician: Sari Lyn NP ?? Date of Service: 03/30/24 ?? Procedure(s): US scrotum ?? Accession Number(s): [id number] ? cc: Sari Lyn INTEGRATED CIRCUIT DESIGN ENGINEER; Una SawyerP ? EXAMINATION: US SCROTUM ? [...] Small bilateral varicoceles. ? Electronically signed by: ??Hudosn Mercado MD ??03/31/2024 07:46 AM EST ?? RP ? Dictated By: ?Hudson Mercado MD ? Signed By: ?<Electronically signed by Hudson Mercado MD in OV> ?03/31/24 0746 ? DD/ 1532 ? TD/TT: 03/30/24 1555 ? Bottle Feeder: ? Procedure Note Donkimberlyter, Image - 03/31/2024 [facility] [address] [place] [address] [place] [address] Ultrasound Report Signed Patient: Guillermo Stuart#: [id number] 1 : 1985Acct:[id number] Age/Sex: 38 / MADM Date: 03/30/24 Loc: HO.HMGCX Attending Dr: Sari Lyn NP Ordering Physician: Sari Lyn NP Date of Service: 03/30/24 Procedure(s): US scrotum Accession Number(s): [id number] cc: Sari Lyn INTEGRATED CIRCUIT DESIGN ENGINEER; [facility] EXAMINATION: US SCROTUM HISTORY: worsening testicular [...] 03/31/24 0746 DD/ 1532 TD/TT: 03/30/24 1555 Bottle Feeder: us Sari Lyn NP IMG US PROCEDURES Final Result * Trichomonas RNA (Urine/Vaginal) (03/30/2024 2:45 PM EST) Pathologist [facility] Trichomas vaginalis RNA, QL, TMA Not Detected Not Detected [facility] Comment:For additional infor mation, please refer tohttp://education.[employer]/faq/Trichomonastma (This link is being providedfor information/educational purposes only).THIS TEST WAS PERFORMED AT:[employer] [id number] [place] [address]TYYOCYMSANTOS SANTIAGO MD,PHD Urine (Urine, Random) 03/30/2024 2:45 PM EST 03/30/2024 4:05 PM EST us [facility] BODY FLUIDS AND STOOLS OR DERABLES Final Result [facility] [address] [place] [phone] * Mycoplasma/Ureaplasma??Panel (03/30/2024 2:45 PM EST) Sureswab(R), Mycoplasma Hominis, Real-Time Pcr Not Detected Not Detected [facility] Comment:THIS TEST WAS PERFOR MED AT:[employer] [address] [phone] SANTIAGO MD,PHD Mycoplasma Genitalium, rRNA,TMA Not Detected Not Detected [facility] Comment:THIS TEST WAS PERFOR MED AT:[employer] [address] [phone] SANTIAGO MD,PHD U. Parvum DNA Not Detected Not Detected [facility] U. Urealyticum DNA Not Detected Not Detected [facility] Comment:This test was develo ped and its analyticalperformance characteristics have been determinedby [employer] [place], [place].It has not been cleared or approved by the FDA. Thisassay has been validated pursuant to the CLIAregulations and is used for clinical purposes.THIS TEST WAS PERFORMED AT:[employer] [id number] [place] [phone] SANTIAGO MD,PHD 03/30/2024 2:45 PM EST 03/30/2024 4:05 PM EST [facility] LAB MICROBIOLOGY - GENERAL OR DERABLES Final Result [facility] [address] [place] [address] [phone] * RPR (Monitor) with Reflex to??Titer (03/30/2024 9:39 AM EST) RPR (Monitor) w/Refl Titer NON-REACTI VE NON-REACT YEFRI [facility] Comment:THIS TEST WAS PERFOR MED AT:[employer] [address] [phone] A FREGOSO MD Rapid Plasma Reagin Ab Titer TNP [facility] Blood Venous blood specimen / Unknown 03/30/2024 9:39 AM EST 03/30/2024 11:45 AM EST us Felipa Bryant MD LAB BLOOD ORDERABLES Final Res ult [facility] [address] [place] [address] [phone] * (ABNORMAL) Drug Monitoring, Panel 1, Screen, Urine (03/30/2024 8:50 AM EST) Opiate Screen Urine Not Detected Not Detect [facility] Comment:Opiate cut-off is 30 0 ng/mL.Positive results are unconfirmed and should not be used fornon-medical purposes. Barbiturates, Urine Not Detected Not Detect [facility] Comment:Barbiturate cut-off is 200 ng/mL.Positive results are unconfirmed and should not be used fornon-medical purposes. Phencyclidine Screen Urine Not Detected Not Detect [facility] Comment:Phencyclidine cut-of f is 25 ng/mL.Positive results are unconfirmed and should not be used fornon-medical purposes. Amphetamine Screen Urine Not Detected Not Detect [facility] Comment:Amphetamine cut-off is 1000 ng/mL.Positive results are unconfirmed and should not be used fornon-medical purposes. Benzodiazepines Screen Urine Not Detected Not Detect [facility] Comment:Benzodiazepine cut-o ff is 200 ng/mL.Positive results are unconfirmed and should not be used fornon-medical purposes. Cocaine Screen Urine Not Detected Not Detect [facility] Comment:Cocaine cut-off is 3 00 ng/mL.Positive results are unconfirmed and should not be used fornon-medical purposes. Cannabinoid Screen Urine POSITIVE(A) Not Detect [facility] Comment:Cannabinoid cut-off is 50 ng/mL.Positive results are unconfirmed and should not be used fornon-medical purposes. Methadone Screen, Urine Not Detected Not Detect ng/mL [facility] Comment:Methadone cut-off is 300 ng/mL.Positive results are unconfirmed and should not be used fornon-medical purposes. FENTANYL URINE Not Detected Not Detect [facility] Comment:Fentanyl cut-off is 1 ng/mL.Positive results are unconfirmed and should not be used fornon-medical purposes. Oxycodone Urine Screen Not Detected Not Detect ng/mL [facility] Comment:Oxycodone cut-off is 100 ng/mL.Positive results are unconfirmed and should not be used fornon-medical purposes. Buprenorphine Screen Not Detected Not Detect ng/mL [facility] Comment:Buprenorphine cut-of f is 5 ng/mL.Positive results are unconfirmed and should not be used fornon-medical purposes. Urine (Urine, Random) 03/30/2024 8:50 AM EST 03/30/2024 11:51 AM EST Goyo Zapata [facility] URINE ORDERABLES Final Re sult [facility] [address] [place] [address] [phone] * Measles, Mumps, and Rubella (MMR) Antibodies??(IgG) Panel, Immune Status (03/22/2024 9:08 AM EST) Mumps Virus IgG Antibody 36.00 AU/mL [facility] Comment:AU/mL Interpretation ------- <9.00 Not consistent with immunity9.00-10.99 Equivocal>10.99 Consistent with immunityThe presence of mumps IgG antibody suggests immunizationor past or current infection with mumps virus. Rubella IgG Antibody 3.22 Index [facility] Comment:Index Interpretation ----- <0.90 Not consistent with immunity 0.90-0.99 Equivocal > or = 1.00 Consistent with immunityThe presence of rubella IgG antibody suggestsimmunization or past or current infection withrubella virus.THIS TEST WAS PERFORMED AT:[employer] [place] [phone] A FREGOSO MD Rubeola IgG (Measles) 55.00 AU/mL [facility] Comment:AU/mL Interpretation ----- <13.50 Not consistent with dhmdottc90.50-16.49 Equivocal>16.49 Consistent with immunityThe presence of measles IgG suggests immunization orpast or current infection with measles virus.For additional information, please refer tohttp://[employer]/faq/MMN023(This link is being provided for informational/educational purposes only.) Blood Venous blood specimen / Unknown 03/22/2024 9:08 AM EST 03/22/2024 11:21 AM EST [facility] LAB BLOOD ORDERABLES Final Re sult Performing Organization Address [facility] de Phone Number [facility] [address] [place] [phone] * Hepatitis Panel, General (03/22/2024 9:08 AM EST) Pathologist [facility] Hepatitis A IgM Nonreactive Nonreactive [facility] Comment:IgM antibodies to MUNOZ V not detected; does not exclude earlyacute or recovered HAV infection. ~Hepatitis B Surface Antibody REACTIVE Nonreactive [facility] Comment:REACTIVE: > 11.99 mI U/mL Hepatitis B Core Antibody Nonreactive Nonreactive [facility] Hepatitis C Antibody Nonreactive Nonreactive [facility] Comment:Antibodies to HCV no t detected; does not exclude early acuteHCV infection. Hepatitis B Surface Ag Negative Negative [facility] Blood 03/22/2024 9:08 AM EST 03/22/2024 11:21 AM EST [facility] LAB BLOOD ORDERABLES Final Re sult Performing Organization Address [facility] de Phone Number [facility] [address] [place] [phone] * Hepatitis C Antibody with Reflex to HCV, RNA, Quantitative, Real-Time PCR (03/22/2024 9:08 AM EST) Hepatitis C Antibody Nonreactive Nonreactive [facility] Comment:Antibodies to HCV no t detected; does not exclude early acuteHCV infection. Blood Venous blood specimen / Unknown 03/22/2024 9:08 AM EST 03/22/2024 11:21 AM EST us Felipa Bryant MD LAB BLOOD ORDERABLES Final Res ult Performing Organization Address City/[facility]/ZIP Co de Phone Number [facility] [address] [place] [phone] * HIV-1/2 Antigen and Antibodies, Fourth Generation, with Reflexes (03/22/2024 9:08 AM EST) HIV AB/AG Nonreactive Nonreactive [facility] Comment:HIV-1 p24 Ag and/or HIV-1/HIV-2 Ab not detected.A test result that is nonreactive does not exclude thepossibility of exposure to or infection with HIV-1 and/orHIV-2. Nonreactive results in this assay for individualswith prior exposure to HIV-1 and/or HIV-2 may be due toantigen and antibody levels that are below the limit ofdetection of this assay.The [employer] HIV Ag/Ab Combo assay result andsupplemental assay results should be interpreted inconjunction with the patient's clinical presentation,history and other laboratory results. If the results areinconsistent with clinical evidence, additional testing issuggested to confirm the result. Blood Venous blood specimen / Unknown 03/22/2024 9:08 AM EST 03/22/2024 11:21 AM EST us Felipa Bryant MD LAB BLOOD ORDERABLES Final Res ult Performing Organization Address [facility] Co de Phone Number [facility] [address] [place] [phone] * Varicella Zoster Antibody, IgG (03/22/2024 9:08 AM EST) Varicella IgG Antibody 4.45 S/CO [facility] Comment:Signal to Cut-off S/ CO [...] Antibody Immunity Screen, ACIF.THIS TEST WAS PERFORMED AT:[employer] [place] [phone] A FREGOSO MD Blood Venous blood specimen / Unknown 03/22/2024 9:08 AM EST 03/22/2024 11:21 AM EST [facility] LAB BLOOD ORDERABLES Final Re sult [facility] [address] [place] [phone] * Chlamydia/N. Gonorrhoeae RNA, TMA, Urogenitial (03/21/2024 4:05 PM EST) Pathologist [facility] CT PCR NOT DETECTED Not Detect. [facility] Comment:A not detected test result [...] psychologicalconsequences. NG PCR NOT DETECTED Not Detect. [facility] Comment:A not detected test result [...] PM EST 03/21/2024 5:47 PM EST Narrative [facility] - 03/22/2024 5:49 AM EST Urine us Felipa Bryant MD LAB MICROBIOLOGY - GENERAL ORD ERABLES Final Result [facility] [address] [place] [phone] * (ABNORMAL) Lipid Panel, Standard (06/05/2022 2:49 PM EDT) Cholesterol, Total 188 <200 mg/dL [employer] [place] [facility] HDL Cholesterol 61 > OR = 40 mg/dL [employer] [place] [employer] Triglycerides 134 <150 mg/dL [employer] [place] [facility] LDL Cholesterol 104(H) mg/dL (calc) [employer] [facility] Comment: Reference range: <100 Desirable range <100 mg/dL for primary prevention; ?? <70 mg/dL for patients with CHD or diabetic patients with > or = 2 CHD risk factors. LDL-C is now calculated using the Aftab calculation, which is a validated novel method providing better accuracy than the Friedewald equation in the estimation of LDL-C. Umang OLIVAS et al. GINA. 2013;310(19): 2192-9510 (http://education.[employer]/faq/OAE690) Chol/HDLC Ratio 3.1 <5.0 (calc) [facility] Non-HDL Cholesterol 127 <130 mg/dL (calc) [facility] Comment: For patients with diabetes plus 1 major ASCVD risk factor, treating to a non-HDL-C goal of <100 mg/dL (LDL-C of <70 mg/dL) is considered a therapeutic option. Blood Venous blood specimen / Unknown 06/05/2022 2:49 PM EDT 06/05/2022 2:49 PM EDT Narrative [facility] - 06/09/2022 12:52 PM EDT FASTING:NO FASTING: NO [facility] STATION MECHANIC APPRENTICE LAB BLOOD ORDERABLES Final Re sult [facility] [address] [place] [phone] [employer] [facility] [address] [place] [phone] from Last 3 Months or Most Recently Relevant to Health Maintenance Insurance C[employer] N [employer] Care Teams Rn Intern Relationship Specialty Start Date End Date Una Sawyer FNP [address] [place] [phone] PCP - General Family Medicine 08/21/21
--- OUTSIDE RECORDS SUMMARY | 2024-06-13 15:22 | XMS_ITS | Encounter Summary ---
Author Organization [employer] Address [address] [place] [address] Care Team Providers Care Lift Driver Name Role Phone [facility] Primary Care Provider [phone] Reason for Visit * Reason Onset Date Comments Results 02/26/2023 Encounter Details Date Type Department Care Team ([facility] st Contact Info) Description 02/26/2023 Telephone [facility] [address] [place], [place] [phone] [facility] [address] [place], [place] [phone] Results Social History Tobacco Use Types Packs/Day [...] documented as of this encounter Care Teams Lift Driver Relationship Specialty Start Date End Date Una Sawyer FNP [address] [place] [address] PCP - General Family Medicine 08/21/21 documented as of this encounter
--- OUTSIDE RECORDS SUMMARY | 2024-06-13 15:22 | XMS_ITS | Encounter Summary ---
Author Organization [employer] Address [address] [address] Care Team Providers Care Hydraulic Dredge Operator Name Role Phone [facility] Primary Care Provider [phone] Reason for Visit * Reason Onset Date Comments Med Refill 06/03/2023 Encounter Details Date Type Department Care Team ([facility] st Contact Info) Description 06/03/2023 Refill [facility] [address] [place], [place] [phone] Mindy Cardona MD [address] [place] [address] Erectile dysfunction, unspecified erectile dysfunction type Social [...] as of this encounter Plan of Treatment Not on file documented as of this encounter Visit Diagnoses Diagnosis Erectile dysfunction, unspecified erectile dysfunction type documented in this encounter Additional Health Concerns Assessment Noted Time PHQ-9 Depression Total Score: 0 05/29/19 24 9:41 AM EDT documented as of this encounter Care Teams Hydraulic Dredge Operator Relationship Specialty Start Date End Date Una Sawyer FNP [address] [place] [address] PCP - General Family Medicine 08/21/21 documented as of this encounter
[2024-06-13] MEDS: Barium Sulfate Oral (Berry) 450 ML ORAL.SUSP 900 ML PO (15:33)
== END 2024-06-13 12:58 | disposition home or self-care (01) ==
LOC: HO.CT 12:57
PROVIDERS: PCP Registered Nurse; Visit Provider Nurse Practitioner Family
DX: R10.32 Left lower quadrant pain (principal)
CPT/HCPCS: 72192

== ENCOUNTER → 2024-06-13 13:00 | Outpatient (BNV) | payer MEDICAID, SELFPAY | PROVIDERS: PCP Registered Nurse; Visit Provider Nuclear Medicine | DX: R10.32 Left lower quadrant pain (principal) | CPT/HCPCS: 72192 ==

== ENCOUNTER 2024-08-03 13:59 | Outpatient (REF) | payer MEDICAID, SELFPAY ==
--- OUTSIDE RECORDS SUMMARY | 2024-08-03 14:55 | XMS_ITS | Encounter Summary ---
Author Organization [employer] Address 75 [facility] 7 [place] [address] Care Team Providers Care Labor Relations Director Name Role Phone Silverio [facility] Primary Care Provider [phone] Encounter Details Date Type Department Care Team ([facility] st Contact Info) Description 03/30/2024 Orders Only [facility] [address] [place], [place] [phone] Felipa Bryant MD 230 [place], [place] [phone] Urethritis (Primary Dx) Social History Tobacco Use [...] Care Team (Late st Contact Info) Description 09/19/2024 9:00 AM EDT Office Visit [facility] [address] [place] [address] Tarka Maria R, OD [address] [place] [address] Scheduled Orders Name Type Priority Associated Diagnoses Orde r Schedule Mycoplasma/Ureaplas ma??Panel Microbiology Routine Urethritis Expected: 03/30/2024 (Approximate), Expires: 03/30/2025 documented as of this encounter Procedures Procedure Name Priority Date/Time Associated Diagnosis Comments MYCOPLASMA/UREAPLAS MA PANEL Routine 03/30/2024 2:45 PM EST Urethritis documented in this encounter Results * Mycoplasma/Ureaplasma??Panel (03/30/2024 2:45 PM EST) Jonathan(R), Mycoplasma Hominis, Real-Time Pcr Not Detected Not Detected [facility] Comment:THIS TEST WAS PERFOR MED AT:[facility] [id number] [place] [address]WVSQHPFSANTOS SANTIAGO MD,PHD Mycoplasma Genitalium, rRNA,TMA Not Detected Not Detected [facility] Comment:THIS TEST WAS PERFOR MED AT:[facility]/[employer] [id number] [place] [address]XPJRHFPSANTOS SANTIAGO MD,PHD U. Parvum DNA Not Detected Not Detected [facility] U. Urealyticum DNA Not Detected Not Detected [facility] Comment:This test was develo ped and its analyticalperformance characteristics have been determinedby [facility] [place], [place].It has not been cleared or approved by the FDA. Thisassay has been validated pursuant to the CLIAregulations and is used for clinical purposes.THIS TEST WAS PERFORMED AT:[facility] [address] [id number] [place] [address]OGCNFPG Beryl SANTIAGO MD,PHD 03/30/2024 2:45 PM EST 03/30/2024 4:05 PM EST Result [facility] MICROBIOLOGY - GENERAL OR DERABLES Final Result [facility] [address] [place] [phone] documented in this encounter Visit Diagnoses Diagnosis Urethritis- Primary Unspecified urethritis documented in this encounter Additional Health Concerns Assessment Noted Time PHQ-9 Depression Total Score: 6 03/23/19 25 9:29 AM EST documented as of this encounter Care Teams Labor Relations Director Relationship Specialty Start Date End Date Una Sawyer FNP [address] [place] [address] PCP - General Family Medicine 08/21/21 documented as of this encounter
[2024-08-03 18:08] LABS: CT PCR NOT DETECTED (Not Detect.); NG PCR NOT DETECTED (Not Detect.)
[2024-08-04 07:54] LABS: Syphilis Screen Nonreactive (Nonreactive)
[2024-08-04 07:58] LABS: HIV AB/AG Nonreactive (Nonreactive); HIV Num 1 0.05 S/CO (0.00-0.99)
[2024-08-04 20:39] LABS: Trichomonas vaginalis RNA NOT DETECTED (NOT DETECTED)
== END 2024-08-03 14:00 | disposition home or self-care (01) ==
LOC: HO.HHCL 13:59
PROVIDERS: Visit Provider Registered Nurse
DX: Z11.3 Encounter for screening for infections with a predominantly sexual mode of transmission (principal)
CPT/HCPCS: 86780; 87389; 87491; 87591; 87661

== ENCOUNTER 2024-08-16 14:08 | Outpatient (AMB) | payer MEDICAID, SELFPAY ==
--- NOTE | 2024-08-16 14:29 | MHC.OFFVIS ---
Intake Visit Reasons: 2m/CT Intake Note: Patient is present for 2M/CT Urology Medication:NONE Antibiotic Allergy:NONE Blood Thinner:NONE Executive Marketing Assistant Required: No Allergies adhesive tape Allergy (Verified 08/16/24 14:30) Rash HPI Comments Details: Mary is a pleasant male. He is a patient of Dr. Sawyer. He seen for the following urologic conditions - erectile dysfunction - left-sided testicular swelling Here for discussion of imaging findings CT scan normal On exam has some tenderness Rx incision of rectus abdominis into anterior pelvic bone Discussed pelvic floor physical therapy which had been suggested by primary care [place] does involve intracavitary manipulation At this point would recommend regular PT Left-sided testicular swelling Prior evaluation with finding of inguinal hernias On examination by General surgery not found to have inguinal hernias Imaging - 04/02 scrotal ultrasound normal left testicle, right testicular atrophy suggestive of old trauma or infection Erectile dysfunction PFSH Medical History (Updated 05/29/24 @ 07:55 by Cristobal Wynn MD) Elbow pain, right Testicular pain, left Patient denies significant medical history Erectile dysfunction Anxiety Depression Surgical History (Updated 05/26/24 @ 09:02 by Dana Escalante CMA) H/O umbilical hernia repair Hx of tooth extraction Social History (Reviewed 05/03/24 @ 09:57 by Lorelei Mc [facility]) Patient Tobacco Use Status: Former Tobacco user Substance Use Type: Marijuana Review of Systems Const Denies chills and Denies fever(s) Card Reports no additional complaints and Denies syncope Resp Denies cough GI Denies abdominal pain and Denies heartburn Reports as per HPI and Denies change in libido Neuro Denies syncope Psych Denies change in libido Endo Denies change in libido Physical Exam Const General: cooperative, healthy appearing, comfortable and no acute distress Orientation/consciousness: patient oriented x3 HEENT Face and sinus: Yes normal facial exam Mouth: moist mucous membranes Neck Neck: Yes normal visual inspection, Yes full ROM and Yes trachea midline Chest Chest palpation & inspection: normal inspection of the chest Resp Effort & Inspection: normal respiratory effort, able to speak in complete sentences and no respiratory distress GI Inspection: Yes normal to inspection Back/Spine/Pelvis Cervical Spine: normal cervical lordosis Thoracic/Lumbar Spine: thoracic and lumbar spine normal to inspection Skin General skin exam: no rashes or lesions noted Neuro General: patient oriented x3, gait normal, tone normal and moves all extremities Extrem General: Yes normal to inspection and Yes capillary refill normal Assessment & Plan Assessment & Plan (1) Testicular pain: Code(s): N50.819 - Testicular pain, unspecified Category: Surgical (2) Erectile dysfunction: Code(s): N52.9 - Male erectile dysfunction, unspecified Category: Medical Plan P.r.n. follow-up Patient Instructions: This note is constructed using voice recognition software. While every effort has been made to ensure accuracy cna ltc errors may have been included. Imaging studies, laboratory and physical exam results were discussed and reviewed in detail. No major barriers to patient understanding were identified. An opportunity to ask questions regarding the treatment plan was provided. All questions were answered. The patient expressed understanding and agreement with the above treatment plan. The patient is aware they should contact our office by phone for worsening of their current condition or the appearance of new urologic symptoms. Compliance is encouraged with any medications and followup testing that is ordered. It is a privilege to participate in the urologic care of your patient. If you have any questions or concerns regarding treatment for the above conditions, or other urologic issues, please do not hesitate to contact me. The office telephone contact is [phone]. Sincerely, Dr Mark Wilkes MD, CIRILO [facility] - Urology Compassionate Specialist Care for the Genitourinary System Coding Level of Care Code Est Pt Level 3 ([address]) Diagnoses Testicular pain N50.819 Erectile dysfunction N52.9
--- OUTSIDE RECORDS SUMMARY | 2024-08-16 16:58 | XMS_ITS | Encounter Summary ---
Author Organization [employer] Address [address] [place] [address] Care Team Providers Care Speech Language Pathology Assistant Name Role Phone Una Sawyer Primary Care Provider [phone] Reason for Referral * Consultation (Routine) - Closed Specialty Diagnoses / Procedures Referred By Feliz bravo Referred To Contact Physical Therapy Diagnoses Strain of abdominal muscle, initial encounter Una Sawyer FNP [address] [place] [address] Phone: tel: fax: [facility] [address] [place] [address] Phone: tel: fax: Referral ID Status Reason Start Date Expiration Date V isits Requested Visits Authorized [id number] Closed Specialty Services Required 08/15/2024 08/15/2025 1 1 Encounter Details Date Type Department Care Team (Late st Contact Info) Description 08/15/2024 Orders Only [facility] [address] [place], [place] [phone] Una Sawyer FNP [address] [place], [place] [phone] Strain of abdominal muscle, initial encounter (Primary Dx) Social History Tobacco Use Types Packs/Day Years Used Date Smoking Tobacco: Former Cigarettes Passive Smoke Exposure: Past Smokeless Tobacco: Never Alcohol Use Standard Drinks/Week Comments Yes 0 (1 standard drink = 0.6 oz pur e alcohol) every other day liquor Depression Answer Date Recorded Patient Health Questionnaire-9 Score 0 08/03/2024 Patient Health Questionnaire-9 Score 0 08/03/2024 Last PHQ-9: Questionnaire Data Not on file 0 08/03/2024 Housing Stability Answer Date Recorded What is [...] Date Recorded Patient Health Questionnaire-2 Score 0 08/03/2024 Internet Access Answer Date Recorded Internet Access [...] Care Team (Late st Contact Info) Description 09/07/2024 10:00 AM EDT Clinical Support [facility] [address] [place] [address] 09/19/2024 9:00 AM EDT Office Visit [facility] [address] [place] [address] Maria R Clark, OD [address] [place] [address] Scheduled Referrals Name Type Priority Associated Diagnoses Orde r Schedule Referral to Physical Therapy Outpatient Referral Routine Strain of abdominal muscle, initial encounter Expected: 08/15/2024 (Approximate), Expires: 08/15/2025 documented as of this encounter Visit Diagnoses Diagnosis Strain of abdominal muscle, initial encounter- Primary documented in this encounter Additional Health Concerns Assessment Noted Time PHQ-9 Depression Total Score: 0 08/04/19 25 2:21 PM EDT documented as of this encounter Care Teams Speech Language Pathology Assistant Relationship Specialty Start Date End Date Una Sawyer FNP [address] [place] [address] PCP - General Family Medicine 08/21/21 documented as of this encounter
== END 2024-08-16 14:51 | disposition home or self-care (01) ==
LOC: HO.HUSH 14:09
PROVIDERS: PCP Registered Nurse; Visit Provider Urology
DX: N50.819 Testicular pain, unspecified (principal); N52.9 Male erectile dysfunction, unspecified
CPT/HCPCS: 99213

== ENCOUNTER → 2024-08-16 14:08 | Outpatient (BNVA) | payer MEDICAID, SELFPAY | PROVIDERS: PCP Registered Nurse; Visit Provider Urology | DX: N50.819 Testicular pain, unspecified (principal); N52.9 Male erectile dysfunction, unspecified | CPT/HCPCS: 99212 ==

== ENCOUNTER 2024-12-28 18:42 | Outpatient (REF) | payer MEDICAID, SELFPAY ==
--- OUTSIDE RECORDS SUMMARY | 2024-12-28 15:20 | XMS_ITS | Encounter Summary ---
Author Organization [employer] Address 75 [facility] 7 [place] [address] Care Team Providers Care Turkey Picker Name Role Phone Silverio [facility] Primary Care Provider [phone] Reason for Visit * Reason Comments sick visit Encounter Details Date Type Department Care Team ([facility] st Contact Info) Description 12/28/2024 3:20 PM EDT Office Visit [facility] [address] [place], [place] [phone] Jadon Solano MD [address] [place] [address] Dysuria (Primary Dx); Urethral discharge in male; Hypertension, unspecified type; Possible exposure to STI Social History Tobacco [...] Sign Reading Time Taken Comments Blood Pressure 137/87 12/28/2024 4:27 PM EDT Pulse 73 12/28/2024 3:43 PM EDT Temperature 36.6 C (97.8 F) 12/28/2024 3:43 PM EDT Respiratory Rate 20 12/28/2024 3:43 PM EDT Oxygen Saturation 97% 12/28/2024 3:43 PM EDT Inhaled Oxygen Concentration - - Weight 117 kg (258 lb) 12/28/2024 3:43 PM EDT Height 188 cm (6' 2 ) 12/28/2024 3:43 PM EDT Body Mass Index 33.13 12/28/2024 3:43 PM EDT documented in this encounter Progress Notes * Jadon Solano MD - 12/28/2024 3:20 PM EDT Subjective Patient ID: Jerry Stuart is a 39 y.o. male. HPI 3 days ago woke woke with discomfort on inside of penis and noted discharge/spotting. Has urinary urgency and frequency. Took one doxycycline 100 mg tablet prescribed 03/2024, refilled 10/2024. Symptoms resolved, but recurred 2 days later and persist. No fever, chills, testicular pain or swelling. Had STI testing yesterday at [facility]. Results are not back yet. States is sexually active with males and female partners, has protected and unprotected intercourseand oral sex. Negative urine for GC/CT, trichomonas, and mycoplasma 08/03/2024 Followed by [facility] urology for testicular pain, last seen several months ago. 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 Quit Smoking 13 years ago. Smokes weed daily. 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 Respiratory: Negative for shortness of breath. Cardiovascular: Negative for chest pain. Gastrointestinal: Negative for abdominal pain. Genitourinary: Positive for frequency, penile discharge and urgency. Negative for scrotal swelling and testicular pain. Skin: Negative for rash. Neurological: Negative for headaches. Objective Physical Exam Constitutional: Appearance: Normal appearance. HENT: Nose: Nose normal. Eyes: Conjunctiva/sclera: Conjunctivae normal. Pupils: Pupils are equal, round, and reactive to light. Cardiovascular: Rate and Rhythm: Normal rate and regular rhythm. Heart sounds: No murmur heard. Pulmonary: Effort: Pulmonary effort is normal. Breath sounds: Normal breath sounds. Genitourinary: Penis: Normal and circumcised. No discharge. Testes: Normal. Right: Mass or tenderness not present. Left: Mass or tenderness not present. Epididymis: Right: Normal. Left: Normal. Musculoskeletal: General: Normal range of motion. Cervical back: No tenderness. Skin: Findings: No rash. Neurological: Mental Status: He is alert. Gait: Gait is intact. Psychiatric: Mood and Affect: Mood normal. Behavior: Behavior normal. Procedures Assessment/Plan Diagnoses and all orders for this visit: Dysuria Advised to always use condoms and have partner use condoms as well. U/a Neg Urine C&S, GC/CT pending. Will call patient with results. Return to clinic if not improving - POCT Urinalysis - Culture, Urine, Routine - Chlamydia/N. Gonorrhoeae, PCR, Urine Urethral discharge in male Urine testing pending as above. Due to discharge, prescribed doxycycline. Return to clinic if not improving Hypertension, unspecified type States he gets anxious when his blood pressure is taken rather in the office or at home so he avoids it at home. States he takes lisinopril as prescribed daily. Other orders - doxycycline (Vibramycin) 100 MG capsule; Take 1 capsule (100 mg) by mouth 2 times daily for 7 days. Take with at least 8 ounces (large glass) of water, do not lie down for 30 minutes after documented in this encounter Plan of Treatment Upcoming Encounters Date Type Department Care Team (Late st Contact Info) Description 01/09/2025 9:45 AM EST Office Visit [facility] [address] [place] [address] [facility] [address] [place] [address] 04/10/2025 9:00 AM EST Office Visit [facility] [address] [place] [address] TarkaMaria R, OD [address] [place] [address] Scheduled Orders Name Type Priority Associated Diagnoses Orde r Schedule Culture, Urine, Routine Microbiology Routine Dysuria Ordered: 12/28/2024 Chlamydia/N. Gonorrhoeae, PCR, Urine Lab Routine Dysuria Ordered: 12/28/2024 documented as of this encounter Procedures Procedure Name Priority Date/Time Associated Diagnosis Comments POCT URINALYSIS DIPSTICK Routine 12/28/2024 4:20 PM EDT Dysuria documented in this encounter Results * POCT Urinalysis (12/28/2024 4:20 PM EDT) Color, UA Yellow Clarity, UA Clear Glucose, UA Negative Bilirubin, UA Negative Ketones, UA Negative Spec Grav, UA 1.015 Blood, UA Negative Negative, None Detected pH, UA 6.5 Protein, UA Negative Urobilinogen, UA 0.2 Leukocytes, UA Negative Negative, Rare, Trace Nitrite, UA Negative Negative, None Detected Appearance, UA yellow clear QC Media Lot # [id number] Lot# Expiration Date Urine (Urine, Random) 12/28/2024 4:20 PM EDT Jadon Solano MD POINT OF CARE TEST ENTER/EDIT OR DERABLES Final Result documented in this encounter Visit Diagnoses Diagnosis Dysuria- Primary Urethral discharge in male Hypertension, unspecified type Possible exposure to STI documented in this encounter Additional Health Concerns Assessment Noted Time PHQ-9 Depression Total Score: 0 08/04/19 25 2:21 PM EDT documented as of this encounter Care Teams Turkey Picker Relationship Specialty Start Date End Date Una Sawyer FNP [address] [place] [address] PCP - General Family Medicine 08/21/21 documented as of this encounter
--- OUTSIDE RECORDS SUMMARY | 2024-12-28 22:20 | XMS_ITS | Encounter Summary ---
Author Organization [employer] Address [address] [facility] 7 [place] [address] Care Team Providers Care Brazing Machine Operator Name Role Phone [facility] Primary Care Provider [phone] Reason for Visit * Reason Onset Date Comments Nurse Triage 12/28/2024 Encounter Details Date Type Department Care Team ([facility] st Contact Info) Description 12/28/2024 Telephone [facility] MEDICINE [address] [place], [place] [phone] [facility] [address] [place] [address] Nurse Triage Social History Tobacco Use Types [...] Telephone Encounter - Sari Whaley RN - 12/28/2024 12:07 PM EDT TC placed to pt who reports on Thursday he experienced pain in his private area states pain is insidehis penis and not with urination and reports it as intermittent and reports discharge. Thursday patient states that he was feeling better and pain had subsided however on Thursday he began to feel pain again he went to have STI testing which came back negative. Patient now has increased urgency to usethe bathroom however feels like compared to his usual steady stream of urine it is more of a dribble. Advised pt if he is not voiding he should go to Ed he states he is voiding normal amounts just more frequently so smaller stream. Patient was pre-booked in walk in for transportation. Protocol Used: Urinary Symptoms (Adult) Protocol-Based Disposition: See in Office or Video Visit Today Video visit offer not recorded Positive Triage Questions: * Urinating more frequently than usual (i.e., frequency) OR new-onset of the feeling of an urgent need to urinate (i.e., urgency) * Patient wants to be seen * Dribbling (losing urine) just after finishing urination (i.e., post-void dribbling) * All higher-acuity triage questions were negative Care Advice Discussed: * Reasons To Call Back - Fever occurs - Pain or burning with urination - You become worse * Reasons To Call Back - Unable to urinate and bladder feels full - You become worse * Telephone Encounter - John Gabe - 12/28/2024 11:47 AM EDT Symptom: Urine Symptoms Outcome: Schedule a same-day appointment or talk to a nurse or provider today Reason: Caller denied all higher acuity questions The caller accepted this outcome. Contact pt at [phone] documented in this encounter Plan of Treatment Upcoming Encounters Date Type Department Care Team (Late st Contact Info) Description 01/09/2025 9:45 AM EST Office Visit [facility] MEDICINE [address] [place] [address] Una Sawyer FNP [address] [place] [address] 04/10/2025 9:00 AM EST Office Visit [facility] OPTOMETRY [address] [place] [address] Tarka, Maria R, OD [address] [place] [address] documented as of this encounter Visit Diagnoses Not on filedocumented in this encounter Additional Health Concerns Assessment Noted Time PHQ-9 Depression Total Score: 0 08/04/19 25 2:21 PM EDT documented as of this encounter Care Teams Brazing Machine Operator Relationship Specialty Start Date End Date Una Sawyer FNP [address] [place] [phone] PCP - General Family Medicine 08/21/21 documented as of this encounter
--- OUTSIDE RECORDS SUMMARY | 2024-12-28 22:21 | XMS_ITS | Encounter Summary ---
Author Organization [employer] Address [address] [facility] 7 [place] [address] Care Team Providers Care Math And Science Instructor Name Role Phone [facility] Primary Care Provider [phone] Reason for Visit * Reason Onset Date Comments Nurse Triage 03/21/2024 Encounter Details Date Type Department Care Team ([facility] st Contact Info) Description 03/21/2024 Telephone [facility] MEDICINE [address] [place], [place] [phone] [facility] [address] [place] [address] Nurse Triage Social History Tobacco Use Types [...] AM EDT documented as of this encounter Functional Status * Over the past 2 weeks, how often have you been bothered by any of the following problems? Question Answer Date of Assessment Author Patient Health Questionnaire-2 Score 3 03/23/2024 9:29 AM Janusz Talbert LICSW * Little interest or pleasure in doing things Answer Date of Assessment Author Not at all 03/23/2024 9:29 AM Opal Talbert LICSW * Feeling down, depressed, or hopeless Answer Date of Assessment Author Nearly every day 03/23/2024 9:29 AM Opal Talbert LICSW * Trouble falling or staying asleep, or sleeping too much Answer Date of Assessment Author Not at all 03/23/2024 9:29 AM Opal Talbert LICSW * Feeling tired or having little energy Answer Date of Assessment Author Not at all 03/23/2024 9:29 AM Opal Talbert LICSW * Poor appetite or overeating Answer Date of Assessment Author Not at all 03/23/2024 9:29 AM Opal Talbert LICSW * Feeling bad about yourself - or that you are a failure or have let yourself or your family down Answer Date of Assessment Author Nearly every day 03/23/2024 9:29 AM Opal Talbert LICSW * Trouble concentrating on things, such as reading the newspaper or watching television Answer Date of Assessment Author Not at all 03/23/2024 9:29 AM Opal Talbert LICSW * Moving or speaking so slowly that other people could have noticed? Or the opposite - being so fidgety or restless that you have been moving around a lot more than usual. Answer Date of Assessment Author Not at all 03/23/2024 9:29 AM EST Opal Gordon OVEREDGER * Thoughts that you would be better off or hurting yourself in some way Answer Date of Assessment Author Not at all 03/23/2024 9:29 AM EST Opal Gordon OVEREDGER * Patient Health Questionnaire-9 Score Answer Date of Assessment Author 6 03/23/2024 9:29 AM EST Opal Gordon OVEREDGER * How difficult have these problems made it for you to do your work, take care of things at home, or get along with other people? Answer Date of Assessment Author Somewhat difficult 03/23/2024 9:29 AM EST Opal Moore LICSW * Over the last 2 weeks, how often have you been bothered by any of the following problems? Question Answer Date of Assessment Author Feeling nervous, anxious, or on edge 3 03/23/2024 9:29 AM EST Becky Gordon OVEREDGER Not being able to stop or control worrying 3 03/23/2024 9:29 AM EST Becky Gordon OVEREDGER Worrying too much about different things 3 03/23/2024 9:29 AM EST Becky Gordon OVEREDGER Trouble relaxing 3 03/23/2024 9:29 AM EST Opal Kearns OVEREDGER Being so restless that it is hard to sit still 0 03/23/2024 9:29 AM EST Becky Gordon na OVEREDGER Becoming easily annoyed or irritable 0 03/23/2024 9:29 AM EST Becky Gordon na OVEREDGER Feeling afraid as if something awful might happen 3 03/23/2024 9:29 AM EST Opal Gordon OVEREDGER JORDAN-7 Total Score 15 03/23/2024 9:29 AM EST Opal Gordon OVEREDGER documented as of this encounter Miscellaneous Notes [...] Description 01/09/2025 9:45 AM EST Office Visit [facility] MEDICINE [address] [place] [address] [place], BUFFER COPPER [address] [place] [address] 04/10/2025 9:00 AM EST Office Visit [facility] OPTOMETRY [address] [place] [address] Maria R Clark, OD [address] [place] [address] documented as of this encounter Visit Diagnoses Not on filedocumented in this encounter Additional Health Concerns Assessment Noted Time PHQ-9 Depression Total Score: 0 05/29/19 24 9:41 AM EDT documented as of this encounter Care Teams Math And Science Instructor Relationship Specialty Start Date End Date Una Sawyer FNP [address] [place] [address] PCP - General Family Medicine 08/21/21 documented as of this encounter
--- OUTSIDE RECORDS SUMMARY | 2024-12-28 22:21 | XMS_ITS | Patient Health Record ---
Author Organization [employer] [facility] Address [address] [place] [address] Care Team Providers Care Tare Worker Name Role Phone Kota Diamond MD Primary Care Provider Jama Orellana Unavailable [phone] Reason For Referral No Information Medications Medication SIG (Take, Route, Frequency, Duration) Notes Start Date End Date Status Cialis 20 MG 1 tablet Orally N ot-Taking Ibuprofen 600 600 MG 1 tablet as needed Orally every 6 hrs; Duration: 30 DAYS 03/31/2016 Active Social History Tobacco use other than smoking: Question Answer Notes Are you an other tobacco user? No Problems Problem Type SNOMED Code ICD Code Onset Dates Problem Status W/U Status Risk Notes Problem Arthralgia of the ankle and/or foot (610297022) Pain in left ankle and joints of left foot (M25.572) Active confirmed Problem Sprain of calcaneofibular ligament (90868074) Sprain of calcaneofibular ligament of left ankle, initial encounter (S93.412A) Active confirmed Problem Sprain of calcaneofibular ligament of left ankle joint (disorder) (70473465984976218 ) Sprain of calcaneofibular ligament of left ankle, subsequent encounter (S93.412D) Active confirmed Problem Sprain of calcaneofibular ligament of left ankle, sequela (S93.412S) Active confirmed Problem Sprain of left ankle (30614677002431277 ) Sprain of other ligament of left ankle, initial encounter (S93.492A) Active confirmed Problem Sprain of left ankle (disorder) (10947661516544613 ) Sprain of other ligament of left ankle, subsequent encounter (S93.492D) Active confirmed Problem Sprain of other ligament of left ankle, sequela (S93.492S) Active confirmed Plan Of Treatment No Information Insurance Providers Payer Name Payer Address Payer Phone Subscriber Number Group Number Insured Name Patient Relationship to Insured Coverage Start Date Coverage End Date [facility] [address] [facility] NINI [id number] [phone] [id number] Jerry Stuart Self - patient is the insured Medical (General) History Medical History History ICD Code Mononucleosis Ankle sprain
--- OUTSIDE RECORDS SUMMARY | 2024-12-28 22:21 | XMS_ITS | Encounter Summary ---
Author Organization [employer] Address [address] [facility] 7 [place] [address] Care Team Providers Care Cloth Stock Sorter Name Role Phone Una Sawyer [facility] Primary Care Provider [phone] Encounter Details Date Type Department Care Team (Latest Contact Info) Description 12/28/2024 Travel Social History Tobacco Use Types Packs/Day [...] Description 01/09/2025 9:45 AM EST Office Visit [facility] MEDICINE [address] [place] [address] Una Sawyer FNP [address] [place] [address] 04/10/2025 9:00 AM EST Office Visit [facility] OPTOMETRY [address] [place] [address] TarkaMaria R, OD [address] [place] [address] documented as of this encounter Visit Diagnoses Not on filedocumented in this encounter Additional Health Concerns Assessment Noted Time PHQ-9 Depression Total Score: 0 08/04/19 25 2:21 PM EDT documented as of this encounter Care Teams Cloth Stock Sorter Relationship Specialty Start Date End Date Una Sawyer FNP [address] [place] [address] PCP - General Family Medicine 08/21/21 documented as of this encounter
--- OUTSIDE RECORDS SUMMARY | 2024-12-28 22:21 | XMS_ITS | Encounter Summary ---
Author Organization [employer] Address [address] [facility] 7 [place] [address] Care Team Providers Care Client Services Coordinator Name Role Phone Silverio [facility] Primary Care Provider [phone] Encounter Details Date Type Department Care Team ([facility] st Contact Info) Description 03/30/2024 Orders Only [facility] MEDICINE [address] [place], [place] [phone] Felipa Bryant MD [address] [place], [place] [phone] Urethritis (Primary Dx) Social History Tobacco Use [...] Description 01/09/2025 9:45 AM EST Office Visit [facility] MEDICINE [address] [place] [address] Entiat, Una, HEADWAITER/HEADWAITRESS [address] [place] [address] 04/10/2025 9:00 AM EST Office Visit [facility] OPTOMETRY [address] [place] [address] Tarka, Maria R, OD [address] [place] [address] Scheduled Orders Name Type Priority Associated Diagnoses Orde r Schedule Mycoplasma/Ureaplas ma Panel Microbiology Routine Urethritis Expected: 03/30/2024 (Approximate), Expires: 03/30/2025 documented as of this encounter Procedures Procedure Name Priority Date/Time Associated Diagnosis Comments MYCOPLASMA/UREAPLAS MA PANEL Routine 03/30/2024 2:45 PM EST Urethritis documented in this encounter Results * Mycoplasma/Ureaplasma??Panel (03/30/2024 2:45 PM EST) Jonathan(R), Mycoplasma Hominis, Real-Time Pcr Not Detected Not Detected [facility] Comment:THIS TEST WAS PERFOR MED AT:[employer]/[id number] [place] [address]QAMVKQPSANTOS SANTIAGO MD,PHD Mycoplasma Genitalium, rRNA,TMA Not Detected Not Detected [facility] Comment:THIS TEST WAS PERFOR MED AT:[employer]/JON [id number] [place] [address]CPJFDBQSANTOS SANTIAGO MD,PHD U. Parvum DNA Not Detected Not Detected [facility] U. Urealyticum DNA Not Detected Not Detected [facility] Comment:This test was develo ped and its analyticalperformance characteristics have been determinedby [employer] [place], [place].It has not been cleared or approved by the FDA. Thisassay has been validated pursuant to the CLIAregulations and is used for clinical purposes.THIS TEST WAS PERFORMED AT:[employer]/GREE [id number] [place] [address]GNKBGQMSANTOS SANTIAGO MD,PHD 03/30/2024 2:45 PM EST 03/30/2024 4:05 PM EST [facility] LAB MICROBIOLOGY - GENERAL OR DERABLES Final Result [facility] [address] [place] [phone] documented in this encounter Visit Diagnoses Diagnosis Urethritis- Primary Unspecified urethritis documented in this encounter Additional Health Concerns Assessment Noted Time PHQ-9 Depression Total Score: 6 03/23/19 25 9:29 AM EST documented as of this encounter Care Teams Client Services Coordinator Relationship Specialty Start Date End Date Una Sawyer HEADWAITER/HEADWAITRESS [address] [place] [phone] PCP - General Family Medicine 08/21/21 documented as of this encounter
--- OUTSIDE RECORDS SUMMARY | 2024-12-28 22:21 | XMS_ITS | Encounter Summary ---
Author Organization [employer] Address [address] [place] [address] Care Team Providers Care Line Fixer Name Role Phone [place] [facility] Primary Care Provider [phone] Reason for Visit * Reason Onset Date Comments Results 02/26/2023 Encounter Details Date Type Department Care Team ([facility] st Contact Info) Description 02/26/2023 Telephone [facility] MEDICINE [address] [place], [place] [phone] [place] [facility] [address] [place] [address] Results Social History Tobacco Use Types Packs/Day [...] Description 01/09/2025 9:45 AM EST Office Visit [facility] MEDICINE [address] [place] [address] Una Sawyer FNP [address] [place] [address] 04/10/2025 9:00 AM EST Office Visit [facility] OPTOMETRY [address] [place] [address] Tarka, Maria R, OD [address] [place] [address] documented as of this encounter Visit Diagnoses Not on filedocumented in this encounter Additional Health Concerns Assessment Noted Time PHQ-9 Depression Total Score: 5 03/28/19 23 10:55 AM EST documented as of this encounter Care Teams Line Fixer Relationship Specialty Start Date End Date Una Sawyer FNP [address] [place] [address] PCP - General Family Medicine 08/21/21 documented as of this encounter
--- OUTSIDE RECORDS SUMMARY | 2024-12-28 22:21 | XMS_ITS | Clinical Summary ---
Author Organization [email or web address] Address [address] [place] [address] 7 [place] [address] Care Team Providers Care Cleaning And Maintenance Worker Name Role Phone Una Sawyer [facility] Primary Care Provider [phone] Allergies No known active allergies Medications * This document contains information received from the source organization and may not represent a complete record from that organization. ketoconazole (Nizoral) 2 % shampooIndicatio ns:Seborrheic dermatitis Apply topically 2 (two) times a week. 120 mL 3 4 Active Salicylic Acid 40 % padsIndications: Left foot pain,Plantar wart, left foot Apply one pad topically directly to wart on dry skin daily. Do not exceed 90 days. 90 each 4 Active Blood Pressure Monitoring (Adult Blood Pressure Cuff Lg) kit 1 kit if needed each day (as needed). 1 kit 5 Active hydrOXYzine pamoate (Vistaril) 25 MG capsuleIndicatio ns:JORDAN (generalized anxiety disorder) Take 1 capsule (25 mg) by mouth if needed in the morning and at bedtime for anxiety. 60 capsule 5 Active Fluocinolone Acetonide Scalp (Haysi-Smoothe/F S Scalp) 0.01 % oilIndications:S eborrheic dermatitis of scalp Massage into damp scalp nightly 118 mL 1 5 Active clonazePAM (KlonoPIN) 0.5 MG tabletIndication s:JORDAN (generalized anxiety disorder) Take 1 tablet (0.5 mg) by mouth if needed each day for anxiety. 10 tablet 5 Active selenium sulfide (Selsun) 2.5 % shampooIndicatio ns:Seborrheic dermatitis of scalp Apply topically if needed each day for dandruff. 118 mL 5 Active doxycycline (Vibra-Tabs) 100 MG tabletIndication s:Possible exposure to STI TAKE 2 TABLETS ONCE WITHIN 72 HOURS OF intercourse. TAKE WITH A FULL GLASS OF WATER AND Do not lie down for 30 minutes after taking. 30 tablet 5 Active tadalafil (Cialis) 20 MG tabletIndication s:Erectile dysfunction, unspecified erectile dysfunction type TAKE 1 TABLET 1 HOUR BEFORE SEXUAL RELATIONS ONCE DAILY NEEDED. 10 tablet 5 Active tadalafil (Cialis) 5 MG tabletIndication s:Erectile dysfunction, unspecified erectile dysfunction type TAKE 1 TABLET BY MOUTH EVERY DAY, MAY TAKE ADDITIONAL 20 MG TABLET ONCE DAILY NEEDED BEFORE SEXUAL ACTIVITY 90 tablet 3 5 Active lisinopril 10 MG tablet TAKE 1 TABLET BY MOUTH EVERY DAY 90 tablet 1 5 Active doxycycline (Vibramycin) 100 MG capsule Take 1 capsule (100 mg) by mouth 2 times daily for 7 days. Take with at least 8 ounces (large glass) of water, do not lie down for 30 minutes after 14 capsule 5 01/05/20 25 Active Active Problems Problem Noted Date Diagnosed [...] - States he was raised in strict amish family and has struggled over the years coming to terms with his beliefs about organized holiness. he attributes feelings of guilt and low self esteems to his experiences in orthodox. Especially difficult because he has realized he identifies as bisexual and has not felt accepted. Encounters Date Type Department Care Team Description 12/28/2024 3:20 PM EDT Office Visit [facility] [address] [place] [address] Jadon Solano MD Dysuria (Primary Dx); Urethral discharge in male; Hypertension, unspecified type; Possible exposure to STI 12/28/2024 Travel 12/28/2024 Telephone [facility] [address] [place] [address] Una Sawyer FNP Nurse Triage 11/22/2024 Telephone [facility] [address] [place] [address] Maria R Clark OD 11/18/2024 Telephone [facility] [address] [place] [address] [facility] Nov recall 11/13/2024 Refill [facility] [address] [place] [address] Felipa Bryant MD 10/19/2024 Refill [facility] [address] [place] [address] [facility] Erectile dysfunction, unspecified erectile dysfunction type 10/19/2024 Refill [facility] [address] [place], [place] [phone] Soha Sheth ANP Possible exposure to STI; Erectile dysfunction, unspecified erectile dysfunction type from Last 3 Months Immunizations Immunization Administration Dates Next Due Influenza Injectable Quadriv [...] Mass Index 33.13 12/28/2024 3:43 PM EDT Plan of Treatment Upcoming Encounters Date Type Department Care Team (Late st Contact Info) Description 01/09/2025 9:45 AM EST Office Visit [facility] [address] [place] [address] WysoxUna FNP [address] [place] [address] 04/10/2025 9:00 AM EST Office Visit [facility] [address] [place] [address] Maria R Clark, OD [address] [place] [address] Health Maintenance Due Date Last Done Comments Family Planning (PISQ) 2000 HPV Vaccines (1 - Male 3-dose series) 2000 Hepatitis B Vaccines (1 of 3 - 19+ 3-dose series) 2004 COVID-19 Vaccine (1 - season) 2024 Influenza Vaccine (#1) 2024 01/02/2020, 2017 SDOH Screening 04/29/2025 04/29/2024 Alcohol/Substance Use Screening 08/03/2025 08/03/2024 Depression Screening 08/03/2025 08/03/2024, 08/04/19 25 Disability Screening 12/28/2025 12/28/2024 Tobacco Screening 12/28/2025 12/28/2024 Lipid Panel 06/06/2027 06/05/2022, 08/27/2021 DTaP/Tdap/Td Vaccines (3 - Td or Tdap) 06/05/2032 06/05/2022, 09/26/2013, 09/06/2009 Zoster Vaccines (1 of 2) 12/14/2035 RSV Patients and Patients Aged 60 years or older (1 - 1-dose 75+ series) 2060 Hepatitis C Screening Completed 03/22/2024 , 03/22/2024, 02/26/2023, Additional history exists HIV Screening Completed 08/03/2024, 03/09, 04/09/2023, Additional history exists HIB Vaccines Aged Out No longer eligi ble based on patient's age to complete this topic Hepatitis A Vaccines Aged Out No long er eligible based on patient's age to complete this topic IPV Vaccines Aged Out No longer eligi ble based on patient's age to complete this topic Meningococcal B Vaccine Aged Out No l onger eligible based on patient's age to complete this topic Meningococcal Vaccine Aged Out No carrie danish eligible based on patient's age to complete this topic Pneumococcal Vaccine: Pediatrics (0 to 5 Years) and At-Risk Patients (6 to 49) Years Aged Out No longer eligible based on patient's age to complete this topic RSV under 20 months Aged Out No longe r eligible based on patient's age to complete this topic Rotavirus Vaccines Aged Out No longer eligible based on patient's age to complete this topic Procedures Procedure Name Priority Date/Time Associated Diagnosis Comments POCT URINALYSIS DIPSTICK Routine 12/28/2024 4:20 PM EDT Dysuria HIV 1/2 ANTIGEN/ANTIBODY, FOURTH GENERATION W/RFL Routine 08/03/2024 2:03 PM EDT Routine screening for STI (sexually transmitted infection) HEPATITIS C AB W/REFL TO HCV RNA, QN, PCR Routine 03/22/2024 9:08 AM EST Urethritis LIPID PANEL, STANDARD Routine 06/05/2022 2:49 PM EDT Encounter for routine adult health examination without abnormal findings from Last 3 Months or Most Recently Relevant to Health Maintenance Results * POCT Urinalysis (12/28/2024 4:20 PM [...] TEST ENTER/EDIT OR DERABLES Final Result * HIV-1/2 Antigen and Antibodies, Fourth Generation, with Reflexes (08/03/2024 2:03 PM EDT) HIV AB/AG Nonreactive Nonreactive [facility] Comment:HIV-1 p24 Ag and/or HIV-1/HIV-2 Ab not detected.A test result that is nonreactive does not exclude thepossibility of exposure to or infection with HIV-1 and/orHIV-2. Nonreactive results in this assay for individualswith prior exposure to HIV-1 and/or HIV-2 may be due toantigen and antibody levels that are below the limit ofdetection of this assay.The Silith[employer]Onity HIV Ag/Ab Combo assay result andsupplemental assay results should be interpreted inconjunction with the patient's clinical presentation,history and other laboratory results. If the results areinconsistent with clinical evidence, additional testing issuggested to confirm the result. Blood Venous blood specimen / Unknown 08/03/2024 2:03 PM EDT 08/03/2024 4:15 PM EDT [facility] LAB BLOOD ORDERABLES Final Re sult Performing Organization Address [facility] Co de Phone Number [facility] [address] [place] [phone] * Hepatitis C Antibody with Reflex to HCV, RNA, Quantitative, Real-Time PCR (03/22/2024 9:08 AM EST) Hepatitis C Antibody Nonreactive Nonreactive [facility] Comment:Antibodies to HCV no t detected; does not exclude early acuteHCV infection. Blood Venous blood specimen / Unknown 03/22/2024 9:08 AM EST 03/22/2024 11:21 AM EST Felipa Bryant MD LAB BLOOD ORDERABLES Final Res ult Performing Organization Address [facility] Co de Phone Number [facility] [address] [place] [phone] * (ABNORMAL) Lipid Panel, Standard (06/05/2022 2:49 PM EDT) Cholesterol, Total 188 <200 mg/dL [facility] [employer] [facility] [employer] HDL Cholesterol 61 > OR = 40 mg/dL [facility] [employer] Triglycerides 134 <150 mg/dL [facility] LDL Cholesterol 104(H) mg/dL (calc) [facility] Comment: Reference range: <100 Desirable range <100 mg/dL for primary prevention; <70 mg/dL for patients with CHD or diabetic patients with > or = 2 CHD risk factors. LDL-C is now calculated using the Aftab calculation, which is a validated novel method providing better accuracy than the Friedewald equation in the estimation of LDL-C. Umang OLIVAS et al. GINA. 2013;310(19): 1476-8545 (http://education.[employer]/faq/TAK717) Chol/HDLC Ratio 3.1 <5.0 (calc) [facility] [employer] Non-HDL Cholesterol 127 <130 mg/dL (calc) [facility] Comment: For patients with diabetes plus 1 major ASCVD risk factor, treating to a non-HDL-C goal of <100 mg/dL (LDL-C of <70 mg/dL) is considered a therapeutic option. Blood Venous blood specimen / Unknown 06/05/2022 2:49 PM EDT 06/05/2022 2:49 PM EDT Narrative [facility] - 06/09/2022 12:52 PM EDT FASTING:NO FASTING: NO [facility] LAB BLOOD ORDERABLES Final Re sult [facility] [address], [place] [address] [facility] [address] [place] [phone] from Last 3 Months or Most Recently Relevant to Health Maintenance Insurance [employer] C3 HSN FULL Care Teams Cleaning And Maintenance Worker Relationship Specialty Start Date End Date Una Sawyer FNP [address] [place] [phone] PCP - General Family Medicine 08/21/21
--- OUTSIDE RECORDS SUMMARY | 2024-12-28 22:21 | XMS_ITS | Encounter Summary ---
Author Organization [employer] Address [address] [place] [address] Care Team Providers Care Engineering Consultant Name Role Phone [facility] Primary Care Provider [phone] Reason for Visit * Reason Onset Date Comments Med Refill 06/03/2023 Encounter Details Date Type Department Care Team ([facility] st Contact Info) Description 06/03/[address] [facility] [address] [place], [place] [phone] Mindy Cardona MD [address] [place] [address] Erectile dysfunction, unspecified erectile dysfunction type Social [...] Description 01/09/2025 9:45 AM EST Office Visit [facility] [address] [place] [address] Una Sawyer FNP [address] [place] [address] 04/10/2025 9:00 AM EST Office Visit [facility] [address] [place] [address] Maria R Clark, OD [address] [place] [address] documented as of this encounter Visit Diagnoses Diagnosis Erectile dysfunction, unspecified erectile dysfunction type documented in this encounter Additional Health Concerns Assessment Noted Time PHQ-9 Depression Total Score: 0 05/29/19 24 9:41 AM EDT documented as of this encounter Care Teams Engineering Consultant Relationship Specialty Start Date End Date Una Sawyer FNP [address] [place] [phone] PCP - General Family Medicine 08/21/21 documented as of this encounter
[2024-12-29 05:19] LABS: CT PCR Urine NOT DETECTED (Not Detect.); NG PCR Urine NOT DETECTED (Not Detect.)
== END 2024-12-28 18:43 | disposition home or self-care (01) ==
LOC: HO.HHCLNP 18:42
PROVIDERS: Visit Provider Emergency Medicine
DX: R30.0 Dysuria (principal); Z20.2 Contact with and (suspected) exposure to infections with a predominantly sexual mode of transmission
CPT/HCPCS: 87086; 87491; 87591

== ENCOUNTER 2024-12-30 08:22 | Outpatient (REF) | payer MEDICAID, SELFPAY ==
[2025-01-02 17:53] LABS: Trichomonas vag. RNA Ur Male NOT DETECTED (NOT DETECTED)
[2025-01-04 19:58] LABS: Mycoplasma hominis PCR Not Detected (Not Detected)
== END 2024-12-30 08:23 | disposition home or self-care (01) ==
LOC: HO.HHCL 08:22
PROVIDERS: General Practice; PCP Registered Nurse; Visit Provider Emergency Medicine
DX: R30.0 Dysuria (principal); N34.2 Other urethritis; R36.9 Urethral discharge, unspecified
CPT/HCPCS: 36415; 87563; 87661; 87798

== ENCOUNTER 2025-01-03 14:33 | Outpatient (REF) | payer MEDICAID, SELFPAY ==
--- OUTSIDE RECORDS SUMMARY | 2024-12-28 15:20 | XMS_ITS | Encounter Summary ---
Author Organization [employer] Address [address] [facility] 7 [place] [address] Care Team Providers Care Transmission Operator Name Role Phone Silverio [facility] Primary Care Provider [phone] Reason for Visit * Reason Comments sick visit Encounter Details Date Type Department Care Team ([facility] st Contact Info) Description 12/28/2024 3:20 PM EDT Office Visit [facility] WALK-IN [place] [address] [place], [place] [phone] Jadon Turpin MD [address] [place] [address] Dysuria (Primary Dx); Urethral discharge in male; [...] your housing situation today? I have sylvia corets 01/12/[address] you li [...] in this encounter Progress Notes * Jadon Turpin MD - 12/28/2024 3:20 PM EDT Subjective [...] or swelling. Had STI testing yesterday at [facility]. Results are not back yet. States is sexually active with males and female partners, has protected and unprotected intercourseand oral sex. Negative urine for GC/CT, trichomonas, and mycoplasma 08/03/2024 Followed by [facility] urology for testicular pain, last seen several months ago. 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 Quit Smoking 13 years ago. Smokes weed [...] and have partner use condoms as well. States he has supply of condoms, declines more. U/a Neg Urine C&S, GC/CT pending. Will [...] 30 minutes after documented in this encounter Miscellaneous Notes * Addendum Note - Jadon Turpin MD - 12/28/2024 3:20 PM EDTAddended by: JADON TURPIN on: 12/29/2024 04:42 PM Modules accepted: Orders documented in this encounter Plan of Treatment Upcoming Encounters Date Type Department Care Team (Late st Contact Info) Description 01/09/2025 9:45 AM EST Office Visit [facility] MEDICINE [address] [place] [address] Una Sawyer FNP [address] [place] [address] 04/10/2025 9:00 AM EST Office Visit [facility] OPTOMETRY [address] [place] [address] Maria R Clark, OD [address] [place] [address] Scheduled Orders Name Type Priority Associated Diagnoses Orde r Schedule Mycoplasma genitalium, rRNA, TMA Lab Routine Dysuria Urethral discharge in male Expected: 12/29/2024 (Approximate), Expires: 12/29/2025 documented as of this encounter Procedures Procedure Name Priority Date/Time Associated Diagnosis Comments POCT URINALYSIS DIPSTICK Routine 12/28/2024 4:20 PM EDT Dysuria CHLAMYDIA/TRICHOMONA S/NEISSERIA GONORRHOEAE, PCR, URINE Routine 12/28/2024 3:48 PM EDT Dysuria CULTURE, URINE, ROUTINE Routine 12/28/2024 3:48 PM EDT Dysuria documented in this encounter [...] Media Lot # [id number] Lot# Expiration Date , Urine (Urine, Random) 12/28/2024 4:20 PM EDT Jadon Turpin MD POINT OF CARE TEST ENTER/EDIT OR DERABLES Final Result * Chlamydia/N. Gonorrhoeae, PCR, Urine (12/28/2024 3:48 PM EDT) CT PCR, Urine NOT DETECTED Not Detect. [facility] Comment:A not detected test result does not exclude the possibilityof infection because test results can be affected byimproper specimen collection, concurrent antibiotic therapy,or the number of organisms in the specimen which may bebelow the sensitivity of the test. As with many diagnostictests, results from the Xpert CT/NG assay should beinterpreted in conjunction with other laboratory andclinical data available to the clinician.The Xpert CT/NG assay should not be used for the evaluationof suspected sexual abuse or for other medico-legalindications. Additional testing is recommended in anycircumstance when false positive or false negative resultscould lead to adverse medical, social or psychologicalconsequences. NG PCR, Urine NOT DETECTED Not Detect. [facility] Comment:A not detected test result does not exclude the possibilityof infection because test results can be affected byimproper specimen collection, concurrent antibiotic therapy,or the number of organisms in the specimen which may bebelow the sensitivity of the test. As with many diagnostictests, results from the Xpert CT/NG assay should beinterpreted in conjunction with other laboratory andclinical data available to the clinician.The Xpert CT/NG assay should not be used for the evaluationof suspected sexual abuse or for other medico-legalindications. Additional testing is recommended in anycircumstance when false positive or false negative resultscould lead to adverse medical, social or psychologicalconsequences. Urine (Urine, Random) 12/28/2024 3:48 PM EDT 12/28/2024 6:43 PM EDT us Jadon Turpin MD LAB URINE ORDERABLES Final Resul t Performing Organization Address [facility] Co de Phone Number [facility] [address] [place] [phone] * Culture, Urine, Routine (12/28/2024 3:48 PM EDT) Urine Urine specimen obtained by clean catch procedure / Unknown 12/28/2024 3:48 PM EDT 12/28/2024 6:43 PM EDT Comment:UACC Narrative [facility] - 12/30/2024 9:49 AM EDT Urine Culture No growth. Specimen Source: Urine clean catch us Jadon Turpin MD LAB MICROBIOLOGY - GENERAL ORDER MIKE Final Result Performing Organization Address [facility] Co de Phone Number [facility] [address] [place] [phone] documented in this encounter Visit Diagnoses Diagnosis Dysuria- Primary Urethral discharge in male Hypertension, unspecified type Possible exposure to STI documented in this encounter Additional Health Concerns Assessment Noted Time PHQ-9 Depression Total Score: 0 08/04/19 25 2:21 PM EDT documented as of this encounter Care Teams Transmission Operator Relationship Specialty Start Date End Date Una Sawyer FNP [address] [place] [phone] PCP - General Family Medicine 08/21/21 documented as of this encounter
[2025-01-03 16:57] LABS: Anion Gap 11 (12-20); Blood Urea Nitrogen 10 mg/dL (9-16); Calcium 9.7 mg/dL (8.4-10.2); Carbon Dioxide 30 mmol/L (22-29); Chloride 105 mmol/L (96-108); Cholesterol 202 mg/dL (<200); Estimated Glomerular Filt Rate > 60; HDL Cholesterol 51 mg/dL (>40); Potassium 4.1 mmol/L (3.3-5.1); Sodium 142 mmol/L (135-145); Triglycerides 110 mg/dL (<150)
--- OUTSIDE RECORDS SUMMARY | 2025-01-03 18:58 | XMS_ITS | Encounter Summary ---
Author Organization [employer] Address [address] [facility] 7 [place] [address] Care Team Providers Care French Binder Name Role Phone [facility] Primary Care Provider [phone] Reason for Visit * Reason Onset Date Comments Nurse Triage 01/02/2025 Encounter Details Date Type Department Care Team ([facility] st Contact Info) Description 01/02/2025 Telephone [facility] [address] [place], [place] [phone] [facility] [address] [place] [address] Nurse Triage Social History Tobacco Use Types [...] Telephone Encounter - Latha Harkins RN - 01/03/2025 11:46 AM EDT TC placed to patient [phone] in regards to below message. Patient verbalized understanding. Patient to f/u PRN. * Telephone Encounter - Perla Boggs RN - 01/02/2025 1:15 PM EDT Call returned to pt who reports that he is still urinating more frequently than normal. Reports increased frequency is not as bad as when evaluated in [facility] but is still pretty frequent. Pt c/o urinaryurgency. Denies dysuria now but reports pain on and off with urination. Pt denies fever, back pain.Reports that the lab took a sample on Thursday for mycoplasma and he is awaiting results. Reports that he continues to take doxycycline as prescription in [facility]. Pt reports that he has noticed that his urine is bubbly/foamy. Reports that he spoke to his sister who is a nurse. Reports that his sister recommended testing for diabetes due to family history of DM. Advised request will be sent to pcp. Recommended that pt RTC for any worsening symptoms. Pt reports agreement with plan Protocol Used: Urinary Symptoms (Adult) Protocol-Based Disposition: See in Office or Video Visit Today Video visit offer not recorded Positive Triage Questions: * Urinating more frequently than usual (i.e., frequency) OR new-onset of the feeling of an urgent need to urinate (i.e., urgency) * All other urine symptoms * All higher-acuity triage questions were negative Care Advice Discussed: * Reasons To Call Back - Fever occurs - Pain or burning with urination - Unable to urinate and bladder feels full - You become worse * Telephone Encounter - John Bernal - 01/02/2025 11:04 AM EDT Tc from pt reporting that he has Frequent urination, discomfort in the area and a lot of bubbles when urinating. Pt wanted an order to be placed so he can get tested for his blood sugar. Pt thinks that his Blood sugar level might be the cause of the symptoms. Contact pt at [phone] documented in this encounter Plan of Treatment Upcoming Encounters Date Type Department Care Team (Late st Contact Info) Description 01/09/2025 9:45 AM EST Office Visit [facility] [address] [place] [address] Una Sawyer FNP [address] [place] [address] 04/10/2025 9:00 AM EST Office Visit [facility] [address] [place] [address] Tarka, Maria R, OD [address] [place] [address] documented as of this encounter Visit Diagnoses Not on filedocumented in this encounter Additional Health Concerns Assessment Noted Time PHQ-9 Depression Total Score: 0 08/04/19 25 2:21 PM EDT documented as of this encounter Care Teams French Binder Relationship Specialty Start Date End Date Una Sawyer FNP [address] [place] [address] PCP - General Family Medicine 08/21/21 documented as of this encounter
--- OUTSIDE RECORDS SUMMARY | 2025-01-03 18:58 | XMS_ITS | Encounter Summary ---
Author Organization [employer] Address [address] [place] [address] Care Team Providers Care Supervisor Painting Department Name Role Phone [facility] [facility] Primary Care Provider [phone] Reason for Visit * Reason Onset Date Comments Results 02/26/2023 Encounter Details Date Type Department Care Team ([facility] st Contact Info) Description 02/26/2023 Telephone [facility] [address] [place], [place] [phone] [facility] [address] [place] [address] Results Social History Tobacco Use Types Packs/Day [...] 9:45 AM EST Office Visit [facility] [address] [place] [address] Una Sawyer FNP [address] [place] [address] 04/10/2025 9:00 AM EST Office Visit [facility] [address] [place] [address] Tarka, Maria R, OD [address] [place] [address] documented as of this encounter Visit Diagnoses Not on filedocumented in this encounter Additional Health Concerns Assessment Noted Time PHQ-9 Depression Total Score: 5 03/28/19 23 10:55 AM EST documented as of this encounter Care Teams Supervisor Painting Department Relationship Specialty Start Date End Date Una Sawyer FNP [address] [place] [address] PCP - General Family Medicine 08/21/21 documented as of this encounter
--- OUTSIDE RECORDS SUMMARY | 2025-01-03 18:58 | XMS_ITS | Encounter Summary ---
Author Organization [employer] Address [address] [place] [address] Care Team Providers Care Surgical Elastic Knitter Name Role Phone [facility] Primary Care Provider [phone] Reason for Visit * Reason Onset Date Comments Med Refill 06/03/2023 Encounter Details Date Type Department Care Team ([facility] st Contact Info) Description 06/03/2023 Refill [facility] [address] [place], [place] [phone] Mindy Cardona MD [address] [place] [address] Erectile dysfunction, unspecified erectile dysfunction type Social [...] Description 01/09/2025 9:45 AM EST Office Visit [facility] [address] [place] [address] Una Sawyer FNP [address] [place] [address] 04/10/2025 9:00 AM EST Office Visit [facility] [address] [place] [address] Maria R Clark, OD [address] [place] [address] documented as of this encounter Visit Diagnoses Diagnosis Erectile dysfunction, unspecified erectile dysfunction type documented in this encounter Additional Health Concerns Assessment Noted Time PHQ-9 Depression Total Score: 0 05/29/19 24 9:41 AM EDT documented as of this encounter Care Teams Surgical Elastic Knitter Relationship Specialty Start Date End Date Una Sawyer FNP [address] [place] [address] PCP - General Family Medicine 08/21/21 documented as of this encounter
--- OUTSIDE RECORDS SUMMARY | 2025-01-03 18:58 | XMS_ITS | Clinical Summary ---
Author Organization [employer] Address [address] [place] [address] 7 [place] [address] Care Team Providers Care Medical Service Technician Name Role Phone Una Sawyer [facility] Primary Care Provider Allergies No known active allergies Medications * [...] 60 capsule 5 Active Fluocinolone Acetonide Scalp ([place]-Jelm-Smoothe/F S Scalp) 0.01 % oilIndications:S eborrheic dermatitis [...] - States he was raised in strict adventist family and has struggled over the years coming to terms with his beliefs about organized caodaism. he attributes feelings of guilt and low self esteems to his experiences in [employer]. Especially difficult because he has realized he identifies as bisexual and has not felt accepted. Encounters Date Type Department Care Team Description 01/03/[address] [facility] [address] [place], [place] [phone] Una Sawyer FNP 01/02/[address] [facility] [address] [place], [place] [phone] Una Sawyer FNP Frequent urination (Primary Dx) 01/02/[address] [facility] [address] [place], [place] [phone] Una Sawyer FNP Nurse Triage 12/30/[address] [facility] [address] [place] [address] SilverioUna connelly FNP Medication Question 12/29/[address] [facility] [address] [place] [phone] Jadon Solano MD Dysuria (Primary Dx) 12/28/2024 3:20 PM EDT Office Visit [facility] [address] [place] [phone] Jadon Solano MD Dysuria (Primary Dx); Urethral discharge in male; Hypertension, unspecified type; Possible exposure to STI 12/28/2024 Travel 12/28/[address] [facility] [address] [place] [phone] SilverioUna connelly FNP Nurse Triage 11/22/[address] [facility] [address] [place] [phone] Maria R Clark, DAVID 11/18/[address] [facility] [address] [place] [phone] [place] FNP Nov recall 11/13/[address] [facility] [address] [place] [address] Felipa Bryant MD 10/19/[address] [facility] [address] [place] [address] [place]na [facility] Erectile dysfunction, unspecified erectile dysfunction type 10/19/[address] [facility] [address] [place] [address] Soha Sheth ANP Possible exposure to STI; [...] Description 01/09/2025 9:45 AM EST Office Visit [facility] [address] [place] [address] [place], Una, WASH PLANT OPERATOR [address] [place] [address] 04/10/2025 9:00 AM EST Office Visit [facility] [address] [place], [place] [phone] Eduardo Maria R, OD [address] [place], [place] [phone] Health Maintenance Due Date Last Done Comments Family Planning (PISQ) 2000 HPV Vaccines (1 - Male 3-dose series) 2000 Hepatitis B Vaccines (1 of 3 - 19+ 3-dose series) 2004 COVID-19 Vaccine ( season) 2024 Influenza Vaccine (#1) 2024 01/02/2020, 2017 SDOH Screening 04/29/2025 04/29/2024 Alcohol/Substance Use Screening 08/03/2025 08/03/2024 Depression Screening 08/03/2025 08/03/2024, 08/04/19 Disability Screening 12/28/2025 12/28/2024 Tobacco Screening 12/28/2025 12/28/2024 Lipid Panel 01/03/2030 01/03/2025, 05/09, 08/27/2021 DTaP/Tdap/Td Vaccines (3 - Td or [...] Procedure Name Priority Date/Time Associated Diagnosis Comments LIPID PANEL, STANDARD Routine 01/03/2025 2:37 PM EDT ALBUMIN, RANDOM URINE W/CREATININE Routine 01/03/2025 2:37 PM EDT Frequent urination BASIC METABOLIC PANEL Routine 01/03/2025 2:37 PM EDT Frequent urination TRICHOMONAS BY TMA (MALES) Routine 12/30/2024 8:29 AM EDT Dysuria POCT URINALYSIS DIPSTICK Routine 12/28/2024 4:20 PM EDT Dysuria CHLAMYDIA/TRICHOMONA S/NEISSERIA GONORRHOEAE, PCR, URINE Routine 12/28/2024 3:48 PM EDT Dysuria CULTURE, URINE, ROUTINE Routine 12/28/2024 3:48 PM EDT Dysuria HIV 1/2 ANTIGEN/ANTIBODY, FOURTH GENERATION W/RFL Routine 08/03/2024 2:03 PM EDT Routine screening for STI (sexually transmitted infection) HEPATITIS C AB W/REFL TO HCV RNA, QN, PCR Routine 03/22/2024 9:08 AM EST Urethritis from Last 3 Months or Most Recently Relevant to Health Maintenance Results * Albumin, Random Urine W/Creatinine (01/03/2025 2:37 PM EDT) Creatinine, Urine 42.62 mg/dL [facility] Microalbumin Urine <5.0 mg/L [facility] Microalbum Creatinine Ratio Ur TNP <30 ug/mg cr [facility] Comment:Unable to calculate albumin/creatinine ratio due to lowmicroalbumin or creatinine result. Urine 01/03/2025 2:37 PM EDT 01/03/2025 4:02 PM EDT [facility] LAB URINE ORDERABLES Final Re sult [facility] [address] [place] [phone] * (ABNORMAL) Lipid Panel, Standard (01/03/2025 2:37 PM EDT) Triglycerides 110 <150 mg/dL [facility] Comment:Desirable Triglyceri de: less than 150 mg/dLBorderline High Triglyceride 150-199 mg/dLHigh Triglyceride: 200-499 mg/dLVery High Triglyceride: greater than or equal to 5OO mg/dL Cholesterol 202(H) <200 mg/dL [facility] Comment:Desirable Cholestero l: less than 200 mg/dLBorderline High Cholesterol: 200-239 mg/dLHigh Cholesterol: greater than 239 mg/dL LDL Cholesterol Calculated 129(H) <100 mg/dL [facility] Comment:Desirable LDL: less than 100 mg/dLNear Optimal/Above Optimal LDL: 110- 129 mg/dLBorderline High LDL: 130-159 mg/dLHigh LDL: 160-189 mg/dLVery High LDL: greater than or equal to 190 mg/dL HDL Cholesterol 51 >40 mg/dL [facility] Comment:Desirable HDL: great er than 40 mg/dL Note: This HDL assay may give artificially low results in patients with liver disease. 01/03/2025 2:37 PM EDT 01/03/2025 4:28 PM EDT [facility] LAB BLOOD ORDERABLES Final Re sult Performing Organization Address [facility] Co de Phone Number [facility] [address] [place] [address] [phone] * (ABNORMAL) Basic Metabolic Panel (01/03/2025 2:37 PM EDT) Sodium 142 135 - 145 mmol/L [facility] Potassium 4.1 3.3 - 5.1 mmol/L [facility] Chloride 105 96 - 108 mmol/L [facility] Carbon Dioxide 30(H) 22 - 29 mmol/L [facility] Anion Gap 11(L) 12 - 20 [facility] Urea Nitrogen (BUN) 10 9 - 16 mg/dL [facility] Creatinine, Serum 1.20 0.5 - 1.4 mg/dL [facility] Estimated Glomerular Filt Rate >60 [facility] Comment:Chronic Kidney Disea se: Estimated GFR < 60 mL/min/1.74t5Hcpcgw Kidney Disease: Estimated GFR < 15 mL/min/1.73m2 Glucose 87 60 - 115 mg/dL [facility] Calcium 9.7 8.4 - 10.2 mg/dL [facility] Blood Venous blood specimen / Unknown 01/03/2025 2:37 PM EDT 01/03/2025 4:28 PM EDT [facility] LAB BLOOD ORDERABLES Final Re sult Performing Organization Address [facility]/ZIP Co de Phone Number [facility] [address] [place] [phone] * Trichomonas vaginalis RNA, Qualitative, TMA, Males (12/30/2024 8:29 AM EDT) Trichomonas vaginalis RNA Qualitative TMA, Males NOT DETECTED NOT DETECTED [facility] Comment:The analytical perfo rmance characteristics of thisassay have been determined by [employer]. Themodifications have not been cleared or approved bythe FDA. This assay has been validated pursuant to theIA regulations and is used for clinical purposes.For additional information, please refer tohttp://education.[employer]/faq/Trichomonastma(This link is being provided for informational/educational purposes only.)THIS TEST WAS PERFORMED AT:[employer] [place] [phone] A FREGOSO MD 12/30/2024 8:29 AM EDT 12/30/2024 12:08 PM EDT us Jadon Solano MD LAB URINE ORDERABLES Final Resul t [facility] [address] [place] [address] [phone] * POCT Urinalysis (12/28/2024 4:20 PM EDT) [...] Urine (Urine, Random) 12/28/2024 4:20 PM EDT us Jadon Solano MD POINT OF CARE TEST ENTER/EDIT OR DERABLES Final Result * Chlamydia/N. Gonorrhoeae, PCR, Urine (12/28/2024 3:48 PM EDT) CT PCR, Urine NOT DETECTED Not Detect. [facility] Comment:A not detected test result [...] NG PCR, Urine NOT DETECTED Not Detect. [facility] Comment:A not detected test result [...] EDT 12/28/2024 6:43 PM EDT us Jadon Solano MD LAB URINE ORDERABLES Final Resul t [facility] [address] [place] [phone] * Culture, Urine, Routine (12/28/2024 3:48 PM EDT) Urine Urine specimen obtained by clean catch procedure / Unknown 12/28/2024 3:48 PM EDT 12/28/2024 6:43 PM EDT Comment:UACC Narrative [facility] - 12/30/2024 9:49 AM EDT Urine Culture No growth. Specimen Source: Urine clean catch Jadon Solano MD LAB MICROBIOLOGY - GENERAL ORDER MIKE Final Result Performing Organization Address [facility] Co de Phone Number [facility] [address] [place] [phone] [phone] * HIV-1/2 Antigen and Antibodies, Fourth Generation, with Reflexes (08/03/2024 2:03 PM EDT) HIV AB/AG Nonreactive Nonreactive [facility] Comment:HIV-1 p24 Ag and/or HIV-1/HIV-2 Ab not detected.A test result that is nonreactive does not exclude thepossibility of exposure to or infection with HIV-1 and/orHIV-2. Nonreactive results in this assay for individualswith prior exposure to HIV-1 and/or HIV-2 may be due toantigen and antibody levels that are below the limit ofdetection of this assay.The [employer] HIV Ag/Ab Combo assay result andsupplemental assay results should be interpreted inconjunction with the patient's clinical presentation,history and other laboratory results. If the results areinconsistent with clinical evidence, additional testing issuggested to confirm the result. Blood Venous blood specimen / Unknown 08/03/2024 2:03 PM EDT 08/03/2024 4:15 PM EDT [facility] LAB BLOOD ORDERABLES Final Re sult Performing Organization Address City/[facility]/ZIP Co de Phone Number [facility] [address] [place] [address] [phone] * Hepatitis C Antibody with Reflex to HCV, RNA, Quantitative, Real-Time PCR (03/22/2024 9:08 AM EST) Hepatitis C Antibody Nonreactive Nonreactive [facility] Comment:Antibodies to HCV no t detected; does not exclude early acuteHCV infection. Blood Venous blood specimen / Unknown 03/22/2024 9:08 AM EST 03/22/2024 11:21 AM EST us Felipa Bryant MD LAB BLOOD ORDERABLES Final Res ult [facility] [address] [place] [phone] from Last 3 Months or Most Recently Relevant to Health Maintenance [place] [address] [place] [address] C3 HS FULL Care Teams Medical Service Technician Relationship Specialty Start Date End Date [place] SAMANTHA [facility] [address] [place] [phone] PCP - General Family Medicine 08/21/21
--- OUTSIDE RECORDS SUMMARY | 2025-01-03 18:58 | XMS_ITS | Patient Health Record ---
Author Organization [facility] Address [address] [place] [address] Care Team Providers Care Pad Tufter Name Role Phone Kota Diamond MD Primary Care Provider Jama Orellana Unavailable [phone] Reason For Referral No Information Medications Medication [...] Problem Arthralgia of the ankle and/or foot (784497460) Pain in left ankle and joints of left foot (M25.572) Active confirmed Problem Sprain of calcaneofibular ligament (13092321) Sprain of calcaneofibular ligament of left ankle, initial encounter (S93.412A) Active confirmed Problem Sprain of calcaneofibular ligament of left ankle joint (disorder) (19383347822021860 ) Sprain of calcaneofibular ligament of left ankle, subsequent encounter (S93.412D) Active confirmed Problem Sprain of calcaneofibular ligament of left ankle, sequela (S93.412S) Active confirmed Problem Sprain of left ankle (12972639150097906 ) Sprain of other ligament of left ankle, initial encounter (S93.492A) Active confirmed Problem Sprain of left ankle (disorder) (17108114389498650 ) Sprain of other ligament of left ankle, subsequent encounter (S93.492D) Active confirmed Problem Sprain of other ligament of left ankle, sequela (S93.492S) Active confirmed Plan Of Treatment No Information Insurance Providers Payer Name Payer Address Payer Phone Subscriber Number Group Number Insured Name Patient Relationship to Insured Coverage Start Date Coverage End Date [facility] [address] [facility] NINI [id number] Jerry Stuart Self - patient is the insured Medical (General) History Medical History History ICD Code Mononucleosis Ankle sprain
--- OUTSIDE RECORDS SUMMARY | 2025-01-03 18:58 | XMS_ITS | Encounter Summary ---
Author Organization [employer] Address [address] [facility] 7 [place] [address] Care Team Providers Care Corporate Ethics Officer Name Role Phone [facility] Primary Care Provider [phone] Reason for Visit * Reason Onset Date Comments Nurse Triage 03/21/2024 Encounter Details Date Type Department Care Team ([facility] st Contact Info) Description 03/21/2024 Telephone [facility] [address] [place], [place] [phone] [facility] [address] [place] [address] Nurse Triage Social History Tobacco Use Types [...] all 03/23/2024 9:29 AM EST Opal Gordon SHOW CARD LETTERER * Thoughts that you would be better off or hurting yourself in some way Answer Date of Assessment Author Not at all 03/23/2024 9:29 AM EST Opal Gordon SHOW CARD LETTERER * Patient Health Questionnaire-9 Score Answer Date of Assessment Author 6 03/23/2024 9:29 AM EST Opal Gordon SHOW CARD LETTERER * How difficult have these problems made [...] 3 03/23/2024 9:29 AM EST Becky Gordon SHOW CARD LETTERER Not being able to stop or control worrying 3 03/23/2024 9:29 AM EST Becky Gordon SHOW CARD LETTERER Worrying too much about different things 3 03/23/2024 9:29 AM EST Becky Gordon SHOW CARD LETTERER Trouble relaxing 3 03/23/2024 9:29 AM EST Opal Kearns SHOW CARD LETTERER Being so restless that it is hard to sit still 0 03/23/2024 9:29 AM EST Becky Gordon na SHOW CARD LETTERER Becoming easily annoyed or irritable 0 03/23/2024 9:29 AM EST Becky Gordon na SHOW CARD LETTERER Feeling afraid as if something awful might happen 3 03/23/2024 9:29 AM EST Opal Gordon SHOW CARD LETTERER JORDAN-7 Total Score 15 03/23/2024 9:29 AM EST Opal Gordon SHOW CARD LETTERER documented as of this encounter Miscellaneous Notes [...] Description 01/09/2025 9:45 AM EST Office Visit [facility] MED[facility] [address] [place] [address] [place], DENTAL LABORATORY WORKER [address] [place] [address] 04/10/2025 9:00 AM EST Office Visit [facility] OPT[facility] [address] [place] [address] Maria R Clark, OD [address] [place] [address] documented as of this encounter Visit Diagnoses Not on filedocumented in this encounter Additional Health Concerns Assessment Noted Time PHQ-9 Depression Total Score: 0 05/29/19 24 9:41 AM EDT documented as of this encounter Care Teams Corporate Ethics Officer Relationship Specialty Start Date End Date Una Sawyer FNP [address] [place] [address] PCP - General Family Medicine 08/21/21 documented as of this encounter
--- OUTSIDE RECORDS SUMMARY | 2025-01-03 18:58 | XMS_ITS | Encounter Summary ---
Author Organization [employer] Address [address] [facility] 7 [place] [address] Care Team Providers Care Track Production Engineer Name Role Phone [facility] Primary Care Provider [phone] Encounter Details Date Type Department Care Team ([facility] st Contact Info) Description 01/03/2025 Orders Only [facility] [address] [place], [place] [phone] [facility] [address] [place], [place] [phone] Social History Tobacco Use Types Packs/Day Years [...] 01/09/2025 9:45 AM EST Office Visit [facility] MED[facility] [address] [place] [address] [place], DIVE MASTER [address] [place] [address] 04/10/2025 9:00 AM EST Office Visit [facility] OPT[facility] [address] [place], [place] [phone] Maria R lCark, OD [address] [place] [address] documented as of this encounter Procedures Procedure Name Priority Date/Time Associated Diagnosis Comments LIPID PANEL, STANDARD Routine 01/03/2025 2:37 PM EDT documented in this encounter Results * (ABNORMAL) Lipid Panel, Standard (01/03/2025 2:37 PM EDT) Triglycerides 110 <150 mg/dL [facility] Comment:Desirable Triglyceri de: less than 150 mg/dLBorderline High Triglyceride 150-199 mg/dLHigh Triglyceride: 200-499 mg/dLVery High Triglyceride: greater than or equal to 5OO mg/dL Cholesterol 202(H) <200 mg/dL [facility] Comment:Desirable Cholestero l: less than 200 mg/dLBorderline High Cholesterol: 200-239 mg/dLHigh Cholesterol: greater than 239 mg/dL LDL Cholesterol Calculated 129(H) <100 mg/dL [facility] Comment:Desirable LDL: less than 100 mg/dLNear Optimal/Above Optimal LDL: 110- 129 mg/dLBorderline High LDL: 130-159 mg/dLHigh LDL: 160-189 mg/dLVery High LDL: greater than or equal to 190 mg/dL HDL Cholesterol 51 >40 mg/dL [facility] Comment:Desirable HDL: great er than 40 mg/dL Note: This HDL assay may give artificially low results in patients with liver disease. 01/03/2025 2:37 PM EDT 01/03/2025 4:28 PM EDT [facility] LAB BLOOD ORDERABLES Final Re sult [facility] [address] [place] [address] [phone] documented in this encounter Visit Diagnoses Not on filedocumented in this encounter Additional Health Concerns Assessment Noted Time PHQ-9 Depression Total Score: 0 08/04/19 25 2:21 PM EDT documented as of this encounter Care Teams Track Production Engineer Relationship Specialty Start Date End Date Una Sawyer FNP [address] [place] [phone] PCP - General Family Medicine 08/21/21 documented as of this encounter
--- OUTSIDE RECORDS SUMMARY | 2025-01-03 18:58 | XMS_ITS | Encounter Summary ---
Author Organization [employer] Address [address] [facility] 7 [place] [address] Care Team Providers Care Nurse Special Name Role Phone [facility] Primary Care Provider [phone] Encounter Details Date Type Department Care Team ([facility] st Contact Info) Description 03/30/2024 Orders Only [facility] MED[facility] [address] [place], [place] [phone] Felipa Bryant MD [address] [place], [place] [phone] Urethritis (Primary Dx) Social History Tobacco Use [...] Description 01/09/2025 9:45 AM EST Office Visit [facility] MED[facility] [address] [place] [address] Edison, Una, DECISION ANALYST [address] [place] [address] 04/10/2025 9:00 AM EST Office Visit [facility] OPTOMETRY [address] [place] [address] Tarka, Maria R, OD [address] [place] [address] Scheduled Orders Name Type Priority Associated Diagnoses Orde r Schedule Mycoplasma/Ureaplas ma Panel Microbiology Routine Urethritis Expected: 03/30/2024 (Approximate), Expires: 03/30/2025 documented as of this encounter Procedures Procedure Name Priority Date/Time Associated Diagnosis Comments MYCOPLASMA/UREAPLAS MA PANEL Routine 03/30/2024 2:45 PM EST Urethritis documented in this encounter Results * Mycoplasma/Ureaplasma??Panel (03/30/2024 2:45 PM EST) Jonathan(R), Mycoplasma Hominis, Real-Time Pcr Not Detected Not Detected [facility] Comment:THIS TEST WAS PERFOR MED AT:[facility] [place] [address]AZKSAGHSANTOS SANTIAGO MD,PHD Mycoplasma Genitalium, rRNA,TMA Not Detected Not Detected [facility] Comment:THIS TEST WAS PERFOR MED AT:[facility]/JON [id number] [place] [address]RNBWZCFSANTOS SANTIAGO MD,PHD U. Parvum DNA Not Detected Not Detected [facility] U. Urealyticum DNA Not Detected Not Detected [facility] Comment:This test was develo ped and its analyticalperformance characteristics have been determinedby [employer] [place], [place].It has not been cleared or approved by the FDA. Thisassay has been validated pursuant to the CLIAregulations and is used for clinical purposes.THIS TEST WAS PERFORMED AT:[facility] [id number] [place] [address]NGCUKXISANTOS SANTIAGO MD,PHD 03/30/2024 2:45 PM EST 03/30/2024 4:05 PM EST [facility] LAB MICROBIOLOGY - GENERAL OR DERABLES Final Result [facility] [address] [place] [phone] documented in this encounter Visit Diagnoses Diagnosis Urethritis- Primary Unspecified urethritis documented in this encounter Additional Health Concerns Assessment Noted Time PHQ-9 Depression Total Score: 6 03/23/19 25 9:29 AM EST documented as of this encounter Care Teams Nurse Special Relationship Specialty Start Date End Date Una Sawyer DECISION ANALYST [address] [place] [phone] PCP - General Family Medicine 08/21/21 documented as of this encounter
--- OUTSIDE RECORDS SUMMARY | 2025-01-03 18:58 | XMS_ITS | Encounter Summary ---
Author Organization [employer] Address [address] [facility] 7 [place] [address] Care Team Providers Care Bucket Operator Name Role Phone [facility] Primary Care Provider [phone] Encounter Details Date Type Department Care Team (Late st Contact Info) Description 12/29/2024 Orders Only [facility] [address] [place], [place] [phone] Jadon Solano MD [address] [place], [place] [phone] Dysuria (Primary Dx) Social History Tobacco Use Types [...] Description 01/09/2025 9:45 AM EST Office Visit [facility] [address] [place] [address] [facility], [facility] [address] [place] [address] 04/10/2025 9:00 AM EST Office Visit [facility] [address] [place] [address] TarMaria R llamas, OD [address] [place] [address] documented as of this encounter Procedures Procedure Name Priority Date/Time Associated Diagnosis Comments TRICHOMONAS BY TMA (MALES) Routine 12/30/2024 8:29 AM EDT Dysuria documented in this encounter Results * Trichomonas vaginalis RNA, Qualitative, TMA, Males (12/30/2024 8:29 AM EDT) Trichomonas vaginalis RNA Qualitative TMA, Males NOT DETECTED NOT DETECTED [facility] Comment:The analytical perfo rmance characteristics of thisassay have been determined by [employer]. Themodifications have not been cleared or approved bythe FDA. This assay has been validated pursuant to theCLIA regulations and is used for clinical purposes.For additional information, please refer tohttp://education.[employer].Naroomi/faq/Trichomonastma(This link is being provided for informational/educational purposes only.)THIS TEST WAS PERFORMED AT:[facility] [place] [id number] A FREGOSO MD 12/30/2024 8:29 AM EDT 12/30/2024 12:08 PM EDT us Jadon Solano MD LAB URINE ORDERABLES Final Resul t [facility] [address] [place] [address] [phone] documented in this encounter Visit Diagnoses Diagnosis Dysuria- Primary documented in this encounter Additional Health Concerns Assessment Noted Time PHQ-9 Depression Total Score: 0 08/04/19 25 2:21 PM EDT documented as of this encounter Care Teams Bucket Operator Relationship Specialty Start Date End Date Una Sawyer FNP [address] [place] [phone] PCP - General Family Medicine 08/21/21 documented as of this encounter
--- OUTSIDE RECORDS SUMMARY | 2025-01-03 18:58 | XMS_ITS | Encounter Summary ---
Author Organization [employer] Address [address] [facility] 7 [place] [address] Care Team Providers Care Banking Services Officer Name Role Phone [facility] Primary Care Provider [phone] Reason for Visit * Reason Onset Date Comments Medication Question 12/30/2024 Encounter Details Date Type Department Care Team ([facility] st Contact Info) Description 12/30/2024 Telephone [facility] [address] [place], [place] [phone] [facility] [address] [place] [address] Medication Question Social History Tobacco Use Types [...] encounter Miscellaneous Notes * Telephone Encounter - Debby Rosenthal RN - 12/30/2024 12:02 PM EDT Call returned to Patient who provides a brief report that includes symptoms (penile discomfort and discharge) began Thursday12/25/24, was seen on Thursday12/28/[address] Solano who tested for CT/NG andprescribed Doxycycline 100mg BID x 7days, patient was then contacted by Dr Solano on 12/[address]/NG negative, due to history of Mycoplasma Genitalia lab was ordered, may stop using Doxycycline if symptoms not improving. Patient stopped Doxycycline after his phone call with Dr Solano.Patient understands the Mycoplasma Lab will take some time to result, requesting Moxifloxacin sincehe highly suspects this is what he has. Patient requested reviewed with both Dr Bryant and Dr Lerma who advise to resume Doxycycline as ordered as one day of treatment may not show any improvement. Bythe end of the course of Doxycycline we should have results for the Mycoplasma lab, if positive andstill symptomatic next step would be to prescribe a course of Moxifloxacin. Patient verbalizes understanding and agreement with the plan of care at this time. * Telephone Encounter - Marcus Henson RN - 12/30/2024 11:21 AM EDT TC placed to patient [phone] regarding below message. Patient requested lab results and medication. RN informed patient of his lab results that came back negative. Patient also wanted to know why he was prescribed doxycyline. RN informed patient it was for his c/o ureteral discharge. Patient reported he went to the lab this morning to have his mycoplasma genitalium and Trichomonas lab obtained and requesting medication to treat the Mycoplasma. RN informed patient a provider has to review the labs prior to writing any scripts. RN reviewed patient lab results from 03/30/2024 that showed that mycoplasma was not detected. Patient insisted that he wants to be treated and to speak to his PCP.RN reviewed the patient chart at [facility] and the results was not pending at this time. RN again informed patient that a provider needs to review his labs prior to giving any medication. Patient requestedto speak to a Security Operations Center Analyst. Debby Redding RN notified to contact pain. * Telephone Encounter - John Bernal - 12/30/2024 10:36 AM EDT Tc from pt requesting a call back regarding results and the medication he needs to take due to his results. Contact pt at [phone] documented in this encounter Plan of Treatment Upcoming Encounters Date Type Department Care Team (Late st Contact Info) Description 01/09/2025 9:45 AM EST Office Visit [facility] [address] [place] [address] [facility], [facility] [address] [place] [address] 04/10/2025 9:00 AM EST Office Visit [facility] OPTOMET[facility] [address] [place] [address] Maria R Clark, OD [address] [place] [address] documented as of this encounter Visit Diagnoses Not on filedocumented in this encounter Additional Health Concerns Assessment Noted Time PHQ-9 Depression Total Score: 0 08/04/19 25 2:21 PM EDT documented as of this encounter Care Teams Banking Services Officer Relationship Specialty Start Date End Date Una Sawyer FNP [address] [place] [phone] PCP - General Family Medicine 08/21/21 documented as of this encounter
--- OUTSIDE RECORDS SUMMARY | 2025-01-03 18:58 | XMS_ITS | Encounter Summary ---
Author Organization [employer] Address [address] [facility] 7 [place] [address] Care Team Providers Care Recharger Name Role Phone [facility] Primary Care Provider [phone] Encounter Details Date Type Department Care Team ([facility] st Contact Info) Description 01/02/2025 Orders Only [facility] [address] [place], [place] [phone] [facility] [address] [place], [place] [phone] Frequent urination (Primary Dx) Social History Tobacco Use Types [...] Description 01/09/2025 9:45 AM EST Office Visit [facility] [address] [place] [address] [facility], [facility] [address] [place] [address] 04/10/2025 9:00 AM EST Office Visit [facility] OPT[facility] [address] [place] [address] TarMaria R llamas, OD [address] [place] [address] Scheduled Orders Name Type Priority Associated Diagnoses Orde r Schedule Hemoglobin A1c Lab Routine Frequent urination Expected: 01/02/2025 (Approximate), Expires: 01/02/2026 documented as of this encounter Procedures Procedure Name Priority Date/Time Associated Diagnosis Comments ALBUMIN, RANDOM URINE W/CREATININE Routine 01/03/2025 2:37 PM EDT Frequent urination BASIC METABOLIC PANEL Routine 01/03/2025 2:37 PM EDT Frequent urination documented in this encounter Results * Albumin, Random Urine W/Creatinine (01/03/2025 2:37 PM EDT) Creatinine, Urine 42.62 mg/dL [facility] Microalbumin Urine <5.0 mg/L [facility] Microalbum Creatinine Ratio Ur TNP <30 ug/mg cr [facility] Comment:Unable to calculate albumin/creatinine ratio due to lowmicroalbumin or creatinine result. Urine 01/03/2025 2:37 PM EDT 01/03/2025 4:02 PM EDT [facility] LAB URINE ORDERABLES Final Re sult Performing Organization Address [facility] Co de Phone Number [facility] [address] [place] [address] [phone] * (ABNORMAL) Basic Metabolic Panel (01/03/2025 2:37 PM EDT) Sodium 142 135 - 145 mmol/L [facility] Potassium 4.1 3.3 - 5.1 mmol/L [facility] Chloride 105 96 - 108 mmol/L [facility] Carbon Dioxide 30(H) 22 - 29 mmol/L [facility] Anion Gap 11(L) 12 - 20 [facility] Urea Nitrogen (BUN) 10 9 - 16 mg/dL [facility] Creatinine, Serum 1.20 0.5 - 1.4 mg/dL [facility] Estimated Glomerular Filt Rate >60 [facility] Comment:Chronic Kidney Disea se: Estimated GFR < 60 mL/min/1.50k1Hxqaqs Kidney Disease: Estimated GFR < 15 mL/min/1.73m2 Glucose 87 60 - 115 mg/dL [facility] Calcium 9.7 8.4 - 10.2 mg/dL [facility] Blood Venous blood specimen / Unknown 01/03/2025 2:37 PM EDT 01/03/2025 4:28 PM EDT [facility] LAB BLOOD ORDERABLES Final Re sult Performing Organization Address [facility] Co de Phone Number [facility] [address] [place] [address] [phone] documented in this encounter Visit Diagnoses Diagnosis Frequent urination- Primary Urinary frequency documented in this encounter Additional Health Concerns Assessment Noted Time PHQ-9 Depression Total Score: 0 08/04/19 25 2:21 PM EDT documented as of this encounter Care Teams Recharger Relationship Specialty Start Date End Date Una Sawyer FNP [address] [place] [address] PCP - General Family Medicine 08/21/21 documented as of this encounter
== END 2025-01-03 14:34 | disposition home or self-care (01) ==
LOC: HO.HHCL 14:33
PROVIDERS: PCP Registered Nurse; Visit Provider Registered Nurse
DX: I10 Essential (primary) hypertension (principal); R35.0 Frequency of micturition
CPT/HCPCS: 36415; 80048; 80061; 82570; 83036